=== PATIENT | female | born 1950 | race Caucasian/White ===

== ENCOUNTER → 2016-12-03 | Outpatient (CLI) | payer MEDICARE ==
--- NOTE | 2016-12-03 12:31 | BD ---
EXAMINATION TYPE: MG DEXA axial skeleton. DATE OF EXAM: 12/03/2016 11:24 AM COMPARISON: NONE CLINICAL HISTORY: Height: 5 FT 2 IN Weight: 263 FRAX RISK QUESTIONS: Alcohol (3 or more units per day): YES Family History (Parent hip fracture): NO Glucocorticoids (More than 3mos): NO (Ex: prednisone, prednisolone, methylprednisolone, dexamethasone, and hydrocortisone). History of Fracture in Adulthood: YES Secondary Osteoporosis: 1. Type 1 Diabetes: NO 2. Hyperthyroidism: NO 3. Menopause before 45: NO 4. Malnutrition: NO 5. Chronic liver disease: NO Rheumatoid Arthritis: NO Current Tobacco Use: NO RISK FACTORS HISTORY OF: Other Fractures since Age 50: YES When: 2012 Family History of Osteoporosis: YES Active: YES Postmenopausal woman: AGE 55 MEDICATIONS: Additional Medications: VASOTEC,OMEPRAZOLE, PREVACHOL,SINGUALIR, BABY ASPIRIN Additional History: EXAM MEASUREMENTS: Bone mineral densitometry was performed using the [employer] System. Bone mineral density as measured about the Lumbar spine is: ----- L1-L4(G/cm2): 1.060 T Score Values are as follows: ----- L2: -0.6 ----- L3: -1.2 ----- L4: -2.1 ----- L1-L4: -1.0 BASELINE Bone mineral density about the R hip (g/cm2): 0.657 Bone mineral density about the L hip (g/cm2): 0.618 T Score values are as follows: -----R Neck: -2.7 -----L Neck: -3.0 -----R Intertrochanter: -2.5 -----L Intertrochanter: -2.5 BASELINE IMPRESSION: Osteoporosis (T Score less than -2.5) as noted by T Score values at the There is increased fracture risk and therapy is usually indicated based on age. Re-Screen 1-2 years. LULA HIPS NOTE: T-SCORE=SD OF THE YOUNG ADULT MEAN.
--- NOTE | 2016-12-04 10:02 | MM ---
Reason for exam: screening (asymptomatic). Last mammogram was performed 3 years and 10 months ago. History: Patient is postmenopausal and is nulliparous. MG 3D Screening Mammo W/Cad Bilateral CC and MLO view(s) were taken. Prior study comparison: January 22, 2013, CAD bilateral diagnostic mammogram. June 15, 2011, bilateral digital screening mammo w/CAD. The breast tissue is almost entirely fat. There is chronic nodularity bilaterally. No significant changes when compared with prior studies. ASSESSMENT: Benign, BI-RAD 2 RECOMMENDATION: Routine screening mammogram of both breasts in 1 year.
== END | disposition home or self-care (01) ==
LOC: RADMAMWWP 10:23
PROVIDERS: ATTEND Family Medicine
DX: Z12.31 Encounter for screening mammogram for malignant neoplasm of breast (principal); Z13.820 Encounter for screening for osteoporosis; M81.0 Age-related osteoporosis without current pathological fracture
CPT/HCPCS: 77080; 77052; 77063; G0202

== ENCOUNTER → 2017-02-04 | Outpatient (CLI) | payer MEDICARE ==
[~2017-02-04] MED LIST: SODIUM CHLORIDE 0.9% 250 ML in EMPTY BAG 1 BAG IV PRN; SODIUM CHLORIDE 0.9% 500 ML in EMPTY BAG 1 BAG IV PRN; ZOLEDRONIC ACID 5 MG in SODIUM CHLORIDE 0.9% 100 ML IV ONE
[2017-02-04 11:29] VITALS: BP 145/75; PULSE 56; RESP 16; TEMP 98
== END | disposition home or self-care (01) ==
LOC: PROCWHC3 10:19
PROVIDERS: ATTEND Family Medicine
DX: M81.0 Age-related osteoporosis without current pathological fracture (principal)
CPT/HCPCS: 96365; J3489

== ENCOUNTER 2017-04-24 11:46 | Observation (INO) | payer MEDICARE ==
[2017-04-24] MEDS ORDERED: IPRATROPIUM-ALBUTEROL 3 ML NEB INHALATION STA (13:10)
--- NOTE | 2017-04-24 13:11 | ED ---
General Adult HPI - General Chief complaint: Shortness of Breath Stated complaint: kaylah, pain in leg, poss bloodclot Time Seen by Provider: 04/24/17 12:00 Source: patient, RN notes reviewed Mode of arrival: ambulatory Limitations: no limitations - History of Present Illness Initial comments: This is a 67-year-old female with a past medical history significant for pneumonia recently. Patient states she's on her 10th day of antibiotics currently. Patient has a past medical history significant for asthma diabetes hypertension high cholesterol. Patient states last night she started having some difficulty breathing she woke up today and the difficulty breathing continued. Patient denies any fever chills or cough in the last few days. Patient states she felt. Good yesterday all day long. Patient denies any chest pain or palpitation. Patient denies any fever or chills that she knows of. Patient denies any abdominal pain patient denies nausea vomiting diarrhea. Patient denies any lightheadedness dizziness or syncopal episode. Patient states she took a breathing treatment at home but did not seem to help much. Patient states she does wear CPAP at night. - Related Data Home Medications Medication Instructions Recorded Confirmed Aspirin [Adult Low Dose Aspirin EC] 81 mg PO HS 02/04/17 04/24/17 Biotin 5,000 mcg PO DAILY 02/04/17 04/24/17 Cholecalciferol [Vitamin D3] 400 unit PO DAILY 02/04/17 04/24/17 Enalapril [Vasotec] 10 mg PO DAILY 02/04/17 04/24/17 Montelukast [Singulair] 10 mg PO HS 02/04/17 04/24/17 [place]-3 Fatty Acids/Fish Oil [Fish 1 cap PO DAILY 02/04/17 04/24/17 Oil 1,000 mg Softgel] Pravastatin Sodium [Pravachol] 20 mg PO HS 02/04/17 04/24/17 Ubidecarenone [Co Q-10] 30 mg PO DAILY 02/04/17 04/24/17 Calcium Carbonate/Vitamin D3 1 tab PO DAILY 04/24/17 04/24/17 [Calcium 500-Vit D3 200 Tablet] Cetirizine HCl [Zyrtec] 10 mg PO HS PRN 04/24/17 04/24/17 Omeprazole 20 mg PO DAILY 04/24/17 04/24/17 Allergies Allergy/AdvReac Type Severity Reaction Status Date / Time adhesive tape Allergy Rash/Hives Verified 04/24/17 12:17 clindamycin Allergy Rash/Hives Verified 04/24/17 12:17 Penicillins Allergy Swelling Verified 04/24/17 12:17 amlodipine [From [facility]] AdvReac DENTAL Verified 04/24/17 12:17 ISSUES Review of Systems ROS Statement: Those systems with pertinent positive or pertinent negative responses have been documented in the HPI. ROS Other: All systems not noted in ROS Statement are negative. Past Medical History Past Medical History: COPD, Diabetes Mellitus, Deep Vein Thrombosis (DVT), Hyperlipidemia, Hypertension History of Any Multi-Drug Resistant Organisms: None Reported Additional Past Surgical History / Comment(s): vein surgery left leg Past Psychological History: No Psychological Hx Reported Smoking Status: Former smoker Past Alcohol Use History: Occasional Past Drug Use History: None Reported General Exam - General Exam Comments Initial Comments: GENERAL: Patient is well-developed and well-nourished. Patient is nontoxic and well- hydrated and is in no acute distress. ENT: Neck is soft and supple. No significant lymphadenopathy is noted. Oropharynx is clear. Moist mucous membranes. Neck has full range of motion without eliciting any pain. EYES: The sclera were anicteric and conjunctiva were pink and moist. Extraocular movements were intact and pupils were equal round and reactive to light. Eyelids were unremarkable. PULMONARY: Unlabored respirations. Good breath sounds bilaterally. Patient hasexpiratory wheezing. CARDIOVASCULAR: There is a regular rate and rhythm without any murmurs gallops or rubs. ABDOMEN: Soft and nontender with normal bowel sounds. No palpable organomegaly was noted. There is no palpable pulsatile mass. SKIN: Skin is clear with no lesions or rashes and otherwise unremarkable. NEUROLOGIC: Patient is alert and oriented x3. Cranial nerves II through XII are grossly intact. Motor and sensory are also intact. Normal speech, volume and content. Symmetrical smile. MUSCULOSKELETAL: Normal extremities with adequate strength and full range of motion. No lower extremity swelling or edema. No calf tenderness. LYMPHATICS: No significant lymphadenopathy is noted PSYCHIATRIC: Normal psychiatric evaluation. Limitations: no limitations Course Vital Signs 04/24/17 04/24/17 04/24/17 11:59 13:21 13:28 Temperature 98.5 F Pulse Rate 91 98 100 Respiratory 24 Rate Blood Pressure 164/99 O2 Sat by Pulse 99 Oximetry 04/24/17 04/24/17 13:43 15:05 Temperature 97.9 F Pulse Rate 92 79 Respiratory 18 16 Rate Blood Pressure 169/71 159/70 O2 Sat by Pulse 94 L 99 Oximetry Medical Decision Making - Medical Decision Making EKG shows normal sinus rhythm at 91 bpm MN interval is 190 QRS is 88 QT interval 340 QTC is 418. Patient's EKG shows no ST segment elevation or depression or T-wave abdomen is noted. Chest x-ray shows no acute normalities. Patient received albuterol as well as steroids in the emergency department she was feeling much better however her troponin was elevated so without them admit the patient for 23 hour observation and repeat troponins. - Lab Data Result diagrams: 04/24/17 12:14 04/24/17 12:14 Lab Results 04/24/17 04/24/17 04/24/17 Range/Units 12:14 12:14 12:14 WBC 11.1 H (3.8-10.6) k/uL RBC 5.05 (3.80-5.40) m/uL Hgb 14.6 (11.4-16.0) gm/dL Hct 46.1 H (34.0-46.0) % MCV 91.3 (80.0-100.0) fL MCH 29.0 (25.0-35.0) pg MCHC 31.7 (31.0-37.0) g/dL RDW 13.4 (11.5-15.5) % Plt Count 222 (150-450) k/uL Neutrophils % 74 % Lymphocytes % 18 % Monocytes % 5 % Eosinophils % 2 % Basophils % 1 % Neutrophils # 8.1 H (1.3-7.7) k/uL Lymphocytes # 2.0 (1.0-4.8) k/uL Monocytes # 0.5 (0-1.0) k/uL Eosinophils # 0.3 (0-0.7) k/uL Basophils # 0.1 (0-0.2) k/uL PT (9.0-12.0) sec INR (<1.1) APTT (22.0-30.0) sec Sodium 141 (137-145) mmol/L Potassium 4.6 (3.5-5.1) mmol/L Chloride 107 (98-107) mmol/L Carbon Dioxide 27 (22-30) mmol/L Anion Gap 7 mmol/L BUN 22 H (7-17) mg/dL Creatinine 1.20 H (0.52-1.04) mg/dL Est GFR (MDRD) Af Amer 54 (>60 ml/min/1.73 sqM) Est GFR (MDRD) Non-Af 45 (>60 ml/min/1.73 sqM) Glucose 133 H (74-99) mg/dL Calcium 9.4 (8.4-10.2) mg/dL Magnesium 1.7 (1.6-2.3) mg/dL Total Bilirubin 0.7 (0.2-1.3) mg/dL AST 25 (14-36) U/L ALT 29 (9-52) U/L Alkaline Phosphatase 68 (38-126) U/L Total Creatine Kinase 33 (30-135) U/L CK-MB (CK-2) 0.6 (0.0-2.4) ng/mL CK-MB (CK-2) Rel Index 1.8 Troponin I 0.051 H* (0.000-0.034) ng/mL NT-Pro-B Natriuret Pep pg/mL Total Protein 6.9 (6.3-8.2) g/dL Albumin 4.1 (3.5-5.0) g/dL 04/24/17 04/24/17 Range/Units 12:14 12:14 WBC (3.8-10.6) k/uL RBC (3.80-5.40) m/uL Hgb (11.4-16.0) gm/dL Hct (34.0-46.0) % MCV (80.0-100.0) fL MCH (25.0-35.0) pg MCHC (31.0-37.0) g/dL RDW (11.5-15.5) % Plt Count (150-450) k/uL Neutrophils % % Lymphocytes % % Monocytes % % Eosinophils % % Basophils % % Neutrophils # (1.3-7.7) k/uL Lymphocytes # (1.0-4.8) k/uL Monocytes # (0-1.0) k/uL Eosinophils # (0-0.7) k/uL Basophils # (0-0.2) k/uL PT 10.6 (9.0-12.0) sec INR 1.1 (<1.1) APTT 22.3 (22.0-30.0) sec Sodium (137-145) mmol/L Potassium (3.5-5.1) mmol/L Chloride (98-107) mmol/L Carbon Dioxide (22-30) mmol/L Anion Gap mmol/L BUN (7-17) mg/dL Creatinine (0.52-1.04) mg/dL Est GFR (MDRD) Af Amer (>60 ml/min/1.73 sqM) Est GFR (MDRD) Non-Af (>60 ml/min/1.73 sqM) Glucose (74-99) mg/dL Calcium (8.4-10.2) mg/dL Magnesium (1.6-2.3) mg/dL Total Bilirubin (0.2-1.3) mg/dL AST (14-36) U/L ALT (9-52) U/L Alkaline Phosphatase (38-126) U/L Total Creatine Kinase (30-135) U/L CK-MB (CK-2) (0.0-2.4) ng/mL CK-MB (CK-2) Rel Index Troponin I (0.000-0.034) ng/mL NT-Pro-B Natriuret Pep 93 pg/mL Total Protein (6.3-8.2) g/dL Albumin (3.5-5.0) g/dL Disposition Clinical Impression: Asthma exacerbation, Elevated troponin Disposition: ADMITTED IP TO THIS HOSP Referrals: Arabella Bashir MD [Primary Care Provider] - 1-2 days Time of Disposition: 16:14
[2017-04-24 13:36] LABS: Basophils # (A) 0.1 k/uL (0-0.2); Basophils % (A) 1 %; CH 29.1; Eosinophils # (A) 0.3 k/uL (0-0.7); Eosinophils % (A) 2 %; HCT 46.1 % (34.0-46.0); HDW 2.47; HGB 14.6 gm/dL (11.4-16.0); Luc # (Auto) 0.09; Luc % (Auto) 1; Lymphocytes % (A) 18 %; MCHC 31.7 g/dL (31.0-37.0); MCV 91.3 fL (80.0-100.0); Mean Platelet Volume 7.5; Monocytes # (A) 0.5 k/uL (0-1.0); Monocytes % (A) 5 %; Neutrophils # (A) 8.1 k/uL (1.3-7.7); Neutrophils % (A) 74 %; RBC 5.05 m/uL (3.80-5.40); RDW 13.4 % (11.5-15.5); WBC 11.1 k/uL (3.8-10.6); WBC (Perox) 10.12
[2017-04-24 13:49] LABS: INR 1.1 (<1.1); Partial Thromboplastin Time 22.3 sec (22.0-30.0); Prothrombin Time 10.6 sec (9.0-12.0)
--- NOTE | 2017-04-24 13:57 | XR ---
EXAMINATION TYPE: XR chest 2V DATE OF EXAM: 04/24/2017 COMPARISON: 07/10/2013 INDICATION: Difficulty breathing shortness of breath TECHNIQUE: Frontal and lateral views of the chest are obtained. FINDINGS: The heart size is normal. The pulmonary vasculature is normal. The lungs are clear. IMPRESSION: 1. No acute pulmonary process.
[2017-04-24 13:58] LABS: Calcium 9.4 mg/dL (8.4-10.2); Magnesium 1.7 mg/dL (1.6-2.3); Potassium 4.6 mmol/L (3.5-5.1); Total Bilirubin 0.7 mg/dL (0.2-1.3); Total Protein 6.9 g/dL (6.3-8.2)
[2017-04-24 14:15] LABS: Creatine Kinase MB 0.6 ng/mL (0.0-2.4)
[2017-04-24 14:17] LABS: Troponin I 0.051 ng/mL (0.000-0.034)
[2017-04-24] MEDS ORDERED: IPRATROPIUM-ALBUTEROL 3 ML NEB INHALATION PRN (16:16)
[2017-04-24] MEDS ORDERED: methylPREDNISolone SOD SUCCI 125 MG/2 ML VIAL IV STA (16:16)
[2017-04-24 16:43] VITALS: RESP 18
[2017-04-24 20:23] VITALS: BMI 48.4
[2017-04-24] MEDS ORDERED: LORATADINE 10 MG TAB PO PRN (20:37)
[2017-04-24] MEDS: PRAVASTATIN SODIUM 20 MG TAB PO SCH (22:00)
[2017-04-24] MEDS: ASPIRIN 81 MG CHEW PO SCH (22:00)
[2017-04-24] MEDS: MONTELUKAST 10 MG TAB PO SCH (22:00)
[2017-04-24 22:01] LABS: Glucose,Whole Blood 208 mg/dL (75-99)
[2017-04-24] MEDS: INSULIN LISPRO (humaLOG) 300 UNIT/3 ML VIAL SQ SCH (22:04)
[2017-04-24] MEDS: methylPREDNISolone SOD SUCCI 125 MG/2 ML VIAL IV SCH (23:17)
[2017-04-24 23:49] LABS: Hemoglobin A1C 6.6 % (4.2-6.1)
[2017-04-25 06:12] LABS: Glucose,Whole Blood 220 mg/dL (75-99)
[2017-04-25] MEDS: INSULIN LISPRO (humaLOG) 300 UNIT/3 ML VIAL SQ SCH ×4 (06:56→21:51)
[2017-04-25] MEDS: methylPREDNISolone SOD SUCCI 125 MG/2 ML VIAL IV SCH (06:56)
[2017-04-25] MEDS: PANTOPRAZOLE 40 MG TABLET PO SCH (06:57)
[2017-04-25] MEDS: CHOLECALCIFEROL 400 UNIT TAB PO SCH (08:10)
[2017-04-25] MEDS: LISINOPRIL 20 MG TAB PO SCH (08:10)
[2017-04-25] MEDS: CALCIUM CARB-VIT D 500MG-200UN 1 EACH TAB PO SCH (08:11)
[2017-04-25] MEDS ORDERED: NON-FORMULARY DRUG (Omega-3 Fatty Acids/Fish Oil [Fish Oil 1,000 Mg Softgel] 1 CAP) PO SCH (09:00)
[2017-04-25] MEDS ORDERED: NON-FORMULARY DRUG (Ubidecarenone [Co Q-10] 30 MG) PO SCH (09:00)
[2017-04-25] MEDS ORDERED: NON-FORMULARY DRUG (Biotin [Biotin] 5,000 MCG) PO SCH (09:00)
--- NOTE | 2017-04-25 11:12 | CONS ---
DATE OF CONSULTATION: Elli is a 67-year-old lady who had recently been diagnosed with pneumonia and had been treated comes in because she was feeling more short of breath and felt as if something was stuck in her chest. Symptoms were mild to moderate intensity, came to the ER, received a nebulizer. Following which her symptoms have resolved. She is currently being treated with steroids and her symptoms have completely resolved at the time of my evaluation. EKG shows sinus tachycardia with poor R wave progression. Labs show that her troponin is in the lainez zone at 0.05, 0.06 and 0.03 with normal CPK and CK-MB. Her hemoglobin is normal at 14.6, but the white cell count is elevated at 11. Past medical history is significant for COPD and dyslipidemia and hypertension also. Medications at home include Pravachol, Zyrtec, Singulair, aspirin and Vasotec. Allergic to CLINDAMYCIN, PENICILLIN, AMLODIPINE and ADHESIVE TAPE. Family history is negative for premature coronary artery disease. SOCIAL HISTORY: Negative for current smoking, EtOH abuse or drug abuse. REVIEW OF SYSTEMS: HEENT: Unremarkable. CARDIAC: As described above. RESPIRATORY: As described above. GI: Negative. GENITOURINARY: Negative. ALLERGY/IMMUNOLOGY: Negative. SKIN: Negative. MUSCULOSKELETAL: Negative. ENDOCRINE: Negative. DERMATOLOGY: Negative. CONSTITUTIONAL: Negative. ONCOLOGICAL: Negative. The rest of the system review is not relevant. On exam, heart rate is 68 beats per minute, blood pressure 151/75, respirations 18. There is no jugular venous distention. Carotid upstroke is normal. There is no bruit. Chest exam reveals good air entry bilaterally. Heart exam reveals first and second heart sounds. No gallop. No murmur. Abdomen is soft. Exam of extremities reveals trace edema. Peripheral pulses are felt. Labs are as described above. EKG is normal. ASSESSMENT: 1. Shortness of breath, probably secondary to bronchospasm in a patient with recent episodes of pneumonia. 2. Mild troponin elevation of unclear clinical significance. Could be related to the underlying respiratory problem ; however, I am going to review the echocardiogram to assess the LV function and wall motion and once her respiratory status becomes stable, I will consider doing a stress test on her.
--- NOTE | 2017-04-25 11:33 | P.HPIM ---
History of Present Illness H&P Date: 04/25/17 Chief Complaint: Shortness of breath and chest heaviness This is a 67-year-old female with past medical history noted below significant for obstructive sleep apnea and underlying asthma who presented to the hospital with worsening shortness of breath. Patient was seen by her primary care physician approximately 10 days ago and was prescribed antibiotic for suspected pneumonia. Patient said that her symptoms initially got better but she was using her albuterol nebulizer more frequently at home. Yesterday, she noted more shortness of breath and what she describes as chest heaviness or like a child sitting on her chest. She denies kaela or sharp chest pain. There was no radiation. She decided to come to the emergency room for further evaluation. Emergency room twelve-lead EKG showed no acute ischemic changes. Initial troponin were borderline elevated elevated. Patient was placed on telemetry unit and cardiology consulted. She denies any chest pain at this time. She states that she feels a lot better compared to yesterday. Review of Systems Review of system: 14 points review of systems were obtained and were negative except to what were mentioned in the HPI. Past Medical History Past Medical History: COPD, Diabetes Mellitus, Deep Vein Thrombosis (DVT), Hyperlipidemia, Hypertension Additional Past Medical History / Comment(s): DVT in both legs; superficial clots; DM diet controlled History of Any Multi-Drug Resistant Organisms: None Reported Additional Past Surgical History / Comment(s): vein surgery left leg Past Anesthesia/Blood Transfusion Reactions: No Reported Reaction Past Psychological History: No Psychological Hx Reported Smoking Status: Current some day smoker Past Alcohol Use History: Occasional Past Drug Use History: None Reported Additional Drug Use History / Comment(s): Pt states she smokes when she drinks on occasion Medications and Allergies Home Medications Medication Instructions Recorded Confirmed Type Aspirin [Adult Low Dose Aspirin EC] 81 mg PO HS 02/04/17 04/24/17 History Biotin 5,000 mcg PO DAILY 02/04/17 04/24/17 History Cholecalciferol [Vitamin D3] 400 unit PO DAILY 02/04/17 04/24/17 History Enalapril [Vasotec] 10 mg PO DAILY 02/04/17 04/24/17 History Montelukast [Singulair] 10 mg PO HS 02/04/17 04/24/17 History [place]-3 Fatty Acids/Fish Oil [Fish 1 cap PO DAILY 02/04/17 04/24/17 History Oil 1,000 mg Softgel] Pravastatin Sodium [Pravachol] 20 mg PO HS 02/04/17 04/24/17 History Ubidecarenone [Co Q-10] 30 mg PO DAILY 02/04/17 04/24/17 History Calcium Carbonate/Vitamin D3 1 tab PO DAILY 04/24/17 04/24/17 History [Calcium 500-Vit D3 200 Tablet] Cetirizine HCl [Zyrtec] 10 mg PO HS PRN 04/24/17 04/24/17 History Omeprazole 20 mg PO DAILY 04/24/17 04/24/17 History Allergies Allergy/AdvReac Type Severity Reaction Status Date / Time adhesive tape Allergy Rash/Hives Verified 04/24/17 12:17 clindamycin Allergy Rash/Hives Verified 04/24/17 12:17 Penicillins Allergy Swelling Verified 04/24/17 12:17 amlodipine [From [facility]] AdvReac DENTAL Verified 04/24/17 12:17 ISSUES Physical Exam Vitals: Vital Signs Temp Pulse Pulse Pulse Resp BP BP 04/25/17 08:00 96.6 F L 68 18 151/75 04/25/17 04:00 97 F L 65 18 145/65 04/25/17 00:00 97 F L 60 18 142/68 04/24/17 20:00 97 F L 77 18 159/75 04/24/17 19:15 97.3 F L 87 18 139/82 04/24/17 16:40 97.6 F 91 18 129/71 04/24/17 15:05 97.9 F 79 16 159/70 04/24/17 13:43 92 18 169/71 04/24/17 13:28 100 04/24/17 13:21 98 04/24/17 11:59 98.5 F 91 24 164/99 Pulse Ox 04/25/17 08:00 95 04/25/17 04:00 98 04/25/17 00:00 96 04/24/17 20:00 96 04/24/17 19:15 93 L 04/24/17 16:40 98 04/24/17 15:05 99 04/24/17 13:43 94 L 04/24/17 13:28 04/24/17 13:21 04/24/17 11:59 99 Intake and Output 04/24/17 04/25/17 04/25/17 22:59 06:59 14:59 Intake Total 240 Balance 240 Intake: Oral 240 Other: Voiding Method Toilet Toilet # Voids 2 1 2 Weight 120.202 kg 121.6 kg General: The patient is awake and alert, in no distress, she is morbidly obese Eye: extra-ocular movements are intact; there is normal conjunctiva bilaterally. . Neck: The neck is supple, there is no tenderness or JVD. Cardiovascular: Normal S1-S2, no S3-S4, no murmurs. Respiratory: Lungs are diminished with very mild end expiratory wheezing Gastrointestinal: Abdomen is soft, nontender, nondistended, with no organomegaly. . Musculoskeletal: Normal ROM, no tenderness, There is no pedal edema. Neurological: There are no obvious motor or sensory deficits. Speech is normal. Skin: Skin is warm and dry and no rashes or lesions are noted. Results CBC & Chem 7: 04/24/17 12:14 04/24/17 12:14 Labs: Abnormal Lab Results - Last 24 Hours (Table) 04/24/17 04/24/17 04/24/17 Range/Units 12:14 12:14 12:14 WBC 11.1 H (3.8-10.6) k/uL Hct 46.1 H (34.0-46.0) % Neutrophils # 8.1 H (1.3-7.7) k/uL BUN 22 H (7-17) mg/dL Creatinine 1.20 H (0.52-1.04) mg/dL Glucose 133 H (74-99) mg/dL POC Glucose (mg/dL) (75-99) mg/dL Hemoglobin A1c (4.2-6.1) % Troponin I 0.051 H* (0.000-0.034) ng/mL 04/24/17 04/24/17 04/24/17 Range/Units 20:10 20:10 21:58 WBC (3.8-10.6) k/uL Hct (34.0-46.0) % Neutrophils # (1.3-7.7) k/uL BUN (7-17) mg/dL Creatinine (0.52-1.04) mg/dL Glucose (74-99) mg/dL POC Glucose (mg/dL) 208 H (75-99) mg/dL Hemoglobin A1c 6.6 H (4.2-6.1) % Troponin I 0.067 H* (0.000-0.034) ng/mL 04/25/17 04/25/17 Range/Units 00:30 06:10 WBC (3.8-10.6) k/uL Hct (34.0-46.0) % Neutrophils # (1.3-7.7) k/uL BUN (7-17) mg/dL Creatinine (0.52-1.04) mg/dL Glucose (74-99) mg/dL POC Glucose (mg/dL) 220 H (75-99) mg/dL Hemoglobin A1c (4.2-6.1) % Troponin I 0.035 H* (0.000-0.034) ng/mL Thrombosis Risk Factor Assmnt - Choose All That Apply Each Factor Represents 1 point: Obesity (BMI >25), Serious lung disease incl. pneumonia (< 1month), Varicose veins Each Risk Factor Represents 2 Points: Age 61-74 years Each Risk Factor Represents 3 Points: History of DVT/PE Thrombosis Risk Factor Assessment Total Risk Factor Score: 8 Thrombosis Risk Factor Assessment Level: High Risk Assessment and Plan Plan: 1. Acute asthma exacerbation: Patient was started on IV steroids and bronchodilators. Her lungs sounds better compared to yesterday. I would switch her steroids to oral prednisone. Continue bronchodilators. 2. Elevated troponin: Most likely non-thrombotic troponin leak. Patient was seen and evaluated by cardiology. Echocardiogram ordered. No acute ischemic changes on 12-lead EKG. 3. Chronic ALLERGIC rhinitis: On Claritin 4. Essential hypertension: Blood pressure well-controlled 5. Next hyperlipidemia Today, I reviewed her medications as her lab work results. Add Mucinex twice daily to help with her cough. Continue bronchodilator. Switch steroids to oral prednisone. appreciate cardiology recommendations. Patient continues to improve she might be able to be discharged home tomorrow.
[2017-04-25 11:46] LABS: Glucose,Whole Blood 185 mg/dL (75-99)
[2017-04-25] MEDS: guaiFENesin 600 MG TABLET.ER PO SCH ×2 (12:08→21:51)
--- NOTE | 2017-04-25 12:53 | ECHOF ---
Referral Reason:chest pain MEASUREMENTS -------- HEIGHT: 157.5 cm WEIGHT: 121.6 kg BP: 151/75 RVIDd: 2.6 cm (< 3.3) IVSd: 1.3 cm (0.6 - 1.1) LVIDd: 3.9 cm (3.9 - 5.3) LVPWd: 1.4 cm (0.6 - 1.1) IVSs: 1.5 cm LVIDs: 3.0 cm LVPWs: 1.6 cm LAESV Index (A-L): 28.42 ml/m Ao Diam: 3.4 cm (2.0 - 3.7) AV Cusp: 1.8 cm (1.5 - 2.6) LA Diam: 3.8 cm (2.7 - 3.8) MV E Shade: 0.80 m/s MV DecT: 281 ms MV A Shade: 1.12 m/s MV E/A Ratio: 0.72 RAP: 5.00 mmHg RVSP: 39.29 mmHg FINDINGS -------- Sinus rhythm. This was a technically adequate study. There is mild concentric left ventricular hypertrophy. Overall left ventricular systolic function is low-normal with, an EF between 50 - 55 %. The right ventricle is normal in size and function. LA is midly dilated 29-33ml/m2. The right atrium is normal in size. There is mild aortic valve sclerosis. There is no evidence of aortic stenosis. The mitral valve leaflets are mildly thickened. There is trace to mild mitral regurgitation. Trace tricuspid regurgitation present. There is mild pulmonary hypertension. The right ventricular systolic pressure, as measured by Doppler, is 39.29mmHg. The pulmonic valve is normal. The aortic root size is normal. IVC Not well visulized. The pericardium is normal. There is no pericardial effusion. CONCLUSIONS -------- 1. Sinus rhythm. 2. The right ventricular systolic pressure, as measured by Doppler, is 39.29mmHg. 3. The aortic root size is normal. 4. IVC Not well visulized. 5. There is no pericardial effusion. 6. There is mild concentric left ventricular hypertrophy. 7. Overall left ventricular systolic function is low-normal with, an EF between 50 - 55 %. 8. LA is midly dilated 29-33ml/m2. 9. There is mild aortic valve sclerosis. 10. The mitral valve leaflets are mildly thickened. 11. There is trace to mild mitral regurgitation. 12. Trace tricuspid regurgitation present. 13. There is mild pulmonary hypertension. PHOTOGRAPHIC SUPERVISOR: Chiki Goetz RDCS
[2017-04-25 16:27] LABS: Glucose,Whole Blood 159 mg/dL (75-99)
[2017-04-25 21:26] LABS: Glucose,Whole Blood 266 mg/dL (75-99)
[2017-04-25] MEDS: ASPIRIN 81 MG CHEW PO SCH (21:51)
[2017-04-25] MEDS: PRAVASTATIN SODIUM 20 MG TAB PO SCH (21:51)
[2017-04-25] MEDS: HEPARIN SODIUM,PORCINE 5,000 UNIT/ML 1 ML VIAL SQ SCH (21:51)
[2017-04-25] MEDS: MONTELUKAST 10 MG TAB PO SCH (21:51)
[2017-04-26 06:26] LABS: Glucose,Whole Blood 137 mg/dL (75-99)
[2017-04-26 06:39] LABS: Basophils % (A) 0 %; CHCM 32.6; Eosinophils % (A) 0 %; HCT 41.1 % (34.0-46.0); HDW 2.59; HGB 13.8 gm/dL (11.4-16.0); Luc % (Auto) 1; Lymphocytes # (A) 1.5 k/uL (1.0-4.8); Lymphocytes % (A) 9 %; MCH 29.9 pg (25.0-35.0); MCHC 33.5 g/dL (31.0-37.0); MCV 89.3 fL (80.0-100.0); Mean Platelet Volume 7.4; Monocytes # (A) 0.8 k/uL (0-1.0); Monocytes % (A) 5 %; Neutrophils # (A) 13.9 k/uL (1.3-7.7); Neutrophils % (A) 85 %; RDW 12.9 % (11.5-15.5); WBC 16.4 k/uL (3.8-10.6); WBC (Perox) 16.99
[2017-04-26 06:52] LABS: Calcium 9.2 mg/dL (8.4-10.2); Potassium 4.9 mmol/L (3.5-5.1)
[2017-04-26] MEDS: PANTOPRAZOLE 40 MG TABLET PO SCH (06:52)
[2017-04-26] MEDS: INSULIN LISPRO (humaLOG) 300 UNIT/3 ML VIAL SQ SCH ×2 (06:52→12:13)
[2017-04-26] MEDS ORDERED: predniSONE 20 MG TAB PO SCH (09:00)
[2017-04-26] MEDS: HEPARIN SODIUM,PORCINE 5,000 UNIT/ML 1 ML VIAL SQ SCH (09:19)
[2017-04-26] MEDS: CHOLECALCIFEROL 400 UNIT TAB PO SCH (09:20)
[2017-04-26] MEDS: guaiFENesin 600 MG TABLET.ER PO SCH (09:20)
[2017-04-26] MEDS: LISINOPRIL 20 MG TAB PO SCH (09:20)
[2017-04-26] MEDS: CALCIUM CARB-VIT D 500MG-200UN 1 EACH TAB PO SCH (09:20)
--- NOTE | 2017-04-26 10:42 | P.DS ---
Providers Date of admission: 04/24/17 16:15 Expected date of discharge: 04/26/17 Attending physician: Sonya Wray Consults: 04/25/17 01:38 Consult Physician Routine Consulting Provider: Luis Saxena Consult Reason/Comments: elevated trops Do you want consulting provider notified?: Yes, Notify in am Primary care physician: Arabella Bashir Hospital Course: Discharge diagnosis 1. Acute asthma exacerbation: 2. Elevated troponin: Most likely non-thrombotic troponin leak. Patient was seen and evaluated by cardiology. No acute ischemic changes on 12-lead EKG. echo shows an EF of 50-55%, mild pulmonary hypertension, trace tricuspid regurg and mitral regurgitation. Patient has been cleared by cardiology for discharge. She'll follow-up with cardiology for outpatient stress test 3. Chronic ALLERGIC rhinitis: On Claritin 4. Essential hypertension: Blood pressure well-controlled 5. hyperlipidemia 6. Leukocytosis secondary to steroids Hospital course this is a 67-year-old female with past medical history noted below significant for obstructive sleep apnea and underlying asthma who presented to the hospital with worsening shortness of breath. Patient was seen by her primary care physician approximately 10 days ago and was prescribed antibiotic for suspected pneumonia. Patient said that her symptoms initially got better but she was using her albuterol nebulizer more frequently at home. Yesterday, she noted more shortness of breath and what she describes as chest heaviness or like a child sitting on her chest. She denies kaela or sharp chest pain. There was no radiation. She decided to come to the emergency room for further evaluation. Emergency room twelve-lead EKG showed no acute ischemic changes. Initial troponin were borderline elevated elevated. Patient was placed on telemetry unit and cardiology consulted. Patient was evaluated by cardiology. They ordered an echo with an EF of 5055%, mild pulmonary hypertension and trace tricuspid regurgitation and mitral regurgitation. Patient's chest pain has resolved. Her shortness of breath has improved. She's been up and ambulating. Likely her symptoms are related to the acute asthma exacerbation. She'll continue prednisone taper at home with the Mucinex and nebulizer treatments as scheduled. Patient follow-up with her primary care doctor in 1 week. And she' ll follow up with cardiology for outpatient stress test. Her exact etiology of the mildly elevated troponins of unclear might be related to the lungs. Therefore cardiology is recommending that her current exacerbation is cleared up before the procedure stress test. Patient is medically stable for discharge and eager for discharge home. Chest x-ray negative as well. Patient Condition at Discharge: Stable Plan - Discharge Summary New Discharge Prescriptions: New guaiFENesin [Mucinex] 1,200 mg PO Q12HR #10 tab predniSONE 10 mg PO DIRECTED #20 tab Continue Pravastatin Sodium [Pravachol] 20 mg PO HS Montelukast [Singulair] 10 mg PO HS Cholecalciferol [Vitamin D3] 400 unit PO DAILY Enalapril [Vasotec] 10 mg PO DAILY Ubidecarenone [Co Q-10] 30 mg PO DAILY [place]-3 Fatty Acids/Fish Oil [Fish Oil 1,000 mg Softgel] 1 cap PO DAILY Biotin 5,000 mcg PO DAILY Aspirin [Adult Low Dose Aspirin EC] 81 mg PO HS Cetirizine HCl [Zyrtec] 10 mg PO HS PRN PRN Reason: Allergy Symptoms Omeprazole 20 mg PO DAILY Calcium Carbonate/Vitamin D3 [Calcium 500-Vit D3 200 Tablet] 1 tab PO DAILY Discharge Medication List Aspirin [Adult Low Dose Aspirin EC] 81 mg PO HS 02/04/17 [History] Biotin 5,000 mcg PO DAILY 02/04/17 [History] Cholecalciferol [Vitamin D3] 400 unit PO DAILY 02/04/17 [History] Enalapril [Vasotec] 10 mg PO DAILY 02/04/17 [History] Montelukast [Singulair] 10 mg PO HS 02/04/17 [History] [place]-3 Fatty Acids/Fish Oil [Fish Oil 1,000 mg Softgel] 1 cap PO DAILY [History] Pravastatin Sodium [Pravachol] 20 mg PO HS 02/04/17 [History] Ubidecarenone [Co Q-10] 30 mg PO DAILY 02/04/17 [History] Calcium Carbonate/Vitamin D3 [Calcium 500-Vit D3 200 Tablet] 1 tab PO DAILY [History] Cetirizine HCl [Zyrtec] 10 mg PO HS PRN 04/24/17 [History] Omeprazole 20 mg PO DAILY 04/24/17 [History] guaiFENesin [Mucinex] 1,200 mg PO Q12HR #10 tab 04/26/17 [Rx] predniSONE 10 mg PO DIRECTED #20 tab 04/26/17 [Rx] Follow up Appointment(s)/Referral(s): Arabella Bashir MD [Primary Care Provider] - 1 Week Juan Bahena MD [STAFF PHYSICIAN] - 2 Weeks Activity/Diet/Wound Care/Special Instructions: Diet: cardiac Activity: as tolerated Discharge Disposition: HOME SELF-CARE
[2017-04-26 12:03] LABS: Glucose,Whole Blood 112 mg/dL (75-99)
[2017-04-26 12:43] VITALS: BP 139/65; PULSE 57; TEMP 97
--- NOTE | 2017-04-26 14:00 | P.PN ---
Subjective This is a pleasant 67-year-old female who had recently been diagnosed with pneumonia and has been treated as an outpatient. Past medical history significant for COPD, dyslipidemia and hypertension. Presented to the emergency department feeling more short of breath. She has been treated with steroids and her symptoms are much improved. EKG shows sinus tachycardia with poor R-wave progression. Labs did show elevated troponins. On examination, patient is feeling quite a bit better. Continues to have an occasional cough with wheezing. 2-D echo with Doppler was done that showed an ejection fraction of 50-55%. Objective - Vital Signs Vital signs: Vital Signs Temp 97.0 F L 04/26/17 12:00 Pulse 57 L 04/26/17 12:00 Resp 18 04/26/17 12:00 BP 139/65 04/26/17 12:00 Pulse Ox 97 04/26/17 12:00 Intake & Output 04/25/17 04/26/17 04/26/17 18:59 06:59 18:59 Intake Total 0 100 Balance 0 100 Weight 122.3 kg Intake: IV 0 NS 0 Oral 100 Other: # Voids 2 1 1 - Exam PHYSICAL EXAMINATION: HEENT: Head is atraumatic, normocephalic. Pupils equal, round. Neck is supple. There is no elevated jugular venous pressure. HEART EXAMINATION: Heart sounds regular, S1 and S2 normal. No murmur or gallop heard. CHEST EXAMINATION: Lungs with scattered rhonchi and wheezing throughout. No chest wall tenderness is noted on palpation or with deep breathing. ABDOMEN: Soft, nontender. Bowel sounds are heard. No organomegaly noted. EXTREMITIES: 2+ peripheral pulses with no evidence of peripheral edema and no calf tenderness noted. NEUROLOGIC patient is awake, alert and oriented x3. . - Labs CBC & Chem 7: 04/26/17 06:15 04/26/17 06:15 Labs: Abnormal Lab Results - Last 24 Hours (Table) 04/25/17 04/25/17 04/26/17 Range/Units 16:24 21:01 06:14 WBC (3.8-10.6) k/uL Neutrophils # (1.3-7.7) k/uL BUN (7-17) mg/dL Creatinine (0.52-1.04) mg/dL Glucose (74-99) mg/dL POC Glucose (mg/dL) 159 H 266 H 137 H (75-99) mg/dL 04/26/17 04/26/17 04/26/17 Range/Units 06:15 06:15 12:01 WBC 16.4 H (3.8-10.6) k/uL Neutrophils # 13.9 H (1.3-7.7) k/uL BUN 29 H (7-17) mg/dL Creatinine 1.20 H (0.52-1.04) mg/dL Glucose 145 H (74-99) mg/dL POC Glucose (mg/dL) 112 H (75-99) mg/dL Assessment and Plan Plan: Assessment and plan #1 shortness of breath, recently treated for pneumonia #2 mild troponin elevation of unclear clinical significance #3 hypertension From a cardiac standpoint, continue medical therapy. Patient will follow-up as an outpatient. Once her respiratory status becomes stable will likely order a stress test to be done as an outpatient. The above dictated assessment and findings were discussed with signing physician. The impression and plan of care have been directed as dictated. Linh Ortega, Nurse Practitioner, acting as scribe for signing physician.
== END 2017-04-26 15:18 | disposition home or self-care (01) ==
LOC: EC 11:46 → 6SEL 16:15
PROVIDERS: ADMIT Internal Medicine; ATTEND Internal Medicine
DX: J45.901 Unspecified asthma with (acute) exacerbation (principal); I27.2 Other secondary pulmonary hypertension; I10 Essential (primary) hypertension; E78.5 Hyperlipidemia, unspecified; D72.829 Elevated white blood cell count, unspecified; T38.0X5A Adverse effect of glucocorticoids and synthetic analogues, initial encounter; J44.9 Chronic obstructive pulmonary disease, unspecified; G47.33 Obstructive sleep apnea (adult) (pediatric); M79.606 Pain in leg, unspecified; E11.9 Type 2 diabetes mellitus without complications; F17.200 Nicotine dependence, unspecified, uncomplicated; E66.9 Obesity, unspecified; Z68.42 Body mass index [BMI] 45.0-49.9, adult; Z79.82 Long term (current) use of aspirin; Z79.899 Other long term (current) drug therapy; Z87.01 Personal history of pneumonia (recurrent); Z88.0 Allergy status to penicillin; Z88.1 Allergy status to other antibiotic agents; Z88.8 Allergy status to other drugs, medicaments and biological substances; Z91.048 Other nonmedicinal substance allergy status; Z86.718 Personal history of other venous thrombosis and embolism; Z71.3 Dietary counseling and surveillance; Z86.711 Personal history of pulmonary embolism
CPT/HCPCS: 96376 ×2; 96372 ×2; 96374; 99285; 36415; 94640; 93005; 93306; 83880; 80053; 80048; 83036; 82550; 82553; 83735 ×2; 84484 ×2; 85025 ×2; 85610; 85730; 71020; G0378 ×3; J1644 ×2; J2930 ×2; J7512

== ENCOUNTER 2017-05-01 17:26 | Inpatient (IN) | payer MEDICARE ==
--- NOTE | 2017-05-01 17:25 | CT ---
EXAMINATION TYPE: CT angio chest DATE OF EXAM: 05/01/2017 4:56 PM COMPARISON: NONE HISTORY: Shortness of breath, subscapular pain, history of blood clots to legs CT DLP: 791 mGycm Automated exposure control for dose reduction was used. CONTRAST: CTA scan of the thorax is performed with IV Contrast, patient injected with 80 mL of Visipaque 320, p ulmonary embolism protocol. There are 3-D post processed images.. FINDINGS: There are numerous filling defects in branches of the lower lobe pulmonary arteries bilaterally. Ther e is also filling defect in the bilateral upper lobe pulmonary arteries. Thoracic aorta shows no evid ence of aneurysm or dissection. I see no mediastinal adenopathy. There are no hilar masses. The lungs are clear of consolidation. There is a mild patchy reticular interstitial infiltrate in the anterior left upper lobe. There is no sign of a pulmonary mass. There is similar interstitial infilt rate in the right lower lobe posteriorly. There is no pleural effusion. There is hypertrophic spurrin g in the thoracic spine. IMPRESSION: EXTENSIVE BILATERAL UPPER LOBE AND LOWER LOBE PULMONARY EMBOLI. INTERSTITIAL PULMONARY INFILTRATES IN THE LEFT UPPER LOBE AND RIGHT LOWER LOBE. THIS EXAM WAS DISCUSSED WITH THE EMERGENCY ROOM PHYSICIAN AT 5:20 PM.
[2017-05-01] MEDS ORDERED: SODIUM CHLORIDE 0.9% 1,000 ML IV STA (17:45)
--- NOTE | 2017-05-01 18:15 | XR ---
EXAMINATION TYPE: XR chest 2V DATE OF EXAM: 05/01/2017 COMPARISON: 04/24/2017 HISTORY: Short of breath TECHNIQUE: Frontal and lateral views of the chest are obtained. FINDINGS: There is no heart failure nor confluent pneumonic infiltrate. Heart size is normal. Thorac ic aorta is atheromatous. There is no pleural effusion. There is spurring in the thoracic spine. IMPRESSION: No active cardiac pulmonary disease. Atheromatous aorta. No change.
[2017-05-01 18:28] LABS: Basophils % (A) 0 %; CH 29.2; CHCM 32.1; Eosinophils % (A) 0 %; HCT 45.4 % (34.0-46.0); HDW 2.34; HGB 14.4 gm/dL (11.4-16.0); Luc # (Auto) 0.12; Luc % (Auto) 1; Lymphocytes # (A) 1.9 k/uL (1.0-4.8); Lymphocytes % (A) 12 %; MCHC 31.7 g/dL (31.0-37.0); MCV 91.5 fL (80.0-100.0); Mean Platelet Volume 7.7; Monocytes # (A) 0.7 k/uL (0-1.0); Monocytes % (A) 5 %; Neutrophils # (A) 12.8 k/uL (1.3-7.7); Neutrophils % (A) 82 %; RBC 4.96 m/uL (3.80-5.40); RDW 13.4 % (11.5-15.5); WBC 15.7 k/uL (3.8-10.6); WBC (Perox) 14.97
[2017-05-01 18:39] LABS: Calcium 9.2 mg/dL (8.4-10.2); Magnesium 1.9 mg/dL (1.6-2.3); Potassium 4.5 mmol/L (3.5-5.1); Total Bilirubin 0.8 mg/dL (0.2-1.3); Total Protein 7.3 g/dL (6.3-8.2)
[2017-05-01 18:41] LABS: INR 1.3 (<1.1); Prothrombin Time 12.8 sec (9.0-12.0)
[2017-05-01 18:46] LABS: Creatine Kinase 37 U/L (30-135)
[2017-05-01 19:00] LABS: Creatine Kinase MB 0.5 ng/mL (0.0-2.4); Troponin I <0.012 ng/mL (0.000-0.034)
--- NOTE | 2017-05-01 19:28 | ED ---
General Adult HPI - General Chief complaint: Recheck/Abnormal Lab/Rx Stated complaint: diff breathing, pain, from CT Time Seen by Provider: 05/01/17 17:32 Source: patient, family, RN notes reviewed, old records reviewed Mode of arrival: wheelchair Limitations: no limitations - History of Present Illness Initial comments: Chief complaint and history of present illness this is a 67-year-old female was sent emergency room after having had a CAT scan of the chest. The patient was having shortness of breath discomfort to the right side of the chest. The radiologist reported that she had extensive bilateral upper lobe and lower lobe pulmonary emboli with interstitial pulmonary infiltrates in the left upper lobe and right lower lobe. As read by Dr. Pettit Patient was given Xarelto 15 mg by her family doctor prior to coming to the x- ray department for the CAT scan at 1:30 PM - Related Data Home Medications Medication Instructions Recorded Confirmed Aspirin [Adult Low Dose Aspirin EC] 81 mg PO HS 02/04/17 04/24/17 Biotin 5,000 mcg PO DAILY 02/04/17 04/24/17 Cholecalciferol [Vitamin D3] 400 unit PO DAILY 02/04/17 04/24/17 Enalapril [Vasotec] 10 mg PO DAILY 02/04/17 04/24/17 Montelukast [Singulair] 10 mg PO HS 02/04/17 04/24/17 [place]-3 Fatty Acids/Fish Oil [Fish 1 cap PO DAILY 02/04/17 04/24/17 Oil 1,000 mg Softgel] Pravastatin Sodium [Pravachol] 20 mg PO HS 02/04/17 04/24/17 Ubidecarenone [Co Q-10] 30 mg PO DAILY 02/04/17 04/24/17 Calcium Carbonate/Vitamin D3 1 tab PO DAILY 04/24/17 04/24/17 [Calcium 500-Vit D3 200 Tablet] Cetirizine HCl [Zyrtec] 10 mg PO HS PRN 04/24/17 04/24/17 Omeprazole 20 mg PO DAILY 04/24/17 04/24/17 Previous Rx's Medication Instructions Recorded guaiFENesin [Mucinex] 1,200 mg PO Q12HR #10 tab 04/26/17 predniSONE 10 mg PO DIRECTED #20 tab 04/26/17 Allergies Allergy/AdvReac Type Severity Reaction Status Date / Time adhesive tape Allergy Rash/Hives Verified 04/24/17 12:17 clindamycin Allergy Rash/Hives Verified 04/24/17 12:17 Penicillins Allergy Swelling Verified 04/24/17 12:17 amlodipine [From [facility]] AdvReac DENTAL Verified 04/24/17 12:17 ISSUES Review of Systems ROS Statement: Those systems with pertinent positive or pertinent negative responses have been documented in the HPI. review of systems. Patient denies any headache or visual acuity changes she reports been chronically short of breath for the last month but feeling significantly better now after abdomen treated several weeks ago for cough and pneumonia with Keflex. She was in hospital on steroids for a week and then discharged 1 week ago. On reexamination today at her doctor's office she was continuing to complain of shortness of breath discomfort to her right rib cage area. Her family physician sent her to the hospital for CAT scan which was positive for pulmonary emboli. No nausea no vomiting no diarrhea. No neuro deficits. All systems are reviewed. Past medical problems significant for COPD, diabetes controlled by diet unless she is on steroids. Past history of DVT. Hyperlipidemia hypertension. The patient's surgeries include vein surgery for a clot previously. She has ALLERGIES adhesive tape clindamycin penicillin and amlodipine. Patient nonsmoker nondrinker and family history noncontributory ROS Other: All systems not noted in ROS Statement are negative. Past Medical History Past Medical History: COPD, Diabetes Mellitus, Deep Vein Thrombosis (DVT), Hyperlipidemia, Hypertension Additional Past Medical History / Comment(s): DVT in both legs; superficial clots; DM diet controlled History of Any Multi-Drug Resistant Organisms: None Reported Additional Past Surgical History / Comment(s): vein surgery left leg Past Anesthesia/Blood Transfusion Reactions: No Reported Reaction Past Psychological History: No Psychological Hx Reported Smoking Status: Current some day smoker Past Alcohol Use History: Occasional Past Drug Use History: None Reported Additional Drug Use History / Comment(s): Pt states she smokes when she drinks on occasion General Exam - General Exam Comments Initial Comments: General: The patient is awake and alert, istates she feels better this week than she did last week. But the CAT scan just performed demonstrates bilateral pulmonary emboli. The patient been started on Xarelto by her family doctor 1:30 PM. Vital signs showed temperature 98.4 pulse 68 respiratory rate 20 pulse ox 99% room air blood pressure 155/75 Eye: Pupils are equal, round and reactive to light, extra-ocular movements are intact ; there is normal conjunctiva bilaterally. No signs of icterus. Ears, nose, mouth and throat: There are moist mucous membranes . Neck: The neck is supple, there is no tenderness or JVD. Cardiovascular: There is a regular rate and rhythm. No murmur, rub or gallop is appreciated. Respiratory: patient does have occasional crepitant rales at the bases. No wheezing appreciated this time. Patient is dyspneic on exertion Gastrointestinal: no complains of abdominal pain no nausea no vomiting or diarrhea. Back: There is no tenderness to palpation in the midline. There is no obvious deformity. Musculoskeletal: patient states she was diagnosed with superficial phlebitis last week. Neurological: no complaint of any neuro deficits. No focal or lateralizing findings found. Skin: Skin is warm and dry and no rashes or lesions are noted. Limitations: no limitations Course Vital Signs 05/01/17 05/01/17 05/01/17 17:30 18:50 19:17 Temperature 98.4 F Pulse Rate 58 L 59 L Respiratory 20 24 16 Rate Blood Pressure 155/75 204/88 O2 Sat by Pulse 99 99 Oximetry EKG Findings - EKG Comments: EKG Findings:: EKG was done reviewed at 1744 showing sinus bradycardia. No acute ST elevation no ectopy. Rate 54. Arm was 180 QRS 80 QT [address] Bueno Medical Decision Making - Medical Decision Making medical decision making; prior to coming emergency room the patient had gone to x-ray and had an outpatient CAT scan of her chest. The impression by the radiologist was extensive bilateral upper lobe and lower lobe pulmonary emboli. Interstitial pulmonary infiltrates in the left upper lobe and right lower lobe. Read by Dr. Pettit The case discussed with Dr. dr farmer, patient admitted to his service. She' ll be continued on Xarelto 15 mg twice a day. patient's labs show white count of 15.7 hemoglobin 14 hematocrit of 45 and INR 1.3. Potassium 4.5 BUN of 35 creatinine 1.17 GFR 46. Troponin less than 0.012. - Lab Data Result diagrams: 05/01/17 17:53 05/01/17 17:53 Lab Results 06/07/17 06/07/17 06/07/17 Range/Units 15:40 17:53 17:53 WBC 15.7 H (3.8-10.6) k/uL RBC 4.96 (3.80-5.40) m/uL Hgb 14.4 (11.4-16.0) gm/dL Hct 45.4 (34.0-46.0) % MCV 91.5 (80.0-100.0) fL MCH 29.0 (25.0-35.0) pg MCHC 31.7 (31.0-37.0) g/dL RDW 13.4 (11.5-15.5) % Plt Count 210 (150-450) k/uL Neutrophils % 82 % Lymphocytes % 12 % Monocytes % 5 % Eosinophils % 0 % Basophils % 0 % Neutrophils # 12.8 H (1.3-7.7) k/uL Lymphocytes # 1.9 (1.0-4.8) k/uL Monocytes # 0.7 (0-1.0) k/uL Eosinophils # 0.0 (0-0.7) k/uL Basophils # 0.0 (0-0.2) k/uL PT (9.0-12.0) sec INR (<1.1) APTT (22.0-30.0) sec Sodium (137-145) mmol/L Potassium (3.5-5.1) mmol/L Chloride (98-107) mmol/L Carbon Dioxide (22-30) mmol/L Anion Gap mmol/L BUN 38 H (7-17) mg/dL Creatinine 1.20 H (0.52-1.04) mg/dL Est GFR (MDRD) Af Amer 54 (>60 ml/min/1.73 sqM) Est GFR (MDRD) Non-Af 45 (>60 ml/min/1.73 sqM) Glucose (74-99) mg/dL Calcium (8.4-10.2) mg/dL Magnesium (1.6-2.3) mg/dL Total Bilirubin (0.2-1.3) mg/dL AST (14-36) U/L ALT (9-52) U/L Alkaline Phosphatase (38-126) U/L Total Creatine Kinase 37 (30-135) U/L CK-MB (CK-2) 0.5 (0.0-2.4) ng/mL CK-MB (CK-2) Rel Index 1.4 Troponin I <0.012 (0.000-0.034) ng/mL Total Protein (6.3-8.2) g/dL Albumin (3.5-5.0) g/dL 05/01/17 05/01/17 Range/Units 17:53 17:53 WBC (3.8-10.6) k/uL RBC (3.80-5.40) m/uL Hgb (11.4-16.0) gm/dL Hct (34.0-46.0) % MCV (80.0-100.0) fL MCH (25.0-35.0) pg MCHC (31.0-37.0) g/dL RDW (11.5-15.5) % Plt Count (150-450) k/uL Neutrophils % % Lymphocytes % % Monocytes % % Eosinophils % % Basophils % % Neutrophils # (1.3-7.7) k/uL Lymphocytes # (1.0-4.8) k/uL Monocytes # (0-1.0) k/uL Eosinophils # (0-0.7) k/uL Basophils # (0-0.2) k/uL PT 12.8 H (9.0-12.0) sec INR 1.3 (<1.1) APTT 25.0 (22.0-30.0) sec Sodium 140 (137-145) mmol/L Potassium 4.5 (3.5-5.1) mmol/L Chloride 105 (98-107) mmol/L Carbon Dioxide 27 (22-30) mmol/L Anion Gap 8 mmol/L BUN 35 H (7-17) mg/dL Creatinine 1.17 H (0.52-1.04) mg/dL Est GFR (MDRD) Af Amer 56 (>60 ml/min/1.73 sqM) Est GFR (MDRD) Non-Af 46 (>60 ml/min/1.73 sqM) Glucose 164 H (74-99) mg/dL Calcium 9.2 (8.4-10.2) mg/dL Magnesium 1.9 (1.6-2.3) mg/dL Total Bilirubin 0.8 (0.2-1.3) mg/dL AST 24 (14-36) U/L ALT 33 (9-52) U/L Alkaline Phosphatase 65 (38-126) U/L Total Creatine Kinase (30-135) U/L CK-MB (CK-2) (0.0-2.4) ng/mL CK-MB (CK-2) Rel Index Troponin I (0.000-0.034) ng/mL Total Protein 7.3 (6.3-8.2) g/dL Albumin 4.2 (3.5-5.0) g/dL Disposition Clinical Impression: Bilateral pulmonary embolism, Pulmonary infiltrate Disposition: ADMITTED IP TO THIS HOSP Condition: Serious Referrals: Arabella Bashir MD [Primary Care Provider] - 1-2 days
[2017-05-01] MEDS ORDERED: NALOXONE 0.4 MG/ML 1 ML VIAL IV PRN (19:41)
[2017-05-01] MEDS ORDERED: LORATADINE 10 MG TAB PO PRN (19:45)
[2017-05-01] MEDS ORDERED: predniSONE 10 MG TAB PO SCH (19:45)
[2017-05-01] MEDS: ENALAPRILAT 1.25 MG/ML 1 ML VIAL IVP PRN (19:46)
[2017-05-01] MEDS ORDERED: LEVOFLOXACIN 500MG-D5W PMX 500 MG in DEXTROSE/WATER 1 100ML.BAG IVPB SCH (21:00)
[2017-05-01 21:11] LABS: Glucose,Whole Blood 155 mg/dL (75-99)
[2017-05-01 21:12] LABS: Hemoglobin A1C 6.9 % (4.2-6.1)
[2017-05-01 21:16] VITALS: BMI 53.1
[2017-05-01] MEDS: ACETAMINOPHEN TAB 325 MG TAB PO PRN (22:03)
[2017-05-01] MEDS: SODIUM CHLORIDE 0.9% 1,000 ML IV SCH (22:04)
[2017-05-01] MEDS: MONTELUKAST 10 MG TAB PO SCH (22:05)
[2017-05-01] MEDS ORDERED: RIVAROXABAN 15 MG TAB PO SCH (22:05)
[2017-05-01] MEDS: FAMOTIDINE 20 MG TAB PO SCH (22:05)
[2017-05-01] MEDS ORDERED: HEPARIN SODIUM,PORCINE 5,000 UNIT/ML 1 ML VIAL IV PRN (22:12)
[2017-05-01] MEDS ORDERED: HEPARIN SODIUM,PORCINE 10,000 UNIT/ML 1 ML VIAL IV ONE (22:12)
[2017-05-01] MEDS: INSULIN LISPRO (humaLOG) 300 UNIT/3 ML VIAL SQ SCH (22:16)
[2017-05-01] MEDS: ALBUTEROL NEBULIZED 2.5 MG/3 ML INHALATION PRN (22:26)
[2017-05-01] MEDS: HEPARIN SODIUM,PORCINE/D5W PMX 25,000 UNIT in DEXTROSE/WATER 1 500ML.BAG IV SCH (23:55)
[2017-05-01] MEDS: PRAVASTATIN SODIUM 20 MG TAB PO SCH (23:56)
[2017-05-02 06:17] LABS: Glucose,Whole Blood 123 mg/dL (75-99)
[2017-05-02] MEDS: INSULIN LISPRO (humaLOG) 300 UNIT/3 ML VIAL SQ SCH ×4 (06:32→22:33)
[2017-05-02] MEDS: HYDROcodone/APAP 5-325MG 1 EACH TAB PO PRN ×3 (07:07→22:52)
[2017-05-02] MEDS ORDERED: RIVAROXABAN 15 MG TAB PO SCH (07:30)
[2017-05-02] MEDS ORDERED: NON-FORMULARY DRUG (Ubidecarenone [Co Q-10] 30 MG) PO SCH (09:00)
[2017-05-02] MEDS ORDERED: NON-FORMULARY DRUG (Biotin [Biotin] 5,000 MCG) PO SCH (09:00)
[2017-05-02] MEDS: HEPARIN SODIUM,PORCINE/D5W PMX 25,000 UNIT in DEXTROSE/WATER 1 500ML.BAG IV SCH (10:11)
[2017-05-02] MEDS: CALCIUM CARB-VIT D 500MG-200UN 1 EACH TAB PO SCH (10:12)
[2017-05-02] MEDS: FAMOTIDINE 20 MG TAB PO SCH (10:12)
[2017-05-02] MEDS: LISINOPRIL 20 MG TAB PO SCH (10:12)
[2017-05-02] MEDS: CHOLECALCIFEROL 400 UNIT TAB PO SCH (10:12)
[2017-05-02] MEDS: SODIUM CHLORIDE 0.9% 1,000 ML IV SCH (10:13)
--- NOTE | 2017-05-02 11:56 | P.HPIM ---
History of Present Illness H&P Date: 05/02/17 Chief Complaint: Shortness of breath This is a 67-year-old last medical history noted below who was recently discharged from the hospital after being treated for an acute asthma exacerbation and acute bronchitis. Patient went home and said that she continue to have problems with shortness of breath as well as right-sided pain mostly in her right chest. She went to her primary care physician for follow- up. Patient said that she had a history of varicose vein and a reported blood clots that was not treated with blood thinners. Patient said that she discussed with her primary care physician her medical history and subsequently she was given 1 dose of Rivaroxaban 15 mg and was sent to the emergency room for further evaluation. In the emergency room, computed tomography scan of the chest was positive for bilateral pulmonary emboli so patient was started on IV heparin and is currently admitted to the hospital. She appears comfortable today when I saw her. No significant tachycardia. No significant hypoxia. Review of Systems Review of system: 14 points review of systems were obtained and were negative except to what were mentioned in the HPI. Past Medical History Past Medical History: COPD, Diabetes Mellitus, Deep Vein Thrombosis (DVT), Hyperlipidemia, Hypertension Additional Past Medical History / Comment(s): DVT in both legs; superficial clots; DM diet controlled History of Any Multi-Drug Resistant Organisms: None Reported Additional Past Surgical History / Comment(s): vein surgery left leg Past Anesthesia/Blood Transfusion Reactions: No Reported Reaction Past Psychological History: No Psychological Hx Reported Smoking Status: Current some day smoker Past Alcohol Use History: Occasional Past Drug Use History: None Reported Additional Drug Use History / Comment(s): Pt states she smokes when she drinks on occasion - Past Family History Father Family Medical History: Cancer Additional Family Medical History / Comment(s): suicide, colon ca Mother Family Medical History: Coronary Artery Disease (CAD), Diabetes Mellitus Medications and Allergies Home Medications Medication Instructions Recorded Confirmed Type Aspirin [Adult Low Dose Aspirin EC] 81 mg PO HS 02/04/17 05/01/17 History Biotin 5,000 mcg PO DAILY 02/04/17 05/01/17 History Cholecalciferol [Vitamin D3] 400 unit PO DAILY 02/04/17 05/01/17 History Enalapril [Vasotec] 10 mg PO DAILY 02/04/17 05/01/17 History Montelukast [Singulair] 10 mg PO HS 02/04/17 05/01/17 History [place]-3 Fatty Acids/Fish Oil [Fish 1 cap PO DAILY 02/04/17 05/01/17 History Oil 1,000 mg Softgel] Pravastatin Sodium [Pravachol] 20 mg PO HS 02/04/17 05/01/17 History Ubidecarenone [Co Q-10] 30 mg PO DAILY 02/04/17 05/01/17 History Calcium Carbonate/Vitamin D3 1 tab PO DAILY 04/24/17 05/01/17 History [Calcium 500-Vit D3 200 Tablet] Cetirizine HCl [Zyrtec] 10 mg PO HS PRN 04/24/17 05/01/17 History Omeprazole 20 mg PO DAILY 04/24/17 05/01/17 History Allergies Allergy/AdvReac Type Severity Reaction Status Date / Time adhesive tape Allergy Rash/Hives Verified 05/01/17 19:46 clindamycin Allergy Rash/Hives Verified 05/01/17 19:46 Penicillins Allergy Swelling Verified 05/01/17 19:46 amlodipine [From [facility]] AdvReac DENTAL Verified 05/01/17 19:46 ISSUES Physical Exam Vitals: Vital Signs Temp Pulse Pulse Resp BP BP Pulse Ox 05/02/17 08:00 96.3 F L 61 124/57 96 05/02/17 04:00 96.9 F L 53 L 18 130/59 97 05/02/17 00:00 57 L 18 133/63 96 05/01/17 22:36 64 05/01/17 22:27 62 05/01/17 21:30 97 F L 67 18 197/75 97 05/01/17 20:42 98.0 F 60 16 186/81 98 05/01/17 20:16 98.0 F 60 16 186/81 97 05/01/17 19:17 59 L 16 204/88 99 05/01/17 18:50 24 05/01/17 17:30 98.4 F 58 L 20 155/75 99 Intake and Output 05/01/17 05/02/17 05/02/17 22:59 06:59 14:59 Intake Total 1330 610.083 Output Total 100 200 800 Balance -100 1130 -189.917 Intake: IV 1330 Heparin Sodium,Porcine/ 530 D5w Pmx 25,000 unit In Dextrose/Water 1 500ml. bag @ 18 UNITS/KG/HR 44. 41 mls/hr IV .[id number] BRIG[facility]O Rx#:[id number] Sodium Chloride 0.9% 1, 800 000 ml @ 80 mls/hr IV . [id number] BR[facility]O Rx#:[id number] Intake, IV Titration 370.083 Amount Heparin Sodium,Porcine/ 370.083 D5w Pmx 25,000 unit In Dextrose/Water 1 500ml. bag @ 18 UNITS/KG/HR 44. 41 mls/hr IV .[id number] [facility]O Rx#:[id number] Oral 240 Output: Urine 100 200 800 Other: Voiding Method Bedside Commode Bedside Commode # Voids 1 1 Weight 123.377 kg 122.8 kg General: The patient is awake and alert, in no distress Eye: there is normal conjunctiva bilaterally. Neck: The neck is supple, there is no JVD. Cardiovascular: Normal S1-S2, no S3-S4, no murmurs. Respiratory: Lungs clear to auscultation bilaterally Gastrointestinal: Abdomen is soft, nontender Musculoskeletal: There is no pedal edema. Neurological:. Speech is normal. Skin: Skin is warm and dry Results CBC & Chem 7: 05/01/17 17:53 05/01/17 17:53 Labs: Abnormal Lab Results - Last 24 Hours (Table) 05/01/17 05/01/17 05/01/17 Range/Units 15:40 17:53 17:53 WBC 15.7 H (3.8-10.6) k/uL Neutrophils # 12.8 H (1.3-7.7) k/uL PT (9.0-12.0) sec APTT (22.0-30.0) sec BUN 38 H 35 H (7-17) mg/dL Creatinine 1.20 H 1.17 H (0.52-1.04) mg/dL Glucose 164 H (74-99) mg/dL POC Glucose (mg/dL) (75-99) mg/dL Hemoglobin A1c (4.2-6.1) % 05/01/17 05/01/17 05/01/17 Range/Units 17:53 17:53 21:08 WBC (3.8-10.6) k/uL Neutrophils # (1.3-7.7) k/uL PT 12.8 H (9.0-12.0) sec APTT (22.0-30.0) sec BUN (7-17) mg/dL Creatinine (0.52-1.04) mg/dL Glucose (74-99) mg/dL POC Glucose (mg/dL) 155 H (75-99) mg/dL Hemoglobin A1c 6.9 H (4.2-6.1) % 05/02/17 05/02/17 Range/Units 06:15 06:36 WBC (3.8-10.6) k/uL Neutrophils # (1.3-7.7) k/uL PT (9.0-12.0) sec APTT >200.0 H* (22.0-30.0) sec BUN (7-17) mg/dL Creatinine (0.52-1.04) mg/dL Glucose (74-99) mg/dL POC Glucose (mg/dL) 123 H (75-99) mg/dL Hemoglobin A1c (4.2-6.1) % Thrombosis Risk Factor Assmnt - Choose All That Apply Each Factor Represents 1 point: Obesity (BMI >25), Swollen legs (current), Varicose veins Each Risk Factor Represents 2 Points: Age 61-74 years Each Risk Factor Represents 3 Points: History of DVT/PE Thrombosis Risk Factor Assessment Total Risk Factor Score: 8 Thrombosis Risk Factor Assessment Level: High Risk Assessment and Plan Plan: 1. Acute and extensive bilateral pulmonary emboli currently on IV heparin drip. Patient would need at least 6 months of anticoagulation. May consider anticoagulation indefinitely given her past history awaiting clarification with her primary care physician if it was a deep or superficial vein thrombosis. I would consult pulmonology for further evaluation. Patient was reassured. She would like to be on Rivaroxaban if covered by her insurance for anticoagulation. Prescription sent to the pharmacy. 2. Mild intermittent asthma with no evidence of exacerbation 3. Chronic ALLERGIC rhinitis 4. Essential hypertension: Blood pressure well-controlled 5. Mixed hyperlipidemia Today, I discussed with the patient her current clinical condition. I answered all of center satisfaction. Repeat lab work in the morning. Continue IV heparin for now.
[2017-05-02 12:03] LABS: Glucose,Whole Blood 134 mg/dL (75-99)
--- NOTE | 2017-05-02 16:05 | P.CNPUL ---
History of Present Illness Consult date: 05/02/17 Reason for consult: dyspnea History of present illness: 67-year-old female patient, morbidly obese with known history of obstructive sleep apnea and previous history of varicose veins with superficial thrombophlebitis, coming in with bilateral pulmonary embolism. The patient was recently discharged from the hospital being treated for an acute bronchitis. Following that she continued to have shortness of breath and some right-sided chest pain. The patient went to see her primary care physician and she was sent to the ED for further evaluation. CT angios the chest was done that showed bilateral pulmonary embolism, segmental in addition to some infiltration in the upper lobes bilaterally. No fever. No chills. No hemoptysis. Currently the patient on IV heparin. She has pain. No history of previous DVT or pulmonary embolism. No recent surgery. Most of malignancy. No long-term immobilization. She is already feeling better right now as being treated with anticoagulation. Review of Systems All systems: negative Constitutional: Denies chills, Denies fever Eyes: denies blurred vision, denies pain Ears, nose, mouth and throat: Denies headache, Denies sore throat Cardiovascular: Reports dyspnea on exertion, Denies chest pain, Denies shortness of breath Respiratory: Denies cough Gastrointestinal: Denies abdominal pain, Denies diarrhea, Denies nausea, Denies vomiting Genitourinary: Denies dysuria, Denies hematuria Musculoskeletal: Denies myalgias Integumentary: Denies pruritus, Denies rash Neurological: Denies numbness, Denies weakness Psychiatric: Denies anxiety, Denies depression Endocrine: Denies fatigue, Denies weight change Past Medical History Past Medical History: COPD, Diabetes Mellitus, Deep Vein Thrombosis (DVT), Hyperlipidemia, Hypertension, Sleep Apnea/CPAP/BIPAP Additional Past Medical History / Comment(s): Morbid obesity, obstructive sleep apnea maintained on CPAP at a pressure of 17 cm of water, BMI 52.9, diabetes mellitus, hypertension, hyperlipidemia, acid reflux, varicose veins with previous history of surgery for varicose vein stripping from the lower extremity , superficial thrombophlebitis, history of ex-smoking. History of Any Multi-Drug Resistant Organisms: None Reported Additional Past Surgical History / Comment(s): vein surgery left leg Past Anesthesia/Blood Transfusion Reactions: No Reported Reaction Past Psychological History: No Psychological Hx Reported Smoking Status: Current some day smoker Past Alcohol Use History: Occasional Past Drug Use History: None Reported Additional Drug Use History / Comment(s): Pt states she smokes when she drinks on occasion - Past Family History Father Family Medical History: Cancer Additional Family Medical History / Comment(s): suicide, colon ca Mother Family Medical History: Coronary Artery Disease (CAD), Diabetes Mellitus Medications and Allergies Home Medications Medication Instructions Recorded Confirmed Type Aspirin [Adult Low Dose Aspirin EC] 81 mg PO HS 02/04/17 05/01/17 History Biotin 5,000 mcg PO DAILY 02/04/17 05/01/17 History Cholecalciferol [Vitamin D3] 400 unit PO DAILY 02/04/17 05/01/17 History Enalapril [Vasotec] 10 mg PO DAILY 02/04/17 05/01/17 History Montelukast [Singulair] 10 mg PO HS 02/04/17 05/01/17 History [place]-3 Fatty Acids/Fish Oil [Fish 1 cap PO DAILY 02/04/17 05/01/17 History Oil 1,000 mg Softgel] Pravastatin Sodium [Pravachol] 20 mg PO HS 02/04/17 05/01/17 History Ubidecarenone [Co Q-10] 30 mg PO DAILY 02/04/17 05/01/17 History Calcium Carbonate/Vitamin D3 1 tab PO DAILY 04/24/17 05/01/17 History [Calcium 500-Vit D3 200 Tablet] Cetirizine HCl [Zyrtec] 10 mg PO HS PRN 04/24/17 05/01/17 History Omeprazole 20 mg PO DAILY 04/24/17 05/01/17 History Allergies Allergy/AdvReac Type Severity Reaction Status Date / Time adhesive tape Allergy Rash/Hives Verified 05/01/17 19:46 clindamycin Allergy Rash/Hives Verified 05/01/17 19:46 Penicillins Allergy Swelling Verified 05/01/17 19:46 amlodipine [From [facility]] AdvReac DENTAL Verified 05/01/17 19:46 ISSUES Physical Exam Vitals: Vital Signs Temp Pulse Pulse Resp BP BP Pulse Ox 05/02/17 12:00 61 122/56 93 L 05/02/17 08:00 96.3 F L 61 124/57 96 05/02/17 04:00 96.9 F L 53 L 18 130/59 97 05/02/17 00:00 57 L 18 133/63 96 05/01/17 22:36 64 05/01/17 22:27 62 05/01/17 21:30 97 F L 67 18 197/75 97 05/01/17 20:42 98.0 F 60 16 186/81 98 05/01/17 20:16 98.0 F 60 16 186/81 97 05/01/17 19:17 59 L 16 204/88 99 05/01/17 18:50 24 05/01/17 17:30 98.4 F 58 L 20 155/75 99 Intake and Output 05/02/17 05/02/17 05/02/17 06:59 14:59 22:59 Intake Total 1330 850.083 Output Total 200 800 Balance 1130 50.083 Intake: IV 1330 Heparin Sodium,Porcine/ 530 D5w Pmx 25,000 unit In Dextrose/Water 1 500ml. bag @ 18 UNITS/KG/HR 44. 41 mls/hr IV .[id number] BRIG[facility]O Rx#:[id number] Sodium Chloride 0.9% 1, 800 000 ml @ 80 mls/hr IV . [id number] [facility]O Rx#:[id number] Intake, IV Titration 370.083 Amount Heparin Sodium,Porcine/ 370.083 D5w Pmx 25,000 unit In Dextrose/Water 1 500ml. bag @ 18 UNITS/KG/HR 44. 41 mls/hr IV .[id number] [facility]O Rx#:[id number] Oral 480 Output: Urine 200 800 Other: Voiding Method Bedside Commode # Voids 1 Weight 122.8 kg Head exam was generally normal. There was no scleral icterus or corneal arcus. Mucous membranes were moist.Neck was supple and without jugular venous distension, thyromegaly, or carotid bruits. Carotids were easily palpable bilaterally. There was no adenopathy. The patient has significant crowding of the posterior oropharynx. There is no goiter or neck masses. Lungs sounds are diminished bilaterally with clear. There is no wheezes or rhonchi or any crackles.Cardiac exam revealed the PMI to be normally situated and sized. The rhythm was regular and no extrasystoles were noted during several minutes of auscultation. The first and second heart sounds were normal and physiologic splitting of the second heart sound was noted. There were no murmurs, rubs, clicks, or gallops. Abdomen was obese soft nontender. Organs cannot be accurately palpated. Extremities show edema along with some varicose veins.No cyanosis or clubbing Results - Laboratory Findings CBC and BMP: 05/01/17 17:53 05/01/17 17:53 PT/INR, D-dimer PT 12.8 sec (9.0-12.0) H 05/01/17 17:53 INR 1.3 (<1.1) 05/01/17 17:53 Abnormal lab findings: Abnormal Labs 05/01/17 05/01/17 05/01/17 15:40 17:53 17:53 WBC 15.7 H Neutrophils # 12.8 H PT APTT BUN 38 H 35 H Creatinine 1.20 H 1.17 H Glucose 164 H POC Glucose (mg/dL) Hemoglobin A1c 05/01/17 05/01/17 05/01/17 17:53 17:53 21:08 WBC Neutrophils # PT 12.8 H APTT BUN Creatinine Glucose POC Glucose (mg/dL) 155 H Hemoglobin A1c 6.9 H 05/02/17 05/02/17 05/02/17 06:15 06:36 11:49 WBC Neutrophils # PT APTT >200.0 H* BUN Creatinine Glucose POC Glucose (mg/dL) 123 H 134 H Hemoglobin A1c - Diagnostic Findings CT scan - chest: image reviewed Assessment and Plan Plan: Assessment 1 acute bilateral pulmonary embolism, segmented with secondary shortness of breath and chest pain. Rule out underlying DVT. This is an unprovoked event. 2 previous history of superficial thrombophlebitis of the lower extremities along with varicose veins 3 morbid obesity 4 obstructive sleep apnea maintained on CPAP at a pressure of 17 cm of water 5 diabetes mellitus 6 hypertension 7 hyperlipidemia 8 acid reflux 9 history of ex-smoking 10 mild intermittent bronchial asthma 11 preserved LV function with an ejection fraction of 50-55% based on the most recent echocardiogram. Plan Continue IV heparin. We will need to switch this patient a long-term antibiotic ventilation production consultant and I would suggest Xarelto. Appropriate paperwork will be sent for insurance authorization. There is an unprovoked embolism. She will likely need 6 months a year of treatment. Meanwhile, we'll obtain a Doppler lower extremities on a there is no underlying DVT. The patient was recently treated for an asthma exacerbation from which she has been recovering. She is on Singulair. She was also supposed to complete a prednisone burst taper on outpatient basis. The steroid treatment got interrupted with the new diagnosis of portal embolism. Outpatient indication be ordered resume. We'll continue to follow.
[2017-05-02 16:59] LABS: Glucose,Whole Blood 138 mg/dL (75-99)
[2017-05-02] MEDS: ENALAPRILAT 1.25 MG/ML 1 ML VIAL IVP PRN (17:09)
[2017-05-02] MEDS: ALBUTEROL NEBULIZED 2.5 MG/3 ML INHALATION PRN (19:51)
[2017-05-02] MEDS: PRAVASTATIN SODIUM 20 MG TAB PO SCH (20:04)
[2017-05-02] MEDS: MONTELUKAST 10 MG TAB PO SCH (20:05)
[2017-05-02] MEDS: ASPIRIN 81 MG CHEW PO SCH (20:08)
[2017-05-02 20:57] LABS: Glucose,Whole Blood 159 mg/dL (75-99)
[2017-05-03 06:18] LABS: Basophils # (A) 0.1 k/uL (0-0.2); Basophils % (A) 1 %; CHCM 31.4; Eosinophils # (A) 0.3 k/uL (0-0.7); Eosinophils % (A) 4 %; HCT 39.4 % (34.0-46.0); HDW 2.29; HGB 12.5 gm/dL (11.4-16.0); Luc # (Auto) 0.09; Luc % (Auto) 1; Lymphocytes % (A) 26 %; MCH 29.5 pg (25.0-35.0); MCHC 31.8 g/dL (31.0-37.0); MCV 92.7 fL (80.0-100.0); Mean Platelet Volume 7.6; Monocytes # (A) 0.5 k/uL (0-1.0); Monocytes % (A) 6 %; Neutrophils % (A) 63 %; RBC 4.25 m/uL (3.80-5.40); RDW 13.4 % (11.5-15.5); WBC 7.9 k/uL (3.8-10.6); WBC (Perox) 8.11
[2017-05-03] MEDS: INSULIN LISPRO (humaLOG) 300 UNIT/3 ML VIAL SQ SCH ×4 (06:49→21:02)
[2017-05-03 06:52] LABS: Glucose,Whole Blood 138 mg/dL (75-99)
[2017-05-03 06:58] LABS: Calcium 8.1 mg/dL (8.4-10.2); Potassium 4.7 mmol/L (3.5-5.1)
[2017-05-03] MEDS: HEPARIN SODIUM,PORCINE/D5W PMX 25,000 UNIT in DEXTROSE/WATER 1 500ML.BAG IV SCH ×2 (07:11→10:18)
[2017-05-03] MEDS: HYDROcodone/APAP 5-325MG 1 EACH TAB PO PRN ×2 (07:47→21:06)
[2017-05-03] MEDS ORDERED: NON-FORMULARY DRUG (Omega-3 Fatty Acids/Fish Oil [Fish Oil 1,000 Mg Softgel] 1 CAP) PO SCH (09:00)
[2017-05-03] MEDS: CHOLECALCIFEROL 400 UNIT TAB PO SCH (10:19)
[2017-05-03] MEDS: CALCIUM CARB-VIT D 500MG-200UN 1 EACH TAB PO SCH (10:19)
[2017-05-03] MEDS: FAMOTIDINE 20 MG TAB PO SCH (10:20)
[2017-05-03] MEDS: LISINOPRIL 20 MG TAB PO SCH (10:20)
[2017-05-03 11:25] LABS: Glucose,Whole Blood 155 mg/dL (75-99)
--- NOTE | 2017-05-03 11:47 | P.PN ---
Subjective Principal diagnosis: Pulmonary embolism 67-year-old female patient, morbidly obese with known history of obstructive sleep apnea and previous history of varicose veins with superficial thrombophlebitis, coming in with bilateral pulmonary embolism. The patient was recently discharged from the hospital being treated for an acute bronchitis. Following that she continued to have shortness of breath and some right-sided chest pain. The patient went to see her primary care physician and she was sent to the ED for further evaluation. CT angios the chest was done that showed bilateral pulmonary embolism, segmental in addition to some infiltration in the upper lobes bilaterally. No fever. No chills. No hemoptysis. Currently the patient on IV heparin. She has pain. No history of previous DVT or pulmonary embolism. No recent surgery. Most of malignancy. No long-term immobilization. She is already feeling better right now as being treated with anticoagulation. Patient is seen again today April 2017 in follow-up on the selective care unit. She is awake and alert in no acute distress. She states the right-sided chest discomfort has subsided. She does have some ongoing discomfort in her right shoulder which is chronic. She denies any worsening shortness of breath, cough or congestion. She has been approved for Xarelto. She has been up with assistance. Maintaining good O2 saturations in the 90s on room air. Objective - Vital Signs Vital signs: Vital Signs Temp 97.2 F L 05/03/17 08:00 Pulse 53 L 05/03/17 08:00 Resp 16 05/03/17 08:00 BP 129/60 05/03/17 08:00 Pulse Ox 95 05/03/17 08:00 Intake & Output 05/02/17 05/03/17 05/03/17 18:59 06:59 18:59 Intake Total 1090.083 874.039 1624 Output Total 800 Balance 290.083 819.598 9562 Weight 123.6 kg Intake: IV 640 Sodium Chloride 0.9% 1, 640 000 ml @ 80 mls/hr IV . [id number] [facility]O Rx#:[id number] Intake, IV Titration 370.083 500.000 Amount Heparin Sodium,Porcine/ 370.083 500.000 D5w Pmx 25,000 unit In Dextrose/Water 1 500ml. bag @ 18 UNITS/KG/HR 44. 41 mls/hr IV .[id number] [facility]O Rx#:[id number] Oral 720 360 Output: Urine 800 Other: Voiding Method Bedside Commode # Voids 1 1 - Exam GENERAL EXAM: Morbidly obese. Alert, active, comfortable in no apparent distress. HEAD: Normocephalic. EYES: Normal reaction of pupils, equal size. NOSE: Clear with pink turbinates. THROAT: No erythema or exudates. NECK: No masses, no JVD. CHEST: No chest wall deformity. LUNGS: Equal air entry with no crackles, wheeze, rhonchi or dullness. CVS: S1 and S2 normal with no audible murmurs, regular rhythm. ABDOMEN: No hepatosplenomegaly, normal bowel sounds, no guarding or rigidity. SPINE: No scoliosis or deformity SKIN: No rashes CENTRAL NERVOUS SYSTEM: No focal deficits, tone is normal in all 4 extremities. Extremities: There is trace peripheral edema. No clubbing, no cyanosis. Peripheral pulses are intact. - Labs CBC & Chem 7: 05/03/17 05:37 05/03/17 05:37 Labs: Abnormal Lab Results - Last 24 Hours (Table) 05/02/17 05/02/17 05/02/17 Range/Units 11:49 16:46 16:57 APTT 93.6 H (22.0-30.0) sec Chloride (98-107) mmol/L BUN (7-17) mg/dL Creatinine (0.52-1.04) mg/dL Glucose (74-99) mg/dL POC Glucose (mg/dL) 134 H 138 H (75-99) mg/dL Calcium (8.4-10.2) mg/dL 05/02/17 05/02/17 05/03/17 Range/Units 20:34 21:54 05:37 APTT 118.1 H* (22.0-30.0) sec Chloride 108 H (98-107) mmol/L BUN 27 H (7-17) mg/dL Creatinine 1.20 H (0.52-1.04) mg/dL Glucose 130 H (74-99) mg/dL POC Glucose (mg/dL) 159 H (75-99) mg/dL Calcium 8.1 L (8.4-10.2) mg/dL 05/03/17 05/03/17 05/03/17 Range/Units 05:37 06:44 11:21 APTT 63.9 H (22.0-30.0) sec Chloride (98-107) mmol/L BUN (7-17) mg/dL Creatinine (0.52-1.04) mg/dL Glucose (74-99) mg/dL POC Glucose (mg/dL) 138 H 155 H (75-99) mg/dL Calcium (8.4-10.2) mg/dL Assessment and Plan Plan: Assessment 1 acute bilateral pulmonary embolism, segmented with secondary shortness of breath and chest pain. Rule out underlying DVT. This is an unprovoked event. 2 previous history of superficial thrombophlebitis of the lower extremities along with varicose veins 3 morbid obesity 4 obstructive sleep apnea maintained on CPAP at a pressure of 17 cm of water 5 diabetes mellitus 6 hypertension 7 hyperlipidemia 8 acid reflux 9 history of ex-smoking 10 mild intermittent bronchial asthma 11 preserved LV function with an ejection fraction of 50-55% based on the most recent echocardiogram. Plan The patient was seen and evaluated by Dr. Pierson. She is stable from the pulmonary standpoint. She'll be initiated on Xarelto. Continue her other medications. We'll increase her activity as tolerated. We'll continue to follow.
--- NOTE | 2017-05-03 12:04 | P.PN ---
Subjective Patient is doing fairly well today. She denies shortness of breath. She is complaining of right shoulder pain. Objective - Vital Signs Vital signs: Vital Signs Temp 98.0 F 05/03/17 11:50 Pulse 51 L 05/03/17 11:50 Resp 18 05/03/17 11:50 BP 141/63 05/03/17 11:50 Pulse Ox 94 L 05/03/17 11:50 Intake & Output 05/02/17 05/03/17 05/03/17 18:59 06:59 18:59 Intake Total 1090.083 783.642 2819 Output Total 800 Balance 290.083 940.084 6841 Weight 123.6 kg Intake: IV 640 Sodium Chloride 0.9% 1, 640 000 ml @ 80 mls/hr IV . [id number] [facility]O Rx#:[id number] Intake, IV Titration 370.083 500.000 Amount Heparin Sodium,Porcine/ 370.083 500.000 D5w Pmx 25,000 unit In Dextrose/Water 1 500ml. bag @ 18 UNITS/KG/HR 44. 41 mls/hr IV .[id number] [facility] Rx#:[id number] Oral 720 360 Output: Urine 800 Other: Voiding Method Bedside Commode # Voids 1 1 - Exam Review of system: 14 points review of systems were obtained and were negative except to what were mentioned in the HPI. - Labs CBC & Chem 7: 05/03/17 05:37 05/03/17 05:37 Labs: Abnormal Lab Results - Last 24 Hours (Table) 05/02/17 05/02/17 05/02/17 Range/Units 11:49 16:46 16:57 APTT 93.6 H (22.0-30.0) sec Chloride (98-107) mmol/L BUN (7-17) mg/dL Creatinine (0.52-1.04) mg/dL Glucose (74-99) mg/dL POC Glucose (mg/dL) 134 H 138 H (75-99) mg/dL Calcium (8.4-10.2) mg/dL 05/02/17 05/02/17 05/03/17 Range/Units 20:34 21:54 05:37 APTT 118.1 H* (22.0-30.0) sec Chloride 108 H (98-107) mmol/L BUN 27 H (7-17) mg/dL Creatinine 1.20 H (0.52-1.04) mg/dL Glucose 130 H (74-99) mg/dL POC Glucose (mg/dL) 159 H (75-99) mg/dL Calcium 8.1 L (8.4-10.2) mg/dL 05/03/17 05/03/17 05/03/17 Range/Units 05:37 06:44 11:21 APTT 63.9 H (22.0-30.0) sec Chloride (98-107) mmol/L BUN (7-17) mg/dL Creatinine (0.52-1.04) mg/dL Glucose (74-99) mg/dL POC Glucose (mg/dL) 138 H 155 H (75-99) mg/dL Calcium (8.4-10.2) mg/dL Assessment and Plan Plan: 1. Acute and extensive bilateral pulmonary emboli currently on IV heparin drip. Patient would need at least 6 months of anticoagulation. May consider anticoagulation indefinitely given her past history awaiting clarification with her primary care physician if it was a deep or superficial vein thrombosis. Patient was seen and evaluated by pulmonology. Ultrasound of the lower extremity ordered to rule out DVT. Plan to switch anticoagulation to Rivaroxaban 15 mg twice daily later on today. 2. Mild intermittent asthma with no evidence of exacerbation 3. Chronic ALLERGIC rhinitis 4. Essential hypertension: Blood pressure well-controlled 5. Mixed hyperlipidemia Today, I discussed with the patient her current clinical condition. Discharge planning for tomorrow
--- NOTE | 2017-05-03 14:49 | US ---
EXAMINATION TYPE: US venous doppler duplex LE DATE OF EXAM: 05/03/2017 2:32 PM COMPARISON: NONE CLINICAL HISTORY: Rule out DVT. known PE, patient on thinners SIDE PERFORMED: Bilateral TECHNIQUE: The lower extremity deep venous system is examined utilizing real time linear array sonog brian with graded compression, doppler sonography and color-flow sonography. VESSELS IMAGED: External Iliac Vein (EIV) Common Femoral Vein Deep Femoral Vein Greater Saphenous Vein * Femoral Vein Popliteal Vein Small Saphenous Vein * Proximal Calf Veins (* superficial vessels) Right Leg: Positive for DVT, pop vein prox through prox calf veins, nonocclusive thrombus. Left Leg: Negative for DVT Grayscale, color doppler, spectral doppler imaging performed of the deep veins of the lower extremiti es. Abnormal luminal echoes are present within the popliteal vein, there is some eccentric color flow not ed, compression views were not performed, deep veins in the popliteal region, extending into the more peripheral leg veins are distended. IMPRESSION: Deep venous thrombosis within the popliteal vein on the right
[2017-05-03] MEDS: ACETAMINOPHEN TAB 325 MG TAB PO PRN (15:25)
[2017-05-03 16:44] LABS: Glucose,Whole Blood 130 mg/dL (75-99)
[2017-05-03 20:58] LABS: Glucose,Whole Blood 131 mg/dL (75-99)
[2017-05-03] MEDS: PRAVASTATIN SODIUM 20 MG TAB PO SCH (21:07)
[2017-05-03] MEDS: MONTELUKAST 10 MG TAB PO SCH (21:07)
[2017-05-03] MEDS: ASPIRIN 81 MG CHEW PO SCH (21:07)
[2017-05-04] MEDS: HEPARIN SODIUM,PORCINE/D5W PMX 25,000 UNIT in DEXTROSE/WATER 1 500ML.BAG IV SCH ×2 (05:04→08:24)
[2017-05-04] MEDS: HYDROcodone/APAP 5-325MG 1 EACH TAB PO PRN (05:19)
[2017-05-04 06:22] LABS: Basophils % (A) 1 %; CH 29.4; CHCM 32.4; Eosinophils # (A) 0.3 k/uL (0-0.7); Eosinophils % (A) 4 %; HCT 38.8 % (34.0-46.0); HDW 2.44; HGB 12.5 gm/dL (11.4-16.0); Luc # (Auto) 0.12; Luc % (Auto) 2; Lymphocytes # (A) 1.9 k/uL (1.0-4.8); Lymphocytes % (A) 27 %; MCH 29.4 pg (25.0-35.0); MCHC 32.3 g/dL (31.0-37.0); MCV 91.1 fL (80.0-100.0); Monocytes # (A) 0.4 k/uL (0-1.0); Monocytes % (A) 6 %; Neutrophils # (A) 4.1 k/uL (1.3-7.7); Neutrophils % (A) 60 %; RBC 4.25 m/uL (3.80-5.40); RDW 13.2 % (11.5-15.5); WBC 6.8 k/uL (3.8-10.6); WBC (Perox) 6.98
[2017-05-04 06:22] LABS: Glucose,Whole Blood 151 mg/dL (75-99)
[2017-05-04 06:29] LABS: Anion Gap 7 mmol/L; Blood Urea Nitrogen 19 mg/dL (7-17); Calcium 8.5 mg/dL (8.4-10.2); Carbon Dioxide 22 mmol/L (22-30); Chloride 110 mmol/L (98-107); Glucose 147 mg/dL (74-99); Non-African American GFR(MDRD) 56 (>60 ml/min/1.73 sqM); Potassium 4.4 mmol/L (3.5-5.1); Sodium 139 mmol/L (137-145)
[2017-05-04 08:14] VITALS: RESP 16; TEMP 98.7
[2017-05-04] MEDS: FAMOTIDINE 20 MG TAB PO SCH (08:16)
[2017-05-04] MEDS: CHOLECALCIFEROL 400 UNIT TAB PO SCH (08:16)
[2017-05-04] MEDS: LISINOPRIL 20 MG TAB PO SCH (08:16)
[2017-05-04] MEDS: CALCIUM CARB-VIT D 500MG-200UN 1 EACH TAB PO SCH (08:16)
[2017-05-04] MEDS: INSULIN LISPRO (humaLOG) 300 UNIT/3 ML VIAL SQ SCH ×2 (08:16→12:19)
--- NOTE | 2017-05-04 11:18 | P.DS ---
Providers Date of admission: 05/01/17 19:41 Expected date of discharge: 05/04/17 Attending physician: Wilfrid Fishman Consults: 05/02/17 11:50 Consult Physician Routine Consulting Provider: Talib Pierson Consult Reason/Comments: Bilateral PE Do you want consulting provider notified?: Yes Primary care physician: [facility] Course: This is 67-year-old female with past medical history noted below who presented to the hospital with right-sided chest discomfort and shortness of breath. Patient was found to have bilateral PE and right lower extremity DVT. She was started on anticoagulation with IV heparin and then switched to Rivaroxaban. Patient has already obtained a Rivaroxaban and starting pack from her primary care physician within one month supply. She will finish 21 mg twice a day for 3 weeks and then continue at 20 mg at bedtime. She will need anticoagulation for at least 6 months. She was seen and evaluated by pulmonology during this admission. 1. Acute and extensive bilateral pulmonary emboli 2. Mild intermittent asthma with no evidence of exacerbation 3. Chronic ALLERGIC rhinitis 4. Essential hypertension: Blood pressure well-controlled 5. Mixed hyperlipidemia Patient Condition at Discharge: Serious Plan - Discharge Summary New Discharge Prescriptions: New Rivaroxaban [Xarelto] 10 mg PO DAILY #1 tab Rivaroxaban [Xarelto] 20 mg PO DAILY #1 tab Continue Pravastatin Sodium [Pravachol] 20 mg PO HS Montelukast [Singulair] 10 mg PO HS Cholecalciferol [Vitamin D3] 400 unit PO DAILY Enalapril [Vasotec] 10 mg PO DAILY Ubidecarenone [Co Q-10] 30 mg PO DAILY [place]-3 Fatty Acids/Fish Oil [Fish Oil 1,000 mg Softgel] 1 cap PO DAILY Biotin 5,000 mcg PO DAILY Aspirin [Adult Low Dose Aspirin EC] 81 mg PO HS Cetirizine HCl [Zyrtec] 10 mg PO HS PRN PRN Reason: Allergy Symptoms Omeprazole 20 mg PO DAILY Calcium Carbonate/Vitamin D3 [Calcium 500-Vit D3 200 Tablet] 1 tab PO DAILY guaiFENesin [Mucinex] 1,200 mg PO Q12HR #10 tab Discontinued predniSONE 10 mg PO DIRECTED #20 tab Discharge Medication List Aspirin [Adult Low Dose Aspirin EC] 81 mg PO HS 02/04/17 [History] Biotin 5,000 mcg PO DAILY 02/04/17 [History] Cholecalciferol [Vitamin D3] 400 unit PO DAILY 02/04/17 [History] Enalapril [Vasotec] 10 mg PO DAILY 02/04/17 [History] Montelukast [Singulair] 10 mg PO HS 02/04/17 [History] [place]-3 Fatty Acids/Fish Oil [Fish Oil 1,000 mg Softgel] 1 cap PO DAILY [History] Pravastatin Sodium [Pravachol] 20 mg PO HS 02/04/17 [History] Ubidecarenone [Co Q-10] 30 mg PO DAILY 02/04/17 [History] Calcium Carbonate/Vitamin D3 [Calcium 500-Vit D3 200 Tablet] 1 tab PO DAILY [History] Cetirizine HCl [Zyrtec] 10 mg PO HS PRN 04/24/17 [History] Omeprazole 20 mg PO DAILY 04/24/17 [History] guaiFENesin [Mucinex] 1,200 mg PO Q12HR #10 tab 04/26/17 [Rx] Rivaroxaban [Xarelto] 10 mg PO DAILY #1 tab 05/04/17 [Rx] Rivaroxaban [Xarelto] 20 mg PO DAILY #1 tab 05/04/17 [Rx] Follow up Appointment(s)/Referral(s): Arabella Bashir MD [Primary Care Provider] - 1-2 days Activity/Diet/Wound Care/Special Instructions: *supervisor remelt Xarelto from [facility] at time of discharge- free coupon applied Discharge Disposition: HOME SELF-CARE
[2017-05-04] MEDS ORDERED: RIVAROXABAN 10 MG TAB PO STA (11:38)
[2017-05-04 11:44] LABS: Glucose,Whole Blood 128 mg/dL (75-99)
--- NOTE | 2017-05-04 12:23 | P.PN ---
Subjective Principal diagnosis: Pulmonary embolism 67-year-old female patient, morbidly obese with known history of obstructive sleep apnea and previous history of varicose veins with superficial thrombophlebitis, coming in with bilateral pulmonary embolism. The patient was recently discharged from the hospital being treated for an acute bronchitis. Following that she continued to have shortness of breath and some right-sided chest pain. The patient went to see her primary care physician and she was sent to the ED for further evaluation. CT angios the chest was done that showed bilateral pulmonary embolism, segmental in addition to some infiltration in the upper lobes bilaterally. No fever. No chills. No hemoptysis. Currently the patient on IV heparin. She has pain. No history of previous DVT or pulmonary embolism. No recent surgery. Most of malignancy. No long-term immobilization. She is already feeling better right now as being treated with anticoagulation. Patient is seen again today April 2017 in follow-up on the selective care unit. She is awake and alert in no acute distress. She states the right-sided chest discomfort has subsided. She does have some ongoing discomfort in her right shoulder which is chronic. She denies any worsening shortness of breath, cough or congestion. She has been approved for Xarelto. She has been up with assistance. Maintaining good O2 saturations in the 90s on room air. The patient was seen again today 05/04/2017 and followed on the selective care unit. She's been up ambulating without any acute distress. She states she is breathing easier today as compared to yesterday. She is maintaining good O2 saturations in the mid 90s on room air. She's been afebrile. Hemodynamically stable. She has been initiated on Xarelto. Plan is for discharge home today. Objective - Vital Signs Vital signs: Vital Signs Temp 98.7 F 05/04/17 08:00 Pulse 66 05/04/17 08:00 Resp 16 05/04/17 08:00 BP 107/51 05/04/17 08:00 Pulse Ox 94 L 05/04/17 08:00 Intake & Output 05/03/17 05/04/17 05/04/17 18:59 06:59 18:59 Intake Total 1680 500 Balance 1680 500 Weight 122.6 kg Intake: IV 640 Sodium Chloride 0.9% 1, 640 000 ml @ 80 mls/hr IV . [id number] BRIGIDO Rx#:[id number] Intake, IV Titration 500 Amount Heparin Sodium,Porcine/ 500 D5w Pmx 25,000 unit In Dextrose/Water 1 500ml. bag @ 18 UNITS/KG/HR 44. 41 mls/hr IV .[id number] BRIGIDO Rx#:[id number] Oral 1040 Other: Voiding Method Bedside Commode # Voids 1 2 1 - Exam GENERAL EXAM: Morbidly obese. Alert, active, comfortable in no apparent distress. HEAD: Normocephalic. EYES: Normal reaction of pupils, equal size. NOSE: Clear with pink turbinates. THROAT: No erythema or exudates. NECK: No masses, no JVD. CHEST: No chest wall deformity. LUNGS: Equal air entry with no crackles, wheeze, rhonchi or dullness. CVS: S1 and S2 normal with no audible murmurs, regular rhythm. ABDOMEN: No hepatosplenomegaly, normal bowel sounds, no guarding or rigidity. SPINE: No scoliosis or deformity SKIN: No rashes CENTRAL NERVOUS SYSTEM: No focal deficits, tone is normal in all 4 extremities. Extremities: There is trace peripheral edema. No clubbing, no cyanosis. Peripheral pulses are intact. - Labs CBC & Chem 7: 05/04/17 05:48 05/04/17 05:48 Labs: Abnormal Lab Results - Last 24 Hours (Table) 05/03/17 05/03/17 05/04/17 Range/Units 16:34 20:43 05:48 APTT (22.0-30.0) sec Chloride 110 H (98-107) mmol/L BUN 19 H (7-17) mg/dL Glucose 147 H (74-99) mg/dL POC Glucose (mg/dL) 130 H 131 H (75-99) mg/dL 05/04/17 05/04/17 05/04/17 Range/Units 06:00 06:21 11:43 APTT 56.5 H (22.0-30.0) sec Chloride (98-107) mmol/L BUN (7-17) mg/dL Glucose (74-99) mg/dL POC Glucose (mg/dL) 151 H 128 H (75-99) mg/dL Assessment and Plan Plan: Assessment 1 acute bilateral pulmonary embolism, segmented with secondary shortness of breath and chest pain. Positive DVT of the right lower extremity. 2 previous history of superficial thrombophlebitis of the lower extremities along with varicose veins 3 morbid obesity 4 obstructive sleep apnea maintained on CPAP at a pressure of 17 cm of water 5 diabetes mellitus 6 hypertension 7 hyperlipidemia 8 acid reflux 9 history of ex-smoking 10 mild intermittent bronchial asthma 11 preserved LV function with an ejection fraction of 50-55% based on the most recent echocardiogram. Plan The patient was seen and evaluated by Dr. Pierson. She is stable from the pulmonary standpoint. She has been initiated on Xarelto. Continue her other medications. We'll increase her activity as tolerated. Upon discharge she'll follow-up in our office in 1-2 weeks' time. She is however encouraged to call sooner with any recurrence of symptoms or other questions or concerns.
[2017-05-04] MEDS ORDERED: RIVAROXABAN 15 MG TAB PO STA (12:53)
[2017-05-04 13:55] VITALS: BP 136/72; PULSE 68
== END 2017-05-04 14:12 | disposition home or self-care (01) | DRG 176 ==
LOC: EC 17:26 → 6SEL 19:41
PROVIDERS: ADMIT Internal Medicine; ATTEND Internal Medicine
PROC: 3E0234Z Introduction of Serum, Toxoid and Vaccine into Muscle, Percutaneous Approach (ICD-10-PCS; principal; 2017-05-01)
DX: I26.99 Other pulmonary embolism without acute cor pulmonale (principal); Z68.43 Body mass index [BMI] 50.0-59.9, adult; J44.9 Chronic obstructive pulmonary disease, unspecified; I82.431 Acute embolism and thrombosis of right popliteal vein; I10 Essential (primary) hypertension; E66.01 Morbid (severe) obesity due to excess calories; E78.2 Mixed hyperlipidemia; J45.20 Mild intermittent asthma, uncomplicated; E11.9 Type 2 diabetes mellitus without complications; G47.33 Obstructive sleep apnea (adult) (pediatric); I83.90 Asymptomatic varicose veins of unspecified lower extremity; K21.9 Gastro-esophageal reflux disease without esophagitis; R00.1 Bradycardia, unspecified; M25.511 Pain in right shoulder; R07.89 Other chest pain; F17.200 Nicotine dependence, unspecified, uncomplicated; Z23 Encounter for immunization; Z87.09 Personal history of other diseases of the respiratory system; Z86.19 Personal history of other infectious and parasitic diseases; Z83.3 Family history of diabetes mellitus; Z79.899 Other long term (current) drug therapy; Z79.82 Long term (current) use of aspirin; Z82.49 Family history of ischemic heart disease and other diseases of the circulatory system; Z80.0 Family history of malignant neoplasm of digestive organs; Z86.72 Personal history of thrombophlebitis; Z87.01 Personal history of pneumonia (recurrent); Z86.718 Personal history of other venous thrombosis and embolism; Z88.1 Allergy status to other antibiotic agents; Z88.0 Allergy status to penicillin; Z88.8 Allergy status to other drugs, medicaments and biological substances; Z91.048 Other nonmedicinal substance allergy status
CPT/HCPCS: 36415; 71020; 71275; 80048; 80053; 82550; 82553; 82565; 83036; 83735; 84484; 84520; 85025; 85610; 85730; 93005; 93970; 94640; 96374; 99285

== ENCOUNTER 2017-05-15 09:41 | Emergency (ER) | payer MEDICARE ==
[2017-05-15 09:51] VITALS: BP 132/67; PULSE 77; RESP 18; TEMP 97.5
[2017-05-15] MEDS ORDERED: SODIUM CHLORIDE 0.9% 1,000 ML IV STA (10:32)
--- NOTE | 2017-05-15 10:37 | ED ---
General Adult HPI - General Chief complaint: Urogenital Stated complaint: blood in urine Time Seen by Provider: 05/15/17 10:02 Source: patient, family, RN notes reviewed Mode of arrival: wheelchair Limitations: no limitations - History of Present Illness Initial comments: Patient is a 67-year-old female presents to the emergency room for evaluation. Patient states she was here about a week ago for pulmonary embolisms. Patient states she was paced on Xarelto Patient states she was told to return to the emergency room and having blood in her urine. Patient states this morning around 2 AM she had bright red blood in her urine. Patient states she's also been passing small clots. Patient states also she's been constipated for the past 2 days. Patient states she had a bowel movement today that was very hard to pass. Patient states her stools were darker than usual. Patient does state that her breathing has improved. Patient denies chest pain or shortness of breath. Patient denies headache or dizziness. Patient states having lower abdominal discomfort from constipation. Patient denies fevers or chills. Patient denies pain or burning during urination. Patient denies trouble urinating. - Related Data Home Medications Medication Instructions Recorded Confirmed Aspirin [Adult Low Dose Aspirin EC] 81 mg PO HS 02/04/17 05/15/17 Biotin 5,000 mcg PO DAILY 02/04/17 05/15/17 Cholecalciferol [Vitamin D3] 400 unit PO DAILY 02/04/17 05/15/17 Enalapril [Vasotec] 10 mg PO DAILY 02/04/17 05/15/17 Montelukast [Singulair] 10 mg PO HS 02/04/17 05/15/17 [place]-3 Fatty Acids/Fish Oil [Fish 1 cap PO DAILY 02/04/17 05/15/17 Oil 1,000 mg Softgel] Pravastatin Sodium [Pravachol] 20 mg PO HS 02/04/17 05/15/17 Ubidecarenone [Co Q-10] 30 mg PO DAILY 02/04/17 05/15/17 Calcium Carbonate/Vitamin D3 1 tab PO DAILY 04/24/17 05/15/17 [Calcium 500-Vit D3 200 Tablet] Cetirizine HCl [Zyrtec] 10 mg PO HS PRN 04/24/17 05/15/17 Omeprazole 20 mg PO DAILY 04/24/17 05/15/17 Rivaroxaban [Xarelto Starter Pack] 1 tab PO DIRECTED 05/15/17 05/15/17 Previous Rx's Medication Instructions Recorded guaiFENesin [Mucinex] 1,200 mg PO Q12HR #10 tab 04/26/17 Allergies Allergy/AdvReac Type Severity Reaction Status Date / Time adhesive tape Allergy Rash/Hives Verified 05/15/17 10:50 clindamycin Allergy Rash/Hives Verified 05/15/17 10:50 levofloxacin [From Levaquin] Allergy Rash/Hives Verified 05/15/17 10:50 Penicillins Allergy Swelling Verified 05/15/17 10:50 amlodipine [From Norvasc] AdvReac DENTAL Verified 05/15/17 10:50 ISSUES Review of Systems ROS Statement: Those systems with pertinent positive or pertinent negative responses have been documented in the HPI. ROS Other: All systems not noted in ROS Statement are negative. Past Medical History Past Medical History: COPD, Diabetes Mellitus, Deep Vein Thrombosis (DVT), Hyperlipidemia, Hypertension, Sleep Apnea/CPAP/BIPAP Additional Past Medical History / Comment(s): Morbid obesity, obstructive sleep apnea maintained on CPAP at a pressure of 17 cm of water, BMI 52.9, diabetes mellitus, hypertension, hyperlipidemia, acid reflux, varicose veins with previous history of surgery for varicose vein stripping from the lower extremity , superficial thrombophlebitis, history of ex-smoking. History of Any Multi-Drug Resistant Organisms: None Reported Additional Past Surgical History / Comment(s): vein surgery left leg Past Anesthesia/Blood Transfusion Reactions: No Reported Reaction Past Psychological History: No Psychological Hx Reported Smoking Status: Former smoker Past Alcohol Use History: None Reported Past Drug Use History: None Reported - Past Family History Father Family Medical History: Cancer Additional Family Medical History / Comment(s): suicide, colon ca Mother Family Medical History: Coronary Artery Disease (CAD), Diabetes Mellitus General Exam - General Exam Comments Initial Comments: Sitting in exam room, no acute distress. Limitations: no limitations General appearance: alert, in no apparent distress Head exam: Present: atraumatic, normocephalic, normal inspection Eye exam: Present: normal appearance ENT exam: Present: normal exam Neck exam: Present: normal inspection Respiratory exam: Present: normal lung sounds bilaterally. Absent: respiratory distress Cardiovascular Exam: Present: regular rate, normal rhythm, normal heart sounds GI/Abdominal exam: Present: soft, normal bowel sounds. Absent: distended, tenderness, guarding, rebound, rigid Rectal exam: Present: normal inspection, normal rectal tone, heme (-) stool Extremities exam: Present: normal inspection Back exam: Present: normal inspection Neurological exam: Present: alert, oriented X3, CN II-XII intact, normal gait Psychiatric exam: Present: normal affect, normal mood Skin exam: Present: warm, dry, intact, normal color. Absent: rash Course Vital Signs 05/15/17 09:48 Temperature 97.5 F L Pulse Rate 77 Respiratory 18 Rate Blood Pressure 132/67 O2 Sat by Pulse 100 Oximetry Medical Decision Making - Medical Decision Making Patient is a 67-year-old female presents emergency room for evaluation of hematuria. All labs showed no significant findings. Fecal occult negative. Urinalysis positive for hematuria. Case discussed with Dr. Velez. Patient will be sent home and advised to drink plenty of water and to follow-up with primary care provider. Patient states she understands everything that was discussed with her. Return parameters discussed. - Lab Data Result diagrams: 05/15/17 10:50 05/15/17 10:50 Lab Results 05/15/17 05/15/17 05/15/17 Range/Units 10:50 10:50 10:50 WBC 7.5 (3.8-10.6) k/uL RBC 4.52 (3.80-5.40) m/uL Hgb 13.4 (11.4-16.0) gm/dL Hct 40.9 (34.0-46.0) % MCV 90.4 (80.0-100.0) fL MCH 29.5 (25.0-35.0) pg MCHC 32.7 (31.0-37.0) g/dL RDW 13.3 (11.5-15.5) % Plt Count 210 (150-450) k/uL Neutrophils % 70 % Lymphocytes % 17 % Monocytes % 7 % Eosinophils % 3 % Basophils % 1 % Neutrophils # 5.2 (1.3-7.7) k/uL Lymphocytes # 1.3 (1.0-4.8) k/uL Monocytes # 0.5 (0-1.0) k/uL Eosinophils # 0.2 (0-0.7) k/uL Basophils # 0.1 (0-0.2) k/uL PT (9.0-12.0) sec INR (<1.1) APTT (22.0-30.0) sec Sodium 138 (137-145) mmol/L Potassium 5.3 H (3.5-5.1) mmol/L Chloride 106 (98-107) mmol/L Carbon Dioxide 23 (22-30) mmol/L Anion Gap 9 mmol/L BUN 23 H (7-17) mg/dL Creatinine 1.24 H (0.52-1.04) mg/dL Est GFR (MDRD) Af Amer 52 (>60 ml/min/1.73 sqM) Est GFR (MDRD) Non-Af 43 (>60 ml/min/1.73 sqM) Glucose 158 H (74-99) mg/dL Calcium 8.4 (8.4-10.2) mg/dL Magnesium 1.8 (1.6-2.3) mg/dL Total Bilirubin 1.3 (0.2-1.3) mg/dL AST 42 H (14-36) U/L ALT 29 (9-52) U/L Alkaline Phosphatase 65 (38-126) U/L Total Creatine Kinase 48 (30-135) U/L CK-MB (CK-2) <0.2 (0.0-2.4) ng/mL CK-MB (CK-2) Rel Index Troponin I <0.012 (0.000-0.034) ng/mL Total Protein 7.3 (6.3-8.2) g/dL Albumin 3.9 (3.5-5.0) g/dL Lipase 111 (23-300) U/L Urine Color Urine Appearance (Clear) Urine pH (5.0-8.0) Ur Specific [place] (1.001-1.035) Urine Protein (Negative) Urine Glucose (UA) (Negative) Urine Ketones (Negative) Urine Blood (Negative) Urine Nitrite (Negative) Urine Bilirubin (Negative) Urine Urobilinogen (<2.0) mg/dL Ur Leukocyte Esterase (Negative) Urine RBC (0-5) /hpf Urine WBC (0-5) /hpf Ur Squamous Epith Cells (0-4) /hpf Urine Bacteria (None) /hpf Stool Occult Blood (Negative) 05/15/17 05/15/17 05/15/17 Range/Units 10:50 10:50 12:00 WBC (3.8-10.6) k/uL RBC (3.80-5.40) m/uL Hgb (11.4-16.0) gm/dL Hct (34.0-46.0) % MCV (80.0-100.0) fL MCH (25.0-35.0) pg MCHC (31.0-37.0) g/dL RDW (11.5-15.5) % Plt Count (150-450) k/uL Neutrophils % % Lymphocytes % % Monocytes % % Eosinophils % % Basophils % % Neutrophils # (1.3-7.7) k/uL Lymphocytes # (1.0-4.8) k/uL Monocytes # (0-1.0) k/uL Eosinophils # (0-0.7) k/uL Basophils # (0-0.2) k/uL PT 12.5 H (9.0-12.0) sec INR 1.3 (<1.1) APTT 29.5 (22.0-30.0) sec Sodium (137-145) mmol/L Potassium (3.5-5.1) mmol/L Chloride (98-107) mmol/L Carbon Dioxide (22-30) mmol/L Anion Gap mmol/L BUN (7-17) mg/dL Creatinine (0.52-1.04) mg/dL Est GFR (MDRD) Af Amer (>60 ml/min/1.73 sqM) Est GFR (MDRD) Non-Af (>60 ml/min/1.73 sqM) Glucose (74-99) mg/dL Calcium (8.4-10.2) mg/dL Magnesium (1.6-2.3) mg/dL Total Bilirubin (0.2-1.3) mg/dL AST (14-36) U/L ALT (9-52) U/L Alkaline Phosphatase (38-126) U/L Total Creatine Kinase (30-135) U/L CK-MB (CK-2) (0.0-2.4) ng/mL CK-MB (CK-2) Rel Index Troponin I (0.000-0.034) ng/mL Total Protein (6.3-8.2) g/dL Albumin (3.5-5.0) g/dL Lipase (23-300) U/L Urine Color Light Red Urine Appearance Clear (Clear) Urine pH 6.0 (5.0-8.0) Ur Specific [place] 1.011 (1.001-1.035) Urine Protein 1+ H (Negative) Urine Glucose (UA) Negative (Negative) Urine Ketones Negative (Negative) Urine Blood Large H (Negative) Urine Nitrite Negative (Negative) Urine Bilirubin Negative (Negative) Urine Urobilinogen <2.0 (<2.0) mg/dL Ur Leukocyte Esterase Trace H (Negative) Urine RBC >182 H (0-5) /hpf Urine WBC 4 (0-5) /hpf Ur Squamous Epith Cells 2 (0-4) /hpf Urine Bacteria Rare H (None) /hpf Stool Occult Blood Negative (Negative) Disposition Clinical Impression: Hemorrhagic cystitis Disposition: HOME SELF-CARE Condition: Good Instructions: Hematuria (ED) Additional Instructions: Drink plenty of water. Please follow up with primary care provider in 1-2 days. If any new symptom arises or symptoms worsen, return to ER as soon as possible. Referrals: Arabella Bashir MD [Primary Care Provider] - 1-2 days Time of Disposition: 12:39
[2017-05-15 11:05] LABS: Basophils # (A) 0.1 k/uL (0-0.2); Basophils % (A) 1 %; CH 29.8; CHCM 33.1; Eosinophils # (A) 0.2 k/uL (0-0.7); Eosinophils % (A) 3 %; HCT 40.9 % (34.0-46.0); HDW 2.51; HGB 13.4 gm/dL (11.4-16.0); Luc # (Auto) 0.18; Luc % (Auto) 2; Lymphocytes # (A) 1.3 k/uL (1.0-4.8); Lymphocytes % (A) 17 %; MCH 29.5 pg (25.0-35.0); MCHC 32.7 g/dL (31.0-37.0); MCV 90.4 fL (80.0-100.0); Mean Platelet Volume 7.5; Monocytes # (A) 0.5 k/uL (0-1.0); Monocytes % (A) 7 %; Neutrophils # (A) 5.2 k/uL (1.3-7.7); Neutrophils % (A) 70 %; RBC 4.52 m/uL (3.80-5.40); RDW 13.3 % (11.5-15.5); WBC 7.5 k/uL (3.8-10.6); WBC (Perox) 7.47
[2017-05-15 11:16] LABS: Calcium 8.4 mg/dL (8.4-10.2); Magnesium 1.8 mg/dL (1.6-2.3); Total Bilirubin 1.3 mg/dL (0.2-1.3); Total Protein 7.3 g/dL (6.3-8.2)
[2017-05-15 11:31] LABS: Creatine Kinase 48 U/L (30-135)
[2017-05-15 11:35] LABS: Potassium 5.3 mmol/L (3.5-5.1)
[2017-05-15 11:43] LABS: Creatine Kinase MB <0.2 ng/mL (0.0-2.4); Troponin I <0.012 ng/mL (0.000-0.034)
[2017-05-15 11:48] LABS: INR 1.3 (<1.1); Partial Thromboplastin Time 29.5 sec (22.0-30.0); Prothrombin Time 12.5 sec (9.0-12.0)
[2017-05-15 12:34] LABS: Appearance,Urine Clear (Clear); Bacteria,Urine Rare /hpf; Bilirubin,Urine Negative (Negative); Glucose,Urine (UA) Negative (Negative); Ketones,Urine Negative (Negative); Leukocyte Esterase,Urine Trace (Negative); Nitrite,Urine Negative (Negative); Particle Count 2831; Protein,Urine 1+ (Negative); RBC,Urine >182 /hpf (0-5); Specific Gravity,Urine 1.011 (1.001-1.035); Squamous Epithelial Cell,Urine 2 /hpf (0-4); UA Billing (MACRO vs. MICRO) MICRO; Urobilinogen,Urine <2.0 mg/dL (<2.0); WBC,Urine 4 /hpf (0-5)
== END 2017-05-15 12:53 | disposition home or self-care (01) ==
LOC: EC 09:41
DX: N30.90 Cystitis, unspecified without hematuria (principal); I10 Essential (primary) hypertension; K21.9 Gastro-esophageal reflux disease without esophagitis; E78.5 Hyperlipidemia, unspecified; E66.01 Morbid (severe) obesity due to excess calories; Z68.43 Body mass index [BMI] 50.0-59.9, adult; Z87.891 Personal history of nicotine dependence; Z86.718 Personal history of other venous thrombosis and embolism; Z79.01 Long term (current) use of anticoagulants; Z79.82 Long term (current) use of aspirin; Z79.899 Other long term (current) drug therapy; Z88.0 Allergy status to penicillin; Z88.1 Allergy status to other antibiotic agents; Z88.8 Allergy status to other drugs, medicaments and biological substances; Z91.048 Other nonmedicinal substance allergy status
CPT/HCPCS: 36415; 80053; 81001; 82272; 82550; 82553; 83690; 83735; 84484; 85025; 85610; 85730; 96360; 96361; 99283

== ENCOUNTER → 2018-06-10 | Outpatient (CLI) | payer MEDICARE ==
--- NOTE | 2018-06-10 09:54 | US ---
EXAMINATION TYPE: US venous doppler duplex LE LT DATE OF EXAM: 06/10/2018 8:55 AM COMPARISON: Bilateral lower extremity venous ultrasound 01/13/2017 CLINICAL HISTORY: edema/L leg pain; left lateral and posterior knee pain x 6 months; prior DVT and PE and on blood thinner; HT5'2, WT 310lbs SIDE PERFORMED: Left TECHNIQUE: The lower extremity deep venous system is examined utilizing real time linear array sonog brian with graded compression, Doppler sonography and color-flow sonography. VESSELS IMAGED: Common Femoral Vein Deep Femoral Vein Greater Saphenous Vein * Femoral Vein Popliteal Vein Small Saphenous Vein * Proximal Calf Veins (* superficial vessels) Left Leg: Negative for DVT. Complex left popliteal fossa cyst is noted at patient's area of pain = 5 .7 x 2.7 x 1.3cm Exam noted slightly suboptimal due to patient's large body habitus. Grayscale, color Doppler, spectra l doppler imaging performed of the deep veins of the left lower extremity. There is normal flow, com pressibility, vascular waveforms. Towards end of study technologist wilson curvilinear 5.7 cm fluid c ollection at level of popliteal fossa favoring moderate size Carter's cyst. IMPRESSION: No ultrasound evidence for acute DVT in the left lower extremity. Moderate-sized Carter's cyst noted at site of pain.
== END | disposition home or self-care (01) ==
LOC: RADUSMAIN 08:05
PROVIDERS: ATTEND Family Medicine
DX: M71.22 Synovial cyst of popliteal space [Baker], left knee (principal); M79.605 Pain in left leg; R60.0 Localized edema

== ENCOUNTER → 2018-10-17 | Outpatient (CLI) | payer MEDICARE ==
--- NOTE | 2018-10-21 09:35 | MM ---
Reason for exam: screening (asymptomatic). Last mammogram was performed 1 year and 10 months ago. History: Patient is postmenopausal and is nulliparous. Physical Findings: A clinical breast exam by your physician is recommended on an annual basis and results should be correlated with mammographic findings. MG 3D Screening Mammo W/Cad Bilateral CC and MLO view(s) were taken. Prior study comparison: December 03, 2016, bilateral MG 3d screening mammo w/cad. January 22, 2013, CAD bilateral diagnostic mammogram. There are scattered fibroglandular densities. No significant changes when compared with prior studies. ASSESSMENT: Negative, BI-RAD 1 RECOMMENDATION: Routine screening mammogram of both breasts in 1 year.
== END ==
LOC: RADMAMWWP 11:09
PROVIDERS: ATTEND Family Medicine
DX: Z12.31 Encounter for screening mammogram for malignant neoplasm of breast (principal)
CPT/HCPCS: 77063; 77067

== ENCOUNTER → 2019-07-03 | Outpatient (CLI) | payer MEDICARE ==
--- NOTE | 2019-07-03 09:57 | BD ---
EXAMINATION TYPE: Axial Bone Density DATE OF EXAM: 07/03/2019 COMPARISON: 12/03/2016 CLINICAL HISTORY: M 81.0 Height: 62 IN Weight: 324 IN FRAX RISK QUESTIONS: History of Fracture in Adulthood: LT FIBULA FX AGE 63 RISK FACTORS HISTORY OF: Active: LIMITED USES WALKER Diet low in dairy products/other sources of calcium: YES Postmenopausal woman: AGE 55 Take estrogen and/or progesterone medications: NOT NOW How long: CONTROL AGE 25-31 MEDICATIONS: Osteoporosis Medications: NOT NOW Which medication: RECLAST How Lon TIME Additional Medications: VIT D, CALCIUM, LEXAPRO, XARELTO,SINGULAIR, VASOTEC, PRILOSEC,FLEXERIL, BABY ASPIRIN, PRAVACHOL, IRON,COQ10, LUTEIN, BIOTIN, EXAM MEASUREMENTS: Bone mineral densitometry was performed using the schoox System. Bone mineral density as measured about the Lumbar spine is: ----- L1-L4(G/cm2): 1.087 T Score Values are as follows: ----- L2: -0.2 ----- L3: -1.3 ----- L4: -1.7 ----- L1-L4: -0.8 Bone mineral density has: Increased 1.4% since study of: 12/03/2016 Bone mineral density about the R hip (g/cm2): 0.561 Bone mineral density about the L hip (g/cm2): 0.641 T Score values are as follows: -----R Neck: -3.4 -----L Neck: -2.9 -----R Total: -2.4 -----L Total: -2.2 Bone mineral density has: Decreased -6.3% since study of: 12/03/2016 IMPRESSION: Osteoporosis (T Score less than -2.5). There is increased fracture risk and therapy is usually indicated based on age. Re-Screen 1-2 years. NOTE: T-SCORE=SD OF THE YOUNG ADULT MEAN.
== END | disposition home or self-care (01) ==
LOC: RADBDWWP 08:43
PROVIDERS: ATTEND Family Medicine
DX: M81.0 Age-related osteoporosis without current pathological fracture (principal)
CPT/HCPCS: 77080

== ENCOUNTER → 2019-07-23 | Outpatient (CLI) | payer MEDICARE ==
[~2019-07-23] MED LIST changes: -SODIUM CHLORIDE 0.9% 250 ML in EMPTY BAG 1 BAG IV PRN; +SODIUM CHLORIDE 0.9% 500 ML 500 ML in EMPTY BAG 1 BAG IV PRN; -SODIUM CHLORIDE 0.9% 500 ML in EMPTY BAG 1 BAG IV PRN; +ZOLEDRONIC ACID 5 MG in SODIUM CHLORIDE 0.9% 100 ML IV NR; -ZOLEDRONIC ACID 5 MG in SODIUM CHLORIDE 0.9% 100 ML IV ONE
[2019-07-23 12:20] VITALS: BP 123/78; PULSE 62; RESP 18; TEMP 97.5
== END | disposition home or self-care (01) ==
LOC: PROCWHC3 11:45
PROVIDERS: ATTEND Family Medicine
DX: M81.0 Age-related osteoporosis without current pathological fracture (principal)
CPT/HCPCS: 96365; J3489

== ENCOUNTER → 2019-10-21 | Outpatient (CLI) | payer MEDICARE | LOC: RADMAMWWP 13:49 | PROVIDERS: ATTEND Family Medicine | DX: Z53.9 Procedure and treatment not carried out, unspecified reason (principal) ==

== ENCOUNTER 2020-04-11 14:33 | Observation (INO) | payer MEDICARE ==
--- NOTE | 2020-04-11 14:53 | ED ---
General Adult HPI - General Stated complaint: AFib Time Seen by Provider: 04/11/20 14:41 Source: RN notes reviewed - History of Present Illness Initial comments: 70-year-old female with a past medical history of COPD, diabetes myelitis, hyperlipidemia, hypertension, PE, DVT presents to the emergency department for a chief complaint of palpitations. Patient states she had a fluttering in her chest. Patient states this started around noon and lasted till about 1:30. States the symptoms have actually improved significantly at this point. Patient has had similar symptoms in the past but they always went away quickly. She did undergo an extensive cardiac workup for these symptoms which included Holter monitor and chemical stress test which were all normal. Patient is currently taking Xarelto for a history of PEs. She does not have a history of atrial fibrillation.Patient has no other complaints at this time including shortness of breath, chest pain, abdominal pain, nausea or vomiting, headache, or visual changes. - Related Data Home Medications Medication Instructions Recorded Confirmed Aspirin [Adult Low Dose Aspirin EC] 81 mg PO HS 02/04/17 04/11/20 Enalapril [Vasotec] 10 mg PO DAILY 02/04/17 04/11/20 Montelukast [Singulair] 10 mg PO HS 02/04/17 04/11/20 [place]-3 Fatty Acids/Fish Oil [Fish 1 cap PO DAILY 02/04/17 04/11/20 Oil 1,000 mg Softgel] Pravastatin Sodium [Pravachol] 20 mg PO HS 02/04/17 04/11/20 Omeprazole 20 mg PO DAILY 04/24/17 04/11/20 Biotin 10,000 mcg PO DAILY 04/11/20 04/11/20 Calcium Carbonate [Calcium] 600 mg PO DAILY 04/11/20 04/11/20 Cholecalciferol [Vitamin D3 (25 2,000 unit PO DAILY 04/11/20 04/11/20 Mcg = 1000 Iu)] Cyclobenzaprine [Flexeril] 10 mg PO HS PRN 04/11/20 04/11/20 Escitalopram [Lexapro] 20 mg PO DAILY 04/11/20 04/11/20 Rivaroxaban [Xarelto] 15 mg PO DAILY 04/11/20 04/11/20 Ubidecarenone [Co Q-10] 200 mg PO DAILY 04/11/20 04/11/20 Vit C/E/Zn/Coppr/Lutein/Zeaxan 1 cap PO BID 04/11/20 04/11/20 [Preservision Areds 2 Softgel] Allergies Allergy/AdvReac Type Severity Reaction Status Date / Time adhesive tape Allergy Rash/Hives Verified 04/11/20 16:04 clindamycin Allergy Rash/Hives Verified 04/11/20 16:04 levofloxacin [From Levaquin] Allergy Rash/Hives Verified 04/11/20 16:04 Penicillins Allergy Swelling Verified 04/11/20 16:04 amlodipine [From Norvasc] AdvReac DENTAL Verified 04/11/20 16:04 ISSUES Review of Systems ROS Statement: Those systems with pertinent positive or pertinent negative responses have been documented in the HPI. ROS Other: All systems not noted in ROS Statement are negative. Past Medical History Past Medical History: COPD, Diabetes Mellitus, Deep Vein Thrombosis (DVT), Hyperlipidemia, Hypertension, Pulmonary Embolus (PE), Sleep Apnea/CPAP/BIPAP Additional Past Medical History / Comment(s): Morbid obesity, obstructive sleep apnea maintained on CPAP at a pressure of 17 cm of water, BMI 52.9, diabetes mellitus, hypertension, hyperlipidemia, acid reflux, varicose veins with previous history of surgery for varicose vein stripping from the lower extremity, superficial thrombophlebitis, history of ex-smoking. History of Any Multi-Drug Resistant Organisms: None Reported Additional Past Surgical History / Comment(s): vein surgery left leg Past Anesthesia/Blood Transfusion Reactions: No Reported Reaction Smoking Status: Former smoker - Past Family History Father Family Medical History: Cancer Additional Family Medical History / Comment(s): suicide, colon ca Mother Family Medical History: Coronary Artery Disease (CAD), Diabetes Mellitus General Exam General appearance: alert, in no apparent distress Head exam: Present: atraumatic, normocephalic, normal inspection Eye exam: Present: normal appearance, PERRL, EOMI. Absent: scleral icterus, conjunctival injection, periorbital swelling ENT exam: Present: normal exam, mucous membranes moist Neck exam: Present: normal inspection, full ROM. Absent: tenderness, men ingismus, lymphadenopathy Respiratory exam: Present: normal lung sounds bilaterally. Absent: respiratory distress, wheezes, rales, rhonchi, stridor Cardiovascular Exam: Present: regular rate, irregular rhythm, normal heart sounds. Absent: systolic murmur, diastolic murmur, rubs, gallop, clicks GI/Abdominal exam: Present: soft, normal bowel sounds. Absent: distended, tenderness, guarding, rebound, rigid Neurological exam: Present: alert Psychiatric exam: Present: normal affect, normal mood Course Vital Signs 04/11/20 04/11/20 04/11/20 14:46 15:41 16:21 Temperature 98 F Pulse Rate 93 101 H 99 Respiratory 18 18 18 Rate Blood Pressure 142/109 140/76 126/86 O2 Sat by Pulse 96 96 95 Oximetry - Reevaluation(s) Reevaluation #1: 04/11/20 15:07 Patient already received 325 mg of Aspirin EKG Findings - EKG Comments: EKG Findings:: Atrial fibrillation, ventricular rate 92, QRS duration 90, QTC 420 Medical Decision Making - Medical Decision Making Vitals are stable. Heart rate has been sustained in the 90s. Prior to arrival she reports it was in the 130s. Symptoms have significantly improved since that time. Her symptoms included fluttering without chest pain. Blood pressure 120s. Patient is on new onset atrial fibrillation. She is already anticoagulated on Xarelto. CBC is unremarkable CMP also unremarkable. Troponin is negative. Chest x-ray shows no acute process. Patient will be admitted for cardiology consultation. - Lab Data Result diagrams: 04/11/20 14:45 04/11/20 14:45 Lab Results 04/11/20 04/11/20 04/11/20 Range/Units 14:45 14:45 14:45 WBC 4.9 (3.8-10.6) k/uL RBC 4.71 (3.80-5.40) m/uL Hgb 13.8 (11.4-16.0) gm/dL Hct 44.6 (34.0-46.0) % MCV 94.5 (80.0-100.0) fL MCH 29.3 (25.0-35.0) pg MCHC 31.0 (31.0-37.0) g/dL RDW 13.3 (11.5-15.5) % Plt Count 149 L (150-450) k/uL Neutrophils % 53 % Lymphocytes % 32 % Monocytes % 9 % Eosinophils % 3 % Basophils % 1 % Neutrophils # 2.6 (1.3-7.7) k/uL Lymphocytes # 1.6 (1.0-4.8) k/uL Monocytes # 0.4 (0-1.0) k/uL Eosinophils # 0.2 (0-0.7) k/uL Basophils # 0.0 (0-0.2) k/uL PT 11.4 (9.0-12.0) sec INR 1.1 (<1.2) APTT 27.8 (22.0-30.0) sec Sodium 137 (137-145) mmol/L Potassium 4.9 (3.5-5.1) mmol/L Chloride 104 (98-107) mmol/L Carbon Dioxide 25 (22-30) mmol/L Anion Gap 8 mmol/L BUN 19 H (7-17) mg/dL Creatinine 1.22 H (0.52-1.04) mg/dL Est GFR (CKD-EPI)AfAm 52 (>60 ml/min/1.73 sqM) Est GFR (CKD-EPI)NonAf 45 (>60 ml/min/1.73 sqM) Glucose 148 H (74-99) mg/dL Calcium 9.1 (8.4-10.2) mg/dL Magnesium 1.7 (1.6-2.3) mg/dL Total Bilirubin 0.6 (0.2-1.3) mg/dL AST 57 H (14-36) U/L ALT 26 (4-34) U/L Alkaline Phosphatase 131 H (38-126) U/L Troponin I (0.000-0.034) ng/mL NT-Pro-B Natriuret Pep pg/mL Total Protein 7.3 (6.3-8.2) g/dL Albumin 4.1 (3.5-5.0) g/dL 04/11/20 04/11/20 Range/Units 14:45 14:45 WBC (3.8-10.6) k/uL RBC (3.80-5.40) m/uL Hgb (11.4-16.0) gm/dL Hct (34.0-46.0) % MCV (80.0-100.0) fL MCH (25.0-35.0) pg MCHC (31.0-37.0) g/dL RDW (11.5-15.5) % Plt Count (150-450) k/uL Neutrophils % % Lymphocytes % % Monocytes % % Eosinophils % % Basophils % % Neutrophils # (1.3-7.7) k/uL Lymphocytes # (1.0-4.8) k/uL Monocytes # (0-1.0) k/uL Eosinophils # (0-0.7) k/uL Basophils # (0-0.2) k/uL PT (9.0-12.0) sec INR (<1.2) APTT (22.0-30.0) sec Sodium (137-145) mmol/L Potassium (3.5-5.1) mmol/L Chloride (98-107) mmol/L Carbon Dioxide (22-30) mmol/L Anion Gap mmol/L BUN (7-17) mg/dL Creatinine (0.52-1.04) mg/dL Est GFR (CKD-EPI)AfAm (>60 ml/min/1.73 sqM) Est GFR (CKD-EPI)NonAf (>60 ml/min/1.73 sqM) Glucose (74-99) mg/dL Calcium (8.4-10.2) mg/dL Magnesium (1.6-2.3) mg/dL Total Bilirubin (0.2-1.3) mg/dL AST (14-36) U/L ALT (4-34) U/L Alkaline Phosphatase (38-126) U/L Troponin I <0.012 (0.000-0.034) ng/mL NT-Pro-B Natriuret Pep 230 pg/mL Total Protein (6.3-8.2) g/dL Albumin (3.5-5.0) g/dL Disposition Clinical Impression: New onset atrial fibrillation Disposition: ADMITTED IP TO THIS HOSP Condition: Fair Is patient prescribed a controlled substance at d/c from ED?: No Referrals: Arabella Bashir MD [Primary Care Provider] - 1-2 days Time of Disposition: 16:37
[2020-04-11] MEDS ORDERED: SODIUM CHLORIDE 0.9% 500 ML 500 ML IV STA (15:06)
[2020-04-11 15:14] LABS: Basophils % (A) 1 %; Eosinophils # (A) 0.2 k/uL (0-0.7); Eosinophils % (A) 3 %; HCT 44.6 % (34.0-46.0); HGB 13.8 gm/dL (11.4-16.0); Lymphocytes # (A) 1.6 k/uL (1.0-4.8); Lymphocytes % (A) 32 %; MCH 29.3 pg (25.0-35.0); MCV 94.5 fL (80.0-100.0); Mean Platelet Volume 8.3; Monocytes # (A) 0.4 k/uL (0-1.0); Monocytes % (A) 9 %; Neutrophils # (A) 2.6 k/uL (1.3-7.7); Neutrophils % (A) 53 %; Platelet Count 149 k/uL (150-450); RBC 4.71 m/uL (3.80-5.40); RDW 13.3 % (11.5-15.5); WBC 4.9 k/uL (3.8-10.6)
[2020-04-11 15:22] LABS: Albumin 4.1 g/dL (3.5-5.0); Calcium 9.1 mg/dL (8.4-10.2); INR 1.1 (<1.2); Magnesium 1.7 mg/dL (1.6-2.3); Partial Thromboplastin Time 27.8 sec (22.0-30.0); Potassium 4.9 mmol/L (3.5-5.1); Prothrombin Time 11.4 sec (9.0-12.0); Total Bilirubin 0.6 mg/dL (0.2-1.3); Total Protein 7.3 g/dL (6.3-8.2)
--- NOTE | 2020-04-11 15:23 | XR ---
EXAMINATION TYPE: XR chest 2V DATE OF EXAM: 04/11/2020 COMPARISON: 05/01/2017 HISTORY: Shortness of breath TECHNIQUE: Frontal and lateral views of the chest are obtained. FINDINGS: Scattered senescent parenchymal changes noted. No evidence for infiltrate. No evidence for atelectasis. Heart size is stable. Mediastinal structures are stable and grossly unremarkable. No evidence for hilar prominence. Degenerative changes dorsal spine. IMPRESSION: 1. No evidence for acute pulmonary disease.
[2020-04-11] MEDS ORDERED: CYCLOBENZAPRINE 10 MG TAB PO PRN (16:40)
[2020-04-11] MEDS: PRAVASTATIN SODIUM 20 MG TAB PO SCH (21:57)
[2020-04-11] MEDS: MONTELUKAST 10 MG TAB PO SCH (21:57)
[2020-04-11] MEDS: VIT A,C & E-LUTEIN-MINERALS 1 EACH TAB PO SCH (22:07)
[2020-04-12 03:17] LABS: Cholesterol 168 mg/dL (<200); HDL Cholesterol 46 mg/dL (40-60); LDL Cholesterol,Calculated 87 mg/dL (0-99); Triglycerides 173 mg/dL (<150)
[2020-04-12 06:27] LABS: Glucose,Whole Blood 146 mg/dL (75-99)
[2020-04-12] MEDS: PANTOPRAZOLE 40 MG TABLET PO SCH (06:35)
[2020-04-12] MEDS: CALCIUM CARBONATE 500 MG CHEWABLE PO SCH (08:54)
[2020-04-12] MEDS: LISINOPRIL 20 MG TAB PO SCH (08:57)
[2020-04-12] MEDS: CHOLECALCIFEROL 1,000 UNIT TAB PO SCH (08:57)
[2020-04-12] MEDS: RIVAROXABAN 20 MG TAB PO SCH (08:57)
[2020-04-12] MEDS: VIT A,C & E-LUTEIN-MINERALS 1 EACH TAB PO SCH ×2 (08:57→20:56)
[2020-04-12] MEDS: ESCITALOPRAM 20 MG TAB PO SCH (08:57)
[2020-04-12] MEDS: ASPIRIN 81 MG PO SCH (08:57)
[2020-04-12] MEDS: SODIUM CHLORIDE 0.9% 1,000 ML IV SCH ×2 (08:59→11:17)
[2020-04-12] MEDS ORDERED: ASPIRIN 325 MG TAB PO SCH (09:00)
[2020-04-12] MEDS ORDERED: NON FORMULARY DRUG (Ubidecarenone [Co Q-10] 200 MG) PO SCH (09:00)
[2020-04-12] MEDS ORDERED: RIVAROXABAN 15 MG TAB PO SCH (09:00)
[2020-04-12] MEDS ORDERED: LIDOCAINE 1% INJ 10MG/ML (20 ML MDV) ONE (10:28)
[2020-04-12] MEDS ORDERED: PROPOFOL 10 MG/ML 20 ML VIAL IV ONE (10:28)
[2020-04-12] MEDS ORDERED: LACTATED RINGERS 1,000 ML IV ONE (10:30)
[2020-04-12] MEDS ORDERED: BENZOCAINE SPRAY 1 CAN TOPICAL ONE (10:36)
--- NOTE | 2020-04-12 10:44 | ECHOF ---
Referral Reason:afib MEASUREMENTS -------- HEIGHT: 157.5 cm WEIGHT: 127.9 kg BP: 147/82 RVIDd: 3.2 cm (< 3.3) IVSd: 1.4 cm (0.6 - 1.1) LVIDd: 3.8 cm (3.9 - 5.3) LVPWd: 1.4 cm (0.6 - 1.1) IVSs: 2.0 cm LVIDs: 2.6 cm LVPWs: 2.1 cm LA Diam: 3.6 cm (2.7 - 3.8) Ao Diam: 3.3 cm (2.0 - 3.7) AV Cusp: 2.5 cm (1.5 - 2.6) MV EXCURSION: 9.588 mm (> 18.000) MV EF SLOPE: 19 mm/s (70 - 150) EPSS: 0.3 cm FINDINGS -------- Atrial fibrillation. This was a technically adequate study. The left ventricular size is normal. There is moderate concentric left ventricular hypertrophy. O verall left ventricular systolic function is normal with, an EF between 55 - 60 %. The right ventricle is normal in size. Normal LA size by volume 22+/-6 ml/m2. The right atrium is normal in size. Interatrial and interventricular septum intact. There is mild aortic valve sclerosis. The mitral valve is normal. There is trace to mild mitral regurgitation. The tricuspid valve appears structurally normal. The pulmonic valve was not well visualized. The aortic root size is normal. IVC Not well visulized. Echo free space may represent effusion or a pericardial fat pad. CONCLUSIONS -------- 1. Atrial fibrillation. 2. This was a technically adequate study. 3. The left ventricular size is normal. 4. There is moderate concentric left ventricular hypertrophy. 5. Overall left ventricular systolic function is normal with, an EF between 55 - 60 %. 6. The right ventricle is normal in size. 7. Normal LA size by volume 22+/-6 ml/m2. 8. The right atrium is normal in size. 9. Interatrial and interventricular septum intact. 10. There is mild aortic valve sclerosis. 11. The mitral valve is normal. 12. The tricuspid valve appears structurally normal. 13. The pulmonic valve was not well visualized. 14. The aortic root size is normal. 15. IVC Not well visulized. 16. Echo free space may represent effusion or a pericardial fat pad. COMMUNICATION LECTURER: Mary Brizuela RDCS
[2020-04-12] MEDS ORDERED: IV FLUID CONTINUATION 1,000 ML IV ONE (10:50)
[2020-04-12 11:55] LABS: Glucose,Whole Blood 134 mg/dL (75-99)
--- NOTE | 2020-04-12 11:58 | CONS ---
CONSULTATION CHIEF COMPLAINT: New onset atrial fibrillation. This is a 70-year-old lady with history of pulmonary embolism, hypertension, and dyslipidemia who presented to hospital with sudden onset of palpitations yesterday. They were mild to moderate intensity at rest, came on suddenly and were not resolved. Due to this, she came to the emergency room and an EKG revealed that she was in atrial fibrillation. There is no prior history of atrial fibrillation. There is no history of coronary artery disease or congestive heart failure. There is no family history of premature or sudden . At the time of my evaluation, she is in atrial fibrillation with controlled ventricular rate at 85 beats per minute. Given her new onset atrial fibrillation, I advised her to undergo a JELLY cardioversion. Her primary linen folder, Dr. Jimenez is going to do this. PAST MEDICAL HISTORY: Significant for hypertension, dyslipidemia, pulmonary embolism. MEDICATIONS: At home include Xarelto 15 daily, Lexapro, Flexeril, calcium, Pravachol 20 daily, omeprazole, Singulair, Vasotec, biotin, and aspirin. Patient is allergic to CLINDAMYCIN, LEVAQUIN, PENICILLIN, and AMLODIPINE. FAMILY HISTORY: Negative for premature coronary artery disease. SOCIAL HISTORY: Negative for smoking, EtOH abuse, or drug abuse. REVIEW OF SYSTEMS: HEENT: Unremarkable. CARDIAC: As described above. RESPIRATORY: As described above. GI: Negative. GENITOURINARY: Negative. ALLERGY/IMMUNOLOGY: Negative. SKIN: Negative. MUSCULOSKELETAL: Negative. ENDOCRINE: Negative. HEMATOLOGICAL: Negative. DERM: Negative. CONSTITUTIONAL: Negative. ONCOLOGICAL: Negative FLORIST MANAGER: Negative. Rest of the system review is not relevant. PHYSICAL EXAM: Comfortable at rest, afebrile. Heart rate is 85 beats per minute, irregular rhythm. Blood pressure is 140/70, respiratory rate is 18, O2 saturation is 96% on room air. There is no jugular venous distention. Carotid upstroke is normal. There is no bruit. Chest exam reveals good air entry bilaterally. Heart exam reveals first and second heart sounds, irregular rhythm, no murmur. Abdomen is soft, nontender. Exam of extremities did not reveal any edema. Peripheral pulses are felt. FLORIST MANAGER exam did not reveal focal neurological deficits. LABS: Show that the LDL cholesterol is 87, three sets of troponins are negative. BNP is normal. Creatinine is 1.2. Hemoglobin is normal. ASSESSMENT: 1. Persistent atrial fibrillation. 2. History of pulmonary embolism. 3. Hypertension. 4. Dyslipidemia. PLAN: I advised the patient to undergo transesophageal echo and cardioversion. ATILIO / ROBERTH: [id number] /
--- NOTE | 2020-04-12 12:44 | P.PCN ---
Date of Procedure: 04/12/20 Preoperative Diagnosis: Atrial fibrillation Postoperative Diagnosis: Successful conversion to sinus rhythm Procedure(s) Performed: JELLY cardioversion Description of Procedure: JELLY: Patient was brought to the lab in a fasting state, prepped and draped in the usual fashion. Patient was given IV sedation by department of anesthesia. The throat was sprayed with Hurricaine. A lubricated Omni probe was introduced in the oropharynx and was advanced into the esophagus. Multiple views were obtained. Color, pulsed and continuous Doppler studies were performed. Saline contrast bubble injection was also performed. Final impression: #1. No PFO #2. No clot in the left atrial appendage #3. Normal valvular function. #4. Normal LV function. Plan: Proceed with cardioversion. Cardioversion: Patient was under anesthesia administered by department of anesthesia. The symptom a shock of 200 J was applied with anterior-posterior pedals. Patient converted to sinus rhythm. No immediate complications. Final impression: Successful conversion to sinus rhythm
--- NOTE | 2020-04-12 13:17 | P.HPIM ---
History of Present Illness H&P Date: 04/12/20 Chief Complaint: Palpitation Elli Eller is a 70-year-old female patient of Dr. Bashir who presented to [facility] emergency room due to palpitation, patient states that she started having palpitation at home her heart rate was in excess of 120 she tried to rest but her heart rate did not improve, she called EMS and was brought into [facility] emergency room. In the emergency room patient had evidence of atrial fibrillation with a heart rate of 92 she was admitted to telemetry floor. Cardiology consultation was requested. Patient has known history of multiple episodes of palpitation, she was never diagnosed with atrial fibrillation in the past, she had multiple testing by Dr. bashir and by Dr. Alexandra including Holter monitor and stress test, however there was no diagnosis of atrial fibrillation. Patient had history of DVT and pulmonary embolism about 3 years ago, she has been maintained on oral Xarelto since then. Patient denies any previous history of coronary artery disease or congestive heart failure in the past, she has known history of COPD she used to smoke she quit 3-4 years ago. She has history of lzo-[id number]-[id number] diabetes mellitus, she was on metformin in the past currently she is on diet control her last A1c was 6.8. Patient has A known history of hypertension, and hyperlipidemia. Social history: Patient used to smoke she quit 3-4 years ago, she is retired she used to work as a hairdresser and school cafeteria cook, there is no history of alcohol or drug abuse Past Medical History Past Medical History: COPD, Diabetes Mellitus, Deep Vein Thrombosis (DVT), Hyperlipidemia, Hypertension, Pulmonary Embolus (PE), Sleep Apnea/CPAP/BIPAP Additional Past Medical History / Comment(s): Morbid obesity, obstructive sleep apnea maintained on CPA, diabetes mellitus, hypertension, hyperlipidemia, acid reflux, varicose veins with previous history of surgery for varicose vein stripping from the lower extremity, superficial thrombophlebitis, history of ex- smoking. History of Any Multi-Drug Resistant Organisms: None Reported Additional Past Surgical History / Comment(s): vein surgery left leg, bilateral cataracts. Past Anesthesia/Blood Transfusion Reactions: No Reported Reaction Past Psychological History: No Psychological Hx Reported Smoking Status: Former smoker Past Alcohol Use History: None Reported Past Drug Use History: None Reported Additional Drug Use History / Comment(s): Pt states she smokes when she drinks on occasion - Past Family History Father Family Medical History: Cancer Additional Family Medical History / Comment(s): suicide, colon ca Mother Family Medical History: Coronary Artery Disease (CAD), Diabetes Mellitus Medications and Allergies Home Medications Medication Instructions Recorded Confirmed Type Aspirin [Adult Low Dose Aspirin EC] 81 mg PO HS 02/04/17 04/11/20 History Enalapril [Vasotec] 10 mg PO DAILY 02/04/17 04/11/20 History Montelukast [Singulair] 10 mg PO HS 02/04/17 04/11/20 History [place]-3 Fatty Acids/Fish Oil [Fish 1 cap PO DAILY 02/04/17 04/11/20 History Oil 1,000 mg Softgel] Pravastatin Sodium [Pravachol] 20 mg PO HS 02/04/17 04/11/20 History Omeprazole 20 mg PO DAILY 04/24/17 04/11/20 History Biotin 10,000 mcg PO DAILY 04/11/20 04/11/20 History Calcium Carbonate [Calcium] 600 mg PO DAILY 04/11/20 04/11/20 History Cholecalciferol [Vitamin D3 (25 2,000 unit PO DAILY 04/11/20 04/11/20 History Mcg = 1000 Iu)] Cyclobenzaprine [Flexeril] 10 mg PO HS PRN 04/11/20 04/11/20 History Escitalopram [Lexapro] 20 mg PO DAILY 04/11/20 04/11/20 History Rivaroxaban [Xarelto] 15 mg PO DAILY 04/11/20 04/11/20 History Ubidecarenone [Co Q-10] 200 mg PO DAILY 04/11/20 04/11/20 History Vit C/E/Zn/Coppr/Lutein/Zeaxan 1 cap PO BID 04/11/20 04/11/20 History [Preservision Areds 2 Softgel] Allergies Allergy/AdvReac Type Severity Reaction Status Date / Time adhesive tape Allergy Rash/Hives Verified 04/11/20 16:04 clindamycin Allergy Rash/Hives Verified 04/11/20 16:04 levofloxacin [From Levaquin] Allergy Rash/Hives Verified 04/11/20 16:04 Penicillins Allergy Swelling Verified 04/11/20 16:04 amlodipine [From Norvasc] AdvReac DENTAL Verified 04/11/20 16:04 ISSUES Physical Exam Vitals: Vital Signs Temp Pulse Pulse Resp BP BP Pulse Ox 04/12/20 11:16 65 04/12/20 11:00 65 16 109/56 94 L 04/12/20 10:59 68 22 110/53 93 L 04/12/20 10:48 69 16 138/107 96 04/12/20 08:00 98.2 F 85 18 141/70 96 04/12/20 03:46 97.8 F 80 16 147/82 93 L 04/11/20 23:34 98.6 F 111 H 17 117/76 96 04/11/20 18:54 98 F 98 18 138/92 95 04/11/20 17:32 85 18 133/88 97 04/11/20 16:21 99 18 126/86 95 04/11/20 15:41 101 H 18 140/76 96 04/11/20 14:46 98 F 93 18 142/109 96 Intake and Output 04/11/20 04/12/20 04/12/20 22:59 06:59 14:59 Intake Total 500 500 150 Balance 500 500 150 Intake: IV 150 Oral 500 Other 500 Other: Voiding Method Toilet # Voids 0 0 Weight 136.078 kg 128 kg In general patient is alert and oriented 3 in no apparent distress HEENT head normocephalic and atraumatic Neck is supple no JVD no goiter no lymphadenopathy Chest exam reveals a few scattered crackles no wheezing Cardiac exam reveals regular heart sounds S1 and S2 no gallops no murmurs Abdomen is soft nontender no organomegaly with normal bowel sounds Extremity exam reveals no edema no cyanosis or clubbing Neurological examination reveals no gross focal deficit Results CBC & Chem 7: 04/11/20 14:45 04/11/20 14:45 Labs: Abnormal Lab Results - Last 24 Hours (Table) 04/11/20 04/11/20 04/12/20 Range/Units 14:45 14:45 02:35 Plt Count 149 L (150-450) k/uL BUN 19 H (7-17) mg/dL Creatinine 1.22 H (0.52-1.04) mg/dL Glucose 148 H (74-99) mg/dL POC Glucose (mg/dL) (75-99) mg/dL AST 57 H (14-36) U/L Alkaline Phosphatase 131 H (38-126) U/L Triglycerides 173 H (<150) mg/dL 04/12/20 04/12/20 Range/Units 06:26 11:34 Plt Count (150-450) k/uL BUN (7-17) mg/dL Creatinine (0.52-1.04) mg/dL Glucose (74-99) mg/dL POC Glucose (mg/dL) 146 H 134 H (75-99) mg/dL AST (14-36) U/L Alkaline Phosphatase (38-126) U/L Triglycerides (<150) mg/dL Thrombosis Risk Factor Assmnt - Choose All That Apply Each Factor Represents 1 point: Obesity (BMI >25), Swollen legs (current) Each Risk Factor Represents 2 Points: Age 61-74 years Each Risk Factor Represents 3 Points: History of DVT/PE Thrombosis Risk Factor Assessment Total Risk Factor Score: 7 Thrombosis Risk Factor Assessment Level: High Risk Assessment and Plan Plan: 1. Atrial fibrillation with an episode of rapid ventricular response 2. History of DVT and pulmonary embolism 3 years ago, maintained on Xarelto 3. Underlying history of COPD 4. Underlying history of hypertension 5. Qyd-itsrmyn-sromdgsdh diabetes mellitus currently on diet control 6. Underlying history of morbid obesity 7. Underlying history of depression maintained on Lexapro At this time patient is admitted to telemetry floor She was evaluated by cardiology and plan is to proceed with JELLY cardioversion Home medications reviewed and reordered, will follow during this admission for medical management
[2020-04-12 16:49] LABS: Glucose,Whole Blood 157 mg/dL (75-99)
[2020-04-12 20:19] LABS: Glucose,Whole Blood 158 mg/dL (75-99)
[2020-04-12] MEDS: MONTELUKAST 10 MG TAB PO SCH (20:56)
[2020-04-12] MEDS: PRAVASTATIN SODIUM 20 MG TAB PO SCH (20:56)
[2020-04-13 04:10] VITALS: RESP 18
[2020-04-13] MEDS: PANTOPRAZOLE 40 MG TABLET PO SCH (06:05)
[2020-04-13 06:12] LABS: Glucose,Whole Blood 143 mg/dL (75-99)
[2020-04-13] MEDS: CHOLECALCIFEROL 1,000 UNIT TAB PO SCH (08:20)
[2020-04-13] MEDS: ESCITALOPRAM 20 MG TAB PO SCH (08:20)
[2020-04-13] MEDS: ASPIRIN 81 MG PO SCH (08:21)
[2020-04-13] MEDS: LISINOPRIL 20 MG TAB PO SCH (08:21)
[2020-04-13] MEDS: CALCIUM CARBONATE 500 MG CHEWABLE PO SCH (08:21)
[2020-04-13] MEDS: VIT A,C & E-LUTEIN-MINERALS 1 EACH TAB PO SCH (08:21)
[2020-04-13] MEDS: SODIUM CHLORIDE 0.9% 1,000 ML IV SCH ×2 (08:22)
[2020-04-13] MEDS: RIVAROXABAN 20 MG TAB PO SCH (08:23)
--- NOTE | 2020-04-13 11:45 | P.PN ---
Subjective Progress Note Date: 04/13/20 This is a pleasant 70-year-old female with history of pulmonary embolism, hypertension, hyperlipidemia, who presented to the hospital yesterday with symptoms of palpitations. She was found to be in atrial fibrillation, underwent a JELLY with subsequent cardioversion yesterday by Dr. Jimenez. She continues to be in a normal sinus rhythm this morning, feels well, denies any palpitations or shortness of breath, breathing is stable. Blood pressure this morning 122/70 with a heart rate 60s to 80s, 98% on room air. Echocardiogram with Doppler study was performed which revealed a normal left ventricular systolic function. Objective - Vital Signs Vital signs: Vital Signs Temp 97.8 F 04/13/20 08:00 Pulse 84 04/13/20 08:00 Resp 18 04/13/20 08:00 BP 123/72 04/13/20 08:00 Pulse Ox 98 04/13/20 08:00 Intake & Output 04/12/20 04/13/20 04/13/20 18:59 06:59 18:59 Intake Total 390 240 Balance 390 240 Weight 144.1 kg Intake: IV 150 Oral 240 240 Other: # Voids 1 1 0 - Exam PHYSICAL EXAMINATION: GENERAL: 70-year-old female in no acute distress at the time of my examination HEENT: Head is atraumatic, normocephalic. Pupils equal, round. Sclera anicteric. Conjunctiva are clear. Mucous membranes of the mouth are moist. Neck is supple. There is no elevated jugular venous pressure. No carotid] bruit is heard. HEART EXAMINATION: Heart S1, S2 normal. No murmur or gallop heard. CHEST EXAMINATION: Lungs are clear to auscultation and precussion. No chest wall tenderness is noted on palpation or with deep breathing. ABDOMEN: Soft, nontender. Bowel sounds are heard. No organomegaly noted. EXTREMITIES: 2+ peripheral pulses with no evidence of peripheral edema and no calf tenderness noted. NEUROLOGIC patient is awake, alert and oriented 3 . . - Labs CBC & Chem 7: 04/11/20 14:45 04/11/20 14:45 Labs: Abnormal Lab Results - Last 24 Hours (Table) 04/12/20 04/12/20 04/12/20 Range/Units 11:34 16:30 20:17 POC Glucose (mg/dL) 134 H 157 H 158 H (75-99) mg/dL 04/13/20 Range/Units 06:10 POC Glucose (mg/dL) 143 H (75-99) mg/dL Assessment and Plan Plan: Assessment and plan #1 atrial fibrillation, paroxysmal, status post JELLY and cardioversion of yesterday, remaining in normal sinus rhythm this morning #2 history of pulmonary embolism #3 hypertension #4 hyperlipidemia Plan Echocardiogram with Doppler study was performed which revealed a normal left v entricular systolic function. From cardiology's perspective, the patient may be able to be discharged home today on oral anticoagulation. Follow-up appointment in the office post discharge. DNP note has been reviewed, I agree with a documented findings and plan of care. Patient was seen and examined.
[2020-04-13 11:48] LABS: Glucose,Whole Blood 134 mg/dL (75-99)
[2020-04-13 11:57] VITALS: BP 128/77; PULSE 86; TEMP 97.6
--- NOTE | 2020-04-13 18:10 | P.DS ---
Providers Date of admission: 04/11/20 16:45 Expected date of discharge: 04/13/20 Attending physician: Sonya Wray Consults: 04/11/20 16:38 Consult Physician Routine Consulting Provider: [facility] Consult Reason/Comments: new onset a fib, rate controlled Do you want consulting provider notified?: Yes Primary care physician: Arabella Bashir [facility] Course: Diagnosis on discharge: 1. Atrial fibrillation with an episode of rapid ventricular response, patient underwent JELLY with cardioversion during this admission, patient was in sinus rhythm after the procedure without any recurrence of atrial fibrillation. 2. History of DVT and pulmonary embolism 3 years ago, maintained on Xarelto 3. Underlying history of COPD 4. Underlying history of hypertension 5. Mtg-otzpcnx-ssweancam diabetes mellitus currently on diet control 6. Underlying history of morbid obesity 7. Underlying history of depression maintained on Lexapro [facility] course: Elli Eller is a 70-year-old female patient of Dr. Bashir who presented to [facility] emergency room due to palpitation, patient states that she started having palpitation at home her heart rate was in excess of 120 she tried to rest but her heart rate did not improve, she called EMS and was brought into [facility] emergency room. In the emergency room patient had evidence of atrial fibrillation with a heart rate of 92 she was admitted to telemetry floor. Cardiology consultation was requested. Patient has known history of multiple episodes of palpitation, she was never diagnosed with atrial fibrillation in the past, she had multiple testing by Dr. bashir and by Dr. Alexandra including Holter monitor and stress test, however there was no diagnosis of atrial fibrillation. Patient had history of DVT and pulmonary embolism about 3 years ago, she has been maintained on oral Xarelto since then. Patient denies any previous history of coronary artery disease or congestive heart failure in the past, she has known history of COPD she used to smoke she quit 3-4 years ago. She has history of ral-usvivjh-htxgjfdps diabetes mellitus, she was on metformin in the past currently she is on diet control her last A1c was 6.8. Patient has A known history of hypertension, and hyperlipidemia. On 04/13/2020 patient was seen and examined on the telemetry floor she is alert and oriented 3 in no apparent distress, she denies any symptoms, there is no palpitation, there is no new episodes of atrial fibrillation after her JELLY with cardioversion. Patient was evaluated by cardiology and was cleared for discharge, she will be discharged home today, follow-up with Dr. Bashir within one week, no change in medication was recommended by cardiology during this admission. Patient Condition at Discharge: Fair Plan - Discharge Summary Discharge Rx Participant: No New Discharge Prescriptions: Continue Pravastatin Sodium [Pravachol] 20 mg PO HS Montelukast [Singulair] 10 mg PO HS Enalapril [Vasotec] 10 mg PO DAILY [place]-3 Fatty Acids/Fish Oil [Fish Oil 1,000 mg Softgel] 1 cap PO DAILY Aspirin [Adult Low Dose Aspirin EC] 81 mg PO HS Omeprazole 20 mg PO DAILY Biotin 10,000 mcg PO DAILY Rivaroxaban [Xarelto] 15 mg PO DAILY Escitalopram [Lexapro] 20 mg PO DAILY Cyclobenzaprine [Flexeril] 10 mg PO HS PRN PRN Reason: Muscle Pain Calcium Carbonate [Calcium] 600 mg PO DAILY Cholecalciferol [Vitamin D3 (25 Mcg = 1000 Iu)] 2,000 unit PO DAILY Ubidecarenone [Co Q-10] 200 mg PO DAILY Vit C/E/Zn/Coppr/Lutein/Zeaxan [Preservision Areds 2 Softgel] 1 cap PO BID Discharge Medication List Aspirin [Adult Low Dose Aspirin EC] 81 mg PO HS 02/04/17 [History] Enalapril [Vasotec] 10 mg PO DAILY 02/04/17 [History] Montelukast [Singulair] 10 mg PO HS 02/04/17 [History] Howells-3 Fatty Acids/Fish Oil [Fish Oil 1,000 mg Softgel] 1 cap PO DAILY 02/04/17 [History] Pravastatin Sodium [Pravachol] 20 mg PO HS 02/04/17 [History] Omeprazole 20 mg PO DAILY 04/24/17 [History] Biotin 10,000 mcg PO DAILY 04/11/20 [History] Calcium Carbonate [Calcium] 600 mg PO DAILY 04/11/20 [History] Cholecalciferol [Vitamin D3 (25 Mcg = 1000 Iu)] 2,000 unit PO DAILY 04/11/20 [History] Cyclobenzaprine [Flexeril] 10 mg PO HS PRN 04/11/20 [History] Escitalopram [Lexapro] 20 mg PO DAILY 04/11/20 [History] Rivaroxaban [Xarelto] 15 mg PO DAILY 04/11/20 [History] Ubidecarenone [Co Q-10] 200 mg PO DAILY 04/11/20 [History] Vit C/E/Zn/Coppr/Lutein/Zeaxan [Preservision Areds 2 Softgel] 1 cap PO BID 04/11/20 [History] Follow up Appointment(s)/Referral(s): Arabella Bashir MD [Primary Care Provider] - 04/20/20 1:30 pm Consuelo Jimenez MD [STAFF PHYSICIAN] - 04/28/20 11:00 am Patient Instructions/Handouts: A-fib (Atrial Fibrillation) (DC), Transesophageal Echocardiogram (DC), Cardioversion (DC) Discharge Disposition: HOME SELF-CARE
== END 2020-04-13 17:11 | disposition home or self-care (01) ==
LOC: EC 14:33 → 3SCARD 16:45
PROVIDERS: ADMIT Internal Medicine; ATTEND Internal Medicine
DX: I48.19 Other persistent atrial fibrillation (principal); J44.9 Chronic obstructive pulmonary disease, unspecified; I10 Essential (primary) hypertension; E11.9 Type 2 diabetes mellitus without complications; E66.01 Morbid (severe) obesity due to excess calories; Z68.43 Body mass index [BMI] 50.0-59.9, adult; F32.9 Major depressive disorder, single episode, unspecified; M79.89 Other specified soft tissue disorders; K21.9 Gastro-esophageal reflux disease without esophagitis; I83.90 Asymptomatic varicose veins of unspecified lower extremity; E78.5 Hyperlipidemia, unspecified; G47.33 Obstructive sleep apnea (adult) (pediatric); Z88.0 Allergy status to penicillin; Z91.048 Other nonmedicinal substance allergy status; Z88.1 Allergy status to other antibiotic agents; Z88.8 Allergy status to other drugs, medicaments and biological substances; Z11.59 Encounter for screening for other viral diseases; Z86.718 Personal history of other venous thrombosis and embolism; Z79.899 Other long term (current) drug therapy; Z87.891 Personal history of nicotine dependence; Z79.01 Long term (current) use of anticoagulants; Z86.711 Personal history of pulmonary embolism; Z86.72 Personal history of thrombophlebitis; Z79.82 Long term (current) use of aspirin; Z99.89 Dependence on other enabling machines and devices; Z80.0 Family history of malignant neoplasm of digestive organs; Z83.3 Family history of diabetes mellitus; Z82.49 Family history of ischemic heart disease and other diseases of the circulatory system; Z81.8 Family history of other mental and behavioral disorders
CPT/HCPCS: 93005 ×3; 99285; 36415; 93312; 93320; 93306; 93325; 92960; 83880; 80061; 80053; 83735; 84443; 84484 ×2; 85025; 85610; 85730; 87635; 71046; G0378 ×3; J2001; J2704

== ENCOUNTER → 2020-09-02 | Outpatient (CLI) | payer MEDICARE ==
--- NOTE | 2020-09-02 11:57 | US ---
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 Normal-sized homogeneous thyroid without discrete nodule. IMPRESSION: As above. Unremarkable study.
== END | disposition home or self-care (01) ==
LOC: RADUSWWP 10:48
PROVIDERS: ATTEND Internal Medicine Endocrinology, Diabetes & Metabolism
DX: E06.3 Autoimmune thyroiditis (principal)
CPT/HCPCS: 76536

== ENCOUNTER → 2020-10-04 | Outpatient (CLI) | payer MEDICARE | END | disposition home or self-care (01) | LOC: LABWHC1 12:23 | PROVIDERS: ATTEND Internal Medicine Endocrinology, Diabetes & Metabolism | DX: E06.3 Autoimmune thyroiditis (principal) | CPT/HCPCS: 36415; 84443; 86376 ==

== ENCOUNTER 2022-05-10 10:50 | Inpatient (IN) | payer MEDICARE ==
[2022-05-10 12:56] LABS: Anisocytosis Slight; Basophils % (A) 1 %; Eosinophils # (A) 0.1 k/uL (0-0.7); Eosinophils % (A) 1 %; Hypochromasia Marked; Lymphocytes # (A) 1.7 k/uL (1.0-4.8); Lymphocytes % (A) 23 %; MCH 18.2 pg (25.0-35.0); MCV 72.7 fL (80.0-100.0); Mean Platelet Volume 10.6; Microcytosis Moderate; Monocytes # (A) 0.6 k/uL (0-1.0); Monocytes % (A) 8 %; Neutrophils # (A) 4.5 k/uL (1.3-7.7); Neutrophils % (A) 64 %; Platelet Count 192 k/uL (150-450); RBC 2.76 m/uL (3.80-5.40); RDW 16.9 % (11.5-15.5); WBC 7.1 k/uL (3.8-10.6)
[2022-05-10 13:08] LABS: INR 1.2 (<1.2); Partial Thromboplastin Time 27.4 sec (22.0-30.0)
--- NOTE | 2022-05-10 13:16 | ED ---
General Adult HPI - General Chief complaint: Recheck/Abnormal Lab/Rx Stated complaint: Low Hemoglobin 4.9/Sent by PCP Time Seen by Provider: 05/10/22 12:20 Source: patient, RN notes reviewed, old records reviewed Mode of arrival: ambulatory Limitations: no limitations - History of Present Illness Initial comments: This is a 72-year-old female presents emergency department stating she has a history of PEs and is on a blood thinner. Patient states she's been feeling very weak and fatigued and short of breath over the last month and she went saw her doctor today and they dusty some blood they told her her hemoglobin was 4.9. Patient states he doesn't know if he said any black or bloody stools. Patient denies any chest pain or palpitations. Patient denies any abdominal pain patient denies any nausea vomiting diarrhea. - Related Data Home Medications Medication Instructions Recorded Confirmed Aspirin [Adult Low Dose Aspirin EC] 81 mg PO HS 02/04/17 04/11/20 Enalapril [Vasotec] 10 mg PO DAILY 02/04/17 04/11/20 Montelukast [Singulair] 10 mg PO HS 02/04/17 04/11/20 [place]-3 Fatty Acids/Fish Oil [Fish 1 cap PO DAILY 02/04/17 04/11/20 Oil 1,000 mg Softgel] Pravastatin Sodium [Pravachol] 20 mg PO HS 02/04/17 04/11/20 Omeprazole 20 mg PO DAILY 04/24/17 04/11/20 Biotin 10,000 mcg PO DAILY 04/11/20 04/11/20 Calcium Carbonate [Calcium] 600 mg PO DAILY 04/11/20 04/11/20 Cholecalciferol [Vitamin D3 (25 2,000 unit PO DAILY 04/11/20 04/11/20 Mcg = 1000 Iu)] Cyclobenzaprine [Flexeril] 10 mg PO HS PRN 04/11/20 04/11/20 Escitalopram [Lexapro] 20 mg PO DAILY 04/11/20 04/11/20 Rivaroxaban [Xarelto] 15 mg PO DAILY 04/11/20 04/11/20 Ubidecarenone [Co Q-10] 200 mg PO DAILY 04/11/20 04/11/20 Vit C/E/Zn/Coppr/Lutein/Zeaxan 1 cap PO BID 04/11/20 04/11/20 [Preservision Areds 2 Softgel] Allergies Allergy/AdvReac Type Severity Reaction Status Date / Time adhesive tape Allergy Rash/Hives Verified 05/10/22 11:26 clindamycin Allergy Rash/Hives Verified 05/10/22 11:26 levofloxacin [From Levaquin] Allergy Rash/Hives Verified 05/10/22 11:26 Penicillins Allergy Swelling Verified 05/10/22 11:26 amlodipine [From Norvasc] AdvReac DENTAL Verified 05/10/22 11:26 ISSUES Review of Systems ROS Statement: Those systems with pertinent positive or pertinent negative responses have been documented in the HPI. ROS Other: All systems not noted in ROS Statement are negative. Past Medical History Past Medical History: COPD, Diabetes Mellitus, Deep Vein Thrombosis (DVT), Hyperlipidemia, Hypertension, Pulmonary Embolus (PE), Sleep Apnea/CPAP/BIPAP Additional Past Medical History / Comment(s): Morbid obesity, obstructive sleep apnea maintained on CPA, diabetes mellitus, hypertension, hyperlipidemia, acid reflux, varicose veins with previous history of surgery for varicose vein stripping from the lower extremity, superficial thrombophlebitis, history of ex- smoking. History of Any Multi-Drug Resistant Organisms: None Reported Additional Past Surgical History / Comment(s): vein surgery left leg, bilateral cataracts. Past Anesthesia/Blood Transfusion Reactions: No Reported Reaction Past Psychological History: No Psychological Hx Reported Past Alcohol Use History: None Reported Past Drug Use History: None Reported - Past Family History Father Family Medical History: Cancer Additional Family Medical History / Comment(s): suicide, colon ca Mother Family Medical History: Coronary Artery Disease (CAD), Diabetes Mellitus General Exam - General Exam Comments Initial Comments: GENERAL: Patient is well-developed and well-nourished. Patient is nontoxic and well-hydrated and is in mild distress. ENT: Neck is soft and supple. No significant lymphadenopathy is noted. Oropharynx is clear. Moist mucous membranes. Neck has full range of motion without eliciting any pain. EYES: The sclera were anicteric and conjunctiva were pale. Extraocular movements were intact and pupils were equal round and reactive to light. Eyelids were unremarkable. PULMONARY: Unlabored respirations. Good breath sounds bilaterally. No audible rales rhonchi or wheezing was noted. CARDIOVASCULAR: There is a regular rate and rhythm without any murmurs gallops or rubs. ABDOMEN: Soft and nontender with normal bowel sounds. SKIN: Patient skin is very pale NEUROLOGIC: Patient is alert and oriented x3. Cranial nerves II through XII are grossly intact. Motor and sensory are also intact. Normal speech, volume and content. Symmetrical smile. MUSCULOSKELETAL: Normal extremities with adequate strength and full range of motion. LYMPHATICS: No significant lymphadenopathy is noted PSYCHIATRIC: Normal psychiatric evaluation. Limitations: no limitations Course Vital Signs 05/10/22 05/10/22 11:24 14:41 Temperature 98.2 F Pulse Rate 77 73 Respiratory 24 18 Rate Blood Pressure 117/41 128/42 O2 Sat by Pulse 100 100 Oximetry Medical Decision Making - Medical Decision Making EKG shows sinus rhythm at 70 bpm KS interval is 204 QRS is 86 QT interval 390 QTC is 411. Patient's EKG shows no ST segment elevation or depression. I ordered 2 units of packed red blood cells. I spoke with Dr. Wray he agreed to admit the patient admitted the patient. I held the patient's blood thinner. I consulted GI - Lab Data Result diagrams: 05/10/22 14:25 05/10/22 12:47 Lab Results 05/10/22 05/10/22 05/10/22 Range/Units 12:47 12:47 12:47 WBC 7.1 (3.8-10.6) k/uL RBC 2.76 L (3.80-5.40) m/uL Hgb 5.0 L* (11.4-16.0) gm/dL Hct 20.0 L (34.0-46.0) % MCV 72.7 L (80.0-100.0) fL MCH 18.2 L (25.0-35.0) pg MCHC 25.0 L (31.0-37.0) g/dL RDW 16.9 H (11.5-15.5) % Plt Count 192 (150-450) k/uL MPV 10.6 Neutrophils % 64 % Lymphocytes % 23 % Monocytes % 8 % Eosinophils % 1 % Basophils % 1 % Neutrophils # 4.5 (1.3-7.7) k/uL Lymphocytes # 1.7 (1.0-4.8) k/uL Monocytes # 0.6 (0-1.0) k/uL Eosinophils # 0.1 (0-0.7) k/uL Basophils # 0.0 (0-0.2) k/uL Manual Slide Review Performed Polychromasia Present Hypochromasia Marked Poikilocytosis (manual Present Anisocytosis Slight Microcytosis Moderate PT 13.0 H (9.0-12.0) sec INR 1.2 H (<1.2) APTT 27.4 (22.0-30.0) sec Sodium 137 (137-145) mmol/L Potassium 5.1 (3.5-5.1) mmol/L Chloride 106 (98-107) mmol/L Carbon Dioxide 21 L (22-30) mmol/L Anion Gap 10 mmol/L BUN 43 H (7-17) mg/dL Creatinine 1.93 H (0.52-1.04) mg/dL Est GFR (CKD-EPI)AfAm 29 (>60 ml/min/1.73 sqM) Est GFR (CKD-EPI)NonAf 26 (>60 ml/min/1.73 sqM) Glucose 186 H (74-99) mg/dL Calcium 7.9 L (8.4-10.2) mg/dL Magnesium 2.1 (1.6-2.3) mg/dL Total Bilirubin 0.6 (0.2-1.3) mg/dL AST 28 (14-36) U/L ALT 15 (4-34) U/L Alkaline Phosphatase 112 (38-126) U/L Troponin I (0.000-0.034) ng/mL Total Protein 6.3 (6.3-8.2) g/dL Albumin 3.6 (3.5-5.0) g/dL Stool Occult Blood (Negative) Blood Type Blood Type Confirm Blood Type Recheck Bld Type Recheck Status Antibody Screen Crossmatch Spec Expiration Date 05/10/22 05/10/22 05/10/22 Range/Units 12:47 12:47 13:17 WBC (3.8-10.6) k/uL RBC (3.80-5.40) m/uL Hgb (11.4-16.0) gm/dL Hct (34.0-46.0) % MCV (80.0-100.0) fL MCH (25.0-35.0) pg MCHC (31.0-37.0) g/dL RDW (11.5-15.5) % Plt Count (150-450) k/uL MPV Neutrophils % % Lymphocytes % % Monocytes % % Eosinophils % % Basophils % % Neutrophils # (1.3-7.7) k/uL Lymphocytes # (1.0-4.8) k/uL Monocytes # (0-1.0) k/uL Eosinophils # (0-0.7) k/uL Basophils # (0-0.2) k/uL Manual Slide Review Polychromasia Hypochromasia Poikilocytosis (manual Anisocytosis Microcytosis PT (9.0-12.0) sec INR (<1.2) APTT (22.0-30.0) sec Sodium (137-145) mmol/L Potassium (3.5-5.1) mmol/L Chloride (98-107) mmol/L Carbon Dioxide (22-30) mmol/L Anion Gap mmol/L BUN (7-17) mg/dL Creatinine (0.52-1.04) mg/dL Est GFR (CKD-EPI)AfAm (>60 ml/min/1.73 sqM) Est GFR (CKD-EPI)NonAf (>60 ml/min/1.73 sqM) Glucose (74-99) mg/dL Calcium (8.4-10.2) mg/dL Magnesium (1.6-2.3) mg/dL Total Bilirubin (0.2-1.3) mg/dL AST (14-36) U/L ALT (4-34) U/L Alkaline Phosphatase (38-126) U/L Troponin I <0.012 (0.000-0.034) ng/mL Total Protein (6.3-8.2) g/dL Albumin (3.5-5.0) g/dL Stool Occult Blood (Negative) Blood Type A Positive Blood Type Confirm A Positive Blood Type Recheck No Previous Record Bld Type Recheck Status CABO Indicated Antibody Screen NEGATIVE Crossmatch See Detail Spec Expiration Date 05/13/2022 - 234605/10/22 05/10/22 Range/Units 14:22 14:25 WBC 6.3 (3.8-10.6) k/uL RBC 2.62 L (3.80-5.40) m/uL Hgb 4.6 L* (11.4-16.0) gm/dL Hct 18.7 L* (34.0-46.0) % MCV 71.3 L (80.0-100.0) fL MCH 17.6 L (25.0-35.0) pg MCHC 24.7 L (31.0-37.0) g/dL RDW 16.9 H (11.5-15.5) % Plt Count 171 (150-450) k/uL MPV 11.2 Neutrophils % 60 % Lymphocytes % 27 % Monocytes % 8 % Eosinophils % 1 % Basophils % 1 % Neutrophils # 3.8 (1.3-7.7) k/uL Lymphocytes # 1.7 (1.0-4.8) k/uL Monocytes # 0.5 (0-1.0) k/uL Eosinophils # 0.1 (0-0.7) k/uL Basophils # 0.0 (0-0.2) k/uL Manual Slide Review Polychromasia Hypochromasia Marked Poikilocytosis (manual Anisocytosis Slight Microcytosis Moderate PT (9.0-12.0) sec INR (<1.2) APTT (22.0-30.0) sec Sodium (137-145) mmol/L Potassium (3.5-5.1) mmol/L Chloride (98-107) mmol/L Carbon Dioxide (22-30) mmol/L Anion Gap mmol/L BUN (7-17) mg/dL Creatinine (0.52-1.04) mg/dL Est GFR (CKD-EPI)AfAm (>60 ml/min/1.73 sqM) Est GFR (CKD-EPI)NonAf (>60 ml/min/1.73 sqM) Glucose (74-99) mg/dL Calcium (8.4-10.2) mg/dL Magnesium (1.6-2.3) mg/dL Total Bilirubin (0.2-1.3) mg/dL AST (14-36) U/L ALT (4-34) U/L Alkaline Phosphatase (38-126) U/L Troponin I (0.000-0.034) ng/mL Total Protein (6.3-8.2) g/dL Albumin (3.5-5.0) g/dL Stool Occult Blood Positive H (Negative) Blood Type Blood Type Confirm Blood Type Recheck Bld Type Recheck Status Antibody Screen Crossmatch Spec Expiration Date Critical Care Time Critical Care Time: Yes Total Critical Care Time: 35 Disposition Clinical Impression: Anemia, GI bleed Disposition: ADMITTED IP TO THIS HOSP Referrals: Arabella Bashir MD [Primary Care Provider] - 1-2 days Time of Disposition: 14:00
[2022-05-10 13:46] LABS: Albumin 3.6 g/dL (3.5-5.0); Calcium 7.9 mg/dL (8.4-10.2); Magnesium 2.1 mg/dL (1.6-2.3); Potassium 5.1 mmol/L (3.5-5.1); Total Bilirubin 0.6 mg/dL (0.2-1.3); Total Protein 6.3 g/dL (6.3-8.2)
[2022-05-10 13:47] LABS: Poikilocytosis (M) Present; Polychromasia Present
[2022-05-10] MEDS ORDERED: SODIUM CHLORIDE 0.9% 1,000 ML IV ONE (14:08)
[2022-05-10 14:37] LABS: Anisocytosis Slight; Basophils % (A) 1 %; Eosinophils # (A) 0.1 k/uL (0-0.7); Eosinophils % (A) 1 %; Hypochromasia Marked; Lymphocytes # (A) 1.7 k/uL (1.0-4.8); Lymphocytes % (A) 27 %; MCH 17.6 pg (25.0-35.0); MCHC 24.7 g/dL (31.0-37.0); MCV 71.3 fL (80.0-100.0); Mean Platelet Volume 11.2; Microcytosis Moderate; Monocytes # (A) 0.5 k/uL (0-1.0); Monocytes % (A) 8 %; Neutrophils # (A) 3.8 k/uL (1.3-7.7); Neutrophils % (A) 60 %; Platelet Count 171 k/uL (150-450); RBC 2.62 m/uL (3.80-5.40); RDW 16.9 % (11.5-15.5); WBC 6.3 k/uL (3.8-10.6)
[2022-05-10 14:41] LABS: HCT 18.7 % (34.0-46.0); HGB 4.6 gm/dL (11.4-16.0)
--- NOTE | 2022-05-10 18:57 | P.HPIM ---
History of Present Illness H&P Date: 05/10/22 Patient is a 72-year-old female who presented to [facility] emergency room with a chief complaint of severe anemia, patient was seen by her primary care physician Dr. Bashir for a routine visit and for complaints of episodes of chills and fatigue, her blood test revealed a hemoglobin of 5.0 patient was directly to emergency room. She was evaluated in the emergency room vital examination on presentation revealed a temperature of 99.4 pulse 65 respiration 18 blood pressure 126/54 pulse ox 100% on 2 L nasal cannula Laboratory data reveals a white blood count of 7.1 hemoglobin 5.0 platelet count 192 INR 1.2 BUN 43 creatinine 1.93 stools occult blood was positive Testing in the emergency room revealed EKG done in the emergency room revealed sinus rhythm with sinus arrhythmia and nonspecific T-wave abnormalities Patient was admitted to medical floor for further evaluation and treatment Past medical history is significant for history of pulmonary embolism patient was maintained on Xarelto 20 mg daily for the last 5 years, her last dose was yesterday, she also had a history of atrial fibrillation with episodes of rapid ventricular response, she had cardioversion in the past, she has a history of hypertension, history of COPD, history of diabetes mellitus, underlying history of morbid obesity, and history of depression Patient used to smoke she quit about 10 years ago, she drinks alcohol rarely Past Medical History Past Medical History: COPD, Diabetes Mellitus, Deep Vein Thrombosis (DVT), Hyperlipidemia, Hypertension, Pulmonary Embolus (PE), Sleep Apnea/CPAP/BIPAP Additional Past Medical History / Comment(s): Morbid obesity, obstructive sleep apnea maintained on CPA, diabetes mellitus, hypertension, hyperlipidemia, acid reflux, varicose veins with previous history of surgery for varicose vein s tripping from the lower extremity, superficial thrombophlebitis, history of ex- smoking. History of Any Multi-Drug Resistant Organisms: None Reported Additional Past Surgical History / Comment(s): vein surgery left leg, bilateral cataracts. Past Anesthesia/Blood Transfusion Reactions: No Reported Reaction Past Psychological History: No Psychological Hx Reported Past Alcohol Use History: None Reported Past Drug Use History: None Reported - Past Family History Father Family Medical History: Cancer Additional Family Medical History / Comment(s): suicide, colon ca Mother Family Medical History: Coronary Artery Disease (CAD), Diabetes Mellitus Medications and Allergies Home Medications Medication Instructions Recorded Confirmed Type Enalapril [Vasotec] 10 mg PO DAILY 02/04/17 05/10/22 History Montelukast [Singulair] 10 mg PO HS 02/04/17 05/10/22 History [place]-3 Fatty Acids/Fish Oil [Fish 1 cap PO DAILY 02/04/17 05/10/22 History Oil 1,000 mg Softgel] Pravastatin Sodium [Pravachol] 20 mg PO HS 02/04/17 05/10/22 History Omeprazole 20 mg PO DAILY 04/24/17 05/10/22 History Biotin 10,000 mcg PO DAILY 04/11/20 05/10/22 History Calcium Carbonate [Calcium] 600 mg PO DAILY 04/11/20 05/10/22 History Cholecalciferol [Vitamin D3 (25 50 mcg PO DAILY 04/11/20 05/10/22 History Mcg = 1000 Iu)] Cyclobenzaprine [Flexeril] 10 mg PO TID PRN 04/11/20 05/10/22 History Escitalopram [Lexapro] 20 mg PO DAILY 04/11/20 05/10/22 History Ubidecarenone [Co Q-10] 200 mg PO DAILY 04/11/20 05/10/22 History Vit C/E/Zn/Coppr/Lutein/Zeaxan 1 cap PO BID 04/11/20 05/10/22 History [Preservision Areds 2 Softgel] Empagliflozin [Jardiance] 25 mg PO DAILY 05/10/22 05/10/22 History Rivaroxaban [Xarelto] 20 mg PO W/SUPPER 05/10/22 05/10/22 History buPROPion XL [Wellbutrin XL] 150 mg PO DAILY 05/10/22 05/10/22 History Allergies Allergy/AdvReac Type Severity Reaction Status Date / Time adhesive tape Allergy Rash/Hives Verified 05/10/22 15:36 clindamycin Allergy Rash/Hives Verified 05/10/22 15:36 levofloxacin [From Levaquin] Allergy Rash/Hives Verified 05/10/22 15:36 Penicillins Allergy Hives at Verified 05/10/22 15:36 injection site only, did not spread amlodipine [From Norvasc] AdvReac DENTAL Verified 05/10/22 15:36 ISSUES Physical Exam Vitals: Vital Signs Temp Pulse Resp BP Pulse Ox 05/10/22 18:09 98.1 F 75 20 138/60 98 05/10/22 17:00 98.5 F 71 16 133/50 98 05/10/22 16:27 98.1 F 73 18 131/55 98 05/10/22 15:57 99.4 F 70 18 126/54 100 05/10/22 15:56 99.4 F 65 18 126/54 100 05/10/22 15:47 99.4 F 71 18 128/51 100 05/10/22 15:36 98.3 F 71 18 113/60 98 05/10/22 14:41 73 18 128/42 100 05/10/22 11:24 98.2 F 77 24 117/41 100 Intake and Output 05/10/22 05/10/22 05/10/22 06:59 14:59 22:59 Intake Total 0 Balance 0 Intake: Blood Product 0 Rc As-1 Unit 0 [id number] Other: Weight 140.16 kg In general patient is alert and oriented x 3 in no distress HEENT head normocephalic and atraumatic Neck is supple no JVD no goiter no lymphadenopathy no carotid bruit Chest examination is clear to auscultation no crackles no wheezing Cardiac exam reveals regular heart sounds S1 and S2 no gallops no murmurs Abdomen is soft nontender no organomegaly with normal bowel sounds Extremity exam reveals 1 + edema no cyanosis or clubbing Neurological examination reveals no gross focal deficits Results CBC & Chem 7: 05/10/22 14:25 05/10/22 12:47 Labs: Abnormal Lab Results - Last 24 Hours (Table) 05/10/22 05/10/22 05/10/22 Range/Units 12:47 12:47 12:47 RBC 2.76 L (3.80-5.40) m/uL Hgb 5.0 L* (11.4-16.0) gm/dL Hct 20.0 L (34.0-46.0) % MCV 72.7 L (80.0-100.0) fL MCH 18.2 L (25.0-35.0) pg MCHC 25.0 L (31.0-37.0) g/dL RDW 16.9 H (11.5-15.5) % PT 13.0 H (9.0-12.0) sec INR 1.2 H (<1.2) Carbon Dioxide 21 L (22-30) mmol/L BUN 43 H (7-17) mg/dL Creatinine 1.93 H (0.52-1.04) mg/dL Glucose 186 H (74-99) mg/dL Calcium 7.9 L (8.4-10.2) mg/dL Stool Occult Blood (Negative) Crossmatch 05/10/22 05/10/22 05/10/22 Range/Units 12:47 14:22 14:25 RBC 2.62 L (3.80-5.40) m/uL Hgb 4.6 L* (11.4-16.0) gm/dL Hct 18.7 L* (34.0-46.0) % MCV 71.3 L (80.0-100.0) fL MCH 17.6 L (25.0-35.0) pg MCHC 24.7 L (31.0-37.0) g/dL RDW 16.9 H (11.5-15.5) % PT (9.0-12.0) sec INR (<1.2) Carbon Dioxide (22-30) mmol/L BUN (7-17) mg/dL Creatinine (0.52-1.04) mg/dL Glucose (74-99) mg/dL Calcium (8.4-10.2) mg/dL Stool Occult Blood Positive H (Negative) Crossmatch See Detail Assessment and Plan Plan: Anemia, hemoglobin on presentation was 5.0, 2 units of red blood cell transfusion were ordered in the emergency room, stool Hemoccult was positive, gastroenterology consultation was requested History of pulmonary embolism, patient was maintained on Xarelto, which is currently on hold, will monitor closely Underlying history of hypertension Underlying history of COPD Previous history of atrial fibrillation currently patient is in normal sinus rhythm Underlying history of [id number]-vcomoeffi diabetes mellitus maintained on Jardiance Underlying history of depression Underlying history of morbid obesity At this time patient will be admitted to telemetry floor Gastroenterology consultation requested Will monitor hemoglobin closely and transfuse red blood cells if needed. Home medications reviewed and reordered IV Protonix was ordered For DVT prophylaxis we will use SCD stockings Will follow closely
[2022-05-10 21:05] LABS: Anisocytosis Slight; Basophils % (A) 1 %; Eosinophils # (A) 0.1 k/uL (0-0.7); Eosinophils % (A) 2 %; HCT 21.9 % (34.0-46.0); Hypochromasia Marked; Lymphocytes # (A) 1.9 k/uL (1.0-4.8); Lymphocytes % (A) 32 %; MCH 20.1 pg (25.0-35.0); MCHC 27.2 g/dL (31.0-37.0); MCV 74.1 fL (80.0-100.0); Mean Platelet Volume 8.3; Microcytosis Moderate; Monocytes # (A) 0.6 k/uL (0-1.0); Monocytes % (A) 9 %; Neutrophils # (A) 3.2 k/uL (1.3-7.7); Neutrophils % (A) 53 %; Platelet Count 176 k/uL (150-450); Poikilocytosis Moderate; RBC 2.95 m/uL (3.80-5.40); RDW 17.8 % (11.5-15.5)
[2022-05-10 21:06] LABS: HGB 5.9 gm/dL (11.4-16.0)
[2022-05-10 21:33] LABS: Glucose,Whole Blood 168 mg/dL (70-110)
[2022-05-10] MEDS: VIT A,C & E-LUTEIN-MINERALS 1 EACH TAB PO SCH (22:40)
[2022-05-10] MEDS: MONTELUKAST 10 MG TAB PO SCH (22:42)
[2022-05-10] MEDS: PRAVASTATIN SODIUM 20 MG TAB PO SCH (22:42)
[2022-05-10] MEDS: PANTOPRAZOLE 40 MG/10 ML VIAL IVP SCH (22:42)
[2022-05-11] MEDS ORDERED: NON FORMULARY DRUG (Ubidecarenone [Co Q-10] 100 MG Capsule) PO SCH (09:00)
[2022-05-11] MEDS: Empagliflozin [Jardiance] PO SCH (09:57)
[2022-05-11] MEDS: PANTOPRAZOLE 40 MG/10 ML VIAL IVP SCH ×2 (10:04→20:58)
[2022-05-11] MEDS: buPROPion XL 150 MG TAB.ER.24H PO SCH (10:05)
[2022-05-11] MEDS: ESCITALOPRAM 20 MG TAB PO SCH (10:05)
[2022-05-11] MEDS: lisinopriL 20 MG TAB PO SCH (10:05)
[2022-05-11] MEDS: VIT A,C & E-LUTEIN-MINERALS 1 EACH TAB PO SCH ×2 (10:05→20:58)
--- NOTE | 2022-05-11 10:05 | P.PN ---
Subjective Progress Note Date: 05/11/22 Patient is a 72-year-old female who presented to [facility] emergency room with a chief complaint of severe anemia, patient was seen by her primary care physician Dr. Bashir for a routine visit and for complaints of episodes of chills and fatigue, her blood test revealed a hemoglobin of 5.0 patient was directly to emergency room. She was evaluated in the emergency room vital examination on presentation revealed a temperature of 99.4 pulse 65 respiration 18 blood pressure 126/54 pulse ox 100% on 2 L nasal cannula Laboratory data reveals a white blood count of 7.1 hemoglobin 5.0 platelet count 192 INR 1.2 BUN 43 creatinine 1.93 stools occult blood was positive Testing in the emergency room revealed EKG done in the emergency room revealed sinus rhythm with sinus arrhythmia and nonspecific T-wave abnormalities Patient was admitted to medical floor for further evaluation and treatment Past medical history is significant for history of pulmonary embolism patient was maintained on Xarelto 20 mg daily for the last 5 years, her last dose was yesterday, she also had a history of atrial fibrillation with episodes of rapid ventricular response, she had cardioversion in the past, she has a history of hypertension, history of COPD, history of diabetes mellitus, underlying history of morbid obesity, and history of depression Patient used to smoke she quit about 10 years ago, she drinks alcohol rarely On 05/11/2022 patient is alert and oriented 3. Patient received 2 units of PRBCs yesterday awaiting hemoglobin repeat this AM. Did discuss with GI services nurse practitioner plans for EGD and colonoscopy tomorrow 05/12/2022. We'll continue to monitor hemoglobin closely and transfuse as needed. Patient denies any nausea vomiting or diarrhea or signs of bleeding. Patient does reports she still feels tired. Patient denies chest pain or shortness of breath. Patient denies any urinary burning or frequency Objective - Vital Signs Vital signs: Vital Signs Temp 98 F 05/11/22 04:00 Pulse 72 05/11/22 04:00 Resp 12 05/11/22 04:00 BP 134/76 05/11/22 04:00 Pulse Ox 97 05/11/22 04:00 FiO2 Intake & Output 05/10/22 05/11/22 05/11/22 18:59 06:59 18:59 Intake Total 0 620 Balance 0 620 Weight 140.16 kg Intake: Blood Product 0 620 Rc As-1 Unit 0 310 [id number] Rc As-1 Unit 310 [id number] Other: Voiding Method Toilet # Voids 2 - Exam In general patient is alert and oriented x 3 in no distress HEENT head normocephalic and atraumatic Neck is supple no JVD no goiter no lymphadenopathy no carotid bruit Chest examination is clear to auscultation no crackles no wheezing Cardiac exam reveals regular heart sounds S1 and S2 no gallops no murmurs Abdomen is soft nontender no organomegaly with normal bowel sounds Extremity exam reveals 1 + edema no cyanosis or clubbing Neurological examination reveals no gross focal deficits - Labs CBC & Chem 7: 05/10/22 20:45 05/10/22 12:47 Labs: Abnormal Lab Results - Last 24 Hours (Table) 05/10/22 05/10/22 05/10/22 Range/Units 12:47 12:47 12:47 RBC 2.76 L (3.80-5.40) m/uL Hgb 5.0 L* (11.4-16.0) gm/dL Hct 20.0 L (34.0-46.0) % MCV 72.7 L (80.0-100.0) fL MCH 18.2 L (25.0-35.0) pg MCHC 25.0 L (31.0-37.0) g/dL RDW 16.9 H (11.5-15.5) % PT 13.0 H (9.0-12.0) sec INR 1.2 H (<1.2) Carbon Dioxide 21 L (22-30) mmol/L BUN 43 H (7-17) mg/dL Creatinine 1.93 H (0.52-1.04) mg/dL Glucose 186 H (74-99) mg/dL POC Glucose (mg/dL) (70-110) mg/dL Calcium 7.9 L (8.4-10.2) mg/dL Stool Occult Blood (Negative) Crossmatch 05/10/22 05/10/22 05/10/22 Range/Units 12:47 14:22 14:25 RBC 2.62 L (3.80-5.40) m/uL Hgb 4.6 L* (11.4-16.0) gm/dL Hct 18.7 L* (34.0-46.0) % MCV 71.3 L (80.0-100.0) fL MCH 17.6 L (25.0-35.0) pg MCHC 24.7 L (31.0-37.0) g/dL RDW 16.9 H (11.5-15.5) % PT (9.0-12.0) sec INR (<1.2) Carbon Dioxide (22-30) mmol/L BUN (7-17) mg/dL Creatinine (0.52-1.04) mg/dL Glucose (74-99) mg/dL POC Glucose (mg/dL) (70-110) mg/dL Calcium (8.4-10.2) mg/dL Stool Occult Blood Positive H (Negative) Crossmatch See Detail 05/10/22 05/10/22 Range/Units 20:45 21:32 RBC 2.95 L (3.80-5.40) m/uL Hgb 5.9 L* (11.4-16.0) gm/dL Hct 21.9 L (34.0-46.0) % MCV 74.1 L (80.0-100.0) fL MCH 20.1 L (25.0-35.0) pg MCHC 27.2 L (31.0-37.0) g/dL RDW 17.8 H (11.5-15.5) % PT (9.0-12.0) sec INR (<1.2) Carbon Dioxide (22-30) mmol/L BUN (7-17) mg/dL Creatinine (0.52-1.04) mg/dL Glucose (74-99) mg/dL POC Glucose (mg/dL) 168 H (70-110) mg/dL Calcium (8.4-10.2) mg/dL Stool Occult Blood (Negative) Crossmatch Assessment and Plan Plan: Anemia, hemoglobin on presentation was 5.0, 2 units of red blood cell transfusion were ordered in the emergency room, stool Hemoccult was positive, gastroenterology consultation was requested History of pulmonary embolism, patient was maintained on Xarelto, which is currently on hold, will monitor closely Underlying history of hypertension Underlying history of COPD Previous history of atrial fibrillation currently patient is in normal sinus rhythm Underlying history of [id number]-vodpgwipj diabetes mellitus maintained on Ja rdiance Underlying history of depression Underlying history of morbid obesity At this time patient will be admitted to telemetry floor Gastroenterology consultation requested Will monitor hemoglobin closely and transfuse red blood cells if needed. Status post units of PRBCs on 05/10/2022 Plans for EGD and colonoscopy 05/12/2022 Home medications reviewed and reordered IV Protonix was ordered For DVT prophylaxis we will use SCD stockings Will follow closely
[2022-05-11 11:20] LABS: Anisocytosis Slight; Basophils # (A) 0.1 k/uL (0-0.2); Basophils % (A) 1 %; Eosinophils # (A) 0.1 k/uL (0-0.7); Eosinophils % (A) 1 %; HCT 23.5 % (34.0-46.0); Hypochromasia Marked; Lymphocytes % (A) 17 %; MCH 21.1 pg (25.0-35.0); MCHC 28.3 g/dL (31.0-37.0); MCV 74.7 fL (80.0-100.0); Microcytosis Moderate; Monocytes # (A) 0.6 k/uL (0-1.0); Monocytes % (A) 10 %; Neutrophils % (A) 70 %; Platelet Count 166 k/uL (150-450); Poikilocytosis Marked; RBC 3.15 m/uL (3.80-5.40); RDW 18.2 % (11.5-15.5); WBC 5.8 k/uL (3.8-10.6)
[2022-05-11 11:25] LABS: HGB 6.6 gm/dL (11.4-16.0)
[2022-05-11 11:37] LABS: Poikilocytosis (M) Present; Polychromasia Present
[2022-05-11 11:40] LABS: Glucose,Whole Blood 179 mg/dL (70-110)
--- NOTE | 2022-05-11 12:03 | P.CONS ---
History of Present Illness - Reason for Consult Consult date: 05/11/22 Anemia Requesting physician: Michel Radford - Chief Complaint Low hemoglobin - History of Present Illness This is a pleasant 72-year-old female with a past medical history of pulmonary embolism, deep vein thrombosis, atrial fibrillation, COPD, diabetes mellitus, hyperlipidemia, hypertension, obesity, and obstructive sleep apnea requiring CPAP who is been on Xarelto. Patient had routine blood work and was found to be anemic with a hemoglobin of 5. She denies any previous history of GI bleed. Denies any history of peptic ulcer disease. She is not on any NSAIDs. Last colonoscopy greater than 10 years ago, no previous EGD. She does state that she fell back in December of this year which she states she had extensive bruising on her left side. She denies any bright red blood per rectum, states bowel movements are overall normal, states they have been darker for the last 2 months but she thought it was what she has been eating. She denies any hematemesis or coffee-ground emesis. Last Xarelto taken 05/09/2022. She denies any abdominal pain, nausea, or vomiting. Has some shortness of breath and generalized weakness. Denies any current signs or symptoms of bleeding. No fevers chills or body aches. She has been afebrile. Admitting labs: WBC 6.4 hemoglobin 4.9 hematocrit 20 platelet count 237,000 INR 1.2 sodium 141 potassium 5.2 BUN 36 creatinine 1.9, iron 12 TIBC 486 saturation 2.4 ferritin 4.9 total bilirubin 0.5 AST 26 ALT 16 alkaline phosphatase 128 Review of Systems REVIEW OF SYSTEMS: CARDIOPULMONARY: No chest pain. Shortness of breath. Gastrointestinal: No abdominal pain or epigastric pain. No nausea or vomiting. No hematemesis, coffee-ground emesis. No rectal bleeding, she reports dark stool for the last 2 months duration. GENITOURINARY: No dysuria or hematuria. MUSCULOSKELETAL: Reports normal range of motion., Joint pain. SKIN: No rashes. No jaundice. ENDOCRINE: No chills, fevers. No excessive weight gain or loss. No polydipsia or polyuria. PSYCHIATRIC: Unremarkable. NEUROLOGY: No change in mental status. Denies dizziness, headache. ENT: Vision unremarkable. CONSTITUTIONAL: No recent weight loss. No fever, chills, night sweats. Generalized weakness and fatigue. Past Medical History Past Medical History: COPD, Diabetes Mellitus, Deep Vein Thrombosis (DVT), Hyperlipidemia, Hypertension, Pulmonary Embolus (PE), Sleep Apnea/CPAP/BIPAP Additional Past Medical History / Comment(s): Morbid obesity, obstructive sleep apnea maintained on CPA, diabetes mellitus, hypertension, hyperlipidemia, acid reflux, varicose veins with previous history of surgery for varicose vein stripping from the lower extremity, superficial thrombophlebitis, history of ex- smoking. History of Any Multi-Drug Resistant Organisms: None Reported Additional Past Surgical History / Comment(s): vein surgery left leg, bilateral cataracts. Past Anesthesia/Blood Transfusion Reactions: No Reported Reaction Past Psychological History: No Psychological Hx Reported Past Alcohol Use History: None Reported Past Drug Use History: None Reported - Past Family History Father Family Medical History: Cancer Additional Family Medical History / Comment(s): suicide, colon ca Mother Family Medical History: Coronary Artery Disease (CAD), Diabetes Mellitus Medications and Allergies Home Medications Medication Instructions Recorded Confirmed Type Enalapril [Vasotec] 10 mg PO DAILY 02/04/17 05/10/22 History Montelukast [Singulair] 10 mg PO HS 02/04/17 05/10/22 History [place]-3 Fatty Acids/Fish Oil [Fish 1 cap PO DAILY 02/04/17 05/10/22 History Oil 1,000 mg Softgel] Pravastatin Sodium [Pravachol] 20 mg PO HS 02/04/17 05/10/22 History Omeprazole 20 mg PO DAILY 04/24/17 05/10/22 History Biotin 10,000 mcg PO DAILY 04/11/20 05/10/22 History Calcium Carbonate [Calcium] 600 mg PO DAILY 04/11/20 05/10/22 History Cholecalciferol [Vitamin D3 (25 50 mcg PO DAILY 04/11/20 05/10/22 History Mcg = 1000 Iu)] Cyclobenzaprine [Flexeril] 10 mg PO TID PRN 04/11/20 05/10/22 History Escitalopram [Lexapro] 20 mg PO DAILY 04/11/20 05/10/22 History Ubidecarenone [Co Q-10] 200 mg PO DAILY 04/11/20 05/10/22 History Vit C/E/Zn/Coppr/Lutein/Zeaxan 1 cap PO BID 04/11/20 05/10/22 History [Preservision Areds 2 Softgel] Empagliflozin [Jardiance] 25 mg PO DAILY 05/10/22 05/10/22 History Rivaroxaban [Xarelto] 20 mg PO W/SUPPER 05/10/22 05/10/22 History buPROPion XL [Wellbutrin XL] 150 mg PO DAILY 05/10/22 05/10/22 History Allergies Allergy/AdvReac Type Severity Reaction Status Date / Time adhesive tape Allergy Rash/Hives Verified 05/10/22 15:36 clindamycin Allergy Rash/Hives Verified 05/10/22 15:36 levofloxacin [From Levaquin] Allergy Rash/Hives Verified 05/10/22 15:36 Penicillins Allergy Hives at Verified 05/10/22 15:36 injection site only, did not spread amlodipine [From Norvasc] AdvReac DENTAL Verified 05/10/22 15:36 ISSUES Physical Exam Vitals: Vital Signs Temp Pulse Pulse Resp BP BP Pulse Ox 05/11/22 04:00 98 F 72 12 134/76 97 05/11/22 00:00 98.4 F 68 12 133/70 98 05/10/22 22:08 98.7 F 80 20 166/77 95 05/10/22 21:59 98.5 F 80 18 169/77 95 05/10/22 21:10 98.1 F 71 18 115/56 97 05/10/22 20:16 98.8 F 74 18 113/49 98 05/10/22 19:46 98.8 F 73 18 118/52 99 05/10/22 19:36 98.9 F 70 18 119/49 99 05/10/22 19:14 99.1 F 72 18 131/58 99 05/10/22 18:09 98.1 F 75 20 138/60 98 05/10/22 17:00 98.5 F 71 16 133/50 98 05/10/22 16:27 98.1 F 73 18 131/55 98 05/10/22 15:57 99.4 F 70 18 126/54 100 05/10/22 15:56 99.4 F 65 18 126/54 100 05/10/22 15:47 99.4 F 71 18 128/51 100 05/10/22 15:36 98.3 F 71 18 113/60 98 05/10/22 14:41 73 18 128/42 100 05/10/22 11:24 98.2 F 77 24 117/41 100 Intake and Output 05/10/22 05/11/22 05/11/22 22:59 06:59 14:59 Intake Total 620 Balance 620 Intake: Blood Product 620 Rc As-1 Unit 310 [id number] Rc As-1 Unit 310 [id number] Other: Voiding Method Toilet # Voids 2 Weight 140.16 kg General appearance: The patient is alert, oriented, appears in no acute d istress. HET: Head is normocephalic and atraumatic. Conjunctiva pink. Sclera anicteric. Neck: Supple without lymphadenopathy. Trachea midline. Heart: S1 S2. Regular rate and rhythm. Lungs: Clear to auscultation. Abdomen: Soft, obese, nontender, nondistended with bowel sounds. No guarding or rigidity. Skin: No rashes. No jaundice. Extremities: Normal skin color and turgor. No pedal edema. Neurological: No focal deficits. Alert and oriented x3. Results CBC & Chem 7: 05/11/22 10:10 05/10/22 12:47 Labs: Abnormal Lab Results - Last 24 Hours (Table) 05/10/22 05/10/22 05/10/22 Range/Units 12:47 12:47 12:47 RBC 2.76 L (3.80-5.40) m/uL Hgb 5.0 L* (11.4-16.0) gm/dL Hct 20.0 L (34.0-46.0) % MCV 72.7 L (80.0-100.0) fL MCH 18.2 L (25.0-35.0) pg MCHC 25.0 L (31.0-37.0) g/dL RDW 16.9 H (11.5-15.5) % PT 13.0 H (9.0-12.0) sec INR 1.2 H (<1.2) Carbon Dioxide 21 L (22-30) mmol/L BUN 43 H (7-17) mg/dL Creatinine 1.93 H (0.52-1.04) mg/dL Glucose 186 H (74-99) mg/dL POC Glucose (mg/dL) (70-110) mg/dL Calcium 7.9 L (8.4-10.2) mg/dL Stool Occult Blood (Negative) Crossmatch 05/10/22 05/10/22 05/10/22 Range/Units 12:47 14:22 14:25 RBC 2.62 L (3.80-5.40) m/uL Hgb 4.6 L* (11.4-16.0) gm/dL Hct 18.7 L* (34.0-46.0) % MCV 71.3 L (80.0-100.0) fL MCH 17.6 L (25.0-35.0) pg MCHC 24.7 L (31.0-37.0) g/dL RDW 16.9 H (11.5-15.5) % PT (9.0-12.0) sec INR (<1.2) Carbon Dioxide (22-30) mmol/L BUN (7-17) mg/dL Creatinine (0.52-1.04) mg/dL Glucose (74-99) mg/dL POC Glucose (mg/dL) (70-110) mg/dL Calcium (8.4-10.2) mg/dL Stool Occult Blood Positive H (Negative) Crossmatch See Detail 05/10/22 05/10/22 Range/Units 20:45 21:32 RBC 2.95 L (3.80-5.40) m/uL Hgb 5.9 L* (11.4-16.0) gm/dL Hct 21.9 L (34.0-46.0) % MCV 74.1 L (80.0-100.0) fL MCH 20.1 L (25.0-35.0) pg MCHC 27.2 L (31.0-37.0) g/dL RDW 17.8 H (11.5-15.5) % PT (9.0-12.0) sec INR (<1.2) Carbon Dioxide (22-30) mmol/L BUN (7-17) mg/dL Creatinine (0.52-1.04) mg/dL Glucose (74-99) mg/dL POC Glucose (mg/dL) 168 H (70-110) mg/dL Calcium (8.4-10.2) mg/dL Stool Occult Blood (Negative) Crossmatch Chest x-ray: report reviewed Assessment and Plan (1) Iron deficiency anemia Narrative/Plan: 72-year-old female with a history of pulmonary embolism, DVT, and atrial fibrillation currently taking Xarelto presented to the emergency department per her outpatient labs concerning for anemia. Hemoglobin was consult was 4.6, she denies any history of GI bleed. She denies previous history of peptic ulcer disease, no NSAID use. States that she does believe she has had dark stools she thought that was related to what she was eating. No previous EGD, last colonoscopy greater than 10 years ago. Possible etiologies include peptic ulcer disease, AVM, esophagitis, gastritis, colon polyps, or other possible etiologies. Anticoagulation on hold will proceed with EGD and colonoscopy tomorrow. Current Visit: Yes Status: Acute Code(s): D50.9 - IRON DEFICIENCY ANEMIA, UNSPECIFIED SNOMED Code(s): 03862370 (2) History of atrial fibrillation Narrative/Plan: on Xarelto, last dose 05/09/22 Current Visit: Yes Status: Acute Code(s): Z86.79 - PERSONAL HISTORY OF OTHER DISEASES OF THE CIRCULATORY SYSTEM SNOMED Code(s): 015720817 (3) History of pulmonary embolism Current Visit: Yes Status: Acute Code(s): Z86.711 - PERSONAL HISTORY OF PULMONARY EMBOLISM SNOMED Code(s): 562196387 (4) COPD (chronic obstructive pulmonary disease) Current Visit: Yes Status: Acute Code(s): J44.9 - CHRONIC OBSTRUCTIVE PULMONARY DISEASE, UNSPECIFIED SNOMED Code(s): 65406216 (5) Hypertension Current Visit: Yes Status: Acute Code(s): I10 - ESSENTIAL (PRIMARY) HYPERTENSION SNOMED Code(s): 23138963 (6) Hyperlipidemia Current Visit: Yes Status: Acute Code(s): E78.5 - HYPERLIPIDEMIA, UNSPECIFIED SNOMED Code(s): 70166798 (7) History of deep vein thrombosis Current Visit: Yes Status: Acute Code(s): Z86.718 - PERSONAL HISTORY OF OTHER VENOUS THROMBOSIS AND EMBOLISM SNOMED Code(s): 307287181 Plan: 1. Continue symptomatic and supportive care 2. Clear liquid diet nothing by mouth after midnight 3. Protonix 40 mg twice a day 5. Daily CBC transfuse for hemoglobin less than 7 6. Bowel prep this afternoon 7. Will proceed with EGD and colonoscopy tomorrow. Procedure discussed with patient in detail including risks and benefits. Patient is willing to proceed. Thank you for this consultation, we will continue to follow. Dr. Tika Bahena I agree with the dictator's note, documented as a scribe by Mignon Anne.
[2022-05-11] MEDS: INSULIN ASPART (NovoLOG) 100 UNIT/ML VIAL SQ SCH ×3 (12:50→20:58)
[2022-05-11] MEDS ORDERED: PEG 3350-NA SULF,BICARB,CL/KCL 4,000 ML BOTTLE PO ONE (15:00)
[2022-05-11 17:03] LABS: Glucose,Whole Blood 159 mg/dL (70-110)
[2022-05-11 20:43] LABS: Glucose,Whole Blood 155 mg/dL (70-110)
[2022-05-11] MEDS: MONTELUKAST 10 MG TAB PO SCH (20:58)
[2022-05-11] MEDS: PRAVASTATIN SODIUM 20 MG TAB PO SCH (20:58)
[2022-05-11 23:47] LABS: Glucose,Whole Blood 151 mg/dL (70-110)
[2022-05-12 06:20] LABS: Glucose,Whole Blood 172 mg/dL (70-110)
[2022-05-12] MEDS: INSULIN ASPART (NovoLOG) 100 UNIT/ML VIAL SQ SCH ×4 (06:28→21:51)
[2022-05-12 06:42] LABS: Anisocytosis Slight; Basophils # (A) 0.1 k/uL (0-0.2); Basophils % (A) 1 %; Eosinophils # (A) 0.2 k/uL (0-0.7); Eosinophils % (A) 3 %; HCT 21.6 % (34.0-46.0); Hypochromasia Marked; Lymphocytes # (A) 1.1 k/uL (1.0-4.8); Lymphocytes % (A) 16 %; MCH 21.1 pg (25.0-35.0); MCHC 28.3 g/dL (31.0-37.0); MCV 74.5 fL (80.0-100.0); Mean Platelet Volume 10.2; Microcytosis Moderate; Monocytes # (A) 0.6 k/uL (0-1.0); Monocytes % (A) 9 %; Neutrophils # (A) 4.6 k/uL (1.3-7.7); Neutrophils % (A) 70 %; Platelet Count 166 k/uL (150-450); Poikilocytosis Moderate; RBC 2.89 m/uL (3.80-5.40); RDW 19.4 % (11.5-15.5); WBC 6.7 k/uL (3.8-10.6)
[2022-05-12 06:46] LABS: HGB 6.1 gm/dL (11.4-16.0)
[2022-05-12 06:59] LABS: Albumin 3.3 g/dL (3.5-5.0); Total Bilirubin 1.2 mg/dL (0.2-1.3)
[2022-05-12] MEDS ORDERED: PROPOFOL 10 MG/ML 20 ML VIAL IV ONE (08:00)
[2022-05-12] MEDS ORDERED: LIDOCAINE 2% INJ 20 MG/ML (2 ML VIAL) ONE (08:00)
[2022-05-12] MEDS ORDERED: SODIUM CHLORIDE 0.9% 500 ML 500 ML IV ONE (08:06)
--- NOTE | 2022-05-12 08:26 | P.PCN ---
Date of Procedure: 05/12/22 Procedure(s) Performed: Brief history: Patient is a pleasant 72-year-old white female admitted hospital with severe symptomatic anemia and hemoglobin of 4.5 g/dL. She has history of DVT/PE and A. fib and has been on Xarelto for the last 2 years. She received to use Prevacid transition and her repeat hemoglobin of 6.1 g/dL. Her last colonoscopy was more than 10 years ago. Denies any active GI bleed. Stool occult blood was positive. She is scheduled for an upper endoscopy as well as colonoscopy as a part of evaluation of severe symptomatic anemia Procedure performed: Esophagogastroduodenoscopy with biopsy Colonoscopy Preoperative diagnosis: Severe symptomatic iron deficiency anemia Anesthesia: MAC Procedure: After informed consent was obtained from the patient was brought into the endoscopy unit and IV sedation was administered by anesthesia under continuous monitoring. Initially upper endoscopy was done. The Olympus GF 160 video endoscope was inserted inserted into the mouth and esophagus intubated without any difficulty and was gradually advanced into the stomach and duodenum and carefully examined. The bulb and second part of the duodenum appeared normal. Biopsies were done from the duodenum to rule out celiac disease. The scope was then withdrawn into the stomach adequately insufflated with air and upon careful examination the antrum had scattered areas of erythema noted which was biopsied. The body, cardia and fundus appeared normal. The scope was then withdrawn into the esophagus. The GE junction was located at 40 cm to the incisors. It appeared regular with no erythema erosions or ulcerations. Rest of the esophagus appeared normal. Patient tolerated the procedure well. At this time the patient continued to remain sedation. Initial digital rectal examination was normal. Olympus CF 160 video colonoscope was then inserted into the rectum and gradually advanced to the cecum without any difficulty. Careful examination was performed as the scope was gradually being withdrawn. The prep was excellent. The cecum, ascending colon, transverse colon, descending colon, sigmoid colon and rectum appeared normal. Scattered sigmoid diverticulosis. Retroflexion was performed in the rectum and no lesions were noted. Patient tolerated the procedure well. Impression: 1. Upper endoscopy revealed scattered areas of erythema in antrum consistent with gastritis. No evidence of angiectasia, peptic ulcer disease or esophagitis 2. Colonoscopy revealed scattered sigmoid diverticulosis but no evidence of angiectasia, colitis or colorectal neoplasia Recommendations: Findings of this examination were discussed with the patient . She was advised to follow with the biopsy results. She will be scheduled for small bowel capsule endoscopy today. Advance to regular diet for dinner. Recommend iron infusions an iron supplements. Anticoagulation can be resumed tomorrow. Advised to follow up in office in one to 2 weeks following discharge from the hospital
[2022-05-12] MEDS ORDERED: SIMETHICONE 40 MG/0.6 ML DROPS 2,000 MG/30 ML BOTTLE PO ONE (08:57)
--- NOTE | 2022-05-12 10:55 | P.PN ---
Subjective Progress Note Date: 05/12/22 Patient is a 72-year-old female who presented to [facility] emergency room with a chief complaint of severe anemia, patient was seen by her primary care physician Dr. Bashir for a routine visit and for complaints of episodes of chills and fatigue, her blood test revealed a hemoglobin of 5.0 patient was directly to emergency room. She was evaluated in the emergency room vital examination on presentation revealed a temperature of 99.4 pulse 65 respiration 18 blood pressure 126/54 pulse ox 100% on 2 L nasal cannula Laboratory data reveals a white blood count of 7.1 hemoglobin 5.0 platelet count 192 INR 1.2 BUN 43 creatinine 1.93 stools occult blood was positive Testing in the emergency room revealed EKG done in the emergency room revealed sinus rhythm with sinus arrhythmia and nonspecific T-wave abnormalities Patient was admitted to medical floor for further evaluation and treatment Past medical history is significant for history of pulmonary embolism patient was maintained on Xarelto 20 mg daily for the last 5 years, her last dose was yesterday, she also had a history of atrial fibrillation with episodes of rapid ventricular response, she had cardioversion in the past, she has a history of hypertension, history of COPD, history of diabetes mellitus, underlying history of morbid obesity, and history of depression Patient used to smoke she quit about 10 years ago, she drinks alcohol rarely On 05/11/2022 patient is alert and oriented 3. Patient received 2 units of PRBCs yesterday awaiting hemoglobin repeat this AM. Did discuss with GI services nurse practitioner plans for EGD and colonoscopy tomorrow 05/12/2022. We'll continue to monitor hemoglobin closely and transfuse as needed. Patient denies any nausea vomiting or diarrhea or signs of bleeding. Patient does reports she still feels tired. Patient denies chest pain or shortness of breath. Patient denies any urinary burning or frequency. On 05/12/2022 patient was seen and examined on the medical floor she is alert and oriented 3 in no apparent distress she underwent EGD and colonoscopy this morn ing that revealed evidence of gastritis and mild diverticulosis no active bleeding, patient received 2 units of red blood cells yesterday hemoglobin is 6.1, she will receive 1 more unit of red blood cells today Will continue to monitor. Clinically patient denies any complaints there is no fever or chills no headache or dizziness no chest pain no shortness of breath no cough no nausea or vomiting no abdominal pain no diarrhea no blood in the stools no burning with urination no frequency or urgency no hematuria Objective - Vital Signs Vital signs: Vital Signs Temp 98.3 F 05/12/22 10:00 Pulse 73 05/12/22 10:00 Resp 18 05/12/22 10:00 BP 156/70 05/12/22 10:00 Pulse Ox 98 05/12/22 08:00 FiO2 Intake & Output 05/11/22 05/12/22 05/12/22 18:59 06:59 18:59 Intake Total 1625 100 Balance 1625 100 Intake: IV 100 Oral 1625 Other: Voiding Method Toilet Toilet Toilet # Voids 3 1 # Bowel Movements 4 8 - Exam In general patient is alert and oriented x 3 in no distress HEENT head normocephalic and atraumatic Neck is supple no JVD no goiter no lymphadenopathy no carotid bruit Chest examination is clear to auscultation no crackles no wheezing Cardiac exam reveals regular heart sounds S1 and S2 no gallops no murmurs Abdomen is soft nontender no organomegaly with normal bowel sounds Extremity exam reveals 1 + edema no cyanosis or clubbing Neurological examination reveals no gross focal deficits - Labs CBC & Chem 7: 05/12/22 06:08 05/12/22 06:08 Labs: Abnormal Lab Results - Last 24 Hours (Table) 05/10/22 05/11/22 05/11/22 Range/Units 12:47 10:10 11:34 RBC 3.15 L (3.80-5.40) m/uL Hgb 6.6 L* (11.4-16.0) gm/dL Hct 23.5 L (34.0-46.0) % MCV 74.7 L (80.0-100.0) fL MCH 21.1 L (25.0-35.0) pg MCHC 28.3 L (31.0-37.0) g/dL RDW 18.2 H (11.5-15.5) % Sodium (137-145) mmol/L BUN (7-17) mg/dL Creatinine (0.52-1.04) mg/dL Glucose (74-99) mg/dL POC Glucose (mg/dL) 179 H (70-110) mg/dL Calcium (8.4-10.2) mg/dL AST (14-36) U/L Total Protein (6.3-8.2) g/dL Albumin (3.5-5.0) g/dL Crossmatch See Detail 05/11/22 05/11/22 05/11/22 Range/Units 16:42 20:42 23:46 RBC (3.80-5.40) m/uL Hgb (11.4-16.0) gm/dL Hct (34.0-46.0) % MCV (80.0-100.0) fL MCH (25.0-35.0) pg MCHC (31.0-37.0) g/dL RDW (11.5-15.5) % Sodium (137-145) mmol/L BUN (7-17) mg/dL Creatinine (0.52-1.04) mg/dL Glucose (74-99) mg/dL POC Glucose (mg/dL) 159 H 155 H 151 H (70-110) mg/dL Calcium (8.4-10.2) mg/dL AST (14-36) U/L Total Protein (6.3-8.2) g/dL Albumin (3.5-5.0) g/dL Crossmatch 05/12/22 05/12/22 05/12/22 Range/Units 06:08 06:08 06:19 RBC 2.89 L (3.80-5.40) m/uL Hgb 6.1 L* (11.4-16.0) gm/dL Hct 21.6 L (34.0-46.0) % MCV 74.5 L (80.0-100.0) fL MCH 21.1 L (25.0-35.0) pg MCHC 28.3 L (31.0-37.0) g/dL RDW 19.4 H (11.5-15.5) % Sodium 136 L (137-145) mmol/L BUN 23 H (7-17) mg/dL Creatinine 1.29 H (0.52-1.04) mg/dL Glucose 152 H (74-99) mg/dL POC Glucose (mg/dL) 172 H (70-110) mg/dL Calcium 8.0 L (8.4-10.2) mg/dL AST 38 H (14-36) U/L Total Protein 6.0 L (6.3-8.2) g/dL Albumin 3.3 L (3.5-5.0) g/dL Crossmatch Assessment and Plan Plan: Anemia, hemoglobin on presentation was 5.0, 2 units of red blood cell transfusion were ordered in the emergency room, stool Hemoccult was positive, gastroenterology consultation was requested History of pulmonary embolism, patient was maintained on Xarelto, which is currently on hold, will monitor closely Underlying history of hypertension Underlying history of COPD Previous history of atrial fibrillation currently patient is in normal sinus rhythm Underlying history of [id number] diabetes mellitus maintained on Jardiance Underlying history of depression Underlying history of morbid obesity At this time patient will be admitted to telemetry floor Gastroenterology consultation requested Will monitor hemoglobin closely and transfuse red blood cells if needed. Status post units of PRBCs on 05/10/2022 Plans for EGD and colonoscopy 05/12/2022 Home medications reviewed and reordered IV Protonix was ordered For DVT prophylaxis we will use SCD stockings Will follow closely
[2022-05-12 11:28] LABS: Glucose,Whole Blood 182 mg/dL (70-110)
[2022-05-12] MEDS: lisinopriL 20 MG TAB PO SCH (13:12)
[2022-05-12] MEDS: Empagliflozin [Jardiance] PO SCH (13:12)
[2022-05-12] MEDS: VIT A,C & E-LUTEIN-MINERALS 1 EACH TAB PO SCH ×2 (13:12→21:52)
[2022-05-12] MEDS: buPROPion XL 150 MG TAB.ER.24H PO SCH (13:12)
[2022-05-12] MEDS: PANTOPRAZOLE 40 MG/10 ML VIAL IVP SCH ×2 (13:12→21:52)
[2022-05-12] MEDS: ESCITALOPRAM 20 MG TAB PO SCH (13:12)
[2022-05-12 16:27] LABS: Glucose,Whole Blood 220 mg/dL (70-110)
[2022-05-12 20:08] LABS: Glucose,Whole Blood 201 mg/dL (70-110)
[2022-05-12] MEDS: MONTELUKAST 10 MG TAB PO SCH (21:51)
[2022-05-12] MEDS: PRAVASTATIN SODIUM 20 MG TAB PO SCH (21:52)
[2022-05-12 22:55] LABS: Anisocytosis Moderate; Basophils % (A) 0 %; Eosinophils # (A) 0.1 k/uL (0-0.7); Eosinophils % (A) 2 %; HCT 24.1 % (34.0-46.0); Hypochromasia Marked; Lymphocytes # (A) 1.2 k/uL (1.0-4.8); Lymphocytes % (A) 15 %; MCHC 28.9 g/dL (31.0-37.0); MCV 76.4 fL (80.0-100.0); Mean Platelet Volume 8.2; Microcytosis Moderate; Monocytes # (A) 0.8 k/uL (0-1.0); Monocytes % (A) 10 %; Neutrophils # (A) 5.7 k/uL (1.3-7.7); Neutrophils % (A) 71 %; Platelet Count 165 k/uL (150-450); Poikilocytosis Marked; RBC 3.16 m/uL (3.80-5.40); RDW 20.4 % (11.5-15.5)
[2022-05-13 04:37] LABS: Anisocytosis Moderate; Basophils # (A) 0.1 k/uL (0-0.2); Basophils % (A) 1 %; Eosinophils # (A) 0.2 k/uL (0-0.7); Eosinophils % (A) 3 %; HCT 25.2 % (34.0-46.0); HGB 7.1 gm/dL (11.4-16.0); Hypochromasia Marked; Lymphocytes # (A) 1.5 k/uL (1.0-4.8); Lymphocytes % (A) 18 %; MCH 21.9 pg (25.0-35.0); MCV 78.1 fL (80.0-100.0); Mean Platelet Volume 9.4; Microcytosis Slight; Monocytes # (A) 0.8 k/uL (0-1.0); Monocytes % (A) 10 %; Neutrophils # (A) 5.3 k/uL (1.3-7.7); Neutrophils % (A) 66 %; Platelet Count 165 k/uL (150-450); Poikilocytosis Moderate; RBC 3.23 m/uL (3.80-5.40); RDW 20.6 % (11.5-15.5)
[2022-05-13 04:48] LABS: Albumin 3.3 g/dL (3.5-5.0); Potassium 4.6 mmol/L (3.5-5.1); Total Bilirubin 1.3 mg/dL (0.2-1.3); Total Protein 5.9 g/dL (6.3-8.2)
[2022-05-13 06:33] LABS: Glucose,Whole Blood 166 mg/dL (70-110)
[2022-05-13] MEDS: INSULIN ASPART (NovoLOG) 100 UNIT/ML VIAL SQ SCH ×4 (06:35→20:28)
[2022-05-13] MEDS: buPROPion XL 150 MG TAB.ER.24H PO SCH (09:10)
[2022-05-13] MEDS: PANTOPRAZOLE 40 MG/10 ML VIAL IVP SCH ×2 (09:10→20:29)
[2022-05-13] MEDS: lisinopriL 20 MG TAB PO SCH (09:10)
[2022-05-13] MEDS: ESCITALOPRAM 20 MG TAB PO SCH (09:10)
[2022-05-13] MEDS: VIT A,C & E-LUTEIN-MINERALS 1 EACH TAB PO SCH ×2 (09:10→20:28)
[2022-05-13] MEDS: Empagliflozin [Jardiance] PO SCH (09:10)
--- NOTE | 2022-05-13 10:41 | P.PN ---
Subjective Progress Note Date: 05/13/22 Patient is a 72-year-old female who presented to [facility] emergency room with a chief complaint of severe anemia, patient was seen by her primary care physician Dr. Bashir for a routine visit and for complaints of episodes of chills and fatigue, her blood test revealed a hemoglobin of 5.0 patient was directly to emergency room. She was evaluated in the emergency room vital examination on presentation revealed a temperature of 99.4 pulse 65 respiration 18 blood pressure 126/54 pulse ox 100% on 2 L nasal cannula Laboratory data reveals a white blood count of 7.1 hemoglobin 5.0 platelet count 192 INR 1.2 BUN 43 creatinine 1.93 stools occult blood was positive Testing in the emergency room revealed EKG done in the emergency room revealed sinus rhythm with sinus arrhythmia and nonspecific T-wave abnormalities Patient was admitted to medical floor for further evaluation and treatment Past medical history is significant for history of pulmonary embolism patient was maintained on Xarelto 20 mg daily for the last 5 years, her last dose was yesterday, she also had a history of atrial fibrillation with episodes of rapid ventricular response, she had cardioversion in the past, she has a history of hypertension, history of COPD, history of diabetes mellitus, underlying history of morbid obesity, and history of depression Patient used to smoke she quit about 10 years ago, she drinks alcohol rarely On 05/11/2022 patient is alert and oriented 3. Patient received 2 units of PRBCs yesterday awaiting hemoglobin repeat this AM. Did discuss with GI services nurse practitioner plans for EGD and colonoscopy tomorrow 05/12/2022. We'll continue to monitor hemoglobin closely and transfuse as needed. Patient denies any nausea vomiting or diarrhea or signs of bleeding. Patient does reports she still feels tired. Patient denies chest pain or shortness of breath. Patient denies any urinary burning or frequency. On 05/12/2022 patient was seen and examined on the medical floor she is alert and oriented 3 in no apparent distress she underwent EGD and colonoscopy this morn ing that revealed evidence of gastritis and mild diverticulosis no active bleeding, patient received 2 units of red blood cells yesterday hemoglobin is 6.1, she will receive 1 more unit of red blood cells today Will continue to monitor. 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, she also has a history of atrial fibrillation, at this time will restart Xarelto, will continue to monitor hemoglobin, will give 1 dose of IV iron today Objective - Vital Signs Vital signs: Vital Signs Temp 97.9 F 05/13/22 03:19 Pulse 74 05/13/22 03:19 Resp 18 05/13/22 03:19 BP 137/63 05/13/22 03:19 Pulse Ox 94 L 05/13/22 03:19 FiO2 Intake & Output 05/12/22 05/13/22 05/13/22 18:59 06:59 18:59 Intake Total 410 Balance 410 Intake: IV 100 Blood Product 310 Rc As-1 Unit 310 [id number] Other: Voiding Method Toilet Toilet # Voids 3 2 1 - Exam In general patient is alert and oriented x 3 in no distress HEENT head normocephalic and atraumatic Neck is supple no JVD no goiter no lymphadenopathy no carotid bruit Chest examination is clear to auscultation no crackles no wheezing Cardiac exam reveals regular heart sounds S1 and S2 no gallops no murmurs Abdomen is soft nontender no organomegaly with normal bowel sounds Extremity exam reveals 1 + edema no cyanosis or clubbing Neurological examination reveals no gross focal deficits - Labs CBC & Chem 7: 05/13/22 04:15 05/13/22 04:19 Labs: Abnormal Lab Results - Last 24 Hours (Table) 05/10/22 05/12/22 05/12/22 Range/Units 12:47 11:26 16:25 RBC (3.80-5.40) m/uL Hgb (11.4-16.0) gm/dL Hct (34.0-46.0) % MCV (80.0-100.0) fL MCH (25.0-35.0) pg MCHC (31.0-37.0) g/dL RDW (11.5-15.5) % Sodium (137-145) mmol/L Chloride (98-107) mmol/L Carbon Dioxide (22-30) mmol/L BUN (7-17) mg/dL Creatinine (0.52-1.04) mg/dL Glucose (74-99) mg/dL POC Glucose (mg/dL) 182 H 220 H (70-110) mg/dL Calcium (8.4-10.2) mg/dL AST (14-36) U/L Total Protein (6.3-8.2) g/dL Albumin (3.5-5.0) g/dL Crossmatch See Detail 05/12/22 05/12/22 05/13/22 Range/Units 20:06 22:08 04:15 RBC 3.16 L 3.23 L (3.80-5.40) m/uL Hgb 7.0 L 7.1 L (11.4-16.0) gm/dL Hct 24.1 L 25.2 L (34.0-46.0) % MCV 76.4 L 78.1 L (80.0-100.0) fL MCH 22.0 L 21.9 L (25.0-35.0) pg MCHC 28.9 L 28.0 L (31.0-37.0) g/dL RDW 20.4 H 20.6 H (11.5-15.5) % Sodium (137-145) mmol/L Chloride (98-107) mmol/L Carbon Dioxide (22-30) mmol/L BUN (7-17) mg/dL Creatinine (0.52-1.04) mg/dL Glucose (74-99) mg/dL POC Glucose (mg/dL) 201 H (70-110) mg/dL Calcium (8.4-10.2) mg/dL AST (14-36) U/L Total Protein (6.3-8.2) g/dL Albumin (3.5-5.0) g/dL Crossmatch 05/13/22 05/13/22 Range/Units 04:19 06:32 RBC (3.80-5.40) m/uL Hgb (11.4-16.0) gm/dL Hct (34.0-46.0) % MCV (80.0-100.0) fL MCH (25.0-35.0) pg MCHC (31.0-37.0) g/dL RDW (11.5-15.5) % Sodium 135 L (137-145) mmol/L Chloride 108 H (98-107) mmol/L Carbon Dioxide 21 L (22-30) mmol/L BUN 19 H (7-17) mg/dL Creatinine 1.29 H (0.52-1.04) mg/dL Glucose 142 H (74-99) mg/dL POC Glucose (mg/dL) 166 H (70-110) mg/dL Calcium 8.0 L (8.4-10.2) mg/dL AST 38 H (14-36) U/L Total Protein 5.9 L (6.3-8.2) g/dL Albumin 3.3 L (3.5-5.0) g/dL Crossmatch Assessment and Plan Plan: Anemia, hemoglobin on presentation was 5.0, 2 units of red blood cell t ransfusion were ordered in the emergency room, stool Hemoccult was positive, gastroenterology consultation was requested History of pulmonary embolism, patient was maintained on Xarelto, which is cur rently on hold, will monitor closely Underlying history of hypertension Underlying history of COPD Previous history of atrial fibrillation currently patient is in normal sinus rhythm Underlying history of wcg-jnyvyzh-zeqhyicct diabetes mellitus maintained on Jardiance Underlying history of depression Underlying history of morbid obesity At this time patient will be admitted to telemetry floor Gastroenterology consultation requested Will monitor hemoglobin closely and transfuse red blood cells if needed. Status post units of PRBCs on 05/10/2022 Plans for EGD and colonoscopy 05/12/2022 Home medications reviewed and reordered IV Protonix was ordered For DVT prophylaxis we will use SCD stockings Will follow closely
[2022-05-13] MEDS: SODIUM FERRIC GLUCONAT-SUCROSE 125 MG in SODIUM CHLORIDE 0.9% 100 ML IVPB SCH (11:22)
[2022-05-13 11:30] LABS: Glucose,Whole Blood 190 mg/dL (70-110)
[2022-05-13] MEDS ORDERED: FUROSEMIDE 10 MG/ML 2 ML VIAL IV ONE (11:54)
[2022-05-13 16:44] LABS: Glucose,Whole Blood 164 mg/dL (70-110)
[2022-05-13 17:07] LABS: % Iron Saturation 8.31 (12.00-45.00)
[2022-05-13] MEDS: RIVAROXABAN 20 MG TAB PO SCH (17:17)
[2022-05-13] MEDS ORDERED: ALBUTEROL NEBULIZED 2.5 MG/3 ML INHALATION ONE (20:06)
[2022-05-13 20:24] LABS: Glucose,Whole Blood 229 mg/dL (70-110)
[2022-05-13] MEDS: MONTELUKAST 10 MG TAB PO SCH (20:28)
[2022-05-13] MEDS: PRAVASTATIN SODIUM 20 MG TAB PO SCH (20:28)
[2022-05-14 06:17] LABS: Glucose,Whole Blood 170 mg/dL (70-110)
[2022-05-14] MEDS: INSULIN ASPART (NovoLOG) 100 UNIT/ML VIAL SQ SCH ×4 (06:31→20:45)
[2022-05-14] MEDS: SODIUM FERRIC GLUCONAT-SUCROSE 125 MG in SODIUM CHLORIDE 0.9% 100 ML IVPB SCH (08:29)
[2022-05-14 09:02] LABS: Albumin 3.3 g/dL (3.5-5.0); Calcium 8.9 mg/dL (8.4-10.2); Potassium 5.5 mmol/L (3.5-5.1); Total Bilirubin 0.8 mg/dL (0.2-1.3)
[2022-05-14] MEDS: buPROPion XL 150 MG TAB.ER.24H PO SCH (09:14)
[2022-05-14] MEDS: VIT A,C & E-LUTEIN-MINERALS 1 EACH TAB PO SCH ×2 (09:14→20:45)
[2022-05-14] MEDS: ESCITALOPRAM 20 MG TAB PO SCH (09:15)
[2022-05-14] MEDS: lisinopriL 20 MG TAB PO SCH (09:15)
[2022-05-14] MEDS: PANTOPRAZOLE 40 MG/10 ML VIAL IVP SCH ×2 (09:15→20:45)
[2022-05-14] MEDS: Empagliflozin [Jardiance] PO SCH (09:15)
[2022-05-14 09:51] LABS: Anisocytosis Moderate; Basophils % (A) 0 %; Eosinophils # (A) 0.2 k/uL (0-0.7); Eosinophils % (A) 3 %; HCT 25.7 % (34.0-46.0); HGB 7.2 gm/dL (11.4-16.0); Hypochromasia Marked; Lymphocytes % (A) 20 %; MCH 22.1 pg (25.0-35.0); MCHC 28.2 g/dL (31.0-37.0); MCV 78.5 fL (80.0-100.0); Mean Platelet Volume 8.4; Microcytosis Moderate; Monocytes # (A) 0.5 k/uL (0-1.0); Monocytes % (A) 10 %; Neutrophils # (A) 3.2 k/uL (1.3-7.7); Neutrophils % (A) 62 %; Platelet Count 154 k/uL (150-450); Poikilocytosis Moderate; RBC 3.27 m/uL (3.80-5.40); RDW 22.3 % (11.5-15.5); WBC 5.2 k/uL (3.8-10.6)
--- NOTE | 2022-05-14 09:57 | CDI ---
Documentation Clarification Form Date: 05/14/2022 09:47:42 AM From: Cheryl Ochoa CCS, CCDS Admit Date: 05/10/2022 02:08:00 PM Patient Name: Elli Eller Visit Number: [id number] Discharge Date: ATTENTION: The Clinical Documentation Specialists (CDI) and [facility] Coding Staff appreciate your assistance in clarifying documentation. Please respond to the clarification below the line at the bottom and electronically sign. The CDI & [facility] Coding staff will review the response and follow-up if needed. Please note: Queries are made part of the Legal Health Record. If you have any questions, please contact the author of this message via ITS. Dr. Sonya Wray: Atrial Fibrillation is documented in the 05/10 History & Physical, the 05/11 GI Consult and in subsequent Progress Notes without further specificity. Additional clarification regarding the type of atrial fibrillation is requested. History/Risk Factors per the 05/10 H/P: Atrial Fibrillation nos, PE, DVT on Xarelto 20 mg Daily for the last 5 years, Hypertension, COPD, DM, Morbid Obesity (BMI 56.5) and Depression. Former smoker. Clinical Indicators: Presented to the ED on 05/10 wth fatigue and SOB for a month. Sent to the ED from PCP office after blood draw, Hemoglobin was 4.9. Admit with Anemia & GI Bleed 05/10 VS: T 98.2, P 77, R 24, 18; BP 117/41, PO 100 RA - 2Lnc, BMI: 56.5 05/10 EKG: R 70 sinus rhythm with sinus arrhythmia Treatment 05/10: O2 2Lnc, IV Protonix 40 mg BID, po Singulair, Pravachol Home meds: Wellbutrin, CoQ10, Xarelto 20mg aily, Pravachol, Omeprazole, Singulair, Lexapro, Vasotec, Jardiance, Flexeril, Vit D3, Calcium Please clarify the type of Atrial Fibrillation, if known: [ ] Chronic [ ] Permanent [ ] Paroxysmal [ ] Persistent [ ] Other, please specify [ ] Unable to determine (Template Last Revised: March 2021) persistent MTDD
[2022-05-14 11:36] LABS: Glucose,Whole Blood 171 mg/dL (70-110)
[2022-05-14] MEDS ORDERED: VANCOMYCIN IV PER PHARMACY 1 EACH MISC MISCELLANE PRN (13:54)
[2022-05-14] MEDS ORDERED: VANCOMYCIN 2,250 MG in SODIUM CHLORIDE 0.9% 500 ML 500 ML IVPB ONE (15:00)
[2022-05-14 16:42] LABS: Glucose,Whole Blood 154 mg/dL (70-110)
--- NOTE | 2022-05-14 16:57 | P.PN ---
Subjective Progress Note Date: 05/14/22 Patient is a 72-year-old female who presented to [facility] emergency room with a chief complaint of severe anemia, patient was seen by her primary care physician Dr. Bashir for a routine visit and for complaints of episodes of chills and fatigue, her blood test revealed a hemoglobin of 5.0 patient was directly to emergency room. She was evaluated in the emergency room vital examination on presentation revealed a temperature of 99.4 pulse 65 respiration 18 blood pressure 126/54 pulse ox 100% on 2 L nasal cannula Laboratory data reveals a white blood count of 7.1 hemoglobin 5.0 platelet count 192 INR 1.2 BUN 43 creatinine 1.93 stools occult blood was positive Testing in the emergency room revealed EKG done in the emergency room revealed sinus rhythm with sinus arrhythmia and nonspecific T-wave abnormalities Patient was admitted to medical floor for further evaluation and treatment Past medical history is significant for history of pulmonary embolism patient was maintained on Xarelto 20 mg daily for the last 5 years, her last dose was yesterday, she also had a history of atrial fibrillation with episodes of rapid ventricular response, she had cardioversion in the past, she has a history of hypertension, history of COPD, history of diabetes mellitus, underlying history of morbid obesity, and history of depression Patient used to smoke she quit about 10 years ago, she drinks alcohol rarely On 05/11/2022 patient is alert and oriented 3. Patient received 2 units of PRBCs yesterday awaiting hemoglobin repeat this AM. Did discuss with GI services nurse practitioner plans for EGD and colonoscopy tomorrow 05/12/2022. We'll continue to monitor hemoglobin closely and transfuse as needed. Patient denies any nausea vomiting or diarrhea or signs of bleeding. Patient does reports she still feels tired. Patient denies chest pain or shortness of breath. Patient denies any urinary burning or frequency. On 05/12/2022 patient was seen and examined on the medical floor she is alert and oriented 3 in no apparent distress she underwent EGD and colonoscopy this morn ing that revealed evidence of gastritis and mild diverticulosis no active bleeding, patient received 2 units of red blood cells yesterday hemoglobin is 6.1, she will receive 1 more unit of red blood cells today Will continue to monitor. 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, she also has a history of atrial fibrillation, at this time will restart Xarelto, will continue to monitor hemoglobin, will give 1 dose of IV iron today On 05/14/2022 patient was seen and examined on the medical floor she is alert and oriented in no apparent distress there is no fever or chills no headache or dizziness no chest pain no shortness of breath no cough no nausea or vomiting no abdominal pain no diarrhea and no urinary symptoms, patient was resumed on Xarelto yesterday, hemoglobin today is 7.2, will continue to give IV iron, possible discharge to home tomorrow Objective - Vital Signs Vital signs: Vital Signs Temp 98.6 F 05/14/22 04:00 Pulse 71 05/14/22 04:00 Resp 20 05/14/22 04:00 BP 164/61 05/14/22 04:00 Pulse Ox 97 05/14/22 04:00 FiO2 Intake & Output 05/13/22 05/14/22 05/14/22 18:59 06:59 18:59 Intake Total 118 Balance 118 Intake: Oral 118 Other: Voiding Method Toilet # Voids 4 3 1 # Bowel Movements 2 - Exam In general patient is alert and oriented x 3 in no distress HEENT head normocephalic and atraumatic Neck is supple no JVD no goiter no lymphadenopathy no carotid bruit Chest examination is clear to auscultation no crackles no wheezing Cardiac exam reveals regular heart sounds S1 and S2 no gallops no murmurs Abdomen is soft nontender no organomegaly with normal bowel sounds Extremity exam reveals 1 + edema no cyanosis or clubbing Neurological examination reveals no gross focal deficits - Labs CBC & Chem 7: 05/14/22 09:09 05/14/22 07:53 Labs: Abnormal Lab Results - Last 24 Hours (Table) 05/13/22 05/13/22 05/13/22 Range/Units 04:15 16:43 20:22 RBC (3.80-5.40) m/uL Hgb (11.4-16.0) gm/dL Hct (34.0-46.0) % MCV (80.0-100.0) fL MCH (25.0-35.0) pg MCHC (31.0-37.0) g/dL RDW (11.5-15.5) % Potassium (3.5-5.1) mmol/L Chloride (98-107) mmol/L Carbon Dioxide (22-30) mmol/L BUN (7-17) mg/dL Creatinine (0.52-1.04) mg/dL Glucose (74-99) mg/dL POC Glucose (mg/dL) 164 H 229 H (70-110) mg/dL Iron 36 L (50-170) ug/dL % Saturation 8.31 L (12.00-45.00) AST (14-36) U/L Total Protein (6.3-8.2) g/dL Albumin (3.5-5.0) g/dL 05/14/22 05/14/22 05/14/22 Range/Units 06:16 07:53 09:09 RBC 3.27 L (3.80-5.40) m/uL Hgb 7.2 L (11.4-16.0) gm/dL Hct 25.7 L (34.0-46.0) % MCV 78.5 L (80.0-100.0) fL MCH 22.1 L (25.0-35.0) pg MCHC 28.2 L (31.0-37.0) g/dL RDW 22.3 H (11.5-15.5) % Potassium 5.5 H (3.5-5.1) mmol/L Chloride 111 H (98-107) mmol/L Carbon Dioxide 20 L (22-30) mmol/L BUN 23 H (7-17) mg/dL Creatinine 1.37 H (0.52-1.04) mg/dL Glucose 141 H (74-99) mg/dL POC Glucose (mg/dL) 170 H (70-110) mg/dL Iron (50-170) ug/dL % Saturation (12.00-45.00) AST 44 H (14-36) U/L Total Protein 6.0 L (6.3-8.2) g/dL Albumin 3.3 L (3.5-5.0) g/dL 05/14/22 Range/Units 11:34 RBC (3.80-5.40) m/uL Hgb (11.4-16.0) gm/dL Hct (34.0-46.0) % MCV (80.0-100.0) fL MCH (25.0-35.0) pg MCHC (31.0-37.0) g/dL RDW (11.5-15.5) % Potassium (3.5-5.1) mmol/L Chloride (98-107) mmol/L Carbon Dioxide (22-30) mmol/L BUN (7-17) mg/dL Creatinine (0.52-1.04) mg/dL Glucose (74-99) mg/dL POC Glucose (mg/dL) 171 H (70-110) mg/dL Iron (50-170) ug/dL % Saturation (12.00-45.00) AST (14-36) U/L Total Protein (6.3-8.2) g/dL Albumin (3.5-5.0) g/dL Assessment and Plan Plan: Anemia, hemoglobin on presentation was 5.0, 2 units of red blood cell transfusion were ordered in the emergency room, stool Hemoccult was positive, gastroenterology consultation was requested History of pulmonary embolism, patient was maintained on Xarelto, which is currently on hold, will monitor closely Underlying history of hypertension Underlying history of COPD Previous history of atrial fibrillation currently patient is in normal sinus rhythm Underlying history of [id number] diabetes mellitus maintained on J ardiance Underlying history of depression Underlying history of morbid obesity At this time patient will be admitted to telemetry floor Gastroenterology consultation requested Will monitor hemoglobin closely and transfuse red blood cells if needed. Status post units of PRBCs on 05/10/2022 Plans for EGD and colonoscopy 05/12/2022 Home medications reviewed and reordered IV Protonix was ordered For DVT prophylaxis we will use SCD stockings Will follow closely
[2022-05-14] MEDS: RIVAROXABAN 20 MG TAB PO SCH (17:59)
[2022-05-14] MEDS: MUPIROCIN 2% OINT 22 GM TUBE TOPICAL SCH ×2 (18:03→20:46)
[2022-05-14] MEDS: ALBUTEROL NEBULIZED 2.5 MG/3 ML INHALATION PRN (19:42)
[2022-05-14 20:35] LABS: Glucose,Whole Blood 193 mg/dL (70-110)
[2022-05-14] MEDS: PRAVASTATIN SODIUM 20 MG TAB PO SCH (20:45)
[2022-05-14] MEDS: MONTELUKAST 10 MG TAB PO SCH (20:45)
[2022-05-15 05:50] LABS: Glucose,Whole Blood 147 mg/dL (70-110)
[2022-05-15] MEDS: INSULIN ASPART (NovoLOG) 100 UNIT/ML VIAL SQ SCH ×4 (06:06→20:52)
[2022-05-15 10:12] LABS: Anisocytosis Moderate; Basophils % (A) 0 %; Eosinophils # (A) 0.2 k/uL (0-0.7); Eosinophils % (A) 4 %; HCT 24.9 % (34.0-46.0); HGB 7.1 gm/dL (11.4-16.0); Hypochromasia Marked; Lymphocytes # (A) 0.9 k/uL (1.0-4.8); Lymphocytes % (A) 15 %; MCH 22.9 pg (25.0-35.0); MCHC 28.6 g/dL (31.0-37.0); MCV 80.3 fL (80.0-100.0); Microcytosis Slight; Monocytes # (A) 0.6 k/uL (0-1.0); Monocytes % (A) 11 %; Neutrophils % (A) 68 %; Platelet Count 148 k/uL (150-450); Poikilocytosis Moderate; RDW 23.2 % (11.5-15.5); WBC 5.9 k/uL (3.8-10.6)
[2022-05-15] MEDS: PANTOPRAZOLE 40 MG/10 ML VIAL IVP SCH ×2 (10:30→20:52)
[2022-05-15] MEDS: buPROPion XL 150 MG TAB.ER.24H PO SCH (10:30)
[2022-05-15] MEDS: VIT A,C & E-LUTEIN-MINERALS 1 EACH TAB PO SCH ×2 (10:30→20:53)
[2022-05-15] MEDS: ESCITALOPRAM 20 MG TAB PO SCH (10:31)
[2022-05-15] MEDS: lisinopriL 20 MG TAB PO SCH (10:31)
[2022-05-15] MEDS: SODIUM FERRIC GLUCONAT-SUCROSE 125 MG in SODIUM CHLORIDE 0.9% 100 ML IVPB SCH (10:32)
[2022-05-15] MEDS: MUPIROCIN 2% OINT 22 GM TUBE TOPICAL SCH ×3 (10:32→20:53)
[2022-05-15 10:33] LABS: Albumin 3.5 g/dL (3.5-5.0); Calcium 8.2 mg/dL (8.4-10.2); Potassium 4.8 mmol/L (3.5-5.1); Total Bilirubin 0.7 mg/dL (0.2-1.3); Total Protein 6.2 g/dL (6.3-8.2)
[2022-05-15] MEDS ORDERED: predniSONE 20 MG TAB PO STA (10:45)
[2022-05-15] MEDS ORDERED: diphenhydrAMINE 50 MG/ML 1 ML VIAL IVP PRN (10:45)
[2022-05-15 11:32] LABS: Glucose,Whole Blood 170 mg/dL (70-110)
[2022-05-15] MEDS: Empagliflozin [Jardiance] PO SCH (13:07)
[2022-05-15 16:37] LABS: Glucose,Whole Blood 202 mg/dL (70-110)
[2022-05-15] MEDS: RIVAROXABAN 20 MG TAB PO SCH (17:52)
[2022-05-15 20:45] LABS: Glucose,Whole Blood 164 mg/dL (70-110)
[2022-05-15] MEDS: MONTELUKAST 10 MG TAB PO SCH (20:52)
[2022-05-15] MEDS: PRAVASTATIN SODIUM 20 MG TAB PO SCH (20:52)
--- NOTE | 2022-05-15 22:33 | P.CONS ---
History of Present Illness - Reason for Consult Consult date: 05/15/22 Bilateral antecubital infection Requesting physician: Sonya Wray - Chief Complaint Bilateral arm pain and swelling x few days - History of Present Illness Patient is a 72-year-old female presenting to the hospital 5 days ago for evaluation of feeling weak fatigue and shortness of breath that apparently has been getting worse for a month patient was noticed to have low hemoglobin and the patient advised to go to the hospital on presentation to the hospital th e patient was afebrile and no fever have been recorded subsequently patient did have low hemoglobin however white count has been normal she did have a upper and lower GI with evidence of gastritis and no evidence of any colorectal neoplasia patient did have an IV to the right antecubital fossa which apparently got bad and has to be taken out patient mention she did have a lump in the right antecub ital fossa area subsequently she did have an IV in the left antecubital fossa that got a bed today with a cord feeling to the left upper arm describing it to be painful pain is more of a dull aching at times sharp about 6-7 out of 10 and no radiation, and did not have significant drainage patient was started on vancomycin infectious disease was consulted for further management Review of Systems Positive point has been mentioned in the HPI rest of the systems are negative Past Medical History Past Medical History: COPD, Diabetes Mellitus, Deep Vein Thrombosis (DVT), Hyperlipidemia, Hypertension, Pulmonary Embolus (PE), Sleep Apnea/CPAP/BIPAP Additional Past Medical History / Comment(s): Morbid obesity, obstructive sleep apnea maintained on CPA, diabetes mellitus, hypertension, hyperlipidemia, acid reflux, varicose veins with previous history of surgery for varicose vein stripping from the lower extremity, superficial thrombophlebitis, history of ex- smoking. History of Any Multi-Drug Resistant Organisms: None Reported Additional Past Surgical History / Comment(s): vein surgery left leg, bilateral cataracts. Past Anesthesia/Blood Transfusion Reactions: No Reported Reaction Past Psychological History: No Psychological Hx Reported Past Alcohol Use History: None Reported Past Drug Use History: None Reported - Past Family History Father Family Medical History: Cancer Additional Family Medical History / Comment(s): suicide, colon ca Mother Family Medical History: Coronary Artery Disease (CAD), Diabetes Mellitus Medications and Allergies Home Medications Medication Instructions Recorded Confirmed Type Montelukast [Singulair] 10 mg PO HS 02/04/17 05/10/22 History Ferdinand-3 Fatty Acids/Fish Oil [Fish 1 cap PO DAILY 02/04/17 05/10/22 History Oil 1,000 mg Softgel] Pravastatin Sodium [Pravachol] 20 mg PO HS 02/04/17 05/10/22 History Omeprazole 20 mg PO DAILY 04/24/17 05/10/22 History Biotin 10,000 mcg PO DAILY 04/11/20 05/10/22 History Calcium Carbonate [Calcium] 600 mg PO DAILY 04/11/20 05/10/22 History Cholecalciferol [Vitamin D3 (25 50 mcg PO DAILY 04/11/20 05/10/22 History Mcg = 1000 Iu)] Cyclobenzaprine [Flexeril] 10 mg PO TID PRN 04/11/20 05/10/22 History Escitalopram [Lexapro] 20 mg PO DAILY 04/11/20 05/10/22 History Ubidecarenone [Co Q-10] 200 mg PO DAILY 04/11/20 05/10/22 History Vit C/E/Zn/Coppr/Lutein/Zeaxan 1 cap PO BID 04/11/20 05/10/22 History [Preservision Areds 2 Softgel] Empagliflozin [Jardiance] 25 mg PO DAILY 05/10/22 05/10/22 History Rivaroxaban [Xarelto] 20 mg PO W/SUPPER 05/10/22 05/10/22 History buPROPion XL [Wellbutrin XL] 150 mg PO DAILY 05/10/22 05/10/22 History Levothyroxine Sodium [Synthroid] 25 mcg PO DAILY 05/21/22 05/21/22 History Doxycycline [Vibramycin] 100 mg PO BID 7 Days #14 cap 05/22/22 Rx lisinopriL [Zestril] 20 mg PO DAILY tab 05/22/22 Rx Allergies Allergy/AdvReac Type Severity Reaction Status Date / Time adhesive tape Allergy Rash/Hives Verified 05/10/22 15:36 clindamycin Allergy Rash/Hives Verified 05/10/22 15:36 levofloxacin [From Levaquin] Allergy Rash/Hives Verified 05/10/22 15:36 Penicillins Allergy Hives at Verified 05/10/22 15:36 injection site only, did not spread amlodipine [From Norvasc] AdvReac DENTAL Verified 05/10/22 15:36 ISSUES Physical Exam Vitals: Vital Signs Temp Pulse Pulse Resp BP Pulse Ox FiO2 05/15/22 16:00 98.4 F 72 21 145/63 97 05/15/22 12:00 98.5 F 75 18 169/72 96 05/15/22 08:00 98.4 F 72 16 142/63 96 05/15/22 03:40 74 17 136/69 96 05/14/22 23:35 65 19 134/52 96 05/14/22 20:45 98.3 F 73 18 152/53 96 05/14/22 19:50 72 05/14/22 19:42 71 98 21 Intake and Output 05/15/22 05/15/22 05/15/22 06:59 14:59 22:59 Intake Total 598 Balance 598 Intake: Oral 598 Other: Voiding Method Toilet Toilet # Voids 2 1 GENERAL DESCRIPTION: Elderly female lying in bed, no distress. No tachypnea or accessory muscle of respiration use. HEENT: Shows Pallor , no scleral icterus. Oral mucous membrane is dry. No pharyngeal erythema or thrush NECK: Trachea central, no thyromegaly. LUNGS: Unlabored breathing. Clear to auscultation anteriorly. No wheeze or crackle. HEART: S1, S2, regular rate and rhythm. No loud murmur ABDOMEN: Soft, no tenderness , guarding or rigidity, no organomegaly EXTREMITIES: Bilateral antecubital area did have induration and swelling and tenderness to touch SKIN: No rash, no masses palpable. NEUROLOGICAL: The patient is awake, alert, oriented x3, mood and affect normal. Results CBC & Chem 7: 05/22/22 06:45 05/22/22 06:45 Labs: Abnormal Lab Results - Last 24 Hours (Table) 05/14/22 05/15/22 05/15/22 Range/Units 20:32 05:48 08:43 RBC 3.10 L (3.80-5.40) m/uL Hgb 7.1 L (11.4-16.0) gm/dL Hct 24.9 L (34.0-46.0) % MCH 22.9 L (25.0-35.0) pg MCHC 28.6 L (31.0-37.0) g/dL RDW 23.2 H (11.5-15.5) % Plt Count 148 L (150-450) k/uL Lymphocytes # 0.9 L (1.0-4.8) k/uL Chloride (98-107) mmol/L BUN (7-17) mg/dL Creatinine (0.52-1.04) mg/dL Glucose (74-99) mg/dL POC Glucose (mg/dL) 193 H 147 H (70-110) mg/dL Calcium (8.4-10.2) mg/dL AST (14-36) U/L Total Protein (6.3-8.2) g/dL 05/15/22 05/15/22 05/15/22 Range/Units 08:43 11:31 16:36 RBC (3.80-5.40) m/uL Hgb (11.4-16.0) gm/dL Hct (34.0-46.0) % MCH (25.0-35.0) pg MCHC (31.0-37.0) g/dL RDW (11.5-15.5) % Plt Count (150-450) k/uL Lymphocytes # (1.0-4.8) k/uL Chloride 108 H (98-107) mmol/L BUN 20 H (7-17) mg/dL Creatinine 1.28 H (0.52-1.04) mg/dL Glucose 153 H (74-99) mg/dL POC Glucose (mg/dL) 170 H 202 H (70-110) mg/dL Calcium 8.2 L (8.4-10.2) mg/dL AST 41 H (14-36) U/L Total Protein 6.2 L (6.3-8.2) g/dL Microbiology - Last 24 Hours (Table) 05/14/22 18:42 Gram Stain - Preliminary Arm - Right Wound Culture - Preliminary Assessment and Plan (1) Cellulitis of arm Status: Acute Code(s): L03.119 - CELLULITIS OF UNSPECIFIED PART OF LIMB SNOMED Code(s): 233633256 Plan: 1patient with bilateral antecubital fossa pain swelling and induration from an IV which has been discontinued and concern for possible SVT clinic not behaving as a abscess or cellulitis though not entirely excluded. 2we will obtain ultrasound of the bilateral upper extremity to rule out SVT/DVT. 3blood cultures and check a CRP. 4continue with the vancomycin while watching kidney function closely and while waiting for the culture to finalize. 5Marked area of induration. We will follow on clinical condition and cultures to further adjust medication if needed Thank you for this consultation will follow this patient along with you Time with Patient: Greater than 30
[2022-05-16 06:01] LABS: Glucose,Whole Blood 165 mg/dL (70-110)
[2022-05-16] MEDS: INSULIN ASPART (NovoLOG) 100 UNIT/ML VIAL SQ SCH ×4 (06:26→20:43)
[2022-05-16] MEDS: VANCOMYCIN 2,000 MG in SODIUM CHLORIDE 0.9% 500 ML 500 ML IVPB SCH (06:26)
[2022-05-16] MEDS: Empagliflozin [Jardiance] PO SCH (07:36)
[2022-05-16] MEDS: ESCITALOPRAM 20 MG TAB PO SCH (08:06)
[2022-05-16] MEDS: buPROPion XL 150 MG TAB.ER.24H PO SCH (08:06)
[2022-05-16] MEDS: PANTOPRAZOLE 40 MG/10 ML VIAL IVP SCH ×2 (08:06→20:42)
[2022-05-16] MEDS: lisinopriL 20 MG TAB PO SCH (08:06)
[2022-05-16] MEDS: MUPIROCIN 2% OINT 22 GM TUBE TOPICAL SCH ×3 (08:07→20:43)
[2022-05-16] MEDS: VIT A,C & E-LUTEIN-MINERALS 1 EACH TAB PO SCH ×2 (08:08→21:03)
[2022-05-16] MEDS: SODIUM FERRIC GLUCONAT-SUCROSE 125 MG in SODIUM CHLORIDE 0.9% 100 ML IVPB SCH (09:08)
[2022-05-16 09:24] LABS: Anisocytosis Marked; Basophils % (A) 1 %; Eosinophils # (A) 0.2 k/uL (0-0.7); Eosinophils % (A) 3 %; HCT 24.8 % (34.0-46.0); Hypochromasia Marked; Lymphocytes # (A) 1.2 k/uL (1.0-4.8); Lymphocytes % (A) 16 %; MCHC 28.3 g/dL (31.0-37.0); MCV 81.1 fL (80.0-100.0); Mean Platelet Volume 9.8; Microcytosis Slight; Monocytes # (A) 0.7 k/uL (0-1.0); Monocytes % (A) 10 %; Neutrophils # (A) 5.2 k/uL (1.3-7.7); Neutrophils % (A) 69 %; Platelet Count 141 k/uL (150-450); Poikilocytosis Slight; RBC 3.05 m/uL (3.80-5.40); RDW 24.3 % (11.5-15.5); WBC 7.5 k/uL (3.8-10.6)
--- NOTE | 2022-05-16 10:07 | P.PN ---
Subjective Progress Note Date: 05/15/22 Patient is a 72-year-old female who presented to [facility] emergency room with a chief complaint of severe anemia, patient was seen by her primary care physician Dr. Bashir for a routine visit and for complaints of episodes of chills and fatigue, her blood test revealed a hemoglobin of 5.0 patient was directly to emergency room. She was evaluated in the emergency room vital examination on presentation revealed a temperature of 99.4 pulse 65 respiration 18 blood pressure 126/54 pulse ox 100% on 2 L nasal cannula Laboratory data reveals a white blood count of 7.1 hemoglobin 5.0 platelet count 192 INR 1.2 BUN 43 creatinine 1.93 stools occult blood was positive Testing in the emergency room revealed EKG done in the emergency room revealed sinus rhythm with sinus arrhythmia and nonspecific T-wave abnormalities Patient was admitted to medical floor for further evaluation and treatment Past medical history is significant for history of pulmonary embolism patient was maintained on Xarelto 20 mg daily for the last 5 years, her last dose was yesterday, she also had a history of atrial fibrillation with episodes of rapid ventricular response, she had cardioversion in the past, she has a history of hypertension, history of COPD, history of diabetes mellitus, underlying history of morbid obesity, and history of depression Patient used to smoke she quit about 10 years ago, she drinks alcohol rarely On 05/11/2022 patient is alert and oriented 3. Patient received 2 units of PRBCs yesterday awaiting hemoglobin repeat this AM. Did discuss with GI services nurse practitioner plans for EGD and colonoscopy tomorrow 05/12/2022. We'll continue to monitor hemoglobin closely and transfuse as needed. Patient denies any nausea vomiting or diarrhea or signs of bleeding. Patient does reports she still feels tired. Patient denies chest pain or shortness of breath. Patient denies any urinary burning or frequency. On 05/12/2022 patient was seen and examined on the medical floor she is alert and oriented 3 in no apparent distress she underwent EGD and colonoscopy this morn ing that revealed evidence of gastritis and mild diverticulosis no active bleeding, patient received 2 units of red blood cells yesterday hemoglobin is 6.1, she will receive 1 more unit of red blood cells today Will continue to monitor. 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, she also has a history of atrial fibrillation, at this time will restart Xarelto, will continue to monitor hemoglobin, will give 1 dose of IV iron today On 05/14/2022 patient was seen and examined on the medical floor she is alert and oriented in no apparent distress there is no fever or chills no headache or dizziness no chest pain no shortness of breath no cough no nausea or vomiting no abdominal pain no diarrhea and no urinary symptoms, patient was resumed on Xarelto yesterday, hemoglobin today is 7.2, will continue to give IV iron, possible discharge to home tomorrow On 05/15/2022 patient is alert and oriented 3. Patient having increased redness to bilateral antecubital sites where IVs were concerns of abscess. At this time patient started vancomycin infectious disease service is consulted. Hemoglobin 7.1. Creatinine 1.28 and bun 20. This time patient denies chest pain or shortness of breath. Patient denies nausea vomiting or diarrhea. Patient denies any urinary burning or frequency Objective - Vital Signs Vital signs: Vital Signs Temp 98.5 F 05/15/22 12:00 Pulse 75 05/15/22 12:00 Resp 18 05/15/22 12:00 BP 169/72 05/15/22 12:00 Pulse Ox 96 05/15/22 12:00 FiO2 21 05/14/22 19:42 Intake & Output 05/14/22 05/15/22 05/15/22 18:59 06:59 18:59 Intake Total 236 598 Balance 236 598 Intake: Oral 236 598 Other: Voiding Method Toilet Toilet Toilet # Voids 2 2 1 - Exam In general patient is alert and oriented x 3 in no distress HEENT head normocephalic and atraumatic Neck is supple no JVD no goiter no lymphadenopathy no carotid bruit Chest examination is clear to auscultation no crackles no wheezing Cardiac exam reveals regular heart sounds S1 and S2 no gallops no murmurs Abdomen is soft nontender no organomegaly with normal bowel sounds Extremity exam reveals 1 + edema no cyanosis or clubbing Neurological examination reveals no gross focal deficits - Labs CBC & Chem 7: 05/16/22 07:00 05/15/22 08:43 Labs: Abnormal Lab Results - Last 24 Hours (Table) 05/14/22 05/14/22 05/15/22 Range/Units 16:39 20:32 05:48 RBC (3.80-5.40) m/uL Hgb (11.4-16.0) gm/dL Hct (34.0-46.0) % MCH (25.0-35.0) pg MCHC (31.0-37.0) g/dL RDW (11.5-15.5) % Plt Count (150-450) k/uL Lymphocytes # (1.0-4.8) k/uL Chloride (98-107) mmol/L BUN (7-17) mg/dL Creatinine (0.52-1.04) mg/dL Glucose (74-99) mg/dL POC Glucose (mg/dL) 154 H 193 H 147 H (70-110) mg/dL Calcium (8.4-10.2) mg/dL AST (14-36) U/L Total Protein (6.3-8.2) g/dL 05/15/22 05/15/22 05/15/22 Range/Units 08:43 08:43 11:31 RBC 3.10 L (3.80-5.40) m/uL Hgb 7.1 L (11.4-16.0) gm/dL Hct 24.9 L (34.0-46.0) % MCH 22.9 L (25.0-35.0) pg MCHC 28.6 L (31.0-37.0) g/dL RDW 23.2 H (11.5-15.5) % Plt Count 148 L (150-450) k/uL Lymphocytes # 0.9 L (1.0-4.8) k/uL Chloride 108 H (98-107) mmol/L BUN 20 H (7-17) mg/dL Creatinine 1.28 H (0.52-1.04) mg/dL Glucose 153 H (74-99) mg/dL POC Glucose (mg/dL) 170 H (70-110) mg/dL Calcium 8.2 L (8.4-10.2) mg/dL AST 41 H (14-36) U/L Total Protein 6.2 L (6.3-8.2) g/dL Microbiology - Last 24 Hours (Table) 05/14/22 18:42 Wound Culture - Preliminary Arm - Right Assessment and Plan Plan: Anemia, hemoglobin on presentation was 5.0, 2 units of red blood cell transfusion were ordered in the emergency room, stool Hemoccult was positive, gastroenterology consultation was requested History of pulmonary embolism, patient was maintained on Xarelto, which is currently on hold, will monitor closely Underlying history of hypertension Underlying history of COPD Previous history of atrial fibrillation currently patient is in normal sinus rhythm Underlying history of [id number]-[id number] diabetes mellitus maintained on Jardiance Underlying history of depression Underlying history of morbid obesity At this time patient will be admitted to telemetry floor Gastroenterology consultation requested Will monitor hemoglobin closely and transfuse red blood cells if needed. Status post units of PRBCs on 05/10/2022 Plans for EGD and colonoscopy 05/12/2022 Home medications reviewed and reordered IV Protonix was ordered For DVT prophylaxis we will use SCD stockings Will follow closely
--- NOTE | 2022-05-16 10:11 | P.PN ---
Subjective Progress Note Date: 05/16/22 Patient is a 72-year-old female who presented to [facility] emergency room with a chief complaint of severe anemia, patient was seen by her primary care physician Dr. Bashir for a routine visit and for complaints of episodes of chills and fatigue, her blood test revealed a hemoglobin of 5.0 patient was directly to emergency room. She was evaluated in the emergency room vital examination on presentation revealed a temperature of 99.4 pulse 65 respiration 18 blood pressure 126/54 pulse ox 100% on 2 L nasal cannula Laboratory data reveals a white blood count of 7.1 hemoglobin 5.0 platelet count 192 INR 1.2 BUN 43 creatinine 1.93 stools occult blood was positive Testing in the emergency room revealed EKG done in the emergency room revealed sinus rhythm with sinus arrhythmia and nonspecific T-wave abnormalities Patient was admitted to medical floor for further evaluation and treatment Past medical history is significant for history of pulmonary embolism patient was maintained on Xarelto 20 mg daily for the last 5 years, her last dose was yesterday, she also had a history of atrial fibrillation with episodes of rapid ventricular response, she had cardioversion in the past, she has a history of hypertension, history of COPD, history of diabetes mellitus, underlying history of morbid obesity, and history of depression Patient used to smoke she quit about 10 years ago, she drinks alcohol rarely On 05/11/2022 patient is alert and oriented 3. Patient received 2 units of PRBCs yesterday awaiting hemoglobin repeat this AM. Did discuss with GI services nurse practitioner plans for EGD and colonoscopy tomorrow 05/12/2022. We'll continue to monitor hemoglobin closely and transfuse as needed. Patient denies any nausea vomiting or diarrhea or signs of bleeding. Patient does reports she still feels tired. Patient denies chest pain or shortness of breath. Patient denies any urinary burning or frequency. On 05/12/2022 patient was seen and examined on the medical floor she is alert and oriented 3 in no apparent distress she underwent EGD and colonoscopy this morn ing that revealed evidence of gastritis and mild diverticulosis no active bleeding, patient received 2 units of red blood cells yesterday hemoglobin is 6.1, she will receive 1 more unit of red blood cells today Will continue to monitor. 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, she also has a history of atrial fibrillation, at this time will restart Xarelto, will continue to monitor hemoglobin, will give 1 dose of IV iron today On 05/14/2022 patient was seen and examined on the medical floor she is alert and oriented in no apparent distress there is no fever or chills no headache or dizziness no chest pain no shortness of breath no cough no nausea or vomiting no abdominal pain no diarrhea and no urinary symptoms, patient was resumed on Xarelto yesterday, hemoglobin today is 7.2, will continue to give IV iron, possible discharge to home tomorrow On 05/15/2022 patient is alert and oriented 3. Patient having increased redness to bilateral antecubital sites where IVs were concerns of abscess. At this time patient started vancomycin infectious disease service is consulted. Hemoglobin 7.1. Creatinine 1.28 and bun 20. This time patient denies chest pain or shortness of breath. Patient denies nausea vomiting or diarrhea. Patient denies any urinary burning or frequency On 05/16/2022 patient is alert and oriented 3. Hemoglobin today 7.0 ordered some improvement to redness on right antecubital site. Patient remains on IV vancomycin. Patient also has been resumed on anticoagulation of Xarelto. Ultrasound of bilateral upper extremities rule out SVT and DVTs have been ordered per infectious disease. At this time patient denies chest pain or shortness of breath. Patient denies nausea vomiting or diarrhea. Patient denies any urinary burning or frequency Objective - Vital Signs Vital signs: Vital Signs Temp 98.0 F 05/16/22 08:06 Pulse 69 05/16/22 08:06 Resp 18 05/16/22 08:06 BP 133/60 05/16/22 08:06 Pulse Ox 96 05/16/22 08:06 FiO2 21 05/14/22 19:42 Intake & Output 05/15/22 05/16/22 05/16/22 18:59 06:59 18:59 Intake Total 838 500 Balance 838 500 Intake: Oral 838 500 Other: Voiding Method Toilet Toilet Toilet # Voids 2 3 # Bowel Movements 1 0 - Exam In general patient is alert and oriented x 3 in no distress HEENT head normocephalic and atraumatic Neck is supple no JVD no goiter no lymphadenopathy no carotid bruit Chest examination is clear to auscultation no crackles no wheezing Cardiac exam reveals regular heart sounds S1 and S2 no gallops no murmurs Abdomen is soft nontender no organomegaly with normal bowel sounds Extremity exam reveals 1 + edema no cyanosis or clubbing Neurological examination reveals no gross focal deficits - Labs CBC & Chem 7: 05/16/22 07:00 05/15/22 08:43 Labs: Abnormal Lab Results - Last 24 Hours (Table) 05/15/22 05/15/22 05/15/22 Range/Units 08:43 08:43 11:31 RBC 3.10 L (3.80-5.40) m/uL Hgb 7.1 L (11.4-16.0) gm/dL Hct 24.9 L (34.0-46.0) % MCH 22.9 L (25.0-35.0) pg MCHC 28.6 L (31.0-37.0) g/dL RDW 23.2 H (11.5-15.5) % Plt Count 148 L (150-450) k/uL Lymphocytes # 0.9 L (1.0-4.8) k/uL Chloride 108 H (98-107) mmol/L BUN 20 H (7-17) mg/dL Creatinine 1.28 H (0.52-1.04) mg/dL Glucose 153 H (74-99) mg/dL POC Glucose (mg/dL) 170 H (70-110) mg/dL Calcium 8.2 L (8.4-10.2) mg/dL AST 41 H (14-36) U/L Total Protein 6.2 L (6.3-8.2) g/dL 05/15/22 05/15/22 05/16/22 Range/Units 16:36 20:43 05:57 RBC (3.80-5.40) m/uL Hgb (11.4-16.0) gm/dL Hct (34.0-46.0) % MCH (25.0-35.0) pg MCHC (31.0-37.0) g/dL RDW (11.5-15.5) % Plt Count (150-450) k/uL Lymphocytes # (1.0-4.8) k/uL Chloride (98-107) mmol/L BUN (7-17) mg/dL Creatinine (0.52-1.04) mg/dL Glucose (74-99) mg/dL POC Glucose (mg/dL) 202 H 164 H 165 H (70-110) mg/dL Calcium (8.4-10.2) mg/dL AST (14-36) U/L Total Protein (6.3-8.2) g/dL 05/16/22 Range/Units 07:00 RBC 3.05 L (3.80-5.40) m/uL Hgb 7.0 L (11.4-16.0) gm/dL Hct 24.8 L (34.0-46.0) % MCH 23.0 L (25.0-35.0) pg MCHC 28.3 L (31.0-37.0) g/dL RDW 24.3 H (11.5-15.5) % Plt Count 141 L (150-450) k/uL Lymphocytes # (1.0-4.8) k/uL Chloride (98-107) mmol/L BUN (7-17) mg/dL Creatinine (0.52-1.04) mg/dL Glucose (74-99) mg/dL POC Glucose (mg/dL) (70-110) mg/dL Calcium (8.4-10.2) mg/dL AST (14-36) U/L Total Protein (6.3-8.2) g/dL Microbiology - Last 24 Hours (Table) 05/14/22 18:42 Gram Stain - Preliminary Arm - Right Wound Culture - Preliminary Assessment and Plan Plan: Anemia, hemoglobin on presentation was 5.0, 2 units of red blood cell transfusion were ordered in the emergency room, stool Hemoccult was positive, gastroenterology consultation was requested History of pulmonary embolism, patient was maintained on Xarelto. Xarelto resumed Underlying history of hypertension Underlying history of COPD Previous history of atrial fibrillation currently patient is in normal sinus rhythm Underlying history of [id number] diabetes mellitus maintained on Jardiance Underlying history of depression Underlying history of morbid obesity Bilateral antecubital fossa pain and swelling. Infectious disease services have been consulted ultrasounds have been ordered to rule out SVT DVT. Patient remains on vancomycin and blood cultures ordered Status post units of PRBCs on 05/10/2022 Status post EGD and colonoscopy on 05/12/2022 with finding showing scattered areas erythremia and antrum consistent with gastritis and scattered sigmoid diverticulitis with no evidence of active bleeding Home medications reviewed and reordered Infectious disease service is following IV Protonix was ordered For DVT prophylaxis Omi Will follow closely
--- NOTE | 2022-05-16 10:33 | US ---
EXAMINATION TYPE: US venous doppler duplex UE DATE OF EXAM: 05/16/2022 COMPARISON: NONE CLINICAL HISTORY: bilateral antecubital fossa swelling/SVT. Bilateral antecubital fossa swelling, Hx DVT, PE. Patient is no Xarelto. SIDE PERFORMED: Bilateral arms Right Arm: There appear to be internal echoes within the cephalic vein at the elbow. Little to no col or flow seen within noncompressible cephalic vein. No evidence of DVT at this time. Left Arm: There appear to be internal echoes within the cephalic vein just above the elbow and at the level of the elbow. Little to no color flow seen within noncompressible cephalic vein. No evidence o f DVT at this time. IMPRESSION: No evidence of DVT of the upper extremities. Superficial thrombophlebitis of the cephalic vein bilate rally as described above.
[2022-05-16 10:37] LABS: Albumin 3.3 g/dL (3.5-5.0); Calcium 8.5 mg/dL (8.4-10.2); Potassium 4.9 mmol/L (3.5-5.1); Total Bilirubin 0.9 mg/dL (0.2-1.3); Total Protein 5.8 g/dL (6.3-8.2)
[2022-05-16] MEDS: ALBUTEROL NEBULIZED 2.5 MG/3 ML INHALATION PRN (11:01)
[2022-05-16 11:31] LABS: Glucose,Whole Blood 182 mg/dL (70-110)
[2022-05-16 15:02] VITALS: BMI 56.5
[2022-05-16 16:41] LABS: Glucose,Whole Blood 148 mg/dL (70-110)
[2022-05-16] MEDS: RIVAROXABAN 20 MG TAB PO SCH (16:56)
[2022-05-16] MEDS ORDERED: FUROSEMIDE 10 MG/ML 2 ML VIAL IV ONE (17:00)
--- NOTE | 2022-05-16 20:17 | XR ---
EXAMINATION TYPE: XR chest 2V DATE OF EXAM: 05/16/2022 COMPARISON: 04/11/2020 HISTORY: Short of breath TECHNIQUE: FINDINGS: There is no heart failure nor confluent pneumonic infiltrate. Costophrenic angles are clear . There are chest leads. No pleural effusion. Bony thorax is intact. IMPRESSION: No active cardiopulmonary disease. No adverse change.
[2022-05-16 20:35] LABS: Glucose,Whole Blood 263 mg/dL (70-110)
[2022-05-16] MEDS: PRAVASTATIN SODIUM 20 MG TAB PO SCH (20:42)
[2022-05-16] MEDS: MONTELUKAST 10 MG TAB PO SCH (20:42)
[2022-05-17 05:53] LABS: Glucose,Whole Blood 169 mg/dL (70-110)
[2022-05-17] MEDS: INSULIN ASPART (NovoLOG) 100 UNIT/ML VIAL SQ SCH ×4 (06:19→20:43)
[2022-05-17 07:46] LABS: Anisocytosis Marked; Basophils % (A) 1 %; Eosinophils # (A) 0.2 k/uL (0-0.7); Eosinophils % (A) 3 %; HCT 26.2 % (34.0-46.0); HGB 7.4 gm/dL (11.4-16.0); Hypochromasia Marked; Lymphocytes # (A) 1.2 k/uL (1.0-4.8); Lymphocytes % (A) 16 %; MCH 23.3 pg (25.0-35.0); MCHC 28.3 g/dL (31.0-37.0); MCV 82.1 fL (80.0-100.0); Mean Platelet Volume 8.2; Microcytosis Slight; Monocytes # (A) 0.6 k/uL (0-1.0); Monocytes % (A) 8 %; Neutrophils # (A) 5.1 k/uL (1.3-7.7); Neutrophils % (A) 70 %; Platelet Count 137 k/uL (150-450); Poikilocytosis Moderate; RBC 3.19 m/uL (3.80-5.40); RDW 24.9 % (11.5-15.5); WBC 7.3 k/uL (3.8-10.6)
[2022-05-17 08:11] LABS: Albumin 3.2 g/dL (3.5-5.0); Calcium 8.3 mg/dL (8.4-10.2); Potassium 4.3 mmol/L (3.5-5.1); Total Bilirubin 0.8 mg/dL (0.2-1.3); Total Protein 5.9 g/dL (6.3-8.2)
[2022-05-17] MEDS: Empagliflozin [Jardiance] PO SCH (08:20)
[2022-05-17] MEDS: VIT A,C & E-LUTEIN-MINERALS 1 EACH TAB PO SCH ×2 (08:29→20:43)
[2022-05-17] MEDS: PANTOPRAZOLE 40 MG/10 ML VIAL IVP SCH ×3 (08:29→20:43)
[2022-05-17] MEDS: ESCITALOPRAM 20 MG TAB PO SCH (08:29)
[2022-05-17] MEDS: lisinopriL 20 MG TAB PO SCH (08:29)
[2022-05-17] MEDS: SODIUM FERRIC GLUCONAT-SUCROSE 125 MG in SODIUM CHLORIDE 0.9% 100 ML IVPB SCH ×2 (08:30→09:18)
[2022-05-17] MEDS: buPROPion XL 150 MG TAB.ER.24H PO SCH (08:30)
[2022-05-17] MEDS: MUPIROCIN 2% OINT 22 GM TUBE TOPICAL SCH ×3 (08:30→20:44)
[2022-05-17 12:05] LABS: Glucose,Whole Blood 183 mg/dL (70-110)
--- NOTE | 2022-05-17 13:47 | CA ---
Transthoracic Echo Report Name: Elli Eller Age: 72 Gender: F : 1950 Exam Date: 05/17/2022 08:39 Exam Location: [facility] Ht (in): 62 Wt (lb): 305 Ordering Physician: Sonya Wray MD Attending/Referring Phys: Inspector Tool Joanna Storey RDCS Procedure CPT: Indications: SHORTNESS OF BREATH Cardiac Hx: Morbid Obesity Technical Quality: Fair Contrast 1: Total Dose (mL): Contrast 2: Total Dose (mL): MEASUREMENTS (Male / Female) Normal Values 2D ECHO LV Diastolic Diameter PLAX 5.0 cm 4.2 - 5.9 / 3.9 - 5.3 cm LV Systolic Diameter PLAX 2.8 cm IVS Diastolic Thickness 1.2 cm 0.6 - 1.0 / 0.6 - 0.9 cm LVPW Diastolic Thickness 1.3 cm 0.6 - 1.0 / 0.6 - 0.9 cm LV Relative Wall Thickness 0.5 LA Systolic Diameter LX 3.9 cm 3.0 - 4.0 / 2.7 - 3.8 cm M-MODE Aortic Root Diameter MM 3.1 cm MV E Point Septal Separation 0.2 cm AV Cusp Separation MM 2.0 cm DOPPLER AV Peak Velocity 180.9 cm/s AV Peak Gradient 13.1 mmHg MV Area PHT 2.7 cm??? Mitral E Point Velocity 83.5 cm/s Mitral A Point Velocity 104.4 cm/s Mitral E to A Ratio 0.8 MV Deceleration Time 280.1 ms MV E' Velocity 7.9 cm/s Mitral E to MV E' Ratio 10.6 FINDINGS Left Ventricle Left ventricular ejection fraction is estimated at 50-55%. Right Ventricle Normal right ventricular size and function. Right ventricular systolic pressure within normal limits. Right Atrium Normal right atrial size. Left Atrium Mildly increased left atrial diameter. Mitral Valve Structurally normal mitral valve. Mild mitral regurgitation. Aortic Valve Trileaflet aortic valve. Aortic valve sclerosis. Tricuspid Valve Structurally normal tricuspid valve. Mild tricuspid regurgitation. Pulmonic Valve Pulmonic valve not well visualized. Pericardium Normal pericardium. Aorta Normal size aortic root and proximal ascending aorta. CONCLUSIONS Normal LV size and systolic function No significant valvular abnormalities Previewed by: Dr. Darren Zelaya MD (Electronically Signed) Final Date: 17 May 2022 13:46
[2022-05-17] MEDS ORDERED: SODIUM FERRIC GLUCONAT-SUCROSE 125 MG in SODIUM CHLORIDE 0.9% 100 ML IVPB SCH (14:30)
[2022-05-17 15:06] LABS: LDH 626 U/L (313-618)
[2022-05-17 15:15] LABS: Reticulocyte % 5.2 % (0.5-2.0)
[2022-05-17 15:24] LABS: T4, Free (Free Thyroxine) 1.66 ng/dL (0.78-2.19)
[2022-05-17 16:53] LABS: Glucose,Whole Blood 209 mg/dL (70-110)
[2022-05-17] MEDS: RIVAROXABAN 20 MG TAB PO SCH (17:10)
[2022-05-17 18:41] LABS: Protein, Total 6.1 g/dL (6.2-8.2)
[2022-05-17 20:10] LABS: Glucose,Whole Blood 149 mg/dL (70-110)
[2022-05-17] MEDS: MONTELUKAST 10 MG TAB PO SCH (20:43)
[2022-05-17] MEDS: PRAVASTATIN SODIUM 20 MG TAB PO SCH (20:43)
--- NOTE | 2022-05-17 22:50 | P.PN ---
Subjective Progress Note Date: 05/16/22 Principal diagnosis: Bilateral upper extremity IV site phlebitis Patient is a 72 year female presented to hospital with weakness shortness of breath noticed to have a low hemoglobin status post upper and lower GI with evidence of gastritis patient subsequently developing pain and swelling the bilateral antecubital fossa on the IV, patient did have ultrasound with evid ence of left-sided phlebitis. On today's evaluation that is 05/16/2022, the patient denies having any fever or any chills, still complaining of pain especially the left upper arm area which however no worsening is no drainage no chest pain shortness of breath or cough Objective - Vital Signs Vital signs: Vital Signs Temp 98.8 F 05/16/22 04:25 Pulse 72 05/16/22 04:25 Resp 19 05/16/22 04:25 BP 142/59 05/16/22 04:25 Pulse Ox 96 05/16/22 04:25 FiO2 21 05/14/22 19:42 Intake & Output 05/15/22 05/16/22 05/16/22 18:59 06:59 18:59 Intake Total 838 Balance 838 Intake: Oral 838 Other: Voiding Method Toilet Toilet # Voids 2 3 # Bowel Movements 1 0 - Exam GENERAL DESCRIPTION: An elderly female lying in bed in no distress RESPIRATORY SYSTEM: Unlabored breathing , decreased breath sounds at bases HEART: S1 S2 regular rate and rhythm , ABDOMEN: Soft , no tenderness EXTREMITIES: Bilateral upper extremity especially at the antecubital fossa did have some induration but no redness - Labs CBC & Chem 7: 05/17/22 06:57 05/17/22 06:57 Labs: Abnormal Lab Results - Last 24 Hours (Table) 05/15/22 05/15/22 05/15/22 Range/Units 08:43 08:43 11:31 RBC 3.10 L (3.80-5.40) m/uL Hgb 7.1 L (11.4-16.0) gm/dL Hct 24.9 L (34.0-46.0) % MCH 22.9 L (25.0-35.0) pg MCHC 28.6 L (31.0-37.0) g/dL RDW 23.2 H (11.5-15.5) % Plt Count 148 L (150-450) k/uL Lymphocytes # 0.9 L (1.0-4.8) k/uL Chloride 108 H (98-107) mmol/L BUN 20 H (7-17) mg/dL Creatinine 1.28 H (0.52-1.04) mg/dL Glucose 153 H (74-99) mg/dL POC Glucose (mg/dL) 170 H (70-110) mg/dL Calcium 8.2 L (8.4-10.2) mg/dL AST 41 H (14-36) U/L Total Protein 6.2 L (6.3-8.2) g/dL 05/15/22 05/15/22 05/16/22 Range/Units 16:36 20:43 05:57 RBC (3.80-5.40) m/uL Hgb (11.4-16.0) gm/dL Hct (34.0-46.0) % MCH (25.0-35.0) pg MCHC (31.0-37.0) g/dL RDW (11.5-15.5) % Plt Count (150-450) k/uL Lymphocytes # (1.0-4.8) k/uL Chloride (98-107) mmol/L BUN (7-17) mg/dL Creatinine (0.52-1.04) mg/dL Glucose (74-99) mg/dL POC Glucose (mg/dL) 202 H 164 H 165 H (70-110) mg/dL Calcium (8.4-10.2) mg/dL AST (14-36) U/L Total Protein (6.3-8.2) g/dL Microbiology - Last 24 Hours (Table) 05/14/22 18:42 Gram Stain - Preliminary Arm - Right Wound Culture - Preliminary Assessment and Plan (1) Cellulitis Current Visit: Yes Status: Acute Code(s): L03.90 - CELLULITIS, UNSPECIFIED SNOMED Code(s): 076488869 Plan: 1patient with bilateral antecubital fossa pain swelling and induration from an IV which has been discontinued and concern for possible SVT clinic not behaving as a abscess or cellulitis though not entirely excluded. 2 ultrasound of the bilateral upper extremity did show evidence of SVT MUCH AND NO DVT. 3blood cultures has been negative so far 4patient to continue with the vancomycin while watching kidney function closely and while waiting for the culture to finalize. Time with Patient: Less than 30
--- NOTE | 2022-05-17 22:53 | P.PN ---
Subjective Progress Note Date: 05/16/22 Principal diagnosis: Bilateral upper extremity IV site phlebitis Patient is a 72 year female presented to hospital with weakness shortness of breath noticed to have a low hemoglobin status post upper and lower GI with evidence of gastritis patient subsequently developing pain and swelling the bilateral antecubital fossa on the IV, patient did have ultrasound with evid ence of left-sided phlebitis. On today's evaluation that is 05/17/2022, the patient remains to be afebrile, the patient pain to the left upper arm area has slightly decreased in intensity, the patient denies chest pain shortness of breath or cough Objective - Vital Signs Vital signs: Vital Signs Temp 98.0 F 05/16/22 08:06 Pulse 68 05/16/22 11:15 Resp 18 05/16/22 08:06 BP 133/60 05/16/22 08:06 Pulse Ox 96 05/16/22 08:06 FiO2 21 05/14/22 19:42 Intake & Output 05/15/22 05/16/22 05/16/22 18:59 06:59 18:59 Intake Total 838 500 Balance 838 500 Intake: Oral 838 500 Other: Voiding Method Toilet Toilet Toilet # Voids 2 3 # Bowel Movements 1 0 2 - Exam GENERAL DESCRIPTION: An elderly female lying in bed in no distress RESPIRATORY SYSTEM: Unlabored breathing , decreased breath sounds at bases HEART: S1 S2 regular rate and rhythm , ABDOMEN: Soft , no tenderness EXTREMITIES: Bilateral upper extremity especially at the antecubital fossa did have some induration but no redness - Labs CBC & Chem 7: 05/17/22 06:57 05/17/22 06:57 Labs: Abnormal Lab Results - Last 24 Hours (Table) 05/15/22 05/15/22 05/16/22 Range/Units 16:36 20:43 05:57 RBC (3.80-5.40) m/uL Hgb (11.4-16.0) gm/dL Hct (34.0-46.0) % MCH (25.0-35.0) pg MCHC (31.0-37.0) g/dL RDW (11.5-15.5) % Plt Count (150-450) k/uL Sodium (137-145) mmol/L BUN (7-17) mg/dL Creatinine (0.52-1.04) mg/dL Glucose (74-99) mg/dL POC Glucose (mg/dL) 202 H 164 H 165 H (70-110) mg/dL AST (14-36) U/L C-Reactive Protein (<1.0) mg/dL Total Protein (6.3-8.2) g/dL Albumin (3.5-5.0) g/dL 05/16/22 05/16/22 05/16/22 Range/Units 07:00 07:00 07:00 RBC 3.05 L (3.80-5.40) m/uL Hgb 7.0 L (11.4-16.0) gm/dL Hct 24.8 L (34.0-46.0) % MCH 23.0 L (25.0-35.0) pg MCHC 28.3 L (31.0-37.0) g/dL RDW 24.3 H (11.5-15.5) % Plt Count 141 L (150-450) k/uL Sodium 134 L (137-145) mmol/L BUN 18 H (7-17) mg/dL Creatinine 1.22 H (0.52-1.04) mg/dL Glucose 147 H (74-99) mg/dL POC Glucose (mg/dL) (70-110) mg/dL AST 46 H (14-36) U/L C-Reactive Protein 2.5 H (<1.0) mg/dL Total Protein 5.8 L (6.3-8.2) g/dL Albumin 3.3 L (3.5-5.0) g/dL 05/16/22 Range/Units 11:29 RBC (3.80-5.40) m/uL Hgb (11.4-16.0) gm/dL Hct (34.0-46.0) % MCH (25.0-35.0) pg MCHC (31.0-37.0) g/dL RDW (11.5-15.5) % Plt Count (150-450) k/uL Sodium (137-145) mmol/L BUN (7-17) mg/dL Creatinine (0.52-1.04) mg/dL Glucose (74-99) mg/dL POC Glucose (mg/dL) 182 H (70-110) mg/dL AST (14-36) U/L C-Reactive Protein (<1.0) mg/dL Total Protein (6.3-8.2) g/dL Albumin (3.5-5.0) g/dL Microbiology - Last 24 Hours (Table) 05/14/22 18:42 Gram Stain - Preliminary Arm - Right Wound Culture - Preliminary Assessment and Plan (1) Cellulitis Current Visit: Yes Status: Acute Code(s): L03.90 - CELLULITIS, UNSPECIFIED SNOMED Code(s): 661881428 Plan: 1patient with bilateral antecubital fossa pain swelling and induration from an IV which has been discontinued and concern for possible SVT clinic not behaving as a abscess or cellulitis though not entirely excluded. 2 ultrasound of the bilateral upper extremity did show evidence of SVT , patient advised cold Compression and keep the area elevated 3blood cultures has been negative so far 4patient to continue with the vancomycin while waiting for the culture to finalize. Time with Patient: Less than 30
[2022-05-18 03:21] LABS: Immunoglobulin M 57.4 mg/dL (40.0-280.0)
[2022-05-18 05:56] LABS: Glucose,Whole Blood 178 mg/dL (70-110)
[2022-05-18] MEDS: VANCOMYCIN 2,000 MG in SODIUM CHLORIDE 0.9% 500 ML 500 ML IVPB SCH (06:06)
[2022-05-18] MEDS: INSULIN ASPART (NovoLOG) 100 UNIT/ML VIAL SQ SCH ×4 (06:07→20:31)
[2022-05-18] MEDS: lisinopriL 20 MG TAB PO SCH (08:42)
[2022-05-18] MEDS: ESCITALOPRAM 20 MG TAB PO SCH (08:42)
[2022-05-18] MEDS: buPROPion XL 150 MG TAB.ER.24H PO SCH (08:42)
[2022-05-18] MEDS: VIT A,C & E-LUTEIN-MINERALS 1 EACH TAB PO SCH ×2 (08:42→20:29)
[2022-05-18] MEDS: PANTOPRAZOLE 40 MG/10 ML VIAL IVP SCH ×2 (08:43→20:29)
[2022-05-18] MEDS: Empagliflozin [Jardiance] PO SCH (08:43)
--- NOTE | 2022-05-18 09:51 | P.CONS ---
History of Present Illness - Reason for Consult Consult date: 05/17/22 Anemia Requesting physician: Sonya Wray - History of Present Illness We have been asked to see Elli regarding anemia, she has evidence of iron deficiency. Review of Systems All systems: negative Constitutional: Reports as per HPI Past Medical History Past Medical History: COPD, Diabetes Mellitus, Deep Vein Thrombosis (DVT), Hyperlipidemia, Hypertension, Pulmonary Embolus (PE), Sleep Apnea/CPAP/BIPAP Additional Past Medical History / Comment(s): Morbid obesity, obstructive sleep apnea maintained on CPA, diabetes mellitus, hypertension, hyperlipidemia, acid reflux, varicose veins with previous history of surgery for varicose vein stripping from the lower extremity, superficial thrombophlebitis, history of ex- smoking. History of Any Multi-Drug Resistant Organisms: None Reported Additional Past Surgical History / Comment(s): vein surgery left leg, bilateral cataracts. Past Anesthesia/Blood Transfusion Reactions: No Reported Reaction Past Psychological History: No Psychological Hx Reported Past Alcohol Use History: None Reported Past Drug Use History: None Reported - Past Family History Father Family Medical History: Cancer Additional Family Medical History / Comment(s): suicide, colon ca Mother Family Medical History: Coronary Artery Disease (CAD), Diabetes Mellitus Medications and Allergies Home Medications Medication Instructions Recorded Confirmed Type Enalapril [Vasotec] 10 mg PO DAILY 02/04/17 05/10/22 History Montelukast [Singulair] 10 mg PO HS 02/04/17 05/10/22 History United-3 Fatty Acids/Fish Oil [Fish 1 cap PO DAILY 02/04/17 05/10/22 History Oil 1,000 mg Softgel] Pravastatin Sodium [Pravachol] 20 mg PO HS 02/04/17 05/10/22 History Omeprazole 20 mg PO DAILY 04/24/17 05/10/22 History Biotin 10,000 mcg PO DAILY 04/11/20 05/10/22 History Calcium Carbonate [Calcium] 600 mg PO DAILY 04/11/20 05/10/22 History Cholecalciferol [Vitamin D3 (25 50 mcg PO DAILY 04/11/20 05/10/22 History Mcg = 1000 Iu)] Cyclobenzaprine [Flexeril] 10 mg PO TID PRN 04/11/20 05/10/22 History Escitalopram [Lexapro] 20 mg PO DAILY 04/11/20 05/10/22 History Ubidecarenone [Co Q-10] 200 mg PO DAILY 04/11/20 05/10/22 History Vit C/E/Zn/Coppr/Lutein/Zeaxan 1 cap PO BID 04/11/20 05/10/22 History [Preservision Areds 2 Softgel] Empagliflozin [Jardiance] 25 mg PO DAILY 05/10/22 05/10/22 History Rivaroxaban [Xarelto] 20 mg PO W/SUPPER 05/10/22 05/10/22 History buPROPion XL [Wellbutrin XL] 150 mg PO DAILY 05/10/22 05/10/22 History Allergies Allergy/AdvReac Type Severity Reaction Status Date / Time adhesive tape Allergy Rash/Hives Verified 05/10/22 15:36 clindamycin Allergy Rash/Hives Verified 05/10/22 15:36 levofloxacin [From Levaquin] Allergy Rash/Hives Verified 05/10/22 15:36 Penicillins Allergy Hives at Verified 05/10/22 15:36 injection site only, did not spread amlodipine [From Norvasc] AdvReac DENTAL Verified 05/10/22 15:36 ISSUES Physical Exam Vitals: Vital Signs Temp Pulse Resp BP Pulse Ox 05/17/22 13:42 66 05/17/22 11:14 66 20 133/69 96 05/17/22 08:28 98.3 F 77 20 119/65 94 L 05/17/22 08:00 77 05/17/22 03:39 82 18 135/64 95 05/17/22 02:00 72 20 05/16/22 23:56 98 F 72 20 118/57 94 L 05/16/22 20:00 98.2 F 73 20 134/62 95 05/16/22 15:39 98.8 F 69 20 131/71 95 Intake and Output 05/16/22 05/17/22 05/17/22 22:59 06:59 14:59 Intake Total 0 120 Balance 0 120 Intake: Oral 0 120 Other: Voiding Method Toilet Toilet Toilet # Voids 1 2 0 # Bowel Movements 1 Weight 140.16 kg - Constitutional General appearance: cooperative, no acute distress - EENT Eyes: EOMI ENT: NA/AT - Neck Neck: normal ROM - Respiratory Respiratory: bilateral: diminished - Cardiovascular Rhythm: regularly irregular - Gastrointestinal General gastrointestinal: soft - Integumentary Integumentary: pale - Musculoskeletal Musculoskeletal: generalized weakness - Psychiatric Psychiatric: A&O x's 3 Results CBC & Chem 7: 05/17/22 06:57 05/17/22 06:57 Labs: Abnormal Lab Results - Last 24 Hours (Table) 05/16/22 05/16/22 05/17/22 Range/Units 16:38 20:34 05:36 RBC (3.80-5.40) m/uL Hgb (11.4-16.0) gm/dL Hct (34.0-46.0) % MCH (25.0-35.0) pg MCHC (31.0-37.0) g/dL RDW (11.5-15.5) % Plt Count (150-450) k/uL Sodium (137-145) mmol/L BUN (7-17) mg/dL Creatinine (0.52-1.04) mg/dL Glucose (74-99) mg/dL POC Glucose (mg/dL) 148 H 263 H 169 H (70-110) mg/dL Calcium (8.4-10.2) mg/dL AST (14-36) U/L Total Protein (6.3-8.2) g/dL Albumin (3.5-5.0) g/dL 05/17/22 05/17/22 05/17/22 Range/Units 06:57 06:57 12:00 RBC 3.19 L (3.80-5.40) m/uL Hgb 7.4 L (11.4-16.0) gm/dL Hct 26.2 L (34.0-46.0) % MCH 23.3 L (25.0-35.0) pg MCHC 28.3 L (31.0-37.0) g/dL RDW 24.9 H (11.5-15.5) % Plt Count 137 L (150-450) k/uL Sodium 136 L (137-145) mmol/L BUN 19 H (7-17) mg/dL Creatinine 1.24 H (0.52-1.04) mg/dL Glucose 152 H (74-99) mg/dL POC Glucose (mg/dL) 183 H (70-110) mg/dL Calcium 8.3 L (8.4-10.2) mg/dL AST 40 H (14-36) U/L Total Protein 5.9 L (6.3-8.2) g/dL Albumin 3.2 L (3.5-5.0) g/dL Microbiology - Last 24 Hours (Table) 05/16/22 07:00 Blood Culture - Preliminary Blood No Growth after 24 hours 05/14/22 18:42 Gram Stain - Final Arm - Right Wound Culture - Final Assessment and Plan (1) Anemia Narrative/Plan: EGD and OClonoscopy without active bleeding, IV iron x1 on 05/13, however hemoglobin still low. Will work up for other contributing factors given mild thrombocytopenia as well as order addition of 3 more IV irons. 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
--- NOTE | 2022-05-18 10:00 | P.PN ---
Subjective Progress Note Date: 05/18/22 Principal diagnosis: Microcytic Anemia Iron deficiency with minimal response to parental iron, await cbc today Objective - Vital Signs Vital signs: Vital Signs Temp 98.4 F 05/18/22 08:35 Pulse 69 05/18/22 08:35 Resp 18 05/18/22 08:35 BP 108/64 05/18/22 08:35 Pulse Ox 94 L 05/18/22 08:35 FiO2 21 05/14/22 19:42 Intake & Output 05/17/22 05/18/22 05/18/22 18:59 06:59 18:59 Intake Total 240 200 240 Balance 240 200 240 Intake: Oral 240 200 240 Other: Voiding Method Toilet Toilet # Voids 1 1 # Bowel Movements 1 - Exam - Constitutional General appearance: cooperative, no acute distress - EENT Eyes: EOMI ENT: NA/AT - Neck Neck: normal ROM - Respiratory Respiratory: bilateral: diminished - Cardiovascular Rhythm: regularly irregular - Gastrointestinal General gastrointestinal: soft - Integumentary Integumentary: pale - Musculoskeletal Musculoskeletal: generalized weakness - Psychiatric Psychiatric: A&O x's 3 - Labs CBC & Chem 7: 05/18/22 07:56 05/18/22 07:56 Labs: Abnormal Lab Results - Last 24 Hours (Table) 05/17/22 05/17/22 05/17/22 Range/Units 06:57 06:57 12:00 Retic Count 5.2 H (0.5-2.0) % POC Glucose (mg/dL) 183 H (70-110) mg/dL Lactate Dehydrogenase 626 H (313-618) U/L Total Protein (PEP) (6.2-8.2) g/dL Free T3 pg/mL 2.7 L (2.8-5.3) pg/ml 05/17/22 05/17/22 05/17/22 Range/Units 14:34 16:51 20:09 Retic Count (0.5-2.0) % POC Glucose (mg/dL) 209 H 149 H (70-110) mg/dL Lactate Dehydrogenase (313-618) U/L Total Protein (PEP) 6.1 L (6.2-8.2) g/dL Free T3 pg/mL (2.8-5.3) pg/ml 05/18/22 Range/Units 05:53 Retic Count (0.5-2.0) % POC Glucose (mg/dL) 178 H (70-110) mg/dL Lactate Dehydrogenase (313-618) U/L Total Protein (PEP) (6.2-8.2) g/dL Free T3 pg/mL (2.8-5.3) pg/ml Microbiology - Last 24 Hours (Table) 05/16/22 07:00 Blood Culture - Preliminary Blood No Growth after 48 hours Assessment and Plan (1) Anemia Narrative/Plan: EGD and OClonoscopy without active bleeding, IV iron x1 on 05/13, however hemoglobin still low. Will work up for other contributing factors given mild thrombocytopenia ,she has received daily IV irons. 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 Additional anemia work-up negative. 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 Recommend close outpatient followup for periodic IV iron - Formulations of faraheme may provide increased longevity of sustaining iron storage
--- NOTE | 2022-05-18 10:05 | P.PN ---
Subjective Progress Note Date: 05/18/22 Patient is a 72-year-old female who presented to [facility] emergency room with a chief complaint of severe anemia, patient was seen by her primary care physician Dr. Bashir for a routine visit and for complaints of episodes of chills and fatigue, her blood test revealed a hemoglobin of 5.0 patient was directly to emergency room. She was evaluated in the emergency room vital examination on presentation revealed a temperature of 99.4 pulse 65 respiration 18 blood pressure 126/54 pulse ox 100% on 2 L nasal cannula Laboratory data reveals a white blood count of 7.1 hemoglobin 5.0 platelet count 192 INR 1.2 BUN 43 creatinine 1.93 stools occult blood was positive Testing in the emergency room revealed EKG done in the emergency room revealed sinus rhythm with sinus arrhythmia and nonspecific T-wave abnormalities Patient was admitted to medical floor for further evaluation and treatment Past medical history is significant for history of pulmonary embolism patient was maintained on Xarelto 20 mg daily for the last 5 years, her last dose was yesterday, she also had a history of atrial fibrillation with episodes of rapid ventricular response, she had cardioversion in the past, she has a history of hypertension, history of COPD, history of diabetes mellitus, underlying history of morbid obesity, and history of depression Patient used to smoke she quit about 10 years ago, she drinks alcohol rarely On 05/11/2022 patient is alert and oriented 3. Patient received 2 units of PRBCs yesterday awaiting hemoglobin repeat this AM. Did discuss with GI services nurse practitioner plans for EGD and colonoscopy tomorrow 05/12/2022. We'll continue to monitor hemoglobin closely and transfuse as needed. Patient denies any nausea vomiting or diarrhea or signs of bleeding. Patient does reports she still feels tired. Patient denies chest pain or shortness of breath. Patient denies any urinary burning or frequency. On 05/12/2022 patient was seen and examined on the medical floor she is alert and oriented 3 in no apparent distress she underwent EGD and colonoscopy this morn ing that revealed evidence of gastritis and mild diverticulosis no active bleeding, patient received 2 units of red blood cells yesterday hemoglobin is 6.1, she will receive 1 more unit of red blood cells today Will continue to monitor. 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, she also has a history of atrial fibrillation, at this time will restart Xarelto, will continue to monitor hemoglobin, will give 1 dose of IV iron today On 05/14/2022 patient was seen and examined on the medical floor she is alert and oriented in no apparent distress there is no fever or chills no headache or dizziness no chest pain no shortness of breath no cough no nausea or vomiting no abdominal pain no diarrhea and no urinary symptoms, patient was resumed on Xarelto yesterday, hemoglobin today is 7.2, will continue to give IV iron, possible discharge to home tomorrow On 05/15/2022 patient is alert and oriented 3. Patient having increased redness to bilateral antecubital sites where IVs were concerns of abscess. At this time patient started vancomycin infectious disease service is consulted. Hemoglobin 7.1. Creatinine 1.28 and bun 20. This time patient denies chest pain or shortness of breath. Patient denies nausea vomiting or diarrhea. Patient denies any urinary burning or frequency On 05/16/2022 patient is alert and oriented 3. Hemoglobin today 7.0 ordered some improvement to redness on right antecubital site. Patient remains on IV vancomycin. Patient also has been resumed on anticoagulation of Xarelto. Ultrasound of bilateral upper extremities rule out SVT and DVTs have been ordered per infectious disease. At this time patient denies chest pain or shortness of breath. Patient denies nausea vomiting or diarrhea. Patient denies any urinary burning or frequency On 05/17/2023 2 patient is alert and oriented 3. Patient is currently resting comfortably in chair. IV iron ordered per oncology services and further workup for anemia in progress. Patient remains on anticoagulation of Xarelto. Patient remains on IV antibiotic vancomycin infectious disease service is following. At this time patient denies chest pain or shortness breath. Patient denies nausea vomiting or diarrhea. Patient denies any urinary burning or frequency Objective - Vital Signs Vital signs: Vital Signs Temp 98.4 F 05/18/22 08:35 Pulse 69 05/18/22 08:35 Resp 18 05/18/22 08:35 BP 108/64 05/18/22 08:35 Pulse Ox 94 L 05/18/22 08:35 FiO2 21 05/14/22 19:42 Intake & Output 05/17/22 05/18/22 05/18/22 18:59 06:59 18:59 Intake Total 240 200 240 Balance 240 200 240 Intake: Oral 240 200 240 Other: Voiding Method Toilet Toilet # Voids 1 1 # Bowel Movements 1 - Exam In general patient is alert and oriented x 3 in no distress HEENT head normocephalic and atraumatic Neck is supple no JVD no goiter no lymphadenopathy no carotid bruit Chest examination is clear to auscultation no crackles no wheezing Cardiac exam reveals regular heart sounds S1 and S2 no gallops no murmurs Abdomen is soft nontender no organomegaly with normal bowel sounds Extremity exam reveals 1 + edema no cyanosis or clubbing Neurological examination reveals no gross focal deficits - Labs CBC & Chem 7: 05/17/22 06:57 05/17/22 06:57 Labs: Abnormal Lab Results - Last 24 Hours (Table) 05/17/22 05/17/22 05/17/22 Range/Units 06:57 06:57 12:00 Retic Count 5.2 H (0.5-2.0) % POC Glucose (mg/dL) 183 H (70-110) mg/dL Lactate Dehydrogenase 626 H (313-618) U/L Total Protein (PEP) (6.2-8.2) g/dL Free T3 pg/mL 2.7 L (2.8-5.3) pg/ml 05/17/22 05/17/22 05/17/22 Range/Units 14:34 16:51 20:09 Retic Count (0.5-2.0) % POC Glucose (mg/dL) 209 H 149 H (70-110) mg/dL Lactate Dehydrogenase (313-618) U/L Total Protein (PEP) 6.1 L (6.2-8.2) g/dL Free T3 pg/mL (2.8-5.3) pg/ml 05/18/22 Range/Units 05:53 Retic Count (0.5-2.0) % POC Glucose (mg/dL) 178 H (70-110) mg/dL Lactate Dehydrogenase (313-618) U/L Total Protein (PEP) (6.2-8.2) g/dL Free T3 pg/mL (2.8-5.3) pg/ml Microbiology - Last 24 Hours (Table) 05/16/22 07:00 Blood Culture - Preliminary Blood No Growth after 48 hours Assessment and Plan Plan: Anemia, hemoglobin on presentation was 5.0, 2 units of red blood cell transfusion were ordered in the emergency room, stool Hemoccult was positive, gastroenterology consultation was requested History of pulmonary embolism, patient was maintained on Xarelto. Xarelto resumed Underlying history of hypertension Underlying history of COPD Previous history of atrial fibrillation currently patient is in normal sinus rhythm Underlying history of ens-[id number] diabetes mellitus maintained on Jardiance Underlying history of depression Underlying history of morbid obesity Bilateral antecubital fossa pain and swelling. Infectious disease services have been consulted ultrasounds have been ordered to rule out SVT DVT. Patient cherelle ins on vancomycin and blood cultures ordered Status post units of PRBCs on 05/10/2022 Status post EGD and colonoscopy on 05/12/2022 with finding showing scattered areas erythremia and antrum consistent with gastritis and scattered sigmoid diverticulitis with no evidence of active bleeding Home medications reviewed and reordered Infectious disease service is following Hematology service is following for anemia IV Protonix was ordered For DVT prophylaxis Xaeveliato Will follow closely
[2022-05-18 10:45] LABS: Albumin 3.3 g/dL (3.5-5.0); Calcium 8.3 mg/dL (8.4-10.2); Potassium 4.7 mmol/L (3.5-5.1); Total Bilirubin 0.7 mg/dL (0.2-1.3); Total Protein 6.1 g/dL (6.3-8.2)
[2022-05-18 11:04] LABS: Anisocytosis Marked; Basophils % (A) 0 %; Eosinophils # (A) 0.2 k/uL (0-0.7); Eosinophils % (A) 4 %; HCT 27.4 % (34.0-46.0); HGB 7.8 gm/dL (11.4-16.0); Hypochromasia Marked; Lymphocytes # (A) 0.9 k/uL (1.0-4.8); Lymphocytes % (A) 17 %; MCH 23.6 pg (25.0-35.0); MCHC 28.4 g/dL (31.0-37.0); MCV 83.1 fL (80.0-100.0); Macrocytosis Slight; Mean Platelet Volume 9.6; Microcytosis Slight; Monocytes # (A) 0.4 k/uL (0-1.0); Monocytes % (A) 8 %; Neutrophils # (A) 3.9 k/uL (1.3-7.7); Neutrophils % (A) 69 %; Platelet Count 159 k/uL (150-450); Poikilocytosis Slight; WBC 5.7 k/uL (3.8-10.6)
[2022-05-18 11:07] LABS: RDW 25.8 % (11.5-15.5)
[2022-05-18 11:59] LABS: Glucose,Whole Blood 167 mg/dL (70-110)
[2022-05-18] MEDS: MUPIROCIN 2% OINT 22 GM TUBE TOPICAL SCH ×3 (12:19→20:31)
[2022-05-18] MEDS: SODIUM FERRIC GLUCONAT-SUCROSE 125 MG in SODIUM CHLORIDE 0.9% 100 ML IVPB SCH (12:19)
[2022-05-18 12:52] LABS: Free Lambda Lt Chain Qnt, Seru 3.24 mg/dL (0.57-2.63)
[2022-05-18 16:44] LABS: Glucose,Whole Blood 195 mg/dL (70-110)
[2022-05-18] MEDS: RIVAROXABAN 20 MG TAB PO SCH (17:00)
[2022-05-18 20:16] LABS: Glucose,Whole Blood 185 mg/dL (70-110)
[2022-05-18] MEDS: MONTELUKAST 10 MG TAB PO SCH (20:29)
[2022-05-18] MEDS: PRAVASTATIN SODIUM 20 MG TAB PO SCH (20:29)
[2022-05-19 05:55] LABS: Glucose,Whole Blood 168 mg/dL (70-110)
[2022-05-19] MEDS: INSULIN ASPART (NovoLOG) 100 UNIT/ML VIAL SQ SCH ×4 (06:12→20:15)
[2022-05-19 08:17] LABS: Albumin 3.2 g/dL (3.5-5.0); Calcium 8.3 mg/dL (8.4-10.2); Potassium 4.8 mmol/L (3.5-5.1); Total Bilirubin 0.6 mg/dL (0.2-1.3); Total Protein 5.9 g/dL (6.3-8.2)
[2022-05-19 08:27] LABS: Anisocytosis Marked; Basophils % (A) 1 %; Eosinophils # (A) 0.3 k/uL (0-0.7); Eosinophils % (A) 5 %; HGB 7.7 gm/dL (11.4-16.0); Hypochromasia Marked; Lymphocytes % (A) 19 %; MCH 24.3 pg (25.0-35.0); MCHC 28.5 g/dL (31.0-37.0); Macrocytosis Slight; Mean Platelet Volume 9.8; Microcytosis Slight; Monocytes # (A) 0.4 k/uL (0-1.0); Monocytes % (A) 8 %; Neutrophils # (A) 3.3 k/uL (1.3-7.7); Neutrophils % (A) 63 %; Platelet Count 149 k/uL (150-450); Poikilocytosis Slight; RBC 3.18 m/uL (3.80-5.40); RDW 26.2 % (11.5-15.5); WBC 5.2 k/uL (3.8-10.6)
[2022-05-19] MEDS: buPROPion XL 150 MG TAB.ER.24H PO SCH (09:33)
[2022-05-19] MEDS: lisinopriL 20 MG TAB PO SCH (09:33)
[2022-05-19] MEDS: VIT A,C & E-LUTEIN-MINERALS 1 EACH TAB PO SCH ×2 (09:33→19:59)
[2022-05-19] MEDS: ESCITALOPRAM 20 MG TAB PO SCH (09:33)
[2022-05-19] MEDS: PANTOPRAZOLE 40 MG/10 ML VIAL IVP SCH ×2 (09:35→19:59)
[2022-05-19] MEDS: MUPIROCIN 2% OINT 22 GM TUBE TOPICAL SCH ×3 (09:36→20:00)
[2022-05-19] MEDS: Empagliflozin [Jardiance] PO SCH (09:48)
--- NOTE | 2022-05-19 11:25 | P.PN ---
Subjective Progress Note Date: 05/17/22 Patient is a 72-year-old female who presented to [facility] emergency room with a chief complaint of severe anemia, patient was seen by her primary care physician Dr. Bashir for a routine visit and for complaints of episodes of chills and fatigue, her blood test revealed a hemoglobin of 5.0 patient was directly to emergency room. She was evaluated in the emergency room vital examination on presentation revealed a temperature of 99.4 pulse 65 respiration 18 blood pressure 126/54 pulse ox 100% on 2 L nasal cannula Laboratory data reveals a white blood count of 7.1 hemoglobin 5.0 platelet count 192 INR 1.2 BUN 43 creatinine 1.93 stools occult blood was positive Testing in the emergency room revealed EKG done in the emergency room revealed sinus rhythm with sinus arrhythmia and nonspecific T-wave abnormalities Patient was admitted to medical floor for further evaluation and treatment Past medical history is significant for history of pulmonary embolism patient was maintained on Xarelto 20 mg daily for the last 5 years, her last dose was yesterday, she also had a history of atrial fibrillation with episodes of rapid ventricular response, she had cardioversion in the past, she has a history of hypertension, history of COPD, history of diabetes mellitus, underlying history of morbid obesity, and history of depression Patient used to smoke she quit about 10 years ago, she drinks alcohol rarely On 05/11/2022 patient is alert and oriented 3. Patient received 2 units of PRBCs yesterday awaiting hemoglobin repeat this AM. Did discuss with GI services nurse practitioner plans for EGD and colonoscopy tomorrow 05/12/2022. We'll continue to monitor hemoglobin closely and transfuse as needed. Patient denies any nausea vomiting or diarrhea or signs of bleeding. Patient does reports she still feels tired. Patient denies chest pain or shortness of breath. Patient denies any urinary burning or frequency. On 05/12/2022 patient was seen and examined on the medical floor she is alert and oriented 3 in no apparent distress she underwent EGD and colonoscopy this morn ing that revealed evidence of gastritis and mild diverticulosis no active bleeding, patient received 2 units of red blood cells yesterday hemoglobin is 6.1, she will receive 1 more unit of red blood cells today Will continue to monitor. 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, she also has a history of atrial fibrillation, at this time will restart Xarelto, will continue to monitor hemoglobin, will give 1 dose of IV iron today On 05/14/2022 patient was seen and examined on the medical floor she is alert and oriented in no apparent distress there is no fever or chills no headache or dizziness no chest pain no shortness of breath no cough no nausea or vomiting no abdominal pain no diarrhea and no urinary symptoms, patient was resumed on Xarelto yesterday, hemoglobin today is 7.2, will continue to give IV iron, possible discharge to home tomorrow On 05/15/2022 patient is alert and oriented 3. Patient having increased redness to bilateral antecubital sites where IVs were concerns of abscess. At this time patient started vancomycin infectious disease service is consulted. Hemoglobin 7.1. Creatinine 1.28 and bun 20. This time patient denies chest pain or shortness of breath. Patient denies nausea vomiting or diarrhea. Patient denies any urinary burning or frequency On 05/16/2022 patient is alert and oriented 3. Hemoglobin today 7.0 ordered some improvement to redness on right antecubital site. Patient remains on IV vancomycin. Patient also has been resumed on anticoagulation of Xarelto. Ultrasound of bilateral upper extremities rule out SVT and DVTs have been ordered per infectious disease. At this time patient denies chest pain or shortness of breath. Patient denies nausea vomiting or diarrhea. Patient denies any urinary burning or frequency On 05/17/2023 2 patient is alert and oriented 3. Patient is currently resting comfortably in chair. IV iron ordered per oncology services and further workup for anemia in progress. Patient remains on anticoagulation of Xarelto. Patient remains on IV antibiotic vancomycin infectious disease service is following. At this time patient denies chest pain or shortness breath. Patient denies nausea vomiting or diarrhea. Patient denies any urinary burning or frequency. Objective - Vital Signs Vital signs: Vital Signs Temp 98.3 F 05/17/22 08:28 Pulse 66 05/17/22 13:42 Resp 20 05/17/22 11:14 BP 133/69 05/17/22 11:14 Pulse Ox 96 05/17/22 11:14 FiO2 21 05/14/22 19:42 Intake & Output 05/16/22 05/17/22 05/17/22 18:59 06:59 18:59 Intake Total 618 120 Balance 618 120 Weight 140.16 kg Intake: Oral 618 120 Other: Voiding Method Toilet Toilet Toilet # Voids 1 2 0 # Bowel Movements 1 - Exam In general patient is alert and oriented x 3 in no distress HEENT head normocephalic and atraumatic Neck is supple no JVD no goiter no lymphadenopathy no carotid bruit Chest examination is clear to auscultation no crackles no wheezing Cardiac exam reveals regular heart sounds S1 and S2 no gallops no murmurs Abdomen is soft nontender no organomegaly with normal bowel sounds Extremity exam reveals 1 + edema no cyanosis or clubbing Neurological examination reveals no gross focal deficits - Labs CBC & Chem 7: 05/19/22 06:22 05/19/22 06:22 Labs: Abnormal Lab Results - Last 24 Hours (Table) 05/16/22 05/16/22 05/17/22 Range/Units 16:38 20:34 05:36 RBC (3.80-5.40) m/uL Hgb (11.4-16.0) gm/dL Hct (34.0-46.0) % MCH (25.0-35.0) pg MCHC (31.0-37.0) g/dL RDW (11.5-15.5) % Plt Count (150-450) k/uL Sodium (137-145) mmol/L BUN (7-17) mg/dL Creatinine (0.52-1.04) mg/dL Glucose (74-99) mg/dL POC Glucose (mg/dL) 148 H 263 H 169 H (70-110) mg/dL Calcium (8.4-10.2) mg/dL AST (14-36) U/L Total Protein (6.3-8.2) g/dL Albumin (3.5-5.0) g/dL 05/17/22 05/17/22 05/17/22 Range/Units 06:57 06:57 12:00 RBC 3.19 L (3.80-5.40) m/uL Hgb 7.4 L (11.4-16.0) gm/dL Hct 26.2 L (34.0-46.0) % MCH 23.3 L (25.0-35.0) pg MCHC 28.3 L (31.0-37.0) g/dL RDW 24.9 H (11.5-15.5) % Plt Count 137 L (150-450) k/uL Sodium 136 L (137-145) mmol/L BUN 19 H (7-17) mg/dL Creatinine 1.24 H (0.52-1.04) mg/dL Glucose 152 H (74-99) mg/dL POC Glucose (mg/dL) 183 H (70-110) mg/dL Calcium 8.3 L (8.4-10.2) mg/dL AST 40 H (14-36) U/L Total Protein 5.9 L (6.3-8.2) g/dL Albumin 3.2 L (3.5-5.0) g/dL Microbiology - Last 24 Hours (Table) 05/16/22 07:00 Blood Culture - Preliminary Blood No Growth after 24 hours 05/14/22 18:42 Gram Stain - Final Arm - Right Wound Culture - Final Assessment and Plan Plan: Anemia, hemoglobin on presentation was 5.0, 2 units of red blood cell transfusion were ordered in the emergency room, stool Hemoccult was positive, gastroenterology consultation was requested History of pulmonary embolism, patient was maintained on Xarelto. Xarelto resumed Underlying history of hypertension Underlying history of COPD Previous history of atrial fibrillation currently patient is in normal sinus rhythm Underlying history of [id number] diabetes mellitus maintained on Jardiance Underlying history of depression Underlying history of morbid obesity Bilateral antecubital fossa pain and swelling. Infectious disease services have been consulted ultrasounds have been ordered to rule out SVT DVT. Patient remains on vancomycin and blood cultures ordered Status post units of PRBCs on 05/10/2022 Status post EGD and colonoscopy on 05/12/2022 with finding showing scattered areas erythremia and antrum consistent with gastritis and scattered sigmoid diverticulitis with no evidence of active bleeding Home medications reviewed and reordered Infectious disease service is following IV Protonix was ordered For DVT prophylaxis Xarelto Will follow closely
--- NOTE | 2022-05-19 11:26 | P.PN ---
Subjective Progress Note Date: 05/19/22 Patient is a 72-year-old female who presented to [facility] emergency room with a chief complaint of severe anemia, patient was seen by her primary care physician Dr. Bashir for a routine visit and for complaints of episodes of chills and fatigue, her blood test revealed a hemoglobin of 5.0 patient was directly to emergency room. She was evaluated in the emergency room vital examination on presentation revealed a temperature of 99.4 pulse 65 respiration 18 blood pressure 126/54 pulse ox 100% on 2 L nasal cannula Laboratory data reveals a white blood count of 7.1 hemoglobin 5.0 platelet count 192 INR 1.2 BUN 43 creatinine 1.93 stools occult blood was positive Testing in the emergency room revealed EKG done in the emergency room revealed sinus rhythm with sinus arrhythmia and nonspecific T-wave abnormalities Patient was admitted to medical floor for further evaluation and treatment Past medical history is significant for history of pulmonary embolism patient was maintained on Xarelto 20 mg daily for the last 5 years, her last dose was yesterday, she also had a history of atrial fibrillation with episodes of rapid ventricular response, she had cardioversion in the past, she has a history of hypertension, history of COPD, history of diabetes mellitus, underlying history of morbid obesity, and history of depression Patient used to smoke she quit about 10 years ago, she drinks alcohol rarely On 05/11/2022 patient is alert and oriented 3. Patient received 2 units of PRBCs yesterday awaiting hemoglobin repeat this AM. Did discuss with GI services nurse practitioner plans for EGD and colonoscopy tomorrow 05/12/2022. We'll continue to monitor hemoglobin closely and transfuse as needed. Patient denies any nausea vomiting or diarrhea or signs of bleeding. Patient does reports she still feels tired. Patient denies chest pain or shortness of breath. Patient denies any urinary burning or frequency. On 05/12/2022 patient was seen and examined on the medical floor she is alert and oriented 3 in no apparent distress she underwent EGD and colonoscopy this morn ing that revealed evidence of gastritis and mild diverticulosis no active bleeding, patient received 2 units of red blood cells yesterday hemoglobin is 6.1, she will receive 1 more unit of red blood cells today Will continue to monitor. 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, she also has a history of atrial fibrillation, at this time will restart Xarelto, will continue to monitor hemoglobin, will give 1 dose of IV iron today On 05/14/2022 patient was seen and examined on the medical floor she is alert and oriented in no apparent distress there is no fever or chills no headache or dizziness no chest pain no shortness of breath no cough no nausea or vomiting no abdominal pain no diarrhea and no urinary symptoms, patient was resumed on Xarelto yesterday, hemoglobin today is 7.2, will continue to give IV iron, possible discharge to home tomorrow On 05/15/2022 patient is alert and oriented 3. Patient having increased redness to bilateral antecubital sites where IVs were concerns of abscess. At this time patient started vancomycin infectious disease service is consulted. Hemoglobin 7.1. Creatinine 1.28 and bun 20. This time patient denies chest pain or shortness of breath. Patient denies nausea vomiting or diarrhea. Patient denies any urinary burning or frequency On 05/16/2022 patient is alert and oriented 3. Hemoglobin today 7.0 ordered some improvement to redness on right antecubital site. Patient remains on IV vancomycin. Patient also has been resumed on anticoagulation of Xarelto. Ultrasound of bilateral upper extremities rule out SVT and DVTs have been ordered per infectious disease. At this time patient denies chest pain or shortness of breath. Patient denies nausea vomiting or diarrhea. Patient denies any urinary burning or frequency On 05/17/2022 patient is alert and oriented 3. Patient is currently resting comfortably in chair. IV iron ordered per oncology services and further workup for anemia in progress. Patient remains on anticoagulation of Xarelto. Patient remains on IV antibiotic vancomycin infectious disease service is following. At this time patient denies chest pain or shortness breath. Patient denies nausea vomiting or diarrhea. Patient denies any urinary burning or frequency. On 05/18/2022 patient was seen and examined on the medical floor she is alert and oriented in no apparent distress there is no fever or chills no headache or dizziness no chest pain no shortness of breath no cough no nausea or vomiting no abdominal pain no diarrhea and no urinary symptoms, patient was resumed on Xarelto yesterday, hemoglobin today is 7.8, will continue to give IV iron, hematology follow. On 05/19/2022 patient was seen and examined on the medical floor she is alert and oriented 3 in no apparent distress she is complaining of bilateral lower extremity swelling, bilateral antecubital area pain and swelling, and complaining of shortness of breath with activity, hemoglobin today 7.7 there is no fever or chills no headache or dizziness no chest pain no cough no nausea or vomiting no abdominal pain no diarrhea and no urinary symptoms Objective - Vital Signs Vital signs: Vital Signs Temp 97.4 F L 05/19/22 08:00 Pulse 70 05/19/22 08:00 Resp 19 05/19/22 04:10 BP 138/62 05/19/22 08:00 Pulse Ox 97 05/19/22 08:00 FiO2 21 05/14/22 19:42 Intake & Output 05/18/22 05/19/22 05/19/22 18:59 06:59 18:59 Intake Total 1200 240 Balance 1200 240 Intake: Intake, IV Titration 600 Amount Sodium Ferric Gluconat- 100 Sucrose 125 mg In Sodium Chloride 0.9% 100 ml @ 100 mls/hr IVPB DAILY BRIG[facility]O Rx#:[id number] Vancomycin 2,000 mg In 500 Sodium Chloride 0.9% 500 ml 500 ml @ 167 mls/hr IVPB Q48H BRIGIDO Rx#: [id number] Oral 600 240 Other: Voiding Method Toilet # Voids 3 - Exam In general patient is alert and oriented x 3 in no distress HEENT head normocephalic and atraumatic Neck is supple no JVD no goiter no lymphadenopathy no carotid bruit Chest examination is clear to auscultation no crackles no wheezing Cardiac exam reveals regular heart sounds S1 and S2 no gallops no murmurs Abdomen is soft nontender no organomegaly with normal bowel sounds Extremity exam reveals 1 + edema no cyanosis or clubbing Neurological examination reveals no gross focal deficits - Labs CBC & Chem 7: 05/19/22 06:22 05/19/22 06:22 Labs: Abnormal Lab Results - Last 24 Hours (Table) 05/17/22 05/17/22 05/18/22 Range/Units 14:34 14:34 11:57 RBC (3.80-5.40) m/uL Hgb (11.4-16.0) gm/dL Hct (34.0-46.0) % MCH (25.0-35.0) pg MCHC (31.0-37.0) g/dL RDW (11.5-15.5) % Plt Count (150-450) k/uL Sodium (137-145) mmol/L BUN (7-17) mg/dL Creatinine (0.52-1.04) mg/dL Glucose (74-99) mg/dL POC Glucose (mg/dL) 167 H (70-110) mg/dL Calcium (8.4-10.2) mg/dL AST (14-36) U/L Alkaline Phosphatase (38-126) U/L Total Protein (6.3-8.2) g/dL Albumin (3.5-5.0) g/dL Methylmalonic Acid 0.83 H (<0.40) umol/L Free [place] LC, Quant 6.20 H (0.33-1.94) mg/dL Free Lambda LC, Quant 3.24 H (0.57-2.63) mg/dL 05/18/22 05/18/22 05/19/22 Range/Units 16:42 20:14 05:53 RBC (3.80-5.40) m/uL Hgb (11.4-16.0) gm/dL Hct (34.0-46.0) % MCH (25.0-35.0) pg MCHC (31.0-37.0) g/dL RDW (11.5-15.5) % Plt Count (150-450) k/uL Sodium (137-145) mmol/L BUN (7-17) mg/dL Creatinine (0.52-1.04) mg/dL Glucose (74-99) mg/dL POC Glucose (mg/dL) 195 H 185 H 168 H (70-110) mg/dL Calcium (8.4-10.2) mg/dL AST (14-36) U/L Alkaline Phosphatase (38-126) U/L Total Protein (6.3-8.2) g/dL Albumin (3.5-5.0) g/dL Methylmalonic Acid (<0.40) umol/L Free [place] LC, Quant (0.33-1.94) mg/dL Free Lambda LC, Quant (0.57-2.63) mg/dL 05/19/22 05/19/22 Range/Units 06: 06: RBC 3.18 L (3.80-5.40) m/uL Hgb 7.7 L (11.4-16.0) gm/dL Hct 27.0 L (34.0-46.0) % MCH 24.3 L (25.0-35.0) pg MCHC 28.5 L (31.0-37.0) g/dL RDW 26.2 H (11.5-15.5) % Plt Count 149 L (150-450) k/uL Sodium 136 L (137-145) mmol/L BUN 22 H (7-17) mg/dL Creatinine 1.16 H (0.52-1.04) mg/dL Glucose 134 H (74-99) mg/dL POC Glucose (mg/dL) (70-110) mg/dL Calcium 8.3 L (8.4-10.2) mg/dL AST 47 H (14-36) U/L Alkaline Phosphatase 155 H (38-126) U/L Total Protein 5.9 L (6.3-8.2) g/dL Albumin 3.2 L (3.5-5.0) g/dL Methylmalonic Acid (<0.40) umol/L Free [place] LC, Quant (0.33-1.94) mg/dL Free Lambda LC, Quant (0.57-2.63) mg/dL Microbiology - Last 24 Hours (Table) 05/16/22 07:00 Blood Culture - Preliminary Blood No Growth after 72 hours Assessment and Plan Plan: Anemia, hemoglobin on presentation was 5.0, 2 units of red blood cell transfusion were ordered in the emergency room, stool Hemoccult was positive, gastroenterology consultation was requested History of pulmonary embolism, patient was maintained on Xarelto. Xarelto resumed Underlying history of hypertension Underlying history of COPD Previous history of atrial fibrillation currently patient is in normal sinus rhythm Underlying history of [id number] diabetes mellitus maintained on Jardiance Underlying history of depression Underlying history of morbid obesity Bilateral antecubital fossa pain and swelling. Infectious disease services have been consulted ultrasounds have been ordered to rule out SVT DVT. Patient remains on vancomycin and blood cultures ordered Status post units of PRBCs on 05/10/2022 Status post EGD and colonoscopy on 05/12/2022 with finding showing scattered areas erythremia and antrum consistent with gastritis and scattered sigmoid diverticulitis with no evidence of active bleeding Home medications reviewed and reordered Infectious disease service is following Hematology service is following for anemia IV Protonix was ordered For DVT prophylaxis Xarelto Will follow closely
[2022-05-19 11:34] LABS: Glucose,Whole Blood 153 mg/dL (70-110)
[2022-05-19] MEDS: FUROSEMIDE 10 MG/ML 2 ML VIAL IV SCH ×3 (13:20→23:15)
[2022-05-19 16:58] LABS: Glucose,Whole Blood 143 mg/dL (70-110)
[2022-05-19] MEDS: RIVAROXABAN 20 MG TAB PO SCH (17:29)
[2022-05-19] MEDS: PRAVASTATIN SODIUM 20 MG TAB PO SCH (19:59)
[2022-05-19] MEDS: MONTELUKAST 10 MG TAB PO SCH (19:59)
[2022-05-19] MEDS: DOXYCYCLINE 100 MG CAP PO SCH (19:59)
[2022-05-19 20:12] LABS: Glucose,Whole Blood 240 mg/dL (70-110)
--- NOTE | 2022-05-19 22:14 | P.PN ---
Subjective Progress Note Date: 05/18/22 Principal diagnosis: Bilateral upper extremity IV site phlebitis Patient is a 72 year female presented to hospital with weakness shortness of breath noticed to have a low hemoglobin status post upper and lower GI with evidence of gastritis patient subsequently developing pain and swelling the bilateral antecubital fossa on the IV, patient did have ultrasound with evid ence of left-sided phlebitis. On today's evaluation that is 05/18/2022, the patient is afebrile, the patient denies any worsening pain to the left upper arm , the patient denies chest pain shortness of breath or cough Objective - Vital Signs Vital signs: Vital Signs Temp 98.4 F 05/18/22 08:35 Pulse 69 05/18/22 08:35 Resp 18 05/18/22 08:35 BP 108/64 05/18/22 08:35 Pulse Ox 94 L 05/18/22 08:35 FiO2 21 05/14/22 19:42 Intake & Output 05/17/22 05/18/22 05/18/22 18:59 06:59 18:59 Intake Total 240 200 240 Balance 240 200 240 Intake: Oral 240 200 240 Other: Voiding Method Toilet Toilet # Voids 1 1 # Bowel Movements 1 - Exam GENERAL DESCRIPTION: An elderly female lying in bed in no distress RESPIRATORY SYSTEM: Unlabored breathing , decreased breath sounds at bases HEART: S1 S2 regular rate and rhythm , ABDOMEN: Soft , no tenderness EXTREMITIES: Bilateral upper extremity especially at the antecubital fossa did have some induration but no redness - Labs CBC & Chem 7: 05/19/22 06:22 05/19/22 06:22 Labs: Abnormal Lab Results - Last 24 Hours (Table) 05/17/22 05/17/22 05/17/22 Range/Units 06:57 06:57 14:34 RBC (3.80-5.40) m/uL Hgb (11.4-16.0) gm/dL Hct (34.0-46.0) % MCH (25.0-35.0) pg MCHC (31.0-37.0) g/dL RDW (11.5-15.5) % Lymphocytes # (1.0-4.8) k/uL Retic Count 5.2 H (0.5-2.0) % BUN (7-17) mg/dL Creatinine (0.52-1.04) mg/dL Glucose (74-99) mg/dL POC Glucose (mg/dL) (70-110) mg/dL Calcium (8.4-10.2) mg/dL AST (14-36) U/L Alkaline Phosphatase (38-126) U/L Lactate Dehydrogenase 626 H (313-618) U/L Total Protein (6.3-8.2) g/dL Total Protein (PEP) 6.1 L (6.2-8.2) g/dL Albumin (3.5-5.0) g/dL Free T3 pg/mL 2.7 L (2.8-5.3) pg/ml Free [place] LC, Quant 6.20 H (0.33-1.94) mg/dL Free Lambda LC, Quant 3.24 H (0.57-2.63) mg/dL 05/17/22 05/17/22 05/18/22 Range/Units 16:51 20:09 05:53 RBC (3.80-5.40) m/uL Hgb (11.4-16.0) gm/dL Hct (34.0-46.0) % MCH (25.0-35.0) pg MCHC (31.0-37.0) g/dL RDW (11.5-15.5) % Lymphocytes # (1.0-4.8) k/uL Retic Count (0.5-2.0) % BUN (7-17) mg/dL Creatinine (0.52-1.04) mg/dL Glucose (74-99) mg/dL POC Glucose (mg/dL) 209 H 149 H 178 H (70-110) mg/dL Calcium (8.4-10.2) mg/dL AST (14-36) U/L Alkaline Phosphatase (38-126) U/L Lactate Dehydrogenase (313-618) U/L Total Protein (6.3-8.2) g/dL Total Protein (PEP) (6.2-8.2) g/dL Albumin (3.5-5.0) g/dL Free T3 pg/mL (2.8-5.3) pg/ml Free Evan LC, Quant (0.33-1.94) mg/dL Free Lambda LC, Quant (0.57-2.63) mg/dL 05/18/22 05/18/22 05/18/22 Range/Units 07:56 07:56 07:56 RBC 3.30 L (3.80-5.40) m/uL Hgb 7.8 L (11.4-16.0) gm/dL Hct 27.4 L (34.0-46.0) % MCH 23.6 L (25.0-35.0) pg MCHC 28.4 L (31.0-37.0) g/dL RDW 25.8 H (11.5-15.5) % Lymphocytes # 0.9 L (1.0-4.8) k/uL Retic Count (0.5-2.0) % BUN 21 H (7-17) mg/dL Creatinine 1.30 H 1.30 H (0.52-1.04) mg/dL Glucose 141 H (74-99) mg/dL POC Glucose (mg/dL) (70-110) mg/dL Calcium 8.3 L (8.4-10.2) mg/dL AST 45 H (14-36) U/L Alkaline Phosphatase 155 H (38-126) U/L Lactate Dehydrogenase (313-618) U/L Total Protein 6.1 L (6.3-8.2) g/dL Total Protein (PEP) (6.2-8.2) g/dL Albumin 3.3 L (3.5-5.0) g/dL Free T3 pg/mL (2.8-5.3) pg/ml Free Evan LC, Quant (0.33-1.94) mg/dL Free Lambda LC, Quant (0.57-2.63) mg/dL 05/18/22 Range/Units 11:57 RBC (3.80-5.40) m/uL Hgb (11.4-16.0) gm/dL Hct (34.0-46.0) % MCH (25.0-35.0) pg MCHC (31.0-37.0) g/dL RDW (11.5-15.5) % Lymphocytes # (1.0-4.8) k/uL Retic Count (0.5-2.0) % BUN (7-17) mg/dL Creatinine (0.52-1.04) mg/dL Glucose (74-99) mg/dL POC Glucose (mg/dL) 167 H (70-110) mg/dL Calcium (8.4-10.2) mg/dL AST (14-36) U/L Alkaline Phosphatase (38-126) U/L Lactate Dehydrogenase (313-618) U/L Total Protein (6.3-8.2) g/dL Total Protein (PEP) (6.2-8.2) g/dL Albumin (3.5-5.0) g/dL Free T3 pg/mL (2.8-5.3) pg/ml Free Evan LC, Quant (0.33-1.94) mg/dL Free Lambda LC, Quant (0.57-2.63) mg/dL Microbiology - Last 24 Hours (Table) 05/16/22 07:00 Blood Culture - Preliminary Blood No Growth after 48 hours Assessment and Plan (1) Cellulitis Current Visit: Yes Status: Acute Code(s): L03.90 - CELLULITIS, UNSPECIFIED SNOMED Code(s): 690726393 Plan: 1patient with bilateral antecubital fossa pain swelling and induration from an IV which has been discontinued and concern for possible SVT clinic not behaving as a abscess or cellulitis though not entirely excluded. 2 ultrasound of the bilateral upper extremity did show evidence of SVT , patient advised cold Compression and keep the area elevated 3blood cultures are currently pending 4patient to continue with the vanco while watching kidney function closely . Time with Patient: Less than 30
--- NOTE | 2022-05-19 22:15 | P.PN ---
Subjective Progress Note Date: 05/19/22 Principal diagnosis: Bilateral upper extremity IV site phlebitis Patient is a 72 year female presented to hospital with weakness shortness of breath noticed to have a low hemoglobin status post upper and lower GI with evidence of gastritis patient subsequently developing pain and swelling the bilateral antecubital fossa on the IV, patient did have ultrasound with evid ence of left-sided phlebitis. On today's evaluation that is 05/19/2022, the patient remains to be afebrile, the patient pain and swelling to the left upper arm has decreased in intensity, the patient denies chest pain shortness of breath or cough Objective - Vital Signs Vital signs: Vital Signs Temp 97.4 F L 05/19/22 08:00 Pulse 70 05/19/22 08:00 Resp 19 05/19/22 04:10 BP 138/62 05/19/22 08:00 Pulse Ox 97 05/19/22 08:00 FiO2 21 05/14/22 19:42 Intake & Output 05/18/22 05/19/22 05/19/22 18:59 06:59 18:59 Intake Total 1200 240 Balance 1200 240 Intake: Intake, IV Titration 600 Amount Sodium Ferric Gluconat- 100 Sucrose 125 mg In Sodium Chloride 0.9% 100 ml @ 100 mls/hr IVPB DAILY BR[facility]O Rx#:[id number] Vancomycin 2,000 mg In 500 Sodium Chloride 0.9% 500 ml 500 ml @ 167 mls/hr IVPB Q48H BRIGIDO Rx#: [id number] Oral 600 240 Other: Voiding Method Toilet # Voids 3 - Exam GENERAL DESCRIPTION: An elderly female lying in bed in no distress RESPIRATORY SYSTEM: Unlabored breathing , decreased breath sounds at bases HEART: S1 S2 regular rate and rhythm , ABDOMEN: Soft , no tenderness EXTREMITIES: Bilateral upper extremity especially at the antecubital fossa did have some induration which has decreased in intensity - Labs CBC & Chem 7: 05/19/22 06:22 05/19/22 06:22 Labs: Abnormal Lab Results - Last 24 Hours (Table) 05/17/22 05/17/22 05/18/22 Range/Units 14:34 14:34 11:57 RBC (3.80-5.40) m/uL Hgb (11.4-16.0) gm/dL Hct (34.0-46.0) % MCH (25.0-35.0) pg MCHC (31.0-37.0) g/dL RDW (11.5-15.5) % Plt Count (150-450) k/uL Sodium (137-145) mmol/L BUN (7-17) mg/dL Creatinine (0.52-1.04) mg/dL Glucose (74-99) mg/dL POC Glucose (mg/dL) 167 H (70-110) mg/dL Calcium (8.4-10.2) mg/dL AST (14-36) U/L Alkaline Phosphatase (38-126) U/L Total Protein (6.3-8.2) g/dL Albumin (3.5-5.0) g/dL Methylmalonic Acid 0.83 H (<0.40) umol/L Free Inger LC, Quant 6.20 H (0.33-1.94) mg/dL Free Lambda LC, Quant 3.24 H (0.57-2.63) mg/dL 05/18/22 05/18/22 05/19/22 Range/Units 16:42 20:14 05:53 RBC (3.80-5.40) m/uL Hgb (11.4-16.0) gm/dL Hct (34.0-46.0) % MCH (25.0-35.0) pg MCHC (31.0-37.0) g/dL RDW (11.5-15.5) % Plt Count (150-450) k/uL Sodium (137-145) mmol/L BUN (7-17) mg/dL Creatinine (0.52-1.04) mg/dL Glucose (74-99) mg/dL POC Glucose (mg/dL) 195 H 185 H 168 H (70-110) mg/dL Calcium (8.4-10.2) mg/dL AST (14-36) U/L Alkaline Phosphatase (38-126) U/L Total Protein (6.3-8.2) g/dL Albumin (3.5-5.0) g/dL Methylmalonic Acid (<0.40) umol/L Free Inger LC, Quant (0.33-1.94) mg/dL Free Lambda LC, Quant (0.57-2.63) mg/dL 05/19/22 05/19/22 05/19/22 Range/Units 06:22 06:22 11:23 RBC 3.18 L (3.80-5.40) m/uL Hgb 7.7 L (11.4-16.0) gm/dL Hct 27.0 L (34.0-46.0) % MCH 24.3 L (25.0-35.0) pg MCHC 28.5 L (31.0-37.0) g/dL RDW 26.2 H (11.5-15.5) % Plt Count 149 L (150-450) k/uL Sodium 136 L (137-145) mmol/L BUN 22 H (7-17) mg/dL Creatinine 1.16 H (0.52-1.04) mg/dL Glucose 134 H (74-99) mg/dL POC Glucose (mg/dL) 153 H (70-110) mg/dL Calcium 8.3 L (8.4-10.2) mg/dL AST 47 H (14-36) U/L Alkaline Phosphatase 155 H (38-126) U/L Total Protein 5.9 L (6.3-8.2) g/dL Albumin 3.2 L (3.5-5.0) g/dL Methylmalonic Acid (<0.40) umol/L Free Inger LC, Quant (0.33-1.94) mg/dL Free Lambda LC, Quant (0.57-2.63) mg/dL Microbiology - Last 24 Hours (Table) 05/16/22 07:00 Blood Culture - Preliminary Blood No Growth after 72 hours Assessment and Plan (1) Cellulitis Current Visit: Yes Status: Acute Code(s): L03.90 - CELLULITIS, UNSPECIFIED SNOMED Code(s): 173526379 Plan: 1patient with bilateral antecubital fossa pain swelling and induration from an IV which has been discontinued and concern for possible SVT clinic not behaving as a abscess or cellulitis though not entirely excluded. 2 ultrasound of the bilateral upper extremity did show evidence of SVT , patient advised cold Compression and keep the area elevated 3blood cultures are negative 4we will discontinue the vancomycin as a blood cultures are negative and give a short course of oral doxycycline Time with Patient: Less than 30
[2022-05-19] MEDS ORDERED: ACETAMINOPHEN TAB 500 MG TAB PO PRN (23:03)
[2022-05-20] MEDS ORDERED: VANCOMYCIN TROUGH DUE 1 EACH MISC MISCELLANE ONE (05:00)
[2022-05-20 06:04] LABS: Glucose,Whole Blood 182 mg/dL (70-110)
[2022-05-20] MEDS: INSULIN ASPART (NovoLOG) 100 UNIT/ML VIAL SQ SCH ×4 (06:09→21:52)
[2022-05-20] MEDS: Empagliflozin [Jardiance] PO SCH (09:30)
[2022-05-20] MEDS: MUPIROCIN 2% OINT 22 GM TUBE TOPICAL SCH ×3 (09:31→22:45)
[2022-05-20] MEDS: lisinopriL 20 MG TAB PO SCH (09:31)
[2022-05-20] MEDS: FUROSEMIDE 10 MG/ML 2 ML VIAL IV SCH ×2 (09:31→16:45)
[2022-05-20] MEDS: ESCITALOPRAM 20 MG TAB PO SCH (09:31)
[2022-05-20] MEDS: PANTOPRAZOLE 40 MG/10 ML VIAL IVP SCH ×2 (09:31→21:40)
[2022-05-20] MEDS: VIT A,C & E-LUTEIN-MINERALS 1 EACH TAB PO SCH ×2 (09:32→21:39)
[2022-05-20] MEDS: DOXYCYCLINE 100 MG CAP PO SCH ×2 (09:32→21:39)
[2022-05-20] MEDS: buPROPion XL 150 MG TAB.ER.24H PO SCH (09:32)
--- NOTE | 2022-05-20 09:55 | P.PN ---
Subjective Progress Note Date: 05/20/22 Patient is a 72-year-old female who presented to [facility] emergency room with a chief complaint of severe anemia, patient was seen by her primary care physician Dr. Bashir for a routine visit and for complaints of episodes of chills and fatigue, her blood test revealed a hemoglobin of 5.0 patient was directly to emergency room. She was evaluated in the emergency room vital examination on presentation revealed a temperature of 99.4 pulse 65 respiration 18 blood pressure 126/54 pulse ox 100% on 2 L nasal cannula Laboratory data reveals a white blood count of 7.1 hemoglobin 5.0 platelet count 192 INR 1.2 BUN 43 creatinine 1.93 stools occult blood was positive Testing in the emergency room revealed EKG done in the emergency room revealed sinus rhythm with sinus arrhythmia and nonspecific T-wave abnormalities Patient was admitted to medical floor for further evaluation and treatment Past medical history is significant for history of pulmonary embolism patient was maintained on Xarelto 20 mg daily for the last 5 years, her last dose was yesterday, she also had a history of atrial fibrillation with episodes of rapid ventricular response, she had cardioversion in the past, she has a history of hypertension, history of COPD, history of diabetes mellitus, underlying history of morbid obesity, and history of depression Patient used to smoke she quit about 10 years ago, she drinks alcohol rarely On 05/11/2022 patient is alert and oriented 3. Patient received 2 units of PRBCs yesterday awaiting hemoglobin repeat this AM. Did discuss with GI services nurse practitioner plans for EGD and colonoscopy tomorrow 05/12/2022. We'll continue to monitor hemoglobin closely and transfuse as needed. Patient denies any nausea vomiting or diarrhea or signs of bleeding. Patient does reports she still feels tired. Patient denies chest pain or shortness of breath. Patient denies any urinary burning or frequency. On 05/12/2022 patient was seen and examined on the medical floor she is alert and oriented 3 in no apparent distress she underwent EGD and colonoscopy this morn ing that revealed evidence of gastritis and mild diverticulosis no active bleeding, patient received 2 units of red blood cells yesterday hemoglobin is 6.1, she will receive 1 more unit of red blood cells today Will continue to monitor. 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, she also has a history of atrial fibrillation, at this time will restart Xarelto, will continue to monitor hemoglobin, will give 1 dose of IV iron today On 05/14/2022 patient was seen and examined on the medical floor she is alert and oriented in no apparent distress there is no fever or chills no headache or dizziness no chest pain no shortness of breath no cough no nausea or vomiting no abdominal pain no diarrhea and no urinary symptoms, patient was resumed on Xarelto yesterday, hemoglobin today is 7.2, will continue to give IV iron, possible discharge to home tomorrow On 05/15/2022 patient is alert and oriented 3. Patient having increased redness to bilateral antecubital sites where IVs were concerns of abscess. At this time patient started vancomycin infectious disease service is consulted. Hemoglobin 7.1. Creatinine 1.28 and bun 20. This time patient denies chest pain or shortness of breath. Patient denies nausea vomiting or diarrhea. Patient denies any urinary burning or frequency On 05/16/2022 patient is alert and oriented 3. Hemoglobin today 7.0 ordered some improvement to redness on right antecubital site. Patient remains on IV vancomycin. Patient also has been resumed on anticoagulation of Xarelto. Ultrasound of bilateral upper extremities rule out SVT and DVTs have been ordered per infectious disease. At this time patient denies chest pain or shortness of breath. Patient denies nausea vomiting or diarrhea. Patient denies any urinary burning or frequency On 05/17/2022 patient is alert and oriented 3. Patient is currently resting comfortably in chair. IV iron ordered per oncology services and further workup for anemia in progress. Patient remains on anticoagulation of Xarelto. Patient remains on IV antibiotic vancomycin infectious disease service is following. At this time patient denies chest pain or shortness breath. Patient denies nausea vomiting or diarrhea. Patient denies any urinary burning or frequency. On 05/18/2022 patient was seen and examined on the medical floor she is alert and oriented in no apparent distress there is no fever or chills no headache or dizziness no chest pain no shortness of breath no cough no nausea or vomiting no abdominal pain no diarrhea and no urinary symptoms, patient was resumed on Xarelto yesterday, hemoglobin today is 7.8, will continue to give IV iron, hematology follow. On 05/19/2022 patient was seen and examined on the medical floor she is alert and oriented 3 in no apparent distress she is complaining of bilateral lower extremity swelling, bilateral antecubital area pain and swelling, and complaining of shortness of breath with activity, hemoglobin today 7.7 there is no fever or chills no headache or dizziness no chest pain no cough no nausea or vomiting no abdominal pain no diarrhea and no urinary symptoms On 05/20/2022 patient is alert and oriented 3. Awaiting lab work. Per infectious disease patient may be DC'd when medically stable on by mouth antibiotics. At this time patient denies chest pain or shortness breath. Patient denies nausea vomiting or diarrhea. Patient denies any urinary burning or frequency Objective - Vital Signs Vital signs: Vital Signs Temp 98.1 F 05/20/22 08:00 Pulse 69 05/20/22 08:00 Resp 18 05/20/22 04:45 BP 103/66 05/20/22 08:00 Pulse Ox 95 05/20/22 08:00 FiO2 21 05/14/22 19:42 Intake & Output 05/19/22 05/20/22 05/20/22 18:59 06:59 18:59 Intake Total 1210 Balance 1210 Weight 140 kg Intake: Oral 1210 Other: Voiding Method Toilet # Voids 2 4 # Bowel Movements 2 - Exam In general patient is alert and oriented x 3 in no distress HEENT head normocephalic and atraumatic Neck is supple no JVD no goiter no lymphadenopathy no carotid bruit Chest examination is clear to auscultation no crackles no wheezing Cardiac exam reveals regular heart sounds S1 and S2 no gallops no murmurs Abdomen is soft nontender no organomegaly with normal bowel sounds Extremity exam reveals 1 + edema no cyanosis or clubbing Neurological examination reveals no gross focal deficits - Labs CBC & Chem 7: 05/19/22 06:22 05/20/22 05:13 Labs: Abnormal Lab Results - Last 24 Hours (Table) 05/19/22 05/19/22 05/19/22 Range/Units 11:23 16:38 20:11 Creatinine (0.52-1.04) mg/dL POC Glucose (mg/dL) 153 H 143 H 240 H (70-110) mg/dL 05/20/22 05/20/22 Range/Units 05:13 06:03 Creatinine 1.36 H (0.52-1.04) mg/dL POC Glucose (mg/dL) 182 H (70-110) mg/dL Microbiology - Last 24 Hours (Table) 05/16/22 07:00 Blood Culture - Preliminary Blood No Growth after 96 hours Assessment and Plan Plan: Anemia, hemoglobin on presentation was 5.0, 2 units of red blood cell transfusion were ordered in the emergency room, stool Hemoccult was positive, gastroenterology consultation was requested History of pulmonary embolism, patient was maintained on Xarelto. Xarelto resumed Underlying history of hypertension Underlying history of COPD Previous history of atrial fibrillation currently patient is in normal sinus rhythm Underlying history of [id number] diabetes mellitus maintained on Jardiance Underlying history of depression Underlying history of morbid obesity Bilateral antecubital fossa pain and swelling. Infectious disease services have been consulted ultrasounds have been ordered to rule out SVT DVT. Patient remains on vancomycin and blood cultures ordered. Vanco has been DC'd patient started on doxycycline Status post units of PRBCs on 05/10/2022 Status post EGD and colonoscopy on 05/12/2022 with finding showing scattered ar eas erythremia and antrum consistent with gastritis and scattered sigmoid diverticulitis with no evidence of active bleeding Home medications reviewed and reordered Infectious disease service is following Hematology service is following for anemia IV Protonix was ordered For DVT prophylaxis Xaeveliato Will follow closely
[2022-05-20 10:46] LABS: Calcium 8.2 mg/dL (8.4-10.2); Potassium 4.2 mmol/L (3.5-5.1); Total Bilirubin 0.6 mg/dL (0.2-1.3); Total Protein 5.7 g/dL (6.3-8.2)
[2022-05-20 11:01] LABS: Anisocytosis Marked; Basophils % (A) 0 %; Eosinophils # (A) 0.1 k/uL (0-0.7); Eosinophils % (A) 2 %; HCT 26.7 % (34.0-46.0); HGB 7.5 gm/dL (11.4-16.0); Hypochromasia Marked; Lymphocytes # (A) 1.2 k/uL (1.0-4.8); Lymphocytes % (A) 17 %; MCH 24.1 pg (25.0-35.0); MCV 85.9 fL (80.0-100.0); Macrocytosis Slight; Mean Platelet Volume 9.1; Microcytosis Slight; Monocytes # (A) 0.7 k/uL (0-1.0); Monocytes % (A) 10 %; Neutrophils # (A) 4.8 k/uL (1.3-7.7); Neutrophils % (A) 69 %; Platelet Count 134 k/uL (150-450); Poikilocytosis Slight; WBC 7.1 k/uL (3.8-10.6)
[2022-05-20 11:03] LABS: RDW 26.8 % (11.5-15.5)
[2022-05-20 11:35] LABS: Glucose,Whole Blood 170 mg/dL (70-110)
[2022-05-20 17:36] LABS: Glucose,Whole Blood 185 mg/dL (70-110)
[2022-05-20] MEDS: RIVAROXABAN 20 MG TAB PO SCH (17:44)
[2022-05-20 20:23] LABS: Glucose,Whole Blood 210 mg/dL (70-110)
[2022-05-20] MEDS: PRAVASTATIN SODIUM 20 MG TAB PO SCH (21:39)
[2022-05-20] MEDS: MONTELUKAST 10 MG TAB PO SCH (21:40)
[2022-05-21] MEDS: FUROSEMIDE 10 MG/ML 2 ML VIAL IV SCH ×4 (01:15→20:24)
[2022-05-21 07:10] LABS: Glucose,Whole Blood 173 mg/dL (70-110)
[2022-05-21] MEDS: VIT A,C & E-LUTEIN-MINERALS 1 EACH TAB PO SCH ×2 (08:30→19:49)
[2022-05-21] MEDS: buPROPion XL 150 MG TAB.ER.24H PO SCH (08:31)
[2022-05-21] MEDS: INSULIN ASPART (NovoLOG) 100 UNIT/ML VIAL SQ SCH ×4 (08:31→19:48)
[2022-05-21] MEDS: PANTOPRAZOLE 40 MG/10 ML VIAL IVP SCH ×2 (08:31→19:53)
[2022-05-21] MEDS: DOXYCYCLINE 100 MG CAP PO SCH ×2 (08:31→19:49)
[2022-05-21] MEDS: lisinopriL 20 MG TAB PO SCH (08:31)
[2022-05-21] MEDS: Empagliflozin [Jardiance] PO SCH (08:31)
[2022-05-21] MEDS: ESCITALOPRAM 20 MG TAB PO SCH (09:17)
[2022-05-21] MEDS: MUPIROCIN 2% OINT 22 GM TUBE TOPICAL SCH ×3 (09:18→20:24)
[2022-05-21 09:31] LABS: African American GFR (CKD) 34.3 (60.0-200.0); Albumin 3.3 g/dL (3.8-4.9); Albumin/Globulin Ratio 1.38 (1.60-3.17); Anion Gap 12.6 mmol/L (10.00-18.00); BUN/Creat Ratio 16.65 Ratio (12.00-20.00); Blood Urea Nitrogen 28.3 mg/dL (9.0-27.0); Calcium 8.5 mg/dL (8.7-10.3); Globulin 2.4 g/dL (1.6-3.3); Non-African American GFR(CKD) 29.6 (60.0-200.0); Potassium 4.1 mmol/L (3.5-5.5); Total Bilirubin 0.5 mg/dL (0.30-1.20); Total Protein 5.7 g/dL (6.2-8.2)
[2022-05-21 10:29] LABS: Anisocytosis (M) 2+; Basophils # (M) 0 X 10*3/uL (0.00-0.10); Eosinophils # (M) 0.12 X 10*3/uL (0.04-0.35); HCT 27.8 % (37.2-46.3); HGB 7.6 g/dL (12.0-15.0); Hypochromasia (M) 2+; Lymphocytes # (M) 1.04 X 10*3/uL (0.90-5.00); MCH 23.2 pg (27.0-32.0); MCHC 27.3 g/dL (32.0-37.0); MCV 84.8 fL (80.0-97.0); Metamyelocytes % 1 % (0-0); Microcytosis (M) 2+; Monocytes # (M) 0.49 X 10*3/uL (0.20-1.00); NRBC Per 100 WBC 0 /100 WBCS (0.0-0.0); Neutrophils # (M) 4.42 X 10*3/uL (2.00-8.90); Neutrophils % (M) 72 %; Platelet Count 163 X 10*3/uL (140-440); RBC 3.28 X 10*6/uL (4.10-5.20); RDW 30.2 % (11.5-14.5); WBC 6.14 X 10*3/uL (4.50-10.00)
[2022-05-21] MEDS: CYANOCOBALAMIN 1,000 MCG/ML 1 ML VIAL IM SCH (11:29)
[2022-05-21 11:51] LABS: Glucose,Whole Blood 228 mg/dL (70-110)
[2022-05-21 16:52] LABS: Glucose,Whole Blood 160 mg/dL (70-110)
[2022-05-21] MEDS: RIVAROXABAN 20 MG TAB PO SCH (17:25)
--- NOTE | 2022-05-21 18:01 | P.PN ---
Subjective Progress Note Date: 05/21/22 Principal diagnosis: anemia In f/u today pt denies any bleeding, she does bruise easily, she had endoscopy with no ulcers or underlying malignancy, occult was positive. She is on xarelto for PE but has been continued on it per her Nursing Resident for a-fib. No other c/o, she is ambulating with walker Objective - Vital Signs Vital signs: Vital Signs Temp 98.2 F 05/21/22 11:47 Pulse 67 05/21/22 11:47 Resp 16 05/21/22 11:47 BP 103/56 05/21/22 11:47 Pulse Ox 95 05/21/22 11:47 FiO2 21 05/14/22 19:42 Intake & Output 05/20/22 05/21/22 05/21/22 18:59 06:59 18:59 Other: Voiding Method Toilet # Voids 1 4 # Bowel Movements 0 - Constitutional General appearance: Present: cooperative, morbidly obese, no acute distress - EENT Eyes: Present: anicteric sclerae, EOMI ENT: Present: hearing grossly normal - Respiratory Respiratory: bilateral: CTA - Cardiovascular Heart sounds: normal: S1, S2 - Peripheral edema leg Peripheral Edema: bilateral: None - Gastrointestinal General gastrointestinal: Present: normal bowel sounds, soft - Integumentary Integumentary Comment(s): thin, spooned shaped nails - Neurologic Neurologic: Present: CNII-XII intact - Musculoskeletal Musculoskeletal: Present: generalized weakness, strength equal bilaterally - Psychiatric Psychiatric: Present: A&O x's 3, appropriate affect, intact judgment & insight - Labs CBC & Chem 7: 05/21/22 05:53 05/21/22 05:53 Labs: Abnormal Lab Results - Last 24 Hours (Table) 05/20/22 05/21/22 05/21/22 Range/Units 20:20 05:53 05:53 RBC 3.28 L (4.10-5.20) X 10*6/uL Hgb 7.6 L (12.0-15.0) g/dL Hct 27.8 L (37.2-46.3) % MCH 23.2 L (27.0-32.0) pg MCHC 27.3 L (32.0-37.0) g/dL RDW 30.2 H (11.5-14.5) % Metamyelocytes % 1 H (0-0) % BUN 28.3 H (9.0-27.0) mg/dL Creatinine 1.7 H (0.6-1.5) mg/dL Est GFR (CKD-EPI)AfAm 34.3 L (60.0-200.0) Est GFR (CKD-EPI)NonAf 29.6 L (60.0-200.0) Glucose 150 H (70-110) mg/dL POC Glucose (mg/dL) 210 H (70-110) mg/dL Calcium 8.5 L (8.7-10.3) mg/dL Alkaline Phosphatase 162 H (41-126) U/L Total Protein 5.7 L (6.2-8.2) g/dL Albumin 3.3 L (3.8-4.9) g/dL Albumin/Globulin Ratio 1.38 L (1.60-3.17) g/dL 05/21/22 05/21/22 05/21/22 Range/Units 07:07 11:49 16:50 RBC (4.10-5.20) X 10*6/uL Hgb (12.0-15.0) g/dL Hct (37.2-46.3) % MCH (27.0-32.0) pg MCHC (32.0-37.0) g/dL RDW (11.5-14.5) % Metamyelocytes % (0-0) % BUN (9.0-27.0) mg/dL Creatinine (0.6-1.5) mg/dL Est GFR (CKD-EPI)AfAm (60.0-200.0) Est GFR (CKD-EPI)NonAf (60.0-200.0) Glucose (70-110) mg/dL POC Glucose (mg/dL) 173 H 228 H 160 H (70-110) mg/dL Calcium (8.7-10.3) mg/dL Alkaline Phosphatase (41-126) U/L Total Protein (6.2-8.2) g/dL Albumin (3.8-4.9) g/dL Albumin/Globulin Ratio (1.60-3.17) g/dL Microbiology - Last 24 Hours (Table) 05/16/22 07:00 Blood Culture - Preliminary Blood No Growth after 120 hours Assessment and Plan (1) History of atrial fibrillation Current Visit: Yes Status: Acute Code(s): Z86.79 - PERSONAL HISTORY OF OTHER DISEASES OF THE CIRCULATORY SYSTEM SNOMED Code(s): 681381343 (2) History of pulmonary embolism Current Visit: Yes Status: Acute Code(s): Z86.711 - PERSONAL HISTORY OF PULMONARY EMBOLISM SNOMED Code(s): 706621809 (3) Iron deficiency anemia Current Visit: Yes Status: Acute Code(s): D50.9 - IRON DEFICIENCY ANEMIA, UNSPECIFIED SNOMED Code(s): 76814932 Plan: EGD/colon neg. Suspect AVM bleeding as source, chronic blood losses, exacerbate d by anticoagulation. 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 Iron deficiency-parenteral iron ordered. B12 low normal, elevated MMA, suggesting malabsorption. B12 injections ordered. Plan for f/u with Hematology for iron and B12. All pt questions answered to her satisfaction
[2022-05-21 19:45] LABS: Glucose,Whole Blood 205 mg/dL (70-110)
[2022-05-21] MEDS: MONTELUKAST 10 MG TAB PO SCH (19:49)
[2022-05-21] MEDS: PRAVASTATIN SODIUM 20 MG TAB PO SCH (20:22)
[2022-05-21 20:34] VITALS: RESP 18
[2022-05-22] MEDS ORDERED: LEVOTHYROXINE 25 MCG TAB PO SCH (06:30)
[2022-05-22 07:05] LABS: Glucose,Whole Blood 162 mg/dL (70-110)
--- NOTE | 2022-05-22 07:24 | P.PN ---
Subjective Progress Note Date: 05/20/22 Principal diagnosis: Bilateral upper extremity IV site phlebitis Patient is a 72 year female presented to hospital with weakness shortness of breath noticed to have a low hemoglobin status post upper and lower GI with evidence of gastritis patient subsequently developing pain and swelling the bilateral antecubital fossa on the IV, patient did have ultrasound with evid ence of left-sided phlebitis. On today's evaluation that is 05/20/2022, the patient continues to be afebrile, the patient pain and swelling to the left upper arm has decreased in intensity, the patient denies chest pain shortness of breath or cough, the patient denies having abdominal pain and no diarrhea Objective - Vital Signs Vital signs: Vital Signs Temp 97.9 F 05/20/22 16:38 Pulse 77 05/20/22 16:38 Resp 16 05/20/22 16:38 BP 121/53 05/20/22 16:38 Pulse Ox 97 05/20/22 16:38 FiO2 21 05/14/22 19:42 Intake & Output 05/19/22 05/20/22 05/20/22 18:59 06:59 18:59 Intake Total 1210 Balance 1210 Weight 140 kg Intake: Oral 1210 Other: Voiding Method Toilet # Voids 2 4 2 # Bowel Movements 2 - Exam GENERAL DESCRIPTION: An elderly female lying in bed in no distress RESPIRATORY SYSTEM: Unlabored breathing , decreased breath sounds at bases HEART: S1 S2 regular rate and rhythm , ABDOMEN: Soft , no tenderness EXTREMITIES: Bilateral upper extremity especially at the antecubital fossa did have some induration which has decreased in intensity - Labs CBC & Chem 7: 05/21/22 05:53 05/21/22 05:53 Labs: Abnormal Lab Results - Last 24 Hours (Table) 05/19/22 05/19/22 05/20/22 Range/Units 16:38 20:11 05:13 RBC (3.80-5.40) m/uL Hgb (11.4-16.0) gm/dL Hct (34.0-46.0) % MCH (25.0-35.0) pg MCHC (31.0-37.0) g/dL RDW (11.5-15.5) % Plt Count (150-450) k/uL Sodium (137-145) mmol/L BUN (7-17) mg/dL Creatinine 1.36 H (0.52-1.04) mg/dL Glucose (74-99) mg/dL POC Glucose (mg/dL) 143 H 240 H (70-110) mg/dL Calcium (8.4-10.2) mg/dL AST (14-36) U/L Alkaline Phosphatase (38-126) U/L Total Protein (6.3-8.2) g/dL Albumin (3.5-5.0) g/dL 05/20/22 05/20/22 05/20/22 Range/Units 05:13 05:13 06:03 RBC 3.10 L (3.80-5.40) m/uL Hgb 7.5 L (11.4-16.0) gm/dL Hct 26.7 L (34.0-46.0) % MCH 24.1 L (25.0-35.0) pg MCHC 28.0 L (31.0-37.0) g/dL RDW 26.8 H (11.5-15.5) % Plt Count 134 L (150-450) k/uL Sodium 135 L (137-145) mmol/L BUN 27 H (7-17) mg/dL Creatinine 1.33 H (0.52-1.04) mg/dL Glucose 162 H (74-99) mg/dL POC Glucose (mg/dL) 182 H (70-110) mg/dL Calcium 8.2 L (8.4-10.2) mg/dL AST 48 H (14-36) U/L Alkaline Phosphatase 163 H (38-126) U/L Total Protein 5.7 L (6.3-8.2) g/dL Albumin 3.0 L (3.5-5.0) g/dL 05/20/22 Range/Units 11:34 RBC (3.80-5.40) m/uL Hgb (11.4-16.0) gm/dL Hct (34.0-46.0) % MCH (25.0-35.0) pg MCHC (31.0-37.0) g/dL RDW (11.5-15.5) % Plt Count (150-450) k/uL Sodium (137-145) mmol/L BUN (7-17) mg/dL Creatinine (0.52-1.04) mg/dL Glucose (74-99) mg/dL POC Glucose (mg/dL) 170 H (70-110) mg/dL Calcium (8.4-10.2) mg/dL AST (14-36) U/L Alkaline Phosphatase (38-126) U/L Total Protein (6.3-8.2) g/dL Albumin (3.5-5.0) g/dL Microbiology - Last 24 Hours (Table) 05/16/22 07:00 Blood Culture - Preliminary Blood No Growth after 96 hours Assessment and Plan (1) Cellulitis Current Visit: Yes Status: Acute Code(s): L03.90 - CELLULITIS, UNSPECIFIED SNOMED Code(s): 384622156 Plan: 1patient with bilateral antecubital fossa pain swelling and induration from an IV which has been discontinued and concern for possible SVT clinic not behaving as a abscess or cellulitis though not entirely excluded. 2 ultrasound of the bilateral upper extremity did show evidence of SVT , patient advised cold Compression and keep the area elevated 3the patient blood cultures are negative 4patient to continue with oral doxycycline and monitor clinical course closely
--- NOTE | 2022-05-22 07:26 | P.PN ---
Subjective Progress Note Date: 05/21/22 Principal diagnosis: Bilateral upper extremity IV site phlebitis Patient is a 72 year female presented to hospital with weakness shortness of breath noticed to have a low hemoglobin status post upper and lower GI with evidence of gastritis patient subsequently developing pain and swelling the bilateral antecubital fossa on the IV, patient did have ultrasound with evid ence of left-sided phlebitis. On today's evaluation that is 05/21/2022, the patient denies any fever or chills, the patient induration and swelling to the left upper arm has significantly decreased in intensity and the patient denies pain to the left antecubital fossa, the patient denies chest pain shortness of breath or cough, the patient denies having abdominal pain and no diarrhea Objective - Vital Signs Vital signs: Vital Signs Temp 97.5 F L 05/21/22 05:00 Pulse 72 05/21/22 05:00 Resp 16 05/21/22 05:00 BP 138/68 05/21/22 05:00 Pulse Ox 94 L 05/21/22 05:00 FiO2 21 05/14/22 19:42 Intake & Output 05/20/22 05/21/22 05/21/22 18:59 06:59 18:59 Other: Voiding Method Toilet # Voids 1 4 # Bowel Movements 0 - Exam GENERAL DESCRIPTION: An elderly female lying in bed in no distress RESPIRATORY SYSTEM: Unlabored breathing , decreased breath sounds at bases HEART: S1 S2 regular rate and rhythm , ABDOMEN: Soft , no tenderness EXTREMITIES: Bilateral upper extremity especially at the antecubital fossa did have some induration which has decreased in intensity - Labs CBC & Chem 7: 05/21/22 05:53 05/21/22 05:53 Labs: Abnormal Lab Results - Last 24 Hours (Table) 05/20/22 05/20/22 05/21/22 Range/Units 17:35 20:20 05:53 RBC 3.28 L (4.10-5.20) X 10*6/uL Hgb 7.6 L (12.0-15.0) g/dL Hct 27.8 L (37.2-46.3) % MCH 23.2 L (27.0-32.0) pg MCHC 27.3 L (32.0-37.0) g/dL RDW 30.2 H (11.5-14.5) % Metamyelocytes % 1 H (0-0) % BUN (9.0-27.0) mg/dL Creatinine (0.6-1.5) mg/dL Est GFR (CKD-EPI)AfAm (60.0-200.0) Est GFR (CKD-EPI)NonAf (60.0-200.0) Glucose (70-110) mg/dL POC Glucose (mg/dL) 185 H 210 H (70-110) mg/dL Calcium (8.7-10.3) mg/dL Alkaline Phosphatase (41-126) U/L Total Protein (6.2-8.2) g/dL Albumin (3.8-4.9) g/dL Albumin/Globulin Ratio (1.60-3.17) g/dL 05/21/22 05/21/22 05/21/22 Range/Units 05:53 07:07 11:49 RBC (4.10-5.20) X 10*6/uL Hgb (12.0-15.0) g/dL Hct (37.2-46.3) % MCH (27.0-32.0) pg MCHC (32.0-37.0) g/dL RDW (11.5-14.5) % Metamyelocytes % (0-0) % BUN 28.3 H (9.0-27.0) mg/dL Creatinine 1.7 H (0.6-1.5) mg/dL Est GFR (CKD-EPI)AfAm 34.3 L (60.0-200.0) Est GFR (CKD-EPI)NonAf 29.6 L (60.0-200.0) Glucose 150 H (70-110) mg/dL POC Glucose (mg/dL) 173 H 228 H (70-110) mg/dL Calcium 8.5 L (8.7-10.3) mg/dL Alkaline Phosphatase 162 H (41-126) U/L Total Protein 5.7 L (6.2-8.2) g/dL Albumin 3.3 L (3.8-4.9) g/dL Albumin/Globulin Ratio 1.38 L (1.60-3.17) g/dL Microbiology - Last 24 Hours (Table) 05/16/22 07:00 Blood Culture - Preliminary Blood No Growth after 120 hours Assessment and Plan (1) Cellulitis Current Visit: Yes Status: Acute Code(s): L03.90 - CELLULITIS, UNSPECIFIED SNOMED Code(s): 803173734 Plan: 1patient with bilateral antecubital fossa pain swelling and induration from an IV which has been discontinued and concern for possible SVT clinic not behaving as a abscess or cellulitis though not entirely excluded. 2 ultrasound of the bilateral upper extremity did show evidence of SVT , patient advised cold Compression and keep the area elevated 3the patient blood cultures are negative 4patient seemed to showing overall clinical Improvement and will continue with oral doxycycline and monitor clinical course closely
[2022-05-22] MEDS: VIT A,C & E-LUTEIN-MINERALS 1 EACH TAB PO SCH (08:06)
[2022-05-22] MEDS: ESCITALOPRAM 20 MG TAB PO SCH (08:07)
[2022-05-22] MEDS: buPROPion XL 150 MG TAB.ER.24H PO SCH (08:07)
[2022-05-22] MEDS: lisinopriL 20 MG TAB PO SCH (08:07)
[2022-05-22] MEDS: CYANOCOBALAMIN 1,000 MCG/ML 1 ML VIAL IM SCH (08:07)
[2022-05-22] MEDS: FUROSEMIDE 10 MG/ML 2 ML VIAL IV SCH (08:07)
[2022-05-22] MEDS: DOXYCYCLINE 100 MG CAP PO SCH (08:07)
[2022-05-22] MEDS: Empagliflozin [Jardiance] PO SCH (08:08)
[2022-05-22] MEDS: INSULIN ASPART (NovoLOG) 100 UNIT/ML VIAL SQ SCH ×2 (08:08→13:15)
[2022-05-22] MEDS: PANTOPRAZOLE 40 MG/10 ML VIAL IVP SCH (08:08)
[2022-05-22] MEDS: MUPIROCIN 2% OINT 22 GM TUBE TOPICAL SCH (08:09)
[2022-05-22 11:18] LABS: African American GFR (CKD) 40.3 (60.0-200.0); Albumin 3.3 g/dL (3.8-4.9); Albumin/Globulin Ratio 1.27 (1.60-3.17); Anion Gap 12.5 mmol/L (10.00-18.00); BUN/Creat Ratio 20.27 Ratio (12.00-20.00); Blood Urea Nitrogen 30.2 mg/dL (9.0-27.0); Calcium 8.6 mg/dL (8.7-10.3); Carbon Dioxide 27.4 mmol/L (20.0-27.5); Globulin 2.6 g/dL (1.6-3.3); Non-African American GFR(CKD) 34.7 (60.0-200.0); Potassium 4.2 mmol/L (3.5-5.5); Total Bilirubin 0.4 mg/dL (0.30-1.20); Total Protein 5.9 g/dL (6.2-8.2)
[2022-05-22 11:28] LABS: Basophils # (A) 0.05 X 10*3/uL (0.00-0.10); Basophils % (A) 0.9 %; Eosinophils # (A) 0.16 X 10*3/uL (0.04-0.35); Eosinophils % (A) 2.9 %; HCT 27.6 % (37.2-46.3); HGB 7.6 g/dL (12.0-15.0); Immature Grans, Automated 0.9 %; Lymphocytes # (A) 1.36 X 10*3/uL (0.90-5.00); Lymphocytes % (A) 24.5 %; MCH 23.1 pg (27.0-32.0); MCHC 27.5 g/dL (32.0-37.0); MCV 83.9 fL (80.0-97.0); Mean Platelet Volume 11.3 fL (9.5-12.2); Monocytes # (A) 0.67 X 10*3/uL (0.20-1.00); Monocytes % (A) 12.1 %; NRBC Per 100 WBC 0 /100 WBCS (0.0-0.0); Neutrophils # (A) 3.26 X 10*3/uL (1.80-7.70); Neutrophils % (A) 58.7 %; Platelet Count 170 X 10*3/uL (140-440); RBC 3.29 X 10*6/uL (4.10-5.20); RDW 30.4 % (11.5-14.5); WBC 5.55 X 10*3/uL (4.50-10.00)
[2022-05-22 12:00] LABS: Glucose,Whole Blood 163 mg/dL (70-110)
[2022-05-22] MEDS ORDERED: SODIUM FERRIC GLUCONAT-SUCROSE 125 MG in SODIUM CHLORIDE 0.9% 100 ML IVPB SCH (12:30)
--- NOTE | 2022-05-22 12:33 | P.PN ---
Subjective Progress Note Date: 05/21/22 Patient is a 72-year-old female who presented to [facility] emergency room with a chief complaint of severe anemia, patient was seen by her primary care physician Dr. Bashir for a routine visit and for complaints of episodes of chills and fatigue, her blood test revealed a hemoglobin of 5.0 patient was directly to emergency room. She was evaluated in the emergency room vital examination on presentation revealed a temperature of 99.4 pulse 65 respiration 18 blood pressure 126/54 pulse ox 100% on 2 L nasal cannula Laboratory data reveals a white blood count of 7.1 hemoglobin 5.0 platelet count 192 INR 1.2 BUN 43 creatinine 1.93 stools occult blood was positive Testing in the emergency room revealed EKG done in the emergency room revealed sinus rhythm with sinus arrhythmia and nonspecific T-wave abnormalities Patient was admitted to medical floor for further evaluation and treatment Past medical history is significant for history of pulmonary embolism patient was maintained on Xarelto 20 mg daily for the last 5 years, her last dose was yesterday, she also had a history of atrial fibrillation with episodes of rapid ventricular response, she had cardioversion in the past, she has a history of hypertension, history of COPD, history of diabetes mellitus, underlying history of morbid obesity, and history of depression Patient used to smoke she quit about 10 years ago, she drinks alcohol rarely On 05/11/2022 patient is alert and oriented 3. Patient received 2 units of PRBCs yesterday awaiting hemoglobin repeat this AM. Did discuss with GI services nurse practitioner plans for EGD and colonoscopy tomorrow 05/12/2022. We'll continue to monitor hemoglobin closely and transfuse as needed. Patient denies any nausea vomiting or diarrhea or signs of bleeding. Patient does reports she still feels tired. Patient denies chest pain or shortness of breath. Patient denies any urinary burning or frequency. On 05/12/2022 patient was seen and examined on the medical floor she is alert and oriented 3 in no apparent distress she underwent EGD and colonoscopy this morn ing that revealed evidence of gastritis and mild diverticulosis no active bleeding, patient received 2 units of red blood cells yesterday hemoglobin is 6.1, she will receive 1 more unit of red blood cells today Will continue to monitor. 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, she also has a history of atrial fibrillation, at this time will restart Xarelto, will continue to monitor hemoglobin, will give 1 dose of IV iron today On 05/14/2022 patient was seen and examined on the medical floor she is alert and oriented in no apparent distress there is no fever or chills no headache or dizziness no chest pain no shortness of breath no cough no nausea or vomiting no abdominal pain no diarrhea and no urinary symptoms, patient was resumed on Xarelto yesterday, hemoglobin today is 7.2, will continue to give IV iron, possible discharge to home tomorrow On 05/15/2022 patient is alert and oriented 3. Patient having increased redness to bilateral antecubital sites where IVs were concerns of abscess. At this time patient started vancomycin infectious disease service is consulted. Hemoglobin 7.1. Creatinine 1.28 and bun 20. This time patient denies chest pain or shortness of breath. Patient denies nausea vomiting or diarrhea. Patient denies any urinary burning or frequency On 05/16/2022 patient is alert and oriented 3. Hemoglobin today 7.0 ordered some improvement to redness on right antecubital site. Patient remains on IV vancomycin. Patient also has been resumed on anticoagulation of Xarelto. Ultrasound of bilateral upper extremities rule out SVT and DVTs have been ordered per infectious disease. At this time patient denies chest pain or shortness of breath. Patient denies nausea vomiting or diarrhea. Patient denies any urinary burning or frequency On 05/17/2022 patient is alert and oriented 3. Patient is currently resting comfortably in chair. IV iron ordered per oncology services and further workup for anemia in progress. Patient remains on anticoagulation of Xarelto. Patient remains on IV antibiotic vancomycin infectious disease service is following. At this time patient denies chest pain or shortness breath. Patient denies nausea vomiting or diarrhea. Patient denies any urinary burning or frequency. On 05/18/2022 patient was seen and examined on the medical floor she is alert and oriented in no apparent distress there is no fever or chills no headache or dizziness no chest pain no shortness of breath no cough no nausea or vomiting no abdominal pain no diarrhea and no urinary symptoms, patient was resumed on Xarelto yesterday, hemoglobin today is 7.8, will continue to give IV iron, hematology follow. On 05/19/2022 patient was seen and examined on the medical floor she is alert and oriented 3 in no apparent distress she is complaining of bilateral lower extremity swelling, bilateral antecubital area pain and swelling, and complaining of shortness of breath with activity, hemoglobin today 7.7 there is no fever or chills no headache or dizziness no chest pain no cough no nausea or vomiting no abdominal pain no diarrhea and no urinary symptoms On 05/20/2022 patient is alert and oriented 3. Awaiting lab work. Per infectious disease patient may be DC'd when medically stable on by mouth antibiotics. At this time patient denies chest pain or shortness breath. Patient denies nausea vomiting or diarrhea. Patient denies any urinary burning or frequency On 05/21/2022 patient is alert and oriented in no distress. Per infectious disease patient medically stable for discharge on oral antibiotics. At this time patient denies chest pain or shortness breath. Patient denies nausea vomiting or diarrhea. Patient denies any urinary burning or frequency Objective - Vital Signs Vital signs: Vital Signs Temp 98.2 F 05/21/22 11:47 Pulse 67 05/21/22 11:47 Resp 16 05/21/22 11:47 BP 103/56 05/21/22 11:47 Pulse Ox 95 05/21/22 11:47 FiO2 21 05/14/22 19:42 Intake & Output 05/20/22 05/21/22 05/21/22 18:59 06:59 18:59 Other: Voiding Method Toilet # Voids 1 4 # Bowel Movements 0 - Exam In general patient is alert and oriented x 3 in no distress HEENT head normocephalic and atraumatic Neck is supple no JVD no goiter no lymphadenopathy no carotid bruit Chest examination is clear to auscultation no crackles no wheezing Cardiac exam reveals regular heart sounds S1 and S2 no gallops no murmurs Abdomen is soft nontender no organomegaly with normal bowel sounds Extremity exam reveals 1 + edema no cyanosis or clubbing Neurological examination reveals no gross focal deficits - Labs CBC & Chem 7: 05/22/22 06:45 05/22/22 06:45 Labs: Abnormal Lab Results - Last 24 Hours (Table) 05/20/22 05/21/22 05/21/22 Range/Units 20:20 05:53 05:53 RBC 3.28 L (4.10-5.20) X 10*6/uL Hgb 7.6 L (12.0-15.0) g/dL Hct 27.8 L (37.2-46.3) % MCH 23.2 L (27.0-32.0) pg MCHC 27.3 L (32.0-37.0) g/dL RDW 30.2 H (11.5-14.5) % Metamyelocytes % 1 H (0-0) % BUN 28.3 H (9.0-27.0) mg/dL Creatinine 1.7 H (0.6-1.5) mg/dL Est GFR (CKD-EPI)AfAm 34.3 L (60.0-200.0) Est GFR (CKD-EPI)NonAf 29.6 L (60.0-200.0) Glucose 150 H (70-110) mg/dL POC Glucose (mg/dL) 210 H (70-110) mg/dL Calcium 8.5 L (8.7-10.3) mg/dL Alkaline Phosphatase 162 H (41-126) U/L Total Protein 5.7 L (6.2-8.2) g/dL Albumin 3.3 L (3.8-4.9) g/dL Albumin/Globulin Ratio 1.38 L (1.60-3.17) g/dL 05/21/22 05/21/22 05/21/22 Range/Units 07:07 11:49 16:50 RBC (4.10-5.20) X 10*6/uL Hgb (12.0-15.0) g/dL Hct (37.2-46.3) % MCH (27.0-32.0) pg MCHC (32.0-37.0) g/dL RDW (11.5-14.5) % Metamyelocytes % (0-0) % BUN (9.0-27.0) mg/dL Creatinine (0.6-1.5) mg/dL Est GFR (CKD-EPI)AfAm (60.0-200.0) Est GFR (CKD-EPI)NonAf (60.0-200.0) Glucose (70-110) mg/dL POC Glucose (mg/dL) 173 H 228 H 160 H (70-110) mg/dL Calcium (8.7-10.3) mg/dL Alkaline Phosphatase (41-126) U/L Total Protein (6.2-8.2) g/dL Albumin (3.8-4.9) g/dL Albumin/Globulin Ratio (1.60-3.17) g/dL Microbiology - Last 24 Hours (Table) 05/16/22 07:00 Blood Culture - Preliminary Blood No Growth after 120 hours Assessment and Plan Plan: Anemia, hemoglobin on presentation was 5.0, 2 units of red blood cell [place] sfusion were ordered in the emergency room, stool Hemoccult was positive, gastroenterology consultation was requested History of pulmonary embolism, patient was maintained on Xarelto. Xarelto resumed Underlying history of hypertension Underlying history of COPD Previous history of atrial fibrillation currently patient is in normal sinus rhythm Underlying history of [id number] diabetes mellitus maintained on Jardiance Underlying history of depression Underlying history of morbid obesity Bilateral antecubital fossa pain and swelling. Infectious disease services have been consulted ultrasounds have been ordered to rule out SVT DVT. Patient remains on vancomycin and blood cultures ordered. Antoinette has been DC'd patient started on doxycycline Status post units of PRBCs on 05/10/2022 Status post EGD and colonoscopy on 05/12/2022 with finding showing scattered areas erythremia and antrum consistent with gastritis and scattered sigmoid diverticulitis with no evidence of active bleeding Home medications reviewed and reordered Infectious disease service is following Hematology service is following for anemia IV Protonix was ordered For DVT prophylaxis Xarelto Will follow closely
[2022-05-22 12:47] VITALS: BP 146/71; PULSE 67; TEMP 98.1
--- NOTE | 2022-05-22 14:08 | P.DS ---
Providers Date of admission: 05/10/22 14:08 Expected date of discharge: 05/22/22 Attending physician: Sonya Wray Consults: 05/10/22 14:08 Consult Physician Urgent Consulting Provider: Albertina Bahena Consult Reason/Comments: Anemia Do you want consulting provider notified?: Yes 05/15/22 15:25 Consult Physician Routine Consulting Provider: Jo-Ann Garza Consult Reason/Comments: bilateral anticubital infection Do you want consulting provider notified?: Yes 05/16/22 16:41 Consult Physician Routine Consulting Provider: Matt Mitchell Consult Reason/Comments: anemia Do you want consulting provider notified?: Yes Primary care physician: Arabella Bashir Hospital Course: Diagnosis on discharge: Anemia, hemoglobin on presentation was 5.0, 2 units of red blood cell transfusion were ordered in the emergency room, stool Hemoccult was positive, gastroenterology consultation was requested History of pulmonary embolism, patient was maintained on Xarelto. Xarelto resumed Underlying history of hypertension Underlying history of COPD Previous history of atrial fibrillation currently patient is in normal sinus rhythm Underlying history of pnv-[id number]-dygbhwuag diabetes mellitus maintained on Jardiance Underlying history of depression Underlying history of morbid obesity Bilateral antecubital fossa pain and swelling. Infectious disease services have been consulted ultrasounds have been ordered to rule out SVT DVT. Patient remains on vancomycin and blood cultures ordered. Antoinette has been DC'd patient started on doxycycline Hospital course: Patient is a 72-year-old female who presented to [facility] emergency room with a chief complaint of severe anemia, patient was seen by her primary care physician Dr. Bashir for a routine visit and for complaints of episodes of chills and fatigue, her blood test revealed a hemoglobin of 5.0 patient was directly to emergency room. She was evaluated in the emergency room vital examination on presentation revealed a temperature of 99.4 pulse 65 respiration 18 blood pressure 126/54 pulse ox 100% on 2 L nasal cannula Laboratory data reveals a white blood count of 7.1 hemoglobin 5.0 platelet count 192 INR 1.2 BUN 43 creatinine 1.93 stools occult blood was positive Testing in the emergency room revealed EKG done in the emergency room revealed sinus rhythm with sinus arrhythmia and nonspecific T-wave abnormalities Patient was admitted to medical floor for further evaluation and treatment Past medical history is significant for history of pulmonary embolism patient was maintained on Xarelto 20 mg daily for the last 5 years, her last dose was yesterday, she also had a history of atrial fibrillation with episodes of rapid ventricular response, she had cardioversion in the past, she has a history of hypertension, history of COPD, history of diabetes mellitus, underlying history of morbid obesity, and history of depression Patient used to smoke she quit about 10 years ago, she drinks alcohol rarely On 05/11/2022 patient is alert and oriented 3. Patient received 2 units of PRBCs yesterday awaiting hemoglobin repeat this AM. Did discuss with GI services nurse practitioner plans for EGD and colonoscopy tomorrow 05/12/2022. We'll continue to monitor hemoglobin closely and transfuse as needed. Patient denies any nausea vomiting or diarrhea or signs of bleeding. Patient does reports she still feels tired. Patient denies chest pain or shortness of breath. Patient denies any urinary burning or frequency. On 05/12/2022 patient was seen and examined on the medical floor she is alert and oriented 3 in no apparent distress she underwent EGD and colonoscopy this morning that revealed evidence of gastritis and mild diverticulosis no active bleeding, patient received 2 units of red blood cells yesterday hemoglobin is 6.1, she will receive 1 more unit of red blood cells today Will continue to monitor. 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, she also has a history of atrial fibrillation, at this time will restart Xarelto, will continue to monitor hemoglobin, will give 1 dose of IV iron today On 05/14/2022 patient was seen and examined on the medical floor she is alert and oriented in no apparent distress there is no fever or chills no headache or dizziness no chest pain no shortness of breath no cough no nausea or vomiting no abdominal pain no diarrhea and no urinary symptoms, patient was resumed on Xarelto yesterday, hemoglobin today is 7.2, will continue to give IV iron, possible discharge to home tomorrow On 05/15/2022 patient is alert and oriented 3. Patient having increased redness to bilateral antecubital sites where IVs were concerns of abscess. At this time patient started vancomycin infectious disease service is consulted. Hemoglobin 7.1. Creatinine 1.28 and bun 20. This time patient denies chest pain or shortness of breath. Patient denies nausea vomiting or diarrhea. Patient denies any urinary burning or frequency On 05/16/2022 patient is alert and oriented 3. Hemoglobin today 7.0 ordered some improvement to redness on right antecubital site. Patient remains on IV vancomycin. Patient also has been resumed on anticoagulation of Xarelto. Ultrasound of bilateral upper extremities rule out SVT and DVTs have been ordered per infectious disease. At this time patient denies chest pain or shortness of breath. Patient denies nausea vomiting or diarrhea. Patient denies any urinary burning or frequency On 05/17/2022 patient is alert and oriented 3. Patient is currently resting comfortably in chair. IV iron ordered per oncology services and further workup for anemia in progress. Patient remains on anticoagulation of Xarelto. Patient remains on IV antibiotic vancomycin infectious disease service is following. At this time patient denies chest pain or shortness breath. Patient denies nausea vomiting or diarrhea. Patient denies any urinary burning or frequency. On 05/18/2022 patient was seen and examined on the medical floor she is alert and oriented in no apparent distress there is no fever or chills no headache or dizziness no chest pain no shortness of breath no cough no nausea or vomiting no abdominal pain no diarrhea and no urinary symptoms, patient was resumed on Xarelto yesterday, hemoglobin today is 7.8, will continue to give IV iron, hematology follow. On 05/19/2022 patient was seen and examined on the medical floor she is alert and oriented 3 in no apparent distress she is complaining of bilateral lower extremity swelling, bilateral antecubital area pain and swelling, and complaining of shortness of breath with activity, hemoglobin today 7.7 there is no fever or chills no headache or dizziness no chest pain no cough no nausea or vomiting no abdominal pain no diarrhea and no urinary symptoms On 05/20/2022 patient is alert and oriented 3. Awaiting lab work. Per infectious disease patient may be DC'd when medically stable on by mouth antibiotics. At this time patient denies chest pain or shortness breath. Patient denies nausea vomiting or diarrhea. Patient denies any urinary burning or frequency On 05/21/2022 patient is alert and oriented in no distress. Per infectious disease patient medically stable for discharge on oral antibiotics. At this time patient denies chest pain or shortness breath. Patient denies nausea vomiting or diarrhea. Patient denies any urinary burning or frequency Plan - Discharge Summary Discharge Rx Participant: No New Discharge Prescriptions: New lisinopriL [Zestril] 20 mg PO DAILY tab Doxycycline [Vibramycin] 100 mg PO BID 7 Days #14 cap Continue Pravastatin Sodium [Pravachol] 20 mg PO HS Montelukast [Singulair] 10 mg PO HS [place]-3 Fatty Acids/Fish Oil [Fish Oil 1,000 mg Softgel] 1 cap PO DAILY Omeprazole 20 mg PO DAILY Biotin 10,000 mcg PO DAILY Escitalopram [Lexapro] 20 mg PO DAILY Cyclobenzaprine [Flexeril] 10 mg PO TID PRN PRN Reason: Muscle Spasm Calcium Carbonate [Calcium] 600 mg PO DAILY Cholecalciferol [Vitamin D3 (25 Mcg = 1000 Iu)] 50 mcg PO DAILY Ubidecarenone [Co Q-10] 200 mg PO DAILY Vit C/E/Zn/Coppr/Lutein/Zeaxan [Preservision Areds 2 Softgel] 1 cap PO BID Empagliflozin [Jardiance] 25 mg PO DAILY buPROPion XL [Wellbutrin XL] 150 mg PO DAILY Rivaroxaban [Xarelto] 20 mg PO W/SUPPER Levothyroxine Sodium [Synthroid] 25 mcg PO DAILY Discontinued Enalapril [Vasotec] 10 mg PO DAILY Discharge Medication List Montelukast [Singulair] 10 mg PO HS 02/04/17 [History] [place]-3 Fatty Acids/Fish Oil [Fish Oil 1,000 mg Softgel] 1 cap PO DAILY 02/04/17 [History] Pravastatin Sodium [Pravachol] 20 mg PO HS 02/04/17 [History] Omeprazole 20 mg PO DAILY 04/24/17 [History] Biotin 10,000 mcg PO DAILY 04/11/20 [History] Calcium Carbonate [Calcium] 600 mg PO DAILY 04/11/20 [History] Cholecalciferol [Vitamin D3 (25 Mcg = 1000 Iu)] 50 mcg PO DAILY 04/11/20 [History] Cyclobenzaprine [Flexeril] 10 mg PO TID PRN 04/11/20 [History] Escitalopram [Lexapro] 20 mg PO DAILY 04/11/20 [History] Ubidecarenone [Co Q-10] 200 mg PO DAILY 04/11/20 [History] Vit C/E/Zn/Coppr/Lutein/Zeaxan [Preservision Areds 2 Softgel] 1 cap PO BID 0 04/11/20 [History] Empagliflozin [Jardiance] 25 mg PO DAILY 05/10/22 [History] Rivaroxaban [Xarelto] 20 mg PO W/SUPPER 05/10/22 [History] buPROPion XL [Wellbutrin XL] 150 mg PO DAILY 05/10/22 [History] Levothyroxine Sodium [Synthroid] 25 mcg PO DAILY 05/21/22 [History] Doxycycline [Vibramycin] 100 mg PO BID 7 Days #14 cap 05/22/22 [Rx] lisinopriL [Zestril] 20 mg PO DAILY tab 05/22/22 [Rx] Follow up Appointment(s)/Referral(s): Arabella Bashir MD [Primary Care Provider] - 05/30/22 11:00 am [facility] Visiting Nurse, [NON-STAFF] - Susan Altman MD [STAFF PHYSICIAN] - 6 Weeks (office will call the patient with time and date of appt.) Activity/Diet/Wound Care/Special Instructions: [facility] - [phone] Omi - call to inquire about patient assistance program - [phone]
--- NOTE | 2022-05-22 14:49 | P.PN ---
Subjective Progress Note Date: 05/22/22 Principal diagnosis: anemia In f/u today pt states she is being discharged home. She has no acute complaints. She has been resumed on her anticoagulation. She denies any visibl e bleeding. Her hemoglobin is stable today. His tolerated IV iron, a sixth dose is being given today. She is also received B12 3. Objective - Vital Signs Vital signs: Vital Signs Temp 98.1 F 05/22/22 12:10 Pulse 67 05/22/22 12:10 Resp 18 05/22/22 12:10 BP 146/71 05/22/22 12:10 Pulse Ox 96 05/22/22 12:10 FiO2 21 05/14/22 19:42 Intake & Output 05/21/22 05/22/22 05/22/22 18:59 06:59 18:59 Intake Total 400 236 Balance 400 236 Intake: Oral 400 236 Other: Voiding Method Toilet Toilet # Voids 6 6 5 - Constitutional General appearance: Present: cooperative, no acute distress, obese - EENT Eyes: Present: anicteric sclerae, EOMI ENT: Present: hearing grossly normal - Respiratory Respiratory: bilateral: CTA - Cardiovascular Rhythm: regular Heart sounds: normal: S1, S2 Abnormal Heart Sounds: Absent: systolic murmur, diastolic murmur, rub, S3 Gallop, S4 Gallop, click, other - Gastrointestinal General gastrointestinal: Present: normal bowel sounds, soft - Integumentary Integumentary: Present: normal - Neurologic Neurologic: Present: CNII-XII intact - Musculoskeletal Musculoskeletal: Present: strength equal bilaterally - Psychiatric Psychiatric: Present: A&O x's 3, appropriate affect, intact judgment & insight - Labs CBC & Chem 7: 05/22/22 06:45 05/22/22 06:45 Labs: Abnormal Lab Results - Last 24 Hours (Table) 05/21/22 05/21/22 05/22/22 Range/Units 16:50 19:39 06:45 RBC 3.29 L (4.10-5.20) X 10*6/uL Hgb 7.6 L (12.0-15.0) g/dL Hct 27.6 L (37.2-46.3) % MCH 23.1 L (27.0-32.0) pg MCHC 27.5 L (32.0-37.0) g/dL RDW 30.4 H (11.5-14.5) % Immature Gran # 0.05 H (0.00-0.04) X 10*3/uL BUN (9.0-27.0) mg/dL Est GFR (CKD-EPI)AfAm (60.0-200.0) Est GFR (CKD-EPI)NonAf (60.0-200.0) BUN/Creatinine Ratio (12.00-20.00) Ratio Glucose (70-110) mg/dL POC Glucose (mg/dL) 160 H 205 H (70-110) mg/dL Calcium (8.7-10.3) mg/dL AST (13-35) U/L Alkaline Phosphatase (41-126) U/L Total Protein (6.2-8.2) g/dL Albumin (3.8-4.9) g/dL Albumin/Globulin Ratio (1.60-3.17) g/dL 05/22/22 05/22/22 05/22/22 Range/Units 06:45 07:03 11:58 RBC (4.10-5.20) X 10*6/uL Hgb (12.0-15.0) g/dL Hct (37.2-46.3) % MCH (27.0-32.0) pg MCHC (32.0-37.0) g/dL RDW (11.5-14.5) % Immature Gran # (0.00-0.04) X 10*3/uL BUN 30.2 H (9.0-27.0) mg/dL Est GFR (CKD-EPI)AfAm 40.3 L (60.0-200.0) Est GFR (CKD-EPI)NonAf 34.7 L (60.0-200.0) BUN/Creatinine Ratio 20.27 H (12.00-20.00) Ratio Glucose 156 H (70-110) mg/dL POC Glucose (mg/dL) 162 H 163 H (70-110) mg/dL Calcium 8.6 L (8.7-10.3) mg/dL AST 36 H (13-35) U/L Alkaline Phosphatase 162 H (41-126) U/L Total Protein 5.9 L (6.2-8.2) g/dL Albumin 3.3 L (3.8-4.9) g/dL Albumin/Globulin Ratio 1.27 L (1.60-3.17) g/dL Microbiology - Last 24 Hours (Table) 05/16/22 07:00 Blood Culture - Final Blood No Growth after 144 hours Assessment and Plan (1) History of atrial fibrillation Current Visit: Yes Status: Chronic Priority: Medium Code(s): Z86.79 - PERSONAL HISTORY OF OTHER DISEASES OF THE CIRCULATORY SYSTEM SNOMED Code(s): 692302368 (2) History of pulmonary embolism Current Visit: Yes Status: Chronic Priority: Medium Code(s): Z86.711 - PERSONAL HISTORY OF PULMONARY EMBOLISM SNOMED Code(s): 163197123 (3) Iron deficiency anemia Current Visit: Yes Status: Acute Priority: Medium Code(s): D50.9 - IRON DEFICIENCY ANEMIA, UNSPECIFIED SNOMED Code(s): 86603172 Plan: EGD/colon neg. Suspect AVM bleeding as source, chronic blood losses, exacerbated by anticoagulation. Pt is on longterm anticoagulation for a-fib per chart, Hx of PE. Iron deficiency-parenteral iron ordered, 6 doses B12 low normal, elevated MMA, suggesting malabsorption. B12 injections 3 given Plan for follow-up with hematology in 4-6 weeks. Office will contact patient with follow-up visit. She verbalized understanding the plan.
[2022-05-23 14:08] LABS: Albumin 3.18 g/dL (3.80-4.90); Gamma Globulin 0.88 g/dL (0.70-1.50)
--- NOTE | 2022-05-29 22:48 | P.PN ---
Subjective Progress Note Date: 05/22/22 Principal diagnosis: Bilateral upper extremity IV site phlebitis Patient is a 72 year female presented to hospital with weakness shortness of breath noticed to have a low hemoglobin status post upper and lower GI with evidence of gastritis patient subsequently developing pain and swelling the bilateral antecubital fossa on the IV, patient did have ultrasound with evid ence of left-sided phlebitis. On today's evaluation that is 05/22/2022, the patient remains to be afebrile, the patient induration and swelling to the left upper arm has significantly decreased in intensity and the patient denies pain to the left antecubital fossa area, the patient denies chest pain shortness of breath or cough, the patient denies having abdominal pain and no diarrhea, overall feeling better Objective - Vital Signs Vital signs: Vital Signs Temp 98.0 F 05/22/22 05:00 Pulse 72 05/22/22 08:00 Resp 18 05/22/22 05:00 BP 119/70 05/22/22 08:00 Pulse Ox 96 05/22/22 08:00 FiO2 21 05/14/22 19:42 Intake & Output 05/21/22 05/22/22 05/22/22 18:59 06:59 18:59 Intake Total 400 118 Balance 400 118 Intake: Oral 400 118 Other: Voiding Method Toilet Toilet # Voids 6 6 - Exam GENERAL DESCRIPTION: An elderly female lying in bed in no distress RESPIRATORY SYSTEM: Unlabored breathing , decreased breath sounds at bases HEART: S1 S2 regular rate and rhythm , ABDOMEN: Soft , no tenderness EXTREMITIES: Bilateral upper extremity especially at the antecubital fossa did have some induration which has decreased in intensity - Labs CBC & Chem 7: 05/22/22 06:45 05/22/22 06:45 Labs: Abnormal Lab Results - Last 24 Hours (Table) 05/21/22 05/21/22 05/22/22 Range/Units 16:50 19:39 06:45 RBC 3.29 L (4.10-5.20) X 10*6/uL Hgb 7.6 L (12.0-15.0) g/dL Hct 27.6 L (37.2-46.3) % MCH 23.1 L (27.0-32.0) pg MCHC 27.5 L (32.0-37.0) g/dL RDW 30.4 H (11.5-14.5) % Immature Gran # 0.05 H (0.00-0.04) X 10*3/uL BUN (9.0-27.0) mg/dL Est GFR (CKD-EPI)AfAm (60.0-200.0) Est GFR (CKD-EPI)NonAf (60.0-200.0) BUN/Creatinine Ratio (12.00-20.00) Ratio Glucose (70-110) mg/dL POC Glucose (mg/dL) 160 H 205 H (70-110) mg/dL Calcium (8.7-10.3) mg/dL AST (13-35) U/L Alkaline Phosphatase (41-126) U/L Total Protein (6.2-8.2) g/dL Albumin (3.8-4.9) g/dL Albumin/Globulin Ratio (1.60-3.17) g/dL 05/22/22 05/22/22 05/22/22 Range/Units 06:45 07:03 11:58 RBC (4.10-5.20) X 10*6/uL Hgb (12.0-15.0) g/dL Hct (37.2-46.3) % MCH (27.0-32.0) pg MCHC (32.0-37.0) g/dL RDW (11.5-14.5) % Immature Gran # (0.00-0.04) X 10*3/uL BUN 30.2 H (9.0-27.0) mg/dL Est GFR (CKD-EPI)AfAm 40.3 L (60.0-200.0) Est GFR (CKD-EPI)NonAf 34.7 L (60.0-200.0) BUN/Creatinine Ratio 20.27 H (12.00-20.00) Ratio Glucose 156 H (70-110) mg/dL POC Glucose (mg/dL) 162 H 163 H (70-110) mg/dL Calcium 8.6 L (8.7-10.3) mg/dL AST 36 H (13-35) U/L Alkaline Phosphatase 162 H (41-126) U/L Total Protein 5.9 L (6.2-8.2) g/dL Albumin 3.3 L (3.8-4.9) g/dL Albumin/Globulin Ratio 1.27 L (1.60-3.17) g/dL Microbiology - Last 24 Hours (Table) 05/16/22 07:00 Blood Culture - Final Blood No Growth after 144 hours Assessment and Plan (1) Cellulitis Status: Acute Code(s): L03.90 - CELLULITIS, UNSPECIFIED SNOMED Code(s): 474361412 Plan: 1patient with bilateral antecubital fossa pain swelling and induration from an IV which has been discontinued and concern for possible SVT clinic not behaving as a abscess or cellulitis though not entirely excluded. 2 ultrasound of the bilateral upper extremity did show evidence of SVT , overall swelling and induration has almost resolved 3the patient blood cultures are negative 4patient seemed to showing overall clinical Improvement , the patient will continue with oral doxycycline 7 days on discharge and close outpatient follow- up Time with Patient: Less than 30
== END 2022-05-22 16:10 | disposition home health service (06) | DRG 812 ==
LOC: EC 10:50 → 3SCARD 14:08 → 6NMEDSUR 16:26 → 3SCARD 16:27 → 5NMEDONC 05-20 16:12
PROVIDERS: ADMIT Internal Medicine; ATTEND Internal Medicine
PROC: 30233N1 Transfusion of Nonautologous Red Blood Cells into Peripheral Vein, Percutaneous Approach (ICD-10-PCS; principal; 2022-05-10)
PROC: 0DB78ZX Excision of Stomach, Pylorus, Via Natural or Artificial Opening Endoscopic, Diagnostic (ICD-10-PCS; 2022-05-12)
PROC: 0DJD8ZZ Inspection of Lower Intestinal Tract, Via Natural or Artificial Opening Endoscopic (ICD-10-PCS; 2022-05-12)
PROC: 0DJ07ZZ Inspection of Upper Intestinal Tract, Via Natural or Artificial Opening (ICD-10-PCS; 2022-05-12)
PROC: 0DB98ZX Excision of Duodenum, Via Natural or Artificial Opening Endoscopic, Diagnostic (ICD-10-PCS; 2022-05-12 07:30)
DX: D50.9 Iron deficiency anemia, unspecified (principal); I48.19 Other persistent atrial fibrillation; Z68.43 Body mass index [BMI] 50.0-59.9, adult; L03.114 Cellulitis of left upper limb; T80.1XXA Vascular complications following infusion, transfusion and therapeutic injection, initial encounter; I80.8 Phlebitis and thrombophlebitis of other sites; E11.9 Type 2 diabetes mellitus without complications; E66.01 Morbid (severe) obesity due to excess calories; J44.9 Chronic obstructive pulmonary disease, unspecified; Z28.310 Unvaccinated for COVID-19; K57.30 Diverticulosis of large intestine without perforation or abscess without bleeding; K29.70 Gastritis, unspecified, without bleeding; K21.9 Gastro-esophageal reflux disease without esophagitis; R19.5 Other fecal abnormalities; I10 Essential (primary) hypertension; E78.5 Hyperlipidemia, unspecified; G47.33 Obstructive sleep apnea (adult) (pediatric); F32.A Depression, unspecified; I83.90 Asymptomatic varicose veins of unspecified lower extremity; Z79.84 Long term (current) use of oral hypoglycemic drugs; Z79.82 Long term (current) use of aspirin; Z79.01 Long term (current) use of anticoagulants; Z79.890 Hormone replacement therapy; Z79.899 Other long term (current) drug therapy; Z87.891 Personal history of nicotine dependence; Z86.718 Personal history of other venous thrombosis and embolism; Z86.711 Personal history of pulmonary embolism; Z98.42 Cataract extraction status, left eye; Z98.41 Cataract extraction status, right eye; Z98.890 Other specified postprocedural states; Z71.3 Dietary counseling and surveillance; Y84.8 Other medical procedures as the cause of abnormal reaction of the patient, or of later complication, without mention of misadventure at the time of the procedure; Y92.230 Patient room in hospital as the place of occurrence of the external cause; Z88.1 Allergy status to other antibiotic agents; Z88.0 Allergy status to penicillin; Z88.8 Allergy status to other drugs, medicaments and biological substances; Z91.048 Other nonmedicinal substance allergy status; Z86.72 Personal history of thrombophlebitis; Z80.0 Family history of malignant neoplasm of digestive organs; Z81.8 Family history of other mental and behavioral disorders; Z82.49 Family history of ischemic heart disease and other diseases of the circulatory system; Z83.3 Family history of diabetes mellitus
CPT/HCPCS: 36415; 43239; 45378; 71046; 80053; 80202; 82272; 82306; 82565; 82607; 82668; 82728; 82746; 82784; 83010; 83540; 83550; 83615; 83735; 83883; 83921; 84165; 84439; 84443; 84481; 84484; 85025; 85045; 85610; 85730; 86038; 86140; 86334; 86850; 86900; 86901; 86920; 87040; 87070; 87205; 88305; 91110; 93005; 93306; 93970; 94640; 94760; 99291

== ENCOUNTER → 2022-09-28 | Outpatient (CLI) | payer MEDICARE ==
--- NOTE | 2022-10-01 09:20 | MM ---
Reason for Exam: Screening (asymptomatic). Last mammogram was performed 3 year(s) and 0 month(s) ago. Patient History: Menarche at age 12. Patient has no children. Postmenopausal. Risk Values: Carol Ann 5 year model risk: 2.0%. NCI Lifetime model risk: 5.1%. Prior Study Comparison: 12/03/2016 Bilateral Screening Mammogram, [facility]. 10/17/2018 Bilateral Screening Mammogram, [facility]. 10/21/2019 Bilateral Screening Mammogram, [facility]. Tissue Density: There are scattered fibroglandular densities. Findings: Analyzed By CAD. There is no suspicious new group of microcalcifications or new suspicious mass in either breast. Overall Assessment: Negative, BI-RAD 1 Management: Screening Mammogram of both breasts in 1 year. A clinical breast exam by your physician is recommended on an annual basis and results should be correlated with mammographic findings. Electronically signed and approved by: Mike Murry M.D.
--- NOTE | 2022-10-01 10:26 | BD ---
EXAMINATION TYPE: Axial Bone Density DATE OF EXAM: 09/28/2022 COMPARISON: 07/03/2019 CLINICAL HISTORY: 72 years old Female. ICD-10 CODE: Z78.0 Asymptomatic menopausal state Height: 51.25 Weight: 304 FRAX RISK QUESTIONS: Alcohol (3 or more units per day): NO Family History (Parent hip fracture): NO Glucocorticoids (More than 3mos): NO (Ex: prednisone, prednisolone, methylprednisolone, dexamethasone, and hydrocortisone). History of Fracture in Adulthood: YES Secondary Osteoporosis: NO Rheumatoid Arthritis: NO Current Tobacco Use: NO RISK FACTORS HISTORY OF: Family History of Osteoporosis: NO Active: LIMITED Diet low in dairy products/other sources of calcium: NO Postmenopausal woman: YES Take estrogen and/or progesterone medications: NO Lost more than 2 inches in height since high school: NO Frequent falls: NO Poor Health: NO MEDICATIONS: Thyroid Medications: YES Which medication: Synthroid How Lon YRS. Additional Medications: YES CALCIUM, VIT D ,CHOLESTEROL, HBP EXAM MEASUREMENTS: Bone mineral densitometry was performed using the Wylio System. Bone mineral density as measured about the Lumbar spine is: ----- L1-L4(G/cm2): 1.200 T Score Values are as follows: ----- L1: 0.5 ----- L2: 0.7 ----- L3: 0.3 ----- L4: -1.2 ----- L1-L4: 0.2 Bone mineral density has: Increased 12.3% since study of: 07/03/2019 Bone mineral density about the R hip (g/cm2): 0.601 Bone mineral density about the L hip (g/cm2): 0.609 T Score values are as follows: -----R Neck: -3.1 -----L Neck: -3.1 -----R Total: -2.1 -----L Total: -2.1 Bone mineral density has: Increased 3.2% since study of: 07/03/2019 FRAX%s: The graph provided illustrates a 24.1 chance for a major osteoporotic fx and a 7.7 chance for the hips probability for fx in 10 years time. IMPRESSION: Osteoporosis (T Score less than -2.5). There is increased fracture risk and therapy is usually indicated based on age. Re-Screen 1-2 years. NOTE: T-SCORE=SD OF THE YOUNG ADULT MEAN.
== END | disposition home or self-care (01) ==
LOC: RADMAMWWP 14:36
PROVIDERS: ATTEND Family Medicine
DX: Z12.31 Encounter for screening mammogram for malignant neoplasm of breast (principal); M81.0 Age-related osteoporosis without current pathological fracture; Z78.0 Asymptomatic menopausal state
CPT/HCPCS: 77063; 77067; 77080

== ENCOUNTER → 2024-07-10 | Outpatient (CLI) | payer MEDICARE | END | disposition home or self-care (01) | LOC: LABPRL 10:07 | PROVIDERS: ATTEND Nurse Practitioner Family | DX: R30.0 Dysuria (principal) | CPT/HCPCS: 87086 ==

== ENCOUNTER 2025-06-22 13:27 | Inpatient (IN) | payer MEDICARE ==
[2025-06-22 14:21] LABS: Basophils # (A) 0.03 10*3/uL (0.00-0.10); Basophils % (A) 0.6 %; Eosinophils # (A) 0.09 10*3/uL (0.04-0.35); Eosinophils % (A) 1.9 %; Lymphocytes # (A) 0.89 10*3/uL (0.90-5.00); Lymphocytes % (A) 19.0 %; MCH 27.0 pg (27.0-32.0); MCHC 29.1 g/dL (32.0-37.0); MCV 93.0 fL (80.0-97.0); Monocytes # (A) 0.56 10*3/uL (0.20-1.00); Monocytes % (A) 11.9 %; Neutrophils # (A) 3.09 10*3/uL (1.80-7.70); Neutrophils % (A) 66.0 %; Platelet Count 155 10*3/uL (140-440); RBC 1.85 10*6/uL (4.10-5.20); RDW 18.0 % (11.5-14.5); WBC 4.69 10*3/uL (4.50-10.00)
[2025-06-22 14:38] LABS: INR 1.3 (<1.2); Partial Thromboplastin Time 24.2 sec (22.0-30.0); Prothrombin Time 13.8 sec (10.0-12.5)
[2025-06-22 14:42] LABS: HCT 17.2 % (37.2-46.3); HGB 5.0 g/dL (12.0-15.0)
[2025-06-22 14:46] LABS: ALT 16 U/L (4-34); AST 34 U/L (14-36); African American GFR (CKD) 45 (>60 ml/min/1.73 sqM); Albumin 3.0 g/dL (3.5-5.0); Alkaline Phosphatase 116 U/L (38-126); Anion Gap 8 mmol/L; Blood Urea Nitrogen 50 mg/dL (7-17); Calcium 8.5 mg/dL (8.4-10.2); Carbon Dioxide 22 mmol/L (22-30); Chloride 107 mmol/L (98-107); Glucose 235 mg/dL (74-99); Magnesium 2.3 mg/dL (1.6-2.3); Non-African American GFR(CKD) 39 (>60 ml/min/1.73 sqM); Potassium 5.2 mmol/L (3.5-5.1); Sodium 137 mmol/L (137-145); Total Protein 5.3 g/dL (6.3-8.2)
[2025-06-22 14:54] LABS: NT-Pro-B-Type Natriuretic Pept 625 pg/mL
--- NOTE | 2025-06-22 14:55 | XR ---
EXAMINATION TYPE: XR chest 2V DATE OF EXAM: 06/22/2025 COMPARISON: NONE CLINICAL INDICATION: Female, 75 years old with history of difficulty breathing; , TECHNIQUE: XR chest 2V views of the chest. FINDINGS: The lungs are clear and there is no pneumothorax, pleural effusion, or focal pneumonia. Mild cardiom egaly no. Osseous structures demonstrate hypertrophic and degenerative changes of the spine. Diffuse osteopenia and arthropathy shoulders. Coarsened interstitium is stable. IMPRESSION: 1. Stable coarsened interstitium which could be secondary to chronic interstitial lung disease correl ate clinically to exclude mild venous congestion or interstitial pneumonitis. [facility], , 06/22/2025 2:52 PM
[2025-06-22] MEDS: SODIUM CHLORIDE 0.9% 1,000 ML IV STA (15:30)
[2025-06-22] MEDS: SODIUM ZIRCONIUM CYCLOSILICATE 10 GM PACKET PO ONE (15:31)
[2025-06-22 15:42] LABS: Polychromasia Present; Toxic Vacuolation Present
--- NOTE | 2025-06-22 16:21 | CT ---
EXAMINATION TYPE: CT angio chest DATE OF EXAM: 06/22/2025 COMPARISON: 05/01/2017 CLINICAL INDICATION: Female, 75 years old with history of Dyspnea on exertion, shortness of breath; P HH, dyspnea TECHNIQUE: CTA scan of the thorax is performed with IV Contrast, patient injected with 100 mL of Isovue 370, pul monary embolism protocol. MIP images are created and reviewed. CT DLP: 1036.[address] CTDI: mGy Automated exposure control for dose reduction was used. FINDINGS: LUNGS: The lungs are grossly clear, there is no concerning parenchymal mass or nodule identified. T here is no pleural effusion or pneumothorax seen. The tracheobronchial tree is patent. MEDIASTINUM: There is satisfactory enhancement of the pulmonary artery and its branches, there is no CT evidence for pulmonary embolism. There are no greater than 1 cm hilar or mediastinal lymph nodes. No pericardial effusion is seen. OTHER: The liver appears cirrhotic. There are multiple large gallstones. There is a small amount of ascites surrounding the liver. IMPRESSION: NO EVIDENCE OF PULMONARY EMBOLISM. 2. NO ACUTE CARDIOPULMONARY DISEASE. 3. CIRRHOTIC LIVER AND SMALL AMOUNT OF ASCITES. 4. CHOLELITHIASIS. [facility], , 06/22/2025 4:19 PM
--- NOTE | 2025-06-22 16:25 | ED ---
SOB HPI - General Chief Complaint: Shortness of Breath Stated Complaint: SANJU/Swolleen Legs Time Seen by Provider: 06/22/25 13:42 Source: patient, family, RN notes reviewed Mode of arrival: wheelchair Limitations: no limitations - History of Present Illness Initial Comments: This is a 75-year-old female with history including COPD, DM, PE and DVT presenting from Dr. Bahena's office for shortness of breath and palpitations x 6 days. Patient also endorses new onset orthopnea, dyspnea on exertion and BLE edema. Patient also notes that Dr. Bahena discovered jugular venous distention. Patient notes occasional nonradiating, mid chest pain with spontaneous resolution. Patient denies pleuritic chest pain, hemoptysis, dizziness, diaphoresis. MD Complaint: shortness of breath Onset/Timin -: days(s) Consistency: constant Improves With: rest Worsens With: lying flat, exertion Known History Of: COPD, diabetes - Related Data Home Medications Medication Instructions Recorded Confirmed Montelukast [Singulair] 10 mg PO HS 02/04/17 01/24/24 Pravastatin Sodium [Pravachol] 20 mg PO HS 02/04/17 01/24/24 Omeprazole 20 mg PO DAILY 04/24/17 01/24/24 Biotin 10,000 mcg PO DAILY 04/11/20 01/24/24 Calcium Carbonate [Calcium] 600 mg PO DAILY 04/11/20 01/24/24 Cholecalciferol [Vitamin D3 (25 50 mcg PO DAILY 04/11/20 01/24/24 Mcg = 1000 Iu)] Cyclobenzaprine [Flexeril] 10 mg PO TID PRN 04/11/20 01/24/24 Escitalopram [Lexapro] 20 mg PO DAILY 04/11/20 01/24/24 Ubidecarenone [Co Q-10] 200 mg PO DAILY 04/11/20 01/24/24 Vit C/E/Zn/Coppr/Lutein/Zeaxan 1 cap PO BID 04/11/20 01/24/24 [Preservision Areds 2 Softgel] Empagliflozin [Jardiance] 25 mg PO DAILY 05/10/22 01/24/24 buPROPion XL [Wellbutrin XL] 150 mg PO DAILY 05/10/22 01/24/24 Levothyroxine Sodium [Synthroid] 25 mcg PO DAILY 05/21/22 01/24/24 Levothyroxine Sodium [Synthroid] 50 mcg PO DAILY 01/24/24 01/24/24 Losartan [Cozaar] 25 mg PO DAILY 01/24/24 01/24/24 Rivaroxaban [Xarelto] 20 mg PO DAILY 01/24/24 01/24/24 Allergies Allergy/AdvReac Type Severity Reaction Status Date / Time adhesive tape Allergy Rash/Hives Verified 01/24/24 11:59 clindamycin Allergy Rash/Hives Verified 01/24/24 11:59 levofloxacin [From Levaquin] Allergy Rash/Hives Verified 01/24/24 11:59 Penicillins Allergy Hives at Verified 01/24/24 11:59 injection site only, did not spread amlodipine [From Norvasc] AdvReac DENTAL Verified 01/24/24 11:59 ISSUES Review of Systems ROS Statement: Those systems with pertinent positive or pertinent negative responses have been documented in the HPI. ROS Other: All systems not noted in ROS Statement are negative. Past Medical History Past Medical History: COPD, Diabetes Mellitus, Deep Vein Thrombosis (DVT), Hyperlipidemia, Hypertension, Pulmonary Embolus (PE), Sleep Apnea/CPAP/BIPAP Additional Past Medical History / Comment(s): Morbid obesity, obstructive sleep apnea maintained on CPA, diabetes mellitus, hypertension, hyperlipidemia, acid reflux, varicose veins with previous history of surgery for varicose vein stripping from the lower extremity, superficial thrombophlebitis, history of ex- smoking. History of Any Multi-Drug Resistant Organisms: None Reported Additional Past Surgical History / Comment(s): vein surgery left leg, bilateral cataracts. Past Anesthesia/Blood Transfusion Reactions: No Reported Reaction Past Psychological History: No Psychological Hx Reported Smoking Status: Never smoker - Past Family History Father Family Medical History: Cancer Additional Family Medical History / Comment(s): suicide, colon ca Mother Family Medical History: Coronary Artery Disease (CAD), Diabetes Mellitus General Exam Limitations: no limitations General appearance: alert, in no apparent distress, obese Head exam: Present: atraumatic, normocephalic, normal inspection Eye exam: Present: normal appearance, PERRL, EOMI. Absent: scleral icterus, conjunctival injection, periorbital swelling ENT exam: Present: normal exam, mucous membranes moist Neck exam: Present: normal inspection. Absent: tenderness, meningismus, lymphadenopathy Respiratory exam: Present: rales (Bases of bilateral lower lobes), decreased breath sounds. Absent: respiratory distress, wheezes, rhonchi, stridor, accessory muscle use, prolonged expiratory Cardiovascular Exam: Present: regular rate, normal rhythm, normal heart sounds. Absent: systolic murmur, diastolic murmur, rubs, gallop, clicks GI/Abdominal exam: Present: soft, normal bowel sounds. Absent: distended, tenderness, guarding, rebound, rigid Extremities exam: Present: full ROM, normal capillary refill, pedal edema (Significant BLE pitting edema), calf tenderness (BLE calf tenderness), other (BLE distal neurovascular and motor function intact. Dorsalis pedis pulse +1 bilaterally). Absent: tenderness, joint swelling Back exam: Present: normal inspection Neurological exam: Present: alert, oriented X3, CN II-XII intact Psychiatric exam: Present: normal affect, normal mood Skin exam: Present: warm, dry, intact, normal color. Absent: rash Course Vital Signs 06/22/25 06/22/25 06/22/25 13:42 15:32 17:12 Temperature 98 F 98.0 F Pulse Rate 61 68 65 Respiratory 20 22 18 Rate Blood Pressure 146/60 121/36 145/49 O2 Sat by Pulse 98 98 Oximetry 06/22/25 06/22/25 17:22 17:42 Temperature 97.9 F 97.8 F Pulse Rate 67 67 Respiratory 16 16 Rate Blood Pressure 135/64 148/41 O2 Sat by Pulse Oximetry Medical Decision Making - Medical Decision Making Was pt. sent in by a medical professional or institution (, PA, SECURITY OPERATIONS ENGINEER, urgent care, hospital, or longterm...) When possible be specific @ -Dr. Bahena Did you speak to anyone other than the patient for history (EMS, parent, family, police, friend...)? What history was obtained from this source @ -No Did you review nursing and triage notes (agree or disagree)? Why? @ -I reviewed and agree with nursing and triage notes Were old charts reviewed (outside hosp., previous admission, EMS record, old EKG, old radiological studies, urgent care reports/EKG's, longterm records)? Report findings @ -No old charts were reviewed Differential Diagnosis (chest pain, altered mental status, abdominal pain women, abdominal pain men, vaginal bleeding, weakness, fever, dyspnea, syncope, headache, dizziness, GI bleed, back pain, seizure, CVA, palpatations, mental health, musculoskeletal)? @ -Differential Dyspnea: Coronary syndrome, arrhythmia, tamponade, asthma, COPD, pulmonary embolism, pneumonia, pneumothorax, pulmonary effusion, anaphylaxis, diabetic ketoacidosis, flailed chest, pulmonary contusion, diaphragmatic rupture, anemia, neuromuscular, this is not meant to be an all-inclusive list. EKG interpreted by me (3pts min.). @ -As above X-rays interpreted by me (1pt min.). @ -CXR shows mild venous congestion. CT interpreted by me (1pt min.). @ -Chest CTA shows no evidence of pulmonary embolism or acute cardiopulmonary disease. Cirrhotic liver, small amount of ascites and cholelithiasis noted. U/S interpreted by me (1pt. min.). @ -None done What testing was considered but not performed or refused? (CT, X-rays, U/S, labs)? Why? @ -None What meds were considered but not given or refused? Why? @ -None Did you discuss the management of the patient with other professionals (professionals i.e. , PA, SECURITY OPERATIONS ENGINEER, lab, RT, psych nurse, professor of social work, clinical pharmacy coordinator, teacher, housing management officer, case resource manager)? Give summary @ -Spoke to Dr. Partida regarding patient admission who advised IV Lasix 20 mg twi ce daily. Was smoking cessation discussed for >3mins.? @ -No Was critical care preformed (if so, how long)? @ -Blood infusion, 35 minutes Were there social determinants of health that impacted care today? How? (Homelessness, low income, unemployed, alcoholism, drug addiction, transporta tion, low edu. Level, literacy, decrease access to med. care, care home, rehab)? @ -No Was there de-escalation of care discussed even if they declined (Discuss DNR or withdrawal of care, Hospice)? DNR status @ -No What co-morbidities impacted this encounter? (DM, HTN, Smoking, COPD, CAD, Cancer, CVA, ARF, Chemo, Hep., AIDS, mental health diagnosis, sleep apnea, morbid obesity)? @ -DM, COPD Was patient admitted / discharged? Hospital course, mention meds given and route, prescriptions, significant lab abnormalities, going to OR and other pertinent info. @ -Lab work notable for hemoglobin 5.0, D-dimer 0.98 and potassium 5.2. CKD with creatinine 1.33 and GFR 39 noted. Glucose 235. Troponin negative and BNP 625. CXR shows mild venous congestion. Chest CTA shows no evidence of pulmona ry embolism or acute cardiopulmonary disease. Cirrhotic liver, small amount of ascites and cholelithiasis noted. 2 units of packed red blood cells ordered. Patient started on IV normal saline drip and given p.o. Lokelma. Spoke to Dr. Partida regarding patient admission who advised IV Lasix 20 mg twice daily. Discussed patient with Dr. Velez. Undiagnosed new problem with uncertain prognosis? @ -No Drug Therapy requiring intensive monitoring for toxicity (Heparin, Nitro, Insulin, Cardizem)? @ -No Were any procedures done? @ -No Diagnosis/symptom? @ -Congestive heart failure, anemia Acute, or Chronic, or Acute on Chronic? @ -Acute Uncomplicated (without systemic symptoms) or Complicated (systemic symptoms)? @ -Complicated Side effects of treatment? @ -No Exacerbation, Progression, or Severe Exacerbation? @ -No Poses a threat to life or bodily function? How? (Chest pain, USA, SC, pneumonia, PE, COPD, DKA, ARF, appy, cholecystitis, CVA, Diverticulitis, Homicidal, Suicidal, threat to staff... and all critical care pts) @ -Anemia - Lab Data Result diagrams: 06/22/25 14:12 06/22/25 14:12 Lab Results 06/22/25 06/22/25 06/22/25 Range/Units 14:12 14:12 14:12 WBC 4.69 (4.50-10.00) 10*3/uL RBC 1.85 L (4.10-5.20) 10*6/uL Hgb 5.0 L* (12.0-15.0) g/dL Hct 17.2 L* (37.2-46.3) % MCV 93.0 (80.0-97.0) fL MCH 27.0 (27.0-32.0) pg MCHC 29.1 L (32.0-37.0) g/dL Plt Count 155 (140-440) 10*3/uL MPV 11.7 (9.5-12.2) fL Immature Gran % (Auto) 0.6 % Neutrophils % 66.0 % Lymphocytes % 19.0 % Monocytes % 11.9 % Eosinophils % 1.9 % Basophils % 0.6 % Immature Gran # 0.03 (0.00-0.04) 10*3/uL Neutrophils # 3.09 (1.80-7.70) 10*3/uL Lymphocytes # 0.89 L (0.90-5.00) 10*3/uL Monocytes # 0.56 (0.20-1.00) 10*3/uL Eosinophils # 0.09 (0.04-0.35) 10*3/uL Basophils # 0.03 (0.00-0.10) 10*3/uL Manual Slide Review Performed Toxic Vacuolation Present Large Platelets Present Polychromasia Present PT 13.8 H (10.0-12.5) sec INR 1.3 H (<1.2) APTT 24.2 (22.0-30.0) sec D-Dimer 0.98 H (<0.60) mg/L FEU Sodium 137 (137-145) mmol/L Potassium 5.2 H (3.5-5.1) mmol/L Chloride 107 (98-107) mmol/L Carbon Dioxide 22 (22-30) mmol/L Anion Gap 8 mmol/L BUN 50 H (7-17) mg/dL Creatinine 1.33 H (0.52-1.04) mg/dL Est GFR (CKD-EPI)AfAm 45 (>60 ml/min/1.73 sqM) Est GFR (CKD-EPI)NonAf 39 (>60 ml/min/1.73 sqM) Glucose 235 H (74-99) mg/dL Calcium 8.5 (8.4-10.2) mg/dL Magnesium 2.3 (1.6-2.3) mg/dL Total Bilirubin 0.4 (0.2-1.3) mg/dL AST 34 (14-36) U/L ALT 16 (4-34) U/L Alkaline Phosphatase 116 (38-126) U/L Troponin I (0.000-0.034) ng/mL NT-Pro-B Natriuret Pep 625 pg/mL Total Protein 5.3 L (6.3-8.2) g/dL Albumin 3.0 L (3.5-5.0) g/dL Blood Type Blood Type Recheck Bld Type Recheck Status Antibody Screen Crossmatch Spec Expiration Date 06/22/25 06/22/25 Range/Units 14:12 15:05 WBC (4.50-10.00) 10*3/uL RBC (4.10-5.20) 10*6/uL Hgb (12.0-15.0) g/dL Hct (37.2-46.3) % MCV (80.0-97.0) fL MCH (27.0-32.0) pg MCHC (32.0-37.0) g/dL Plt Count (140-440) 10*3/uL MPV (9.5-12.2) fL Immature Gran % (Auto) % Neutrophils % % Lymphocytes % % Monocytes % % Eosinophils % % Basophils % % Immature Gran # (0.00-0.04) 10*3/uL Neutrophils # (1.80-7.70) 10*3/uL Lymphocytes # (0.90-5.00) 10*3/uL Monocytes # (0.20-1.00) 10*3/uL Eosinophils # (0.04-0.35) 10*3/uL Basophils # (0.00-0.10) 10*3/uL Manual Slide Review Toxic Vacuolation Large Platelets Polychromasia PT (10.0-12.5) sec INR (<1.2) APTT (22.0-30.0) sec D-Dimer (<0.60) mg/L FEU Sodium (137-145) mmol/L Potassium (3.5-5.1) mmol/L Chloride (98-107) mmol/L Carbon Dioxide (22-30) mmol/L Anion Gap mmol/L BUN (7-17) mg/dL Creatinine (0.52-1.04) mg/dL Est GFR (CKD-EPI)AfAm (>60 ml/min/1.73 sqM) Est GFR (CKD-EPI)NonAf (>60 ml/min/1.73 sqM) Glucose (74-99) mg/dL Calcium (8.4-10.2) mg/dL Magnesium (1.6-2.3) mg/dL Total Bilirubin (0.2-1.3) mg/dL AST (14-36) U/L ALT (4-34) U/L Alkaline Phosphatase (38-126) U/L Troponin I <0.012 (0.000-0.034) ng/mL NT-Pro-B Natriuret Pep pg/mL Total Protein (6.3-8.2) g/dL Albumin (3.5-5.0) g/dL Blood Type A Positive Blood Type Recheck A Pos Bld Type Recheck Status No Antibody Screen NEGATIVE Crossmatch See Detail Spec Expiration Date 06/25/20252358 Disposition Clinical Impression: Congestive heart failure, Anemia Disposition: ADMITTED IP TO THIS [facility] Condition: Fair Time of Disposition: 16:25 Decision Date: 06/22/25 Decision Time: 16:25
[2025-06-22] MEDS ORDERED: NALOXONE 0.4 MG/ML 1 ML VIAL IV PRN (16:52)
[2025-06-22] MEDS ORDERED: HYDROmorphone 0.5 MG/0.5 ML SYRINGE IVP PRN (16:52)
[2025-06-22] MEDS ORDERED: CYCLOBENZAPRINE 10 MG TAB PO PRN (16:54)
[2025-06-22] MEDS ORDERED: IPRATROPIUM-ALBUTEROL 3 ML NEB INHALATION PRN (18:27)
[2025-06-22] MEDS ORDERED: DEXTROSE 50% SYRINGE 50 ML IVP PRN ×2 (18:27)
--- NOTE | 2025-06-22 18:56 | US ---
EXAMINATION TYPE: US venous doppler duplex LE DATE OF EXAM: 06/22/2025 6:31 PM COMPARISON: US 2017 and 2018 CLINICAL INDICATION: Female, 75 years old with history of pain; patient states swelling. hx dvt. hx v ein stripping, varicose veins, and clot removal from left leg. on thinners TECHNIQUE: The lower extremity deep venous system is examined utilizing real time linear array sonog brian with graded compression, doppler sonography and color-flow sonography. Grayscale, color doppler , spectral doppler imaging performed of the deep veins of the lower extremities FINDINGS: SIDE PERFORMED: Bilateral VESSELS IMAGED: Common Femoral Vein Deep Femoral Vein Greater Saphenous Vein * Femoral Vein Popliteal Vein Small Saphenous Vein * Proximal Calf Veins (* superficial vessels) VERY LIMITED EXAM DUE TO PATIENT BODY HABITUS AND PAIN WITH PROBE PRESSURE Right Leg: Unable to view the distal femoral vein for compression. appears negative for dvt as best seen; There is normal flow, compressibility, vascular waveforms. Left Leg: Unable to view the distal femoral vein for compression. ? thready flow within the mid popl iteal vein vs due to body habitus. ? echoes seen within the mid and distal popliteal vein vs body hab itus.; There is normal flow, compressibility, vascular waveforms. IMPRESSION: 1. Poor flow in the left popliteal vein possibly due to eccentric nonocclusive thrombus. Clinical co rrelation advised. 2. No evidence for right deep vein tendinosis. [facility], , 06/22/2025 6:54 PM
[2025-06-22] MEDS: FUROSEMIDE 10 MG/ML 2 ML VIAL IV SCH (19:15)
[2025-06-22 19:18] LABS: Glucose,Whole Blood 255 mg/dL (70-110)
[2025-06-22] MEDS: IPRATROPIUM-ALBUTEROL 3 ML NEB INHALATION SCH (20:27)
[2025-06-22 20:53] LABS: Glucose,Whole Blood 236 mg/dL (70-110)
[2025-06-22] MEDS: PRAVASTATIN SODIUM 20 MG TAB PO SCH (20:59)
[2025-06-22] MEDS: MONTELUKAST 10 MG TAB PO SCH (20:59)
[2025-06-22] MEDS: INSULIN LISPRO (HumaLOG) 100 UNIT/ML 10 mL VL SQ SCH (21:00)
--- NOTE | 2025-06-23 01:05 | HP ---
HISTORY AND PHYSICAL CHIEF COMPLAINT: Shortness of breath as well as bilateral leg edema. HISTORY OF PRESENT ILLNESS: This 75-year-old woman with a past history of COPD, history of diabetes mellitus and pulmonary embolism, was referred from Dr. kurtz for shortness of breath. The patient also had on and off shortness of breath as well as the leg edema. The patient has some features of CHF. The labs showed hemoglobin was 5, which was rather normocytic. The patient did have anemia previously. The patient had previous workup for severe symptomatic anemia, showed some gastritis and sigmoid diverticula from the previous colonoscopy. There is no history of any fever, rigors, or chills at this time. Malabsorption is a possibility. PAST MEDICAL HISTORY: Reviewed, include COPD, diabetes, hypertension, DVT. Rest of the history and chart is reviewed. The patient is followed by Dr. Alcaraz in the outpatient setting. HOME MEDICATIONS: Include, Wellbutrin XL. Dose and rest of medications reviewed. FAMILY HISTORY: History of suicide, colon cancer. SOCIAL HISTORY: No history of smoking or alcohol. REVIEW OF SYSTEMS: A 14-point review of systems negative except as mentioned earlier. PHYSICAL EXAMINATION: VITAL SIGNS: Pulse is 67, blood pressure 140/84, and respirations 16. HEENT: Conjunctivae normal. NECK: No jugular venous distention. CARDIOVASCULAR: S1, S2. RESPIRATION: Breath sounds diminished at the bases. A few scattered rhonchi. ABDOMEN: Soft, obese, nontender. LEGS: Bilateral leg edema. NERVOUS SYSTEM: Diffusely weak. LABORATORY DATA: Reviewed. ASSESSMENT: 1. Congestive heart failure, acute exacerbation with possible acute on chronic diastolic dysfunction. 2. Anemia, acute on chronic, rule out GI blood loss anemia. 3. Possible cirrhosis of liver with esophageal varices. 4. History of iron deficiency anemia. 5. History of deep vein thrombosis, pulmonary embolus. 6. Hypertension. 7. Hyperlipidemia. 8. Diabetes mellitus, type 2. 9. Chronic obstructive pulmonary disease. 10.History of sleep apnea. 11.Multiple complex medical issues. RECOMMENDATIONS AND DISCUSSION: This 75-year-old woman presented with multiple complex medical issues. We will monitor the patient closely. Continue the current medications, symptomatic treatment. Otherwise, I would recommend IV diuretics. Closely follow with Cardiology and blood transfusion. Also, recommend Lasix after transfusions. Repeat labs. A CT angio chest was done, which showed no acute abnormality. Cirrhosis liver was noted. Small amount ascites and further recommendations. I would recommend hepatitis screening and continue to monitor as we will continue the current medications. Prognosis guarded. Further recommendations to follow. Check serum ammonia as well. MMODL / IJN: [id number] / CHARLES
[2025-06-23 06:24] LABS: Glucose,Whole Blood 246 mg/dL (70-110)
[2025-06-23] MEDS ORDERED: LEVOTHYROXINE 25 MCG TAB PO SCH (06:30)
[2025-06-23] MEDS: LEVOTHYROXINE 50 MCG TAB PO SCH (06:35)
[2025-06-23 07:23] LABS: Basophils # (A) 0.03 10*3/uL (0.00-0.10); Basophils % (A) 0.6 %; Eosinophils # (A) 0.12 10*3/uL (0.04-0.35); Eosinophils % (A) 2.6 %; HCT 20.6 % (37.2-46.3); Lymphocytes # (A) 0.92 10*3/uL (0.90-5.00); Lymphocytes % (A) 19.6 %; MCH 27.4 pg (27.0-32.0); MCHC 30.1 g/dL (32.0-37.0); MCV 91.2 fL (80.0-97.0); Monocytes # (A) 0.59 10*3/uL (0.20-1.00); Monocytes % (A) 12.6 %; Neutrophils # (A) 3.00 10*3/uL (1.80-7.70); Neutrophils % (A) 64.0 %; Platelet Count 152 10*3/uL (140-440); RBC 2.26 10*6/uL (4.10-5.20); RDW 17.0 % (11.5-14.5); WBC 4.69 10*3/uL (4.50-10.00)
[2025-06-23 07:30] LABS: HGB 6.2 g/dL (12.0-15.0)
[2025-06-23 08:06] LABS: ALT 14 U/L (4-34); AST 26 U/L (14-36); African American GFR (CKD) 47 (>60 ml/min/1.73 sqM); Albumin 2.9 g/dL (3.5-5.0); Alkaline Phosphatase 115 U/L (38-126); Anion Gap 6 mmol/L; Blood Urea Nitrogen 40 mg/dL (7-17); Calcium 8.1 mg/dL (8.4-10.2); Carbon Dioxide 23 mmol/L (22-30); Chloride 109 mmol/L (98-107); Glucose 207 mg/dL (74-99); Non-African American GFR(CKD) 40 (>60 ml/min/1.73 sqM); Potassium 4.2 mmol/L (3.5-5.1); Sodium 138 mmol/L (137-145); Total Protein 5.1 g/dL (6.3-8.2)
[2025-06-23] MEDS: buPROPion XL 150 MG TAB.ER.24H PO SCH (09:19)
[2025-06-23] MEDS: ACETAMINOPHEN TAB 325 MG TAB PO PRN (09:27)
[2025-06-23] MEDS: CALCIUM CARBONATE 500 MG CHEWABLE PO SCH (09:28)
[2025-06-23] MEDS: ESCITALOPRAM 20 MG TAB PO SCH (09:28)
[2025-06-23] MEDS: LOSARTAN 25 MG TAB PO SCH (09:28)
[2025-06-23] MEDS: PANTOPRAZOLE 40 MG TABLET PO SCH (09:28)
[2025-06-23] MEDS: DAPAGLIFLOZIN PROPANEDIOL 10 MG TABLET PO SCH (09:28)
[2025-06-23 11:06] LABS: Hepatitis A Antibody IgM Nonreactive (Nonreactive); Hepatitis C IgG Antibody Nonreactive (Nonreactive)
[2025-06-23 11:07] LABS: Hepatitis B Surface Antigen Nonreactive (Nonreactive)
--- NOTE | 2025-06-23 11:08 | P.CRDCN ---
History of Present Illness Consult date: 06/23/25 Consult reason: congestive heart failure History of present illness: This is 75-year-old female patient of Dr. Rick Bahena with past medical history of paroxysmal atrial fibrillation, hypertension, dyslipidemia, history of pulmonary embolism on Xarelto. We have been asked to evaluate the patient for CHF. Patient was in the office yesterday with Dr. Bahena with complaints of shortness of breath with activity for the past week. No chest pain, palpitations, dizziness or syncope. She had mild leg edema and chronic leg edema. Lung sounds were clear and patient was in a sinus rhythm. She has been taking her Xarelto regularly. Patient was then sent from the office to the emergency center for further evaluation. Patient is seen today on the cardiac stepdown unit. Patient was found to have a hemoglobin of 5 and has been transfused 2 units of packed RBCs with repeat hemoglobin of 6.2. She has a consult in place with GI and is scheduled for EGD and colonoscopy for tomorrow. Her anticoagulation is on hold. Blood pressure 143/55, heart rate in the 60s and 70s, pulse ox 97% on room air. -EKG: -Chest x-ray: Stable coarsened interstitium which could be secondary to chronic interstitial lung disease. -CTA chest: No evidence of pulmonary embolism. No acute cardiopulmonary disease. Cirrhotic liver and small amount of ascites. Cholelithiasis. -Venous duplex bilateral lower extremities poor flow in the left popliteal vein possibly due to eccentric nonocclusive thrombus. No evidence of right DVT -Laboratory studies: Initial hemoglobin 5 and repeat 6.2 after 2 units packed RBCs, potassium initially 5.2 now 4.2. BUN 40 and creatinine 1.3. Troponin negative x 1. proBNP 625. -Home cardiac medications: Farxiga 10 mg daily, losartan 25 mg daily, pravastatin 20 mg at bedtime, Xarelto 20 mg with supper. -Echocardiogram performed 04/2022 at [facility] revealed normal LV size and systolic function. No significant valvular abnormalities. Review Of Systems: At the time of my exam: CONSTITUTIONAL: Denies fever or chills. HEENT: Denies blurred vision, vision changes, or eye pain. Denies hemoptysis CARDIOVASCULAR: Denies chest pain. Denies orthopnea. Denies PND. Denies palpitations RESPIRATORY: Denies shortness of breath. GASTROINTESTINAL: Denies abdominal pain. Denies nausea or vomiting. HEMATOLOGIC: Denies bleeding disorders. GENITOURINARY: Denies any blood in urine. SKIN: Denies puritis. Denies rash. Physical examination: Gen: This is 75-year-old female in no acute distress VS: reviewed HEENT: Head is atraumatic, normocephalic. Conjunctival pale. Pupils equal, round. Sclerae is anicteric. NECK: Supple. No JVD. LUNGS: Clear to auscultation. No wheezes or rhonchi. No intercostal retractions. HEART: Regular rate and rhythm. No murmur. ABDOMEN: Soft No tenderness. EXTREMITIES: No pedal edema. No calf tenderness. NEUROLOGICAL: Patient is awake, alert and oriented x3. Assessment: Dyspnea on exertion secondary to severe anemia Chronic diastolic heart failure Paroxysmal atrial fibrillation usually on Xarelto at home Acute blood loss anemia, status posttransfusion 2 units packed RBCs Possible acute GI bleed, GI workup in progress Hypertension Dyslipidemia History of pulmonary embolism Plan: Resume patient's home cardiac medications Continue to hold Xarelto Obtain 2-D echocardiogram and Doppler study to assess cardiac structure and function Further recommendations to follow based upon clinical course Thank you kindly for this consultation. Nurse practitioner note has been reviewed, I agree with documented findings and plan of care. Patient was seen and examined. Past Medical History Past Medical History: Blood Disorder, COPD, Diabetes Mellitus, Deep Vein Thrombosis (DVT), GERD/Reflux, Hyperlipidemia, Hypertension, Pulmonary Embolus (PE), Sleep Apnea/CPAP/BIPAP Additional Past Medical History / Comment(s): Morbid obesity, varicose veins with previous history of surgery for varicose vein stripping from the lower extremity, superficial thrombophlebitis, history of ex-smoking, anemia requiring blood and iron transfusions, macular degeneration (dry in right and wet in left) History of Any Multi-Drug Resistant Organisms: None Reported Additional Past Surgical History / Comment(s): vein surgery left leg, bilateral cataracts, injections in L eye for macular degeneration Past Anesthesia/Blood Transfusion Reactions: No Reported Reaction Past Psychological History: Depression Smoking Status: Former smoker Past Alcohol Use History: None Reported Past Drug Use History: None Reported - Past Family History Father Family Medical History: Cancer Additional Family Medical History / Comment(s): suicide, colon ca Mother Family Medical History: Coronary Artery Disease (CAD), Diabetes Mellitus Medications and Allergies Home Medications Medication Instructions Recorded Confirmed Type Montelukast [Singulair] 10 mg PO HS 02/04/17 06/22/25 History Pravastatin Sodium [Pravachol] 20 mg PO HS 02/04/17 06/22/25 History Omeprazole 20 mg PO BID 04/24/17 06/22/25 History Calcium Carbonate [Calcium] 600 mg PO DAILY 04/11/20 06/22/25 History Escitalopram [Lexapro] 20 mg PO DAILY 04/11/20 06/22/25 History Ubidecarenone [Co Q-10] 200 mg PO DAILY 04/11/20 06/22/25 History Vit C/E/Zn/Coppr/Lutein/Zeaxan 1 cap PO BID 04/11/20 06/22/25 History [Preservision Areds 2 Softgel] Levothyroxine Sodium [Synthroid] 50 mcg PO DAILY 01/24/24 06/22/25 History Losartan [Cozaar] 25 mg PO DAILY 01/24/24 06/22/25 History Rivaroxaban [Xarelto] 20 mg PO PC-SUPPER 01/24/24 06/22/25 History Biotin 5,000 mcg PO DAILY 06/22/25 06/22/25 History Dapagliflozin Propanediol [Farxiga] 10 mg PO DAILY 06/22/25 06/22/25 History Allergies Allergy/AdvReac Type Severity Reaction Status Date / Time adhesive tape Allergy Rash/Hives Verified 06/22/25 20:08 clindamycin Allergy Rash/Hives Verified 06/22/25 20:08 levofloxacin [From Levaquin] Allergy Rash/Hives Verified 06/22/25 20:08 Penicillins Allergy Hives at Verified 06/22/25 20:08 injection site only, did not spread amlodipine [From Norvasc] AdvReac DENTAL Verified 06/22/25 20:08 ISSUES Physical Exam Vitals: Vital Signs Temp Pulse Pulse Resp BP BP Pulse Ox 06/23/25 08:41 65 06/23/25 08:30 63 06/23/25 03:50 98.3 F 63 20 128/60 94 L 06/22/25 23:47 97.8 F 63 16 135/62 100 06/22/25 23:13 98 F 71 18 165/52 96 06/22/25 21:56 98.1 F 67 15 137/37 06/22/25 20:37 59 L 06/22/25 20:27 60 06/22/25 20:03 97.8 F 61 20 135/35 06/22/25 19:43 98.0 F 63 20 148/50 06/22/25 19:33 97.8 F 60 18 144/53 06/22/25 19:02 98.1 F 65 22 145/46 06/22/25 17:42 97.8 F 67 16 148/41 06/22/25 17:22 97.9 F 67 16 135/64 06/22/25 17:12 98.0 F 65 18 145/49 06/22/25 15:32 68 22 121/36 98 06/22/25 13:42 98 F 61 20 146/60 98 Intake and Output 06/22/25 06/23/25 06/23/25 22:59 06:59 14:59 Intake Total 620 10 Output Total 750 Balance 620 -740 Intake: IV 10 Invasive Line 1 10 Blood Product 620 Rc As-1 Unit 310 [id number] Rc As-1 Unit 310 [id number] Output: Urine 750 Other: Voiding Method Toilet Weight 148.6 kg Results 06/23/25 06:00 06/23/25 06:00 Cardiac Enzymes 06/22/25 06/22/25 06/23/25 Range/Units 14:12 14:12 06:00 AST 34 26 (14-36) U/L Troponin I <0.012 (0.000-0.034) ng/mL Coagulation 06/22/25 Range/Units 14:12 PT 13.8 H (10.0-12.5) sec APTT 24.2 (22.0-30.0) sec CBC 06/22/25 06/23/25 Range/Units 14:12 06:00 WBC 4.69 4.69 (4.50-10.00) 10*3/uL RBC 1.85 L 2.26 L (4.10-5.20) 10*6/uL Hgb 5.0 L* 6.2 L* (12.0-15.0) g/dL Hct 17.2 L* 20.6 L (37.2-46.3) % Plt Count 155 152 (140-440) 10*3/uL Comprehensive Metabolic Panel 06/22/25 06/23/25 Range/Units 14:12 06:00 Sodium 137 138 (137-145) mmol/L Potassium 5.2 H 4.2 (3.5-5.1) mmol/L Chloride 107 109 H (98-107) mmol/L Carbon Dioxide 22 23 (22-30) mmol/L BUN 50 H 40 H (7-17) mg/dL Creatinine 1.33 H 1.30 H (0.52-1.04) mg/dL Glucose 235 H 207 H (74-99) mg/dL Calcium 8.5 8.1 L (8.4-10.2) mg/dL AST 34 26 (14-36) U/L ALT 16 14 (4-34) U/L Alkaline Phosphatase 116 115 (38-126) U/L Total Protein 5.3 L 5.1 L (6.3-8.2) g/dL Albumin 3.0 L 2.9 L (3.5-5.0) g/dL Current Medications Generic Name Dose Route Start Last Admin Trade Name Freq PRN Reason Stop Dose Admin Acetaminophen 650 mg 06/22/25 16:52 Acetaminophen Tab 325 Mg Tab PO Q6HR PRN Mild Pain or Fever > 100.5 Albuterol/Ipratropium 3 ml 06/22/25 20:00 06/23/25 08:30 Ipratropium-Albuterol 3 Ml Neb INHALATION 3 ml RT-TID BRIGIDO Administration Albuterol/Ipratropium 3 ml 06/22/25 18:27 Ipratropium-Albuterol 3 Ml Neb INHALATION RT-TID PRN Shortness Of Breath Or Wheezing Bupropion HCl 150 mg 06/23/25 09:00 Bupropion Xl 150 Mg Tab.Er.24h PO DAILY [facility] Calcium Carbonate/Glycine 500 mg 06/23/25 09:00 Calcium Carbonate 500 Mg Chewable PO DAILY BRIGIDO Cyclobenzaprine HCl 10 mg 06/22/25 16:54 Cyclobenzaprine 10 Mg Tab PO TID PRN Muscle Spasm Dapagliflozin 10 mg 06/23/25 09:00 Dapagliflozin Propanediol 10 Mg Tablet PO DAILY BRIGIDO Dextrose/Water 25 ml 06/22/25 18:27 Dextrose 50% Syringe 50 Ml IVP PER PROTOCOL PRN Hypoglycemia Protocol Dextrose/Water 50 ml 06/22/25 18:27 Dextrose 50% Syringe 50 Ml IVP PER PROTOCOL PRN Hypoglycemia Protocol Escitalopram Oxalate 20 mg 06/23/25 09:00 Escitalopram 20 Mg Tab PO DAILY BRIGIDO Furosemide 20 mg 06/22/25 17:00 06/22/25 20:09 Furosemide 10 Mg/Ml 2 Ml Vial IV Not Given BID BRIGIDO Hydromorphone HCl 0.5 mg 06/22/25 16:52 Hydromorphone 0.5 Mg/0.5 Ml Syringe IVP Q3HR PRN Moderate Pain (Scale 4 to 6) Insulin Human Lispro 0 unit 06/22/25 21:00 06/23/25 06:35 Insulin Lispro (Humalog) 100 Unit/Ml 10 Ml Vl SQ 4 unit ACHS BRIGIDO Administration Protocol Levothyroxine Sodium 50 mcg 06/23/25 06:30 06/23/25 06:35 Levothyroxine 50 Mcg Tab PO 50 mcg 0630 BRIGIDO Administration Losartan Potassium 25 mg 06/23/25 09:00 Losartan 25 Mg Tab PO DAILY BRIGIDO Montelukast Sodium 10 mg 06/22/25 21:00 06/22/25 20:59 Montelukast 10 Mg Tab PO 10 mg HS BRIGIDO Administration Naloxone HCl 0.2 mg 06/22/25 16:52 Naloxone 0.4 Mg/Ml 1 Ml Vial IV Q2M PRN Opioid Reversal Ondansetron HCl 4 mg 06/22/25 16:52 Ondansetron 4 Mg/2 Ml Vial IVP Q8HR PRN Nausea And Vomiting Pantoprazole Sodium 40 mg 06/23/25 09:00 Pantoprazole 40 Mg Tablet PO DAILY BRIGIDO Pravastatin Sodium 20 mg 06/22/25 21:00 06/22/25 20:59 Pravastatin Sodium 20 Mg Tab PO 20 mg HS BRIGIDO Administration Intake and Output 06/22/25 06/23/25 06/23/25 22:59 06:59 14:59 Intake Total 620 10 Output Total 750 Balance 620 -740 Intake: IV 10 Invasive Line 1 10 Blood Product 620 Rc As-1 Unit 310 [id number] Rc As-1 Unit 310 [id number] Output: Urine 750 Other: Voiding Method Toilet Weight 148.6 kg 06/23/25 06:00 06/23/25 06:00
[2025-06-23 11:49] LABS: Glucose,Whole Blood 252 mg/dL (70-110)
--- NOTE | 2025-06-23 12:19 | CA ---
Transthoracic Echo Report Name: Elli Eller Age: 75 Gender: F : 1950 Exam Date: 06/23/2025 09:33 Exam Location: [place] [facility] Ht (in): 62 Wt (lb): 328 Ordering Physician: Darcy Partida MD Attending/Referring Phys: Medical Review Specialist Anisa Corrales RDCS Procedure CPT: Indications: chf Cardiac Hx: Technical Quality: Fair Contrast 1: Total Dose (mL): Contrast 2: Total Dose (mL): MEASUREMENTS (Male / Female) Normal Values 2D ECHO LV Diastolic Diameter PLAX 4.1 cm 4.2 - 5.9 / 3.9 - 5.3 cm LV Systolic Diameter PLAX 2.9 cm IVS Diastolic Thickness 1.5 cm 0.6 - 1.0 / 0.6 - 0.9 cm LVPW Diastolic Thickness 1.4 cm 0.6 - 1.0 / 0.6 - 0.9 cm LV Relative Wall Thickness 0.7 RV Internal Dim ED PLAX 3.0 cm LVOT Diameter 2.0 cm LA Systolic Diameter LX 3.8 cm 3.0 - 4.0 / 2.7 - 3.8 cm LV Diastolic Volume MOD BP 102.4 cm??? 67 - 155 / 56 - 104 cm??? LV Systolic Volume MOD BP 30.5 cm??? 22 - 58 / 19 - 49 cm??? LV Ejection Fraction MOD BP 70.2 % >= 55 % LV Cardiac Index MOD BP 2054.2 cm???/min???m??? LV Diastolic Volume MOD 4C 89.5 cm??? LV Systolic Volume MOD 4C 32.6 cm??? LV Ejection Fraction MOD 4C 63.6 % LV Cardiac Index MOD 4C 1627.8 cm???/min???m??? LV Diastolic Length 4C 7.9 cm LV Systolic Length 4C 6.7 cm LV Diastolic Volume MOD 2C 105.0 cm??? LV Systolic Volume MOD 2C 28.8 cm??? LV Ejection Fraction MOD 2C 72.6 % LV Cardiac Index MOD 2C 2180.5 cm???/min???m??? LV Diastolic Length 2C 8.9 cm LV Systolic Length 2C 6.8 cm LA Volume 103.8 cm??? 18 - 58 / 22 - 52 cm??? LA Volume Index 39.1 cm???/m??? 16 - 28 cm???/m??? Ascending Aorta Diameter 3.8 cm M-MODE Aortic Root Diameter MM 2.8 cm AV Cusp Separation MM 2.0 cm DOPPLER AV Peak Velocity 266.4 cm/s AV Peak Gradient 28.4 mmHg AV Mean Velocity 206.3 cm/s AV Mean Gradient 18.3 mmHg AV Velocity Time Integral 61.9 cm AI Peak Velocity 334.7 cm/s AI Peak Gradient 44.8 mmHg AI Pressure Half Time 232.4 ms LVOT Peak Velocity 175.2 cm/s LVOT Peak Gradient 12.3 mmHg LVOT Velocity Time Integral 40.5 cm LVOT Stroke Volume 128.4 cm??? LVOT Stroke Volume Index 54.4 ml/m??? LVOT Cardiac Index 3672.6 cm???/min???m??? AV Area Cont Eq vti 2.1 cm??? AV Area Cont Eq pk 2.1 cm??? MV Peak Velocity 170.9 cm/s MV Peak Gradient 11.7 mmHg MV Mean Velocity 110.0 cm/s MV Mean Gradient 5.3 mmHg MV Velocity Time Integral 59.9 cm MV Area PHT 3.9 cm??? Mitral E Point Velocity 146.7 cm/s Mitral A Point Velocity 117.7 cm/s Mitral E to A Ratio 1.2 MV Deceleration Time 192.3 ms TR Peak Velocity 178.7 cm/s TR Peak Gradient 12.8 mmHg Right Ventricular Systolic Press 27.2 mmHg FINDINGS Left Ventricle Left ventricular ejection fraction is estimated at 55-60 %. Normal left ventricular systolic function with no obvious regional wall motion abnormalities. Left ventricular cavity size normal. Moderately increased left ventricular wall thickness. Right Ventricle Normal right ventricular size and function. Right ventricular systolic pressure within normal limits. Right Atrium Normal right atrial size. No right atrial thrombus or mass seen. Left Atrium Moderately increased left atrial volume. Mildly increased left atrial area. No left atrial thrombus or mass present. Mitral Valve Structurally normal mitral valve. Mitral annular calcification. Mild mitral stenosis. Mild mitral regurgitation. Aortic Valve Aortic valve not well visualized. Mild aortic stenosis with a peak gradient of 28mmHg and a mean gradient of 18mmHg. Mild aortic regurgitation. Tricuspid Valve Structurally normal tricuspid valve. Mild tricuspid regurgitation. Pulmonic Valve Pulmonic valve not well visualized. Trace pulmonic regurgitation. Pericardium No pericardial effusion. Echo free space anterior to the right ventricle likely represents a fat pad. Aorta Normal size aortic root . upper limits of normal proximal ascending aorta at 3.8cm. higher velocities. seen in the super sternal notch. CONCLUSIONS 1. Normal left ventricular size and systolic function 2. Mild mitral regurgitation and stenosis 3. Mild aortic regurgitation and aortic stenosis with mean gradient of 18 mmHg 4. Mild tricuspid regurgitation with no evidence of pulmonary hypertension Previewed by: Dr. Deejay Villaseñor MD (Electronically Signed) Final Date: 23 June 2025 12:18
--- NOTE | 2025-06-23 12:42 | P.CONS ---
History of Present Illness - Reason for Consult Consult date: 06/23/25 Anemia Requesting physician: Darcy Partida - Chief Complaint Shortness of breath and weakness - History of Present Illness Is a pleasant 75-year-old female who was sent to the emergency department by her electronic service technician after being seen in the office for shortness of breath, weakness and noted to have jugular vein distention. Past medical history includes chronic anemia, COPD, diabetes mellitus, PE, DVT and atrial fibrillation on Xarelto last taken 2 days ago. Patient came to the emergency department and part of her workup showed significant anemia with hemoglobin of 5.0. She was given 2 units of blood. Patient has chronic anemia has been anemic for several years. She has had workup in the past for iron deficiency anemia and last EGD colonoscopy was in April 2022. Upper endoscopy revealed gastritis and colonoscopy revealed diverticulosis without any evidence of any bleeding or old blood. Patient states that her stools have been dark but she does follow with hematology and she does get parental iron infusions. She states that she did have some nausea yesterday but no abdominal pain or epigastric pain. Denies any bright red blood in her stool. Patient with a normocytic normochromic anemia. Repeat labs today with a hemoglobin of 6.2 after the 2 units of blood. Review of Systems REVIEW OF SYSTEMS: CARDIOPULMONARY: No chest pain. Shortness of breath especially with exertion. Lower extremity swelling. Gastrointestinal: No abdominal pain. No nausea or vomiting. No hematemesis, coffee-ground emesis. No rectal bleeding, or melena. Reports black stool, on parental iron. GENITOURINARY: No dysuria or hematuria. MUSCULOSKELETAL: Reports normal range of motion., Joint pain. SKIN: No rashes. No jaundice. ENDOCRINE: No chills, fevers. No excessive weight gain or loss. No polydipsia or polyuria. PSYCHIATRIC: Unremarkable. NEUROLOGY: No change in mental status. Denies dizziness, headache. ENT: Vision unremarkable. CONSTITUTIONAL: No recent weight loss. No fever, chills, night sweats. Past Medical History Past Medical History: Blood Disorder, COPD, Diabetes Mellitus, Deep Vein Thrombosis (DVT), GERD/Reflux, Hyperlipidemia, Hypertension, Pulmonary Embolus (PE), Sleep Apnea/CPAP/BIPAP Additional Past Medical History / Comment(s): Morbid obesity, varicose veins with previous history of surgery for varicose vein stripping from the lower ex tremity, superficial thrombophlebitis, history of ex-smoking, anemia requiring blood and iron transfusions, macular degeneration (dry in right and wet in left) History of Any Multi-Drug Resistant Organisms: None Reported Additional Past Surgical History / Comment(s): vein surgery left leg, bilateral cataracts, injections in L eye for macular degeneration Past Anesthesia/Blood Transfusion Reactions: No Reported Reaction Past Psychological History: Depression Smoking Status: Former smoker Past Alcohol Use History: None Reported Past Drug Use History: None Reported - Past Family History Father Family Medical History: Cancer Additional Family Medical History / Comment(s): suicide, colon ca Mother Family Medical History: Coronary Artery Disease (CAD), Diabetes Mellitus Medications and Allergies Home Medications Medication Instructions Recorded Confirmed Type Montelukast [Singulair] 10 mg PO HS 02/04/17 06/22/25 History Pravastatin Sodium [Pravachol] 20 mg PO HS 02/04/17 06/22/25 History Omeprazole 20 mg PO BID 04/24/17 06/22/25 History Calcium Carbonate [Calcium] 600 mg PO DAILY 04/11/20 06/22/25 History Escitalopram [Lexapro] 20 mg PO DAILY 04/11/20 06/22/25 History Ubidecarenone [Co Q-10] 200 mg PO DAILY 04/11/20 06/22/25 History Vit C/E/Zn/Coppr/Lutein/Zeaxan 1 cap PO BID 04/11/20 06/22/25 History [Preservision Areds 2 Softgel] Levothyroxine Sodium [Synthroid] 50 mcg PO DAILY 01/24/24 06/22/25 History Losartan [Cozaar] 25 mg PO DAILY 01/24/24 06/22/25 History Rivaroxaban [Xarelto] 20 mg PO PC-SUPPER 01/24/24 06/22/25 History Biotin 5,000 mcg PO DAILY 06/22/25 06/22/25 History Dapagliflozin Propanediol [Farxiga] 10 mg PO DAILY 06/22/25 06/22/25 History Allergies Allergy/AdvReac Type Severity Reaction Status Date / Time adhesive tape Allergy Rash/Hives Verified 06/22/25 20:08 clindamycin Allergy Rash/Hives Verified 06/22/25 20:08 levofloxacin [From Levaquin] Allergy Rash/Hives Verified 06/22/25 20:08 Penicillins Allergy Hives at Verified 06/22/25 20:08 injection site only, did not spread amlodipine [From [facility]] AdvReac DENTAL Verified 06/22/25 20:08 ISSUES Physical Exam Vitals: Vital Signs Temp Pulse Pulse Resp BP BP Pulse Ox 06/23/25 03:50 98.3 F 63 20 128/60 94 L 06/22/25 23:47 97.8 F 63 16 135/62 100 06/22/25 23:13 98 F 71 18 165/52 96 06/22/25 21:56 98.1 F 67 15 137/37 06/22/25 20:37 59 L 06/22/25 20:27 60 06/22/25 20:03 97.8 F 61 20 135/35 06/22/25 19:43 98.0 F 63 20 148/50 06/22/25 19:33 97.8 F 60 18 144/53 06/22/25 19:02 98.1 F 65 22 145/46 06/22/25 17:42 97.8 F 67 16 148/41 06/22/25 17:22 97.9 F 67 16 135/64 06/22/25 17:12 98.0 F 65 18 145/49 06/22/25 15:32 68 22 121/36 98 06/22/25 13:42 98 F 61 20 146/60 98 Intake and Output 06/22/25 06/22/25 06/23/25 14:59 22:59 06:59 Intake Total 620 10 Output Total 750 Balance 620 -740 Intake: IV 10 Invasive Line 1 10 Blood Product 620 As-1 Unit 310 [id number] As-1 Unit 310 [id number] Output: Urine 750 Other: Voiding Method Toilet Weight 148.778 kg 148.6 kg General appearance: The patient is alert, oriented, appears in no acute distress. HET: Head is normocephalic and atraumatic. Conjunctiva pink. Sclera anicteric. Neck: Supple without lymphadenopathy. Trachea midline. Heart: Regular. Lungs: Equal expansion, normal respiratory effort. Abdomen: Soft, nontender, nondistended. Skin: No rashes. No jaundice. Extremities: Normal skin color and turgor. Lower extremity edema. Neurological: No focal deficits. Alert and oriented x3. Results CBC & Chem 7: 06/23/25 06:00 06/23/25 06:00 Labs: Abnormal Lab Results - Last 24 Hours (Table) 06/22/25 06/22/25 06/22/25 Range/Units 14:12 14:12 14:12 RBC 1.85 L (4.10-5.20) 10*6/uL Hgb 5.0 L* (12.0-15.0) g/dL Hct 17.2 L* (37.2-46.3) % MCHC 29.1 L (32.0-37.0) g/dL Lymphocytes # 0.89 L (0.90-5.00) 10*3/uL PT 13.8 H (10.0-12.5) sec INR 1.3 H (<1.2) D-Dimer 0.98 H (<0.60) mg/L FEU Potassium 5.2 H (3.5-5.1) mmol/L BUN 50 H (7-17) mg/dL Creatinine 1.33 H (0.52-1.04) mg/dL Glucose 235 H (74-99) mg/dL POC Glucose (mg/dL) (70-110) mg/dL Hemoglobin A1c (<=6.0) % Total Protein 5.3 L (6.3-8.2) g/dL Albumin 3.0 L (3.5-5.0) g/dL Crossmatch 06/22/25 06/22/25 06/22/25 Range/Units 15:05 19:16 20:52 RBC (4.10-5.20) 10*6/uL Hgb (12.0-15.0) g/dL Hct (37.2-46.3) % MCHC (32.0-37.0) g/dL Lymphocytes # (0.90-5.00) 10*3/uL PT (10.0-12.5) sec INR (<1.2) D-Dimer (<0.60) mg/L FEU Potassium (3.5-5.1) mmol/L BUN (7-17) mg/dL Creatinine (0.52-1.04) mg/dL Glucose (74-99) mg/dL POC Glucose (mg/dL) 255 H 236 H (70-110) mg/dL Hemoglobin A1c (<=6.0) % Total Protein (6.3-8.2) g/dL Albumin (3.5-5.0) g/dL Crossmatch See Detail 06/22/25 06/23/25 Range/Units 21:00 06:23 RBC (4.10-5.20) 10*6/uL Hgb (12.0-15.0) g/dL Hct (37.2-46.3) % MCHC (32.0-37.0) g/dL Lymphocytes # (0.90-5.00) 10*3/uL PT (10.0-12.5) sec INR (<1.2) D-Dimer (<0.60) mg/L FEU Potassium (3.5-5.1) mmol/L BUN (7-17) mg/dL Creatinine (0.52-1.04) mg/dL Glucose (74-99) mg/dL POC Glucose (mg/dL) 246 H (70-110) mg/dL Hemoglobin A1c 6.8 H (<=6.0) % Total Protein (6.3-8.2) g/dL Albumin (3.5-5.0) g/dL Crossmatch Comments: Chest CT angiogram reports no evidence of pulmonary embolism. No acute cardiopulmonary disease. Cirrhotic liver and small amount of ascites. Assessment and Plan (1) Anemia Narrative/Plan: 75-year-old female presenting with symptomatic anemia with known iron deficiency anemia who follows with hematology receives parenteral iron as an outpatient was known to have significant anemia on admission with a hemoglobin of 5.0. As part of her evaluation for anemia gastroenterology will evaluate with upper endoscopy and colonoscopy. Patient states she has had previous EGD colonoscopy and small bowel capsule endoscopy last in 2021 for evaluation of her iron deficiency anemia with no findings of any bleeding. However due to severe anemia will recommend repeating upper endoscopy and colonoscopy, may consider small bowel capsule endoscopy as well. Current Visit: Yes Status: Acute Code(s): D64.9 - ANEMIA, UNSPECIFIED SNOMED Code(s): 446483791 (2) Atrial fibrillation Current Visit: Yes Status: Acute Code(s): I48.91 - UNSPECIFIED ATRIAL FIBRILLATION SNOMED Code(s): 58524660 (3) Congestive heart failure Current Visit: Yes Status: Acute Code(s): I50.9 - HEART FAILURE, UNSPECIFIED SNOMED Code(s): 34279072 (4) COPD (chronic obstructive pulmonary disease) Current Visit: No Status: Acute Code(s): J44.9 - CHRONIC OBSTRUCTIVE P ULMONARY DISEASE, UNSPECIFIED SNOMED Code(s): 57286183 Plan: 1. Continue symptomatic and supportive care 2. Clear liquid diet, n.p.o. after midnight 3. Protonix 40 mg daily for GI prophylaxis 4. CBC, transfuse for hemoglobin less than 7 5. Hold anticoagulation 6. Agree with hematology consultation 7. Will plan for EGD and colonoscopy, possible small bowel capsule endoscopy tomorrow Thank you for this consultation, we will continue to follow. Dr. Tika Bahena I agree with the dictator's note, documented as a scribe by Mignon Anne.
[2025-06-23 14:06] LABS: T4, Free (Free Thyroxine) 1.53 ng/dL (0.78-2.19)
[2025-06-23 16:45] LABS: Ferritin 33.5 ng/mL (10.0-291.0); Iron 11 UG/DL (50-170); Total Iron Binding Capacity 371 UG/DL (228-460); Vitamin B12 403.0 pg/mL (200.0-944.0)
[2025-06-23 17:01] LABS: Glucose,Whole Blood 261 mg/dL (70-110)
--- NOTE | 2025-06-23 17:11 | P.CONS ---
History of Present Illness - Reason for Consult Consult date: 06/23/25 - History of Present Illness Patient is a 75-year-old female with history of unprovoked DVT and PE now on Xarelto, atrial fibrillation, CHF, and iron deficiency anemia who presents on recommendation of cardiology to be evaluated for shortness of breath. Hematology oncology have been consulted for evaluation of anemia. Patient has history of iron deficiency anemia and undergoes treatment with IV iron infusions at hematology office, and recently had 3 bags of Feraheme. Yesterday, she states that upon office visit to cutter and edge trimmer she had complained of shortness of breath for the last week. She has no symptoms of chest pain, dizziness or syncope. Upon ER evaluation she was found to have a hemoglobin of 5 and was s ubsequently transfused with 2 units of pRBCs, and repeat hemoglobin of 6.2. She denies any rectal bleeding and states she has had black formed stools which she attest to her iron supplementation. She is otherwise well and has no other complaints. Review of Systems Constitutional: Reports as per HPI Past Medical History Past Medical History: Blood Disorder, COPD, Diabetes Mellitus, Deep Vein Thrombosis (DVT), GERD/Reflux, Hyperlipidemia, Hypertension, Pulmonary Embolus (PE), Sleep Apnea/CPAP/BIPAP Additional Past Medical History / Comment(s): Morbid obesity, varicose veins with previous history of surgery for varicose vein stripping from the lower extremity, superficial thrombophlebitis, history of ex-smoking, anemia requiring blood and iron transfusions, macular degeneration (dry in right and wet in left) History of Any Multi-Drug Resistant Organisms: None Reported Additional Past Surgical History / Comment(s): vein surgery left leg, bilateral cataracts, injections in L eye for macular degeneration Past Anesthesia/Blood Transfusion Reactions: No Reported Reaction Past Psychological History: Depression Smoking Status: Former smoker Past Alcohol Use History: None Reported Past Drug Use History: None Reported - Past Family History Father Family Medical History: Cancer Additional Family Medical History / Comment(s): suicide, colon ca Mother Family Medical History: Coronary Artery Disease (CAD), Diabetes Mellitus Medications and Allergies Home Medications Medication Instructions Recorded Confirmed Type Montelukast [Singulair] 10 mg PO HS 02/04/17 06/22/25 History Pravastatin Sodium [Pravachol] 20 mg PO HS 02/04/17 06/22/25 History Omeprazole 20 mg PO BID 04/24/17 06/22/25 History Calcium Carbonate [Calcium] 600 mg PO DAILY 04/11/20 06/22/25 History Escitalopram [Lexapro] 20 mg PO DAILY 04/11/20 06/22/25 History Ubidecarenone [Co Q-10] 200 mg PO DAILY 04/11/20 06/22/25 History Vit C/E/Zn/Coppr/Lutein/Zeaxan 1 cap PO BID 04/11/20 06/22/25 History [Preservision Areds 2 Softgel] Levothyroxine Sodium [Synthroid] 50 mcg PO DAILY 01/24/24 06/22/25 History Losartan [Cozaar] 25 mg PO DAILY 01/24/24 06/22/25 History Rivaroxaban [Xarelto] 20 mg PO PC-SUPPER 01/24/24 06/22/25 History Biotin 5,000 mcg PO DAILY 06/22/25 06/22/25 History Dapagliflozin Propanediol [Farxiga] 10 mg PO DAILY 06/22/25 06/22/25 History Allergies Allergy/AdvReac Type Severity Reaction Status Date / Time adhesive tape Allergy Rash/Hives Verified 06/22/25 20:08 clindamycin Allergy Rash/Hives Verified 06/22/25 20:08 levofloxacin [From Levaquin] Allergy Rash/Hives Verified 06/22/25 20:08 Penicillins Allergy Hives at Verified 06/22/25 20:08 injection site only, did not spread amlodipine [From Norvasc] AdvReac DENTAL Verified 06/22/25 20:08 ISSUES Physical Exam Vitals: Vital Signs Temp Pulse Pulse Resp BP BP Pulse Ox 06/23/25 14:00 18 06/23/25 12:22 66 06/23/25 12:13 69 06/23/25 11:30 87 18 133/57 95 06/23/25 08:50 98.5 F 74 20 143/55 97 06/23/25 08:41 65 06/23/25 08:30 63 06/23/25 03:50 98.3 F 63 20 128/60 94 L 06/22/25 23:47 97.8 F 63 16 135/62 100 06/22/25 23:13 98 F 71 18 165/52 96 06/22/25 21:56 98.1 F 67 15 137/37 06/22/25 20:37 59 L 06/22/25 20:27 60 06/22/25 20:03 97.8 F 61 20 135/35 06/22/25 19:43 98.0 F 63 20 148/50 06/22/25 19:33 97.8 F 60 18 144/53 06/22/25 19:02 98.1 F 65 22 145/46 06/22/25 17:42 97.8 F 67 16 148/41 06/22/25 17:22 97.9 F 67 16 135/64 06/22/25 17:12 98.0 F 65 18 145/49 Intake and Output 06/23/25 06/23/25 06/23/25 06:59 14:59 22:59 Intake Total 10 378 Output Total 750 450 Balance -740 -72 Intake: IV 10 20 Invasive Line 1 10 20 Oral 358 Output: Urine 750 450 Other: Voiding Method Toilet # Voids 1 Weight 148.6 kg VITAL SIGNS: Reviewed GENERAL: Resting comfortably in bed. Obese. EYES: PERRL. HENT: Normocephalic, atraumatic, hearing grossly intact, moist mucous membranes. CARDIOVASCULAR: S1 and S2 present. Systolic murmur present PULMONARY: Chest is clear to auscultation, no wheezing, rhonchi, or crackles. ABDOMEN: Soft, nontender, nondistended. No palpable organomegaly. NEUROLOGICAL: Alert and oriented. Gross neurological examination with no apparent focal deficits. SKIN: No apparent rashes. Results CBC & Chem 7: 06/25/25 07:16 06/25/25 07:16 Labs: Abnormal Lab Results - Last 24 Hours (Table) 06/22/25 06/22/25 06/22/25 Range/Units 14:12 15:05 19:16 RBC (4.10-5.20) 10*6/uL Hgb (12.0-15.0) g/dL Hct (37.2-46.3) % MCHC (32.0-37.0) g/dL Chloride (98-107) mmol/L BUN (7-17) mg/dL Creatinine (0.52-1.04) mg/dL Glucose (74-99) mg/dL POC Glucose (mg/dL) 255 H (70-110) mg/dL Hemoglobin A1c (<=6.0) % Calcium (8.4-10.2) mg/dL Iron 11 L (50-170) UG/DL % Saturation 2.96 L (12.00-45.00) Total Protein (6.3-8.2) g/dL Albumin (3.5-5.0) g/dL TSH <0.015 L (0.465-4.680) mIU/L Crossmatch See Detail 06/22/25 06/22/25 06/23/25 Range/Units 20:52 21:00 06:00 RBC 2.26 L (4.10-5.20) 10*6/uL Hgb 6.2 L* (12.0-15.0) g/dL Hct 20.6 L (37.2-46.3) % MCHC 30.1 L (32.0-37.0) g/dL Chloride (98-107) mmol/L BUN (7-17) mg/dL Creatinine (0.52-1.04) mg/dL Glucose (74-99) mg/dL POC Glucose (mg/dL) 236 H (70-110) mg/dL Hemoglobin A1c 6.8 H (<=6.0) % Calcium (8.4-10.2) mg/dL Iron (50-170) UG/DL % Saturation (12.00-45.00) Total Protein (6.3-8.2) g/dL Albumin (3.5-5.0) g/dL TSH (0.465-4.680) mIU/L Crossmatch 06/23/25 06/23/25 06/23/25 Range/Units 06:00 06:23 11:48 RBC (4.10-5.20) 10*6/uL Hgb (12.0-15.0) g/dL Hct (37.2-46.3) % MCHC (32.0-37.0) g/dL Chloride 109 H (98-107) mmol/L BUN 40 H (7-17) mg/dL Creatinine 1.30 H (0.52-1.04) mg/dL Glucose 207 H (74-99) mg/dL POC Glucose (mg/dL) 246 H 252 H (70-110) mg/dL Hemoglobin A1c (<=6.0) % Calcium 8.1 L (8.4-10.2) mg/dL Iron (50-170) UG/DL % Saturation (12.00-45.00) Total Protein 5.1 L (6.3-8.2) g/dL Albumin 2.9 L (3.5-5.0) g/dL TSH (0.465-4.680) mIU/L Crossmatch Assessment and Plan Plan: #Iron deficiency anemia #History of unprovoked DVT and PE #Atrial fibrillation #CHF Initial hemoglobin 5.0 and improved to 6.2, non-appropriate response 2 units packed RBC given, 1 unit ordered Iron panel, ferritin, folate, vitamin B12, TSH ordered Continue holding Xarelto Monitor CBC, goal hemoglobin > 7.0, transfuse pRBC if needed GI consulted for endoscopy to evaluate for acute GI bleed Buddy Magallon MD Internal Medicine Resident, PGY2 Hematology oncology service Patient seen with resident and agree with assessment and plan as outlined above. Brian Pino MD
[2025-06-23] MEDS: PEG 3350 (236 GM/BTL) + LYTES 4,000 ML BOTTLE PO ONE (17:16)
[2025-06-23 20:12] LABS: Glucose,Whole Blood 177 mg/dL (70-110)
--- NOTE | 2025-06-24 04:47 | PN ---
PROGRESS NOTE DATE OF SERVICE: 06/23/2025 SUBJECTIVE: This is a 75-year-old woman, who was admitted with CHF acute exacerbation, improving significantly. No chest pain, no palpitation. PAST MEDICAL HISTORY: Could not be taken. REVIEW OF SYSTEMS: Could not be taken. PHYSICAL EXAM: VITAL SIGNS: Pulse is 87, blood pressure 133/56, and respirations 18. HEENT: Conjunctivae normal. CARDIOVASCULAR: S1, S2. LUNGS: Breath sounds diminished at the bases. ABDOMEN: Soft, nontender. LEGS: No edema. NEUROLOGIC: Diffusely weak. LABORATORY DATA: Hemoglobin is 6.2. ASSESSMENT: 1. Congestive heart failure acute exacerbation with possible acute on chronic diastolic dysfunction. 2. Anemia, acute on chronic, rule out gastrointestinal blood loss anemia. 3. Possible cirrhosis of the liver with esophageal varices. 4. History of iron-deficiency anemia. 5. History of deep vein thrombosis, pulmonary embolism. 6. Hypertension. 7. Hyperlipidemia. 8. Diabetes. 9. History of chronic obstructive pulmonary disease. 10.Multiple complex medical issues. RECOMMENDATIONS: Recommend to continue current management and treatment. Otherwise, GI Consultation, possible endoscopies. Transfusion, 3 units have been transfused so far, repeat labs. Hold off anticoagulants, antiplatelet agents. The prognosis is extremely guarded because of multiple complex medical issues. Further recommendations to follow. MMODL / IJN: [id number] /
[2025-06-24 06:14] LABS: Glucose,Whole Blood 252 mg/dL (70-110)
[2025-06-24 08:36] LABS: Basophils # (A) 0.05 10*3/uL (0.00-0.10); Basophils % (A) 0.9 %; Eosinophils # (A) 0.18 10*3/uL (0.04-0.35); Eosinophils % (A) 3.3 %; HCT 24.9 % (37.2-46.3); Lymphocytes # (A) 0.77 10*3/uL (0.90-5.00); Lymphocytes % (A) 14.1 %; MCH 28.4 pg (27.0-32.0); MCHC 31.3 g/dL (32.0-37.0); MCV 90.5 fL (80.0-97.0); Monocytes # (A) 0.67 10*3/uL (0.20-1.00); Monocytes % (A) 12.2 %; Neutrophils # (A) 3.79 10*3/uL (1.80-7.70); Neutrophils % (A) 69.1 %; Platelet Count 158 10*3/uL (140-440); RBC 2.75 10*6/uL (4.10-5.20); RDW 17.3 % (11.5-14.5); WBC 5.48 10*3/uL (4.50-10.00)
[2025-06-24 08:42] LABS: HGB 7.8 g/dL (12.0-15.0)
[2025-06-24 08:50] LABS: ALT 17 U/L (4-34); AST 40 U/L (14-36); African American GFR (CKD) 48 (>60 ml/min/1.73 sqM); Albumin 3.2 g/dL (3.5-5.0); Alkaline Phosphatase 113 U/L (38-126); Anion Gap 9 mmol/L; Blood Urea Nitrogen 31 mg/dL (7-17); Calcium 8.5 mg/dL (8.4-10.2); Carbon Dioxide 24 mmol/L (22-30); Chloride 105 mmol/L (98-107); Glucose 129 mg/dL (74-99); Non-African American GFR(CKD) 41 (>60 ml/min/1.73 sqM); Potassium 4.1 mmol/L (3.5-5.1); Sodium 138 mmol/L (137-145); Total Protein 5.6 g/dL (6.3-8.2)
--- NOTE | 2025-06-24 11:09 | P.PN ---
Subjective Progress Note Date: 06/24/25 Consult reason: congestive heart failure History of present illness: This is 75-year-old female patient of Dr. Rick Bahena with past medical history of paroxysmal atrial fibrillation, hypertension, dyslipidemia, history of pulmonary embolism on Xarelto. We have been asked to evaluate the patient for CHF. Patient was in the office yesterday with Dr. Bahena with complaints of shortness of breath with activity for the past week. No chest pain, palpitations, dizziness or syncope. She had mild leg edema and chronic leg edema. Lung sounds were clear and patient was in a sinus rhythm. She has been taking her Xarelto regularly. Patient was then sent from the office to the emergency center for further evaluation. Patient is seen today on the cardiac stepdown unit. Patient was found to have a hemoglobin of 5 and has been transfused 2 units of packed RBCs with repeat hemoglobin of 6.2. She has a consult in place with GI and is scheduled for EGD and colonoscopy for tomorrow. Her anticoagulation is on hold. Blood pressure 143/55, heart rate in the 60s and 70s, pulse ox 97% on room air. -EKG: -Chest x-ray: Stable coarsened interstitium which could be secondary to chronic interstitial lung disease. -CTA chest: No evidence of pulmonary embolism. No acute cardiopulmonary disease. Cirrhotic liver and small amount of ascites. Cholelithiasis. -Venous duplex bilateral lower extremities poor flow in the left popliteal vein possibly due to eccentric nonocclusive thrombus. No evidence of right DVT -Laboratory studies: Initial hemoglobin 5 and repeat 6.2 after 2 units packed RBCs, potassium initially 5.2 now 4.2. BUN 40 and creatinine 1.3. Troponin negative x 1. proBNP 625. -Home cardiac medications: Farxiga 10 mg daily, losartan 25 mg daily, pravastatin 20 mg at bedtime, Xarelto 20 mg with supper. -Echocardiogram performed 04/2022 at [facility] revealed normal LV size and systolic function. No significant valvular abnormalities. 06/24/2025 Patient seen and examined. Patient is scheduled for endoscopy with GI today. R epeat blood work reveals hemoglobin of 7.8. She is status post 3 units of packed RBCs. Blood pressure 147/69, heart rate 69, pulse ox 95% on room air. Echocardiogram reveals normal left ventricular size and systolic function. Mild mitral regurgitation and stenosis. Mild aortic regurgitation and aortic stenosis with mean gradient of 18 mmHg. Mild tricuspid regurgitation with no evidence of pulmonary hypertension. Physical examination: Gen: This is 75-year-old female in no acute distress VS: reviewed HEENT: Head is atraumatic, normocephalic. Conjunctival pale. Pupils equal, round. Sclerae is anicteric. NECK: Supple. No JVD. LUNGS: Clear to auscultation. No wheezes or rhonchi. No intercostal retractions. HEART: Regular rate and rhythm. No murmur. ABDOMEN: Soft No tenderness. EXTREMITIES: No pedal edema. No calf tenderness. NEUROLOGICAL: Patient is awake, alert and oriented x3. Assessment: Dyspnea on exertion secondary to severe anemia Chronic diastolic heart failure Paroxysmal atrial fibrillation usually on Xarelto at home Acute blood loss anemia, status posttransfusion 2 units packed RBCs Possible acute GI bleed, GI workup in progress Hypertension Dyslipidemia History of pulmonary embolism Plan: Continue patient's home cardiac medications Continue to hold Xarelto Further recommendations to follow based upon clinical course Nurse practitioner note has been reviewed, I agree with documented findings and plan of care. Patient was seen and examined. Objective - Vital Signs Vital signs: Vital Signs Temp 98.2 F 06/24/25 04:55 Pulse 74 06/24/25 04:55 Resp 19 06/24/25 04:55 BP 134/61 06/24/25 04:55 Pulse Ox 95 06/24/25 04:55 FiO2 Intake & Output 06/23/25 06/24/25 06/24/25 18:59 06:59 18:59 Intake Total 618 330 Output Total 450 1105 Balance 168 -775 Weight 146.9 kg Intake: IV 20 20 Invasive Line 1 20 20 Oral 598 Blood Product 0 310 Rc As-1 Unit 0 310 [id number] Output: Urine 450 Stool 5 Urine/Stool Mix 1100 Other: Voiding Method Toilet # Voids 1 5 - Labs CBC & Chem 7: 06/24/25 07:43 06/24/25 07:43 Labs: Abnormal Lab Results - Last 24 Hours (Table) 06/22/25 06/22/25 06/23/25 Range/Units 14:12 15:05 11:48 POC Glucose (mg/dL) 252 H (70-110) mg/dL Iron 11 L (50-170) UG/DL % Saturation 2.96 L (12.00-45.00) TSH <0.015 L (0.465-4.680) mIU/L Crossmatch See Detail 06/23/25 06/23/25 06/24/25 Range/Units 16:59 20:10 06:12 POC Glucose (mg/dL) 261 H 177 H 252 H (70-110) mg/dL Iron (50-170) UG/DL % Saturation (12.00-45.00) TSH (0.465-4.680) mIU/L Crossmatch
[2025-06-24 11:41] LABS: Glucose,Whole Blood 188 mg/dL (70-110)
[2025-06-24] MEDS ORDERED: PROPOFOL 10 MG/ML 20 ML VIAL IV ONE (13:46)
[2025-06-24] MEDS: LACTATED RINGERS 1,000 ML IV ONE (14:02)
--- NOTE | 2025-06-24 14:11 | P.PCN ---
Date of Procedure: 06/24/25 Procedure(s) Performed: Brief history: Patient is a pleasant 75-year-old white female admitted to hospital with severe symptomatic anemia and hemoglobin of 5 g/dL. Iron indicis consistent with iron deficiency anemia. History of DVT and PE on Xarelto which is on hold for 2 days. She is scheduled for an upper endoscopy as well as colonoscopy to evaluate further Procedure performed: Esophagogastroduodenoscopy with argon plasma coagulation Colonoscopy Preoperative diagnosis: Iron deficiency anemia Anesthesia: MAC Procedure: After informed consent was obtained from the patient was brought into the endoscopy unit and IV sedation was administered by anesthesia under continuous monitoring. Initially upper endoscopy was done. The Olympus GF 160 video endoscope was inserted inserted into the mouth and esophagus intubated without any difficulty and was gradually advanced into the stomach and duodenum and carefully examined. The bulb and second part of the duodenum appeared normal. The scope was then withdrawn into the stomach adequately insufflated with air and upon careful examination the antrum had multiple scattered angiectasia with no active bleeding. Plasma coagulation was performed. Mucosa of the body, cardia and fundus appeared normal. The scope was then withdrawn into the esophagus. The GE junction was located at 40 cm to the incisors. It appeared regular with no erythema erosions or ulcerations. Rest of the esophagus appeared normal. Patient tolerated the procedure well. At this time the patient continued to remain sedation. Initial digital rectal examination was normal. Olympus CF 160 video colonoscope was then inserted into the rectum and gradually advanced to the cecum without any difficulty. Careful examination was performed as the scope was gradually being withdrawn. The prep was excellent. The cecum, had 1 nonbleeding arteriovenous malformation that was coagulated using argon plasma. There were 3 nonbleeding arteriovenous malformations in the ascending colon all measuring between 5 to 6 mm in size. We coagulated using argon plasma. Rest of the ascending colon, transverse colon, descending colon, sigmoid colon and rectum appeared normal. Diverticulosis. Retroflexion was performed in the rectum and no lesions were noted. Patient tolerated the procedure well. Impression: 1. Upper endoscopy revealed scattered angiectasia in the antrum consistent with gastric antral vascular ectasia status post argon plasma coagulation as desc ribed above 2. Colonoscopy revealed nonbleeding arteriovenous malformations in the cecum as well as in the ascending colon WHICH were coagulated using argon plasma coagulation and scattered sigmoid diverticulosis Recommendations: Findings of this examination were discussed with the patient as well as her family. She was advised to resume Xarelto tomorrow morning. Start iron supplements twice daily. Monitor CBC periodically.
[2025-06-24 16:56] LABS: Glucose,Whole Blood 183 mg/dL (70-110)
[2025-06-24 20:04] LABS: Glucose,Whole Blood 251 mg/dL (70-110)
--- NOTE | 2025-06-25 00:11 | PN ---
PROGRESS NOTE DATE OF SERVICE: 06/24/2025 SUBJECTIVE: This is a 75-year-old woman who was admitted with CHF acute exacerbation, and also has anemia. Dr. Bahena performed EGD and colonoscopy. EGD showed scattered angiectasia of the antrum, consistent with GAVE. The patient underwent argon plasma coagulation. Colonoscopy also showed nonbleeding arteriovenous malformation. No chest pain. No palpitations. No fever. PHYSICAL EXAMINATION: VITAL SIGNS: Pulse is 76, blood pressure 113/50, respirations 18. HEENT: Conjunctivae normal. NECK: No JVD. CARDIOVASCULAR: S1, S2. RESPIRATIONS: Breath sounds diminished at the bases. ABDOMEN: Soft, nontender. LEGS: No edema. NERVOUS SYSTEM: Nonfocal. LABS: Hemoglobin noted. ASSESSMENT: 1. CHF acute exacerbation with acute on chronic diastolic dysfunction. 2. Anemia possibly GI bleed from gastric antral vascular ectasia, status post argon plasma coagulation. 3. Status post colonoscopy, showing nonbleeding AVMs in the cecum as well as ascending colon. 4. Cirrhosis of the liver possibly. 5. History of iron deficiency anemia. 6. History of DVT, pulmonary embolus. 7. Hypertension. 8. Hyperlipidemia. 9. History of diabetes mellitus type 2. 10.History of COPD. 11.Multiple complex medical issues. RECOMMENDATIONS: Recommend to continue current management and symptomatic treatment. Monitor hemoglobin closely. Monitor the rest of the medications closely. The patient was on Xarelto. We will continue to monitor closely. Follow with the multiple consultants. Guarded prognosis. Further recommendations to follow. MMODL / IJN: [id number] /
[2025-06-25] MEDS: ONDANSETRON 4 MG/2 ML VIAL IVP PRN (02:13)
[2025-06-25 05:46] LABS: Glucose,Whole Blood 228 mg/dL (70-110)
[2025-06-25 07:48] LABS: Basophils # (A) 0.05 10*3/uL (0.00-0.10); Basophils % (A) 0.8 %; Eosinophils # (A) 0.14 10*3/uL (0.04-0.35); Eosinophils % (A) 2.2 %; HCT 24.5 % (37.2-46.3); HGB 7.5 g/dL (12.0-15.0); Lymphocytes # (A) 0.88 10*3/uL (0.90-5.00); Lymphocytes % (A) 14.1 %; MCH 27.9 pg (27.0-32.0); MCHC 30.6 g/dL (32.0-37.0); MCV 91.1 fL (80.0-97.0); Monocytes # (A) 0.68 10*3/uL (0.20-1.00); Monocytes % (A) 10.9 %; Neutrophils # (A) 4.46 10*3/uL (1.80-7.70); Neutrophils % (A) 71.5 %; Platelet Count 164 10*3/uL (140-440); RBC 2.69 10*6/uL (4.10-5.20); RDW 17.2 % (11.5-14.5); WBC 6.24 10*3/uL (4.50-10.00)
[2025-06-25 08:06] VITALS: RESP 16; TEMP 98.4
[2025-06-25 08:07] LABS: African American GFR (CKD) 44 (>60 ml/min/1.73 sqM); Anion Gap 8 mmol/L; Blood Urea Nitrogen 28 mg/dL (7-17); Calcium 8.4 mg/dL (8.4-10.2); Carbon Dioxide 26 mmol/L (22-30); Chloride 104 mmol/L (98-107); Glucose 166 mg/dL (74-99); Non-African American GFR(CKD) 38 (>60 ml/min/1.73 sqM); Potassium 4.3 mmol/L (3.5-5.1); Sodium 138 mmol/L (137-145)
--- NOTE | 2025-06-25 08:55 | P.PN ---
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 Past medical history includes chronic anemia, COPD, diabetes mellitus, PE, DVT and atrial fibrillation on Xarelto last taken 2 days ago. Patient came to the emergency department and part of her workup showed significant anemia with hemoglobin of 5.0. She was given 2 units of blood. Patient has chronic anemia has been anemic for several years. She has had workup in the past for iron deficiency anemia and last EGD colonoscopy was in April 2022. Upper endoscopy revealed gastritis and colonoscopy revealed diverticulosis without any evidence of any bleeding or old blood. Patient states that her stools have been dark but she does follow with hematology and she does get parental iron infusions. She states that she did have some nausea yesterday but no abdominal pain or epigastric pain. Denies any bright red blood in her stool. Patient with a normocytic normochromic anemia. Repeat labs today with a hemoglobin of 6.2 after the 2 units of blood. 06/25/2025 Patient seen and examined today as a follow-up. States she had a little nausea through the night but no vomiting. No abdominal pain. Yesterday patient had undergone EGD and colonoscopy as part of evaluation for anemia. Upper endoscopy revealed scattered angiectasia in the antrum consistent with gastric antral vascular ectasia status post argon plasma coagulation as described above. Colonoscopy revealed nonbleeding arteriovenous malformation in the cecum as well as the ascending colon which were coagulated using argon plasma coagulation and scattered sigmoid diverticulosis. Hemoglobin stable at 7.5 today. Objective - Vital Signs Vital signs: Vital Signs Temp 98.5 F 06/25/25 03:50 Pulse 75 06/25/25 03:50 Resp 15 06/25/25 03:50 BP 147/55 06/25/25 03:50 Pulse Ox 93 L 06/25/25 03:50 FiO2 Intake & Output 06/24/25 06/25/25 06/25/25 18:59 06:59 18:59 Intake Total 560 140 Output Total 900 Balance 560 -760 Weight 146.7 kg Intake: IV 320 20 Invasive Line 1 20 20 Oral 240 120 Output: Urine 900 Other: Voiding Method Toilet # Voids 5 # Bowel Movements 2 - Exam General appearance: The patient is alert, oriented, appears in no acute distress. Morbidly obese. HET: Head is normocephalic and atraumatic. Conjunctiva pink. Sclera anicteric. Neck: Supple without lymphadenopathy. Abdomen: Soft, nontender, nondistended. Extremities: Normal skin color and turgor. No pedal edema Skin: No rashes, no jaundice Neurological: No focal deficits. Alert and oriented. - Labs CBC & Chem 7: 06/25/25 07:16 06/25/25 07:16 Labs: Abnormal Lab Results - Last 24 Hours (Table) 06/24/25 06/24/25 06/24/25 Range/Units 07:43 07:43 11:39 RBC 2.75 L (4.10-5.20) 10*6/uL Hgb 7.8 L D (12.0-15.0) g/dL Hct 24.9 L (37.2-46.3) % MCHC 31.3 L (32.0-37.0) g/dL Lymphocytes # 0.77 L (0.90-5.00) 10*3/uL BUN 31 H (7-17) mg/dL Creatinine 1.27 H (0.52-1.04) mg/dL Glucose 129 H (74-99) mg/dL POC Glucose (mg/dL) 188 H (70-110) mg/dL Total Bilirubin 1.6 H (0.2-1.3) mg/dL AST 40 H (14-36) U/L Total Protein 5.6 L (6.3-8.2) g/dL Albumin 3.2 L (3.5-5.0) g/dL 06/24/25 06/24/25 06/25/25 Range/Units 16:55 20:03 05:45 RBC (4.10-5.20) 10*6/uL Hgb (12.0-15.0) g/dL Hct (37.2-46.3) % MCHC (32.0-37.0) g/dL Lymphocytes # (0.90-5.00) 10*3/uL BUN (7-17) mg/dL Creatinine (0.52-1.04) mg/dL Glucose (74-99) mg/dL POC Glucose (mg/dL) 183 H 251 H 228 H (70-110) mg/dL Total Bilirubin (0.2-1.3) mg/dL AST (14-36) U/L Total Protein (6.3-8.2) g/dL Albumin (3.5-5.0) g/dL Assessment and Plan (1) Anemia Narrative/Plan: 75-year-old female presenting with symptomatic anemia with known iron deficiency anemia who follows with hematology receives parenteral iron as an outpatient was known to have significant anemia on admission with a hemoglobin of 5.0. As part of her evaluation for anemia gastroenterology will evaluate with upper endoscopy and colonoscopy. Patient states she has had previous EGD colonoscopy and small bowel capsule endoscopy last in 2021 for evaluation of her iron deficiency anemia with no findings of any bleeding. However due to severe anemia will recommend repeating upper endoscopy and colonoscopy, may consider small bowel capsule endoscopy as well. Anemia likely secondary to GI bleed from scattered angiectasia in the antrum without active bleeding status post argon plasma coagulation patient also noted to have nonbleeding AVM in the cecum and ascending colon status post argon plasma coagulation Current Visit: Yes Status: Acute Code(s): D64.9 - ANEMIA, UNSPECIFIED SNOMED Code(s): 387797064 (2) Atrial fibrillation Current Visit: Yes Status: Acute Code(s): I48.91 - UNSPECIFIED ATRIAL FIBRILLATION SNOMED Code(s): 76297393 (3) Congestive heart failure Current Visit: Yes Status: Acute Code(s): I50.9 - HEART FAILURE, UNSPECIFIED SNOMED Code(s): 96300084 (4) COPD (chronic obstructive pulmonary disease) Current Visit: No Status: Acute Code(s): J44.9 - CHRONIC OBSTRUCTIVE PULMONARY DISEASE, UNSPECIFIED SNOMED Code(s): 74199702 Plan: 1. Continue symptomatic and supportive care 2. Patient may have regular diet 3. Protonix 40 mg daily for GI prophylaxis 4. May resume anticoagulation 5. Patient is status post upper endoscopy and colonoscopy 6. No further workup from gastroenterology Thank you for this consultation, patient is cleared from gastroenterology for discharge. We will sign off at this time. Dr. Tika Bahena I agree with the dictator's note, documented as a scribe by Mignon Anne.
--- NOTE | 2025-06-25 09:26 | P.PN ---
Subjective Progress Note Date: 06/25/25 Consult reason: congestive heart failure History of present illness: This is 75-year-old female patient of Dr. Rick Bahena with past medical history of paroxysmal atrial fibrillation, hypertension, dyslipidemia, history of pulmonary embolism on Xarelto. We have been asked to evaluate the patient for CHF. Patient was in the office yesterday with Dr. Bahena with complaints of shortness of breath with activity for the past week. No chest pain, palpitations, dizziness or syncope. She had mild leg edema and chronic leg edema. Lung sounds were clear and patient was in a sinus rhythm. She has been taking her Xarelto regularly. Patient was then sent from the office to the emergency center for further evaluation. Patient is seen today on the cardiac stepdown unit. Patient was found to have a hemoglobin of 5 and has been transfused 2 units of packed RBCs with repeat hemoglobin of 6.2. She has a consult in place with GI and is scheduled for EGD and colonoscopy for tomorrow. Her anticoagulation is on hold. Blood pressure 143/55, heart rate in the 60s and 70s, pulse ox 97% on room air. -EKG: -Chest x-ray: Stable coarsened interstitium which could be secondary to chronic interstitial lung disease. -CTA chest: No evidence of pulmonary embolism. No acute cardiopulmonary disease. Cirrhotic liver and small amount of ascites. Cholelithiasis. -Venous duplex bilateral lower extremities poor flow in the left popliteal vein possibly due to eccentric nonocclusive thrombus. No evidence of right DVT -Laboratory studies: Initial hemoglobin 5 and repeat 6.2 after 2 units packed RBCs, potassium initially 5.2 now 4.2. BUN 40 and creatinine 1.3. Troponin negative x 1. proBNP 625. -Home cardiac medications: Farxiga 10 mg daily, losartan 25 mg daily, pravastatin 20 mg at bedtime, Xarelto 20 mg with supper. -Echocardiogram performed 04/2022 at [facility] revealed normal LV size and systolic function. No significant valvular abnormalities. 06/24/2025 Patient seen and examined. Patient is scheduled for endoscopy with GI today. Repeat blood work reveals hemoglobin of 7.8. She is status post 3 units of packed RBCs. Blood pressure 147/69, heart rate 69, pulse ox 95% on room air. Echocardiogram reveals normal left ventricular size and systolic function. Mild mitral regurgitation and stenosis. Mild aortic regurgitation and aortic stenosis with mean gradient of 18 mmHg. Mild tricuspid regurgitation with no evidence of pulmonary hypertension. 06/25/2025 Patient seen and examined. Xarelto remains on hold. Patient underwent EGD and colonoscopy. EGD revealed scattered angioectasia at the antrum consistent with gastric antral vascular ectasia status post argon plasma coagulation. Also colonoscopy revealed nonbleeding AV malformations in the cecum and ascending colon which were coagulated using argon plasma coagulation and scattered sigmoid diverticulosis. Patient was cleared to resume Xarelto this morning. Repeat hemoglobin is 7.5. BUN 28 creatinine 1.37. Potassium 4.3. Physical examination: Gen: This is 75-year-old female in no acute distress VS: reviewed HEENT: Head is atraumatic, normocephalic. Conjunctival pale. Pupils equal, round. Sclerae is anicteric. NECK: Supple. No JVD. LUNGS: Clear to auscultation. No wheezes or rhonchi. No intercostal retractions. HEART: Regular rate and rhythm. No murmur. ABDOMEN: Soft No tenderness. EXTREMITIES: No pedal edema. No calf tenderness. NEUROLOGICAL: Patient is awake, alert and oriented x3. Assessment: Dyspnea on exertion secondary to severe anemia Chronic diastolic heart failure Paroxysmal atrial fibrillation usually on Xarelto at home Acute blood loss anemia, status posttransfusion 2 units packed RBCs Possible acute GI bleed, GI workup in progress Hypertension Dyslipidemia History of pulmonary embolism Plan: Continue patient's home cardiac medications Xarelto has been resumed Patient is cleared for discharge from cardiology perspective and will follow-up in the office with Dr. Bahena in 2 weeks. Nurse practitioner note has been reviewed, I agree with documented findings and plan of care. Patient was seen and examined. Objective - Vital Signs Vital signs: Vital Signs Temp 98.4 F 06/25/25 08:05 Pulse 70 06/25/25 08:28 Resp 16 06/25/25 08:05 BP 108/57 06/25/25 08:05 Pulse Ox 92 L 06/25/25 08:05 FiO2 Intake & Output 06/24/25 06/25/25 06/25/25 18:59 06:59 18:59 Intake Total 560 140 120 Output Total 900 Balance 560 -760 120 Weight 146.7 kg Intake: IV 320 20 10 Invasive Line 1 20 20 10 Oral 240 120 110 Output: Urine 900 Other: Voiding Method Toilet # Voids 5 # Bowel Movements 2 - Labs CBC & Chem 7: 06/25/25 07:16 06/25/25 07:16 Labs: Abnormal Lab Results - Last 24 Hours (Table) 06/24/25 06/24/25 06/24/25 Range/Units 07:43 11:39 16:55 RBC (4.10-5.20) 10*6/uL Hgb (12.0-15.0) g/dL Hct (37.2-46.3) % MCHC (32.0-37.0) g/dL Lymphocytes # (0.90-5.00) 10*3/uL BUN 31 H (7-17) mg/dL Creatinine 1.27 H (0.52-1.04) mg/dL Glucose 129 H (74-99) mg/dL POC Glucose (mg/dL) 188 H 183 H (70-110) mg/dL Total Bilirubin 1.6 H (0.2-1.3) mg/dL AST 40 H (14-36) U/L Total Protein 5.6 L (6.3-8.2) g/dL Albumin 3.2 L (3.5-5.0) g/dL 06/24/25 06/25/25 06/25/25 Range/Units 20:03 05:45 07:16 RBC 2.69 L (4.10-5.20) 10*6/uL Hgb 7.5 L (12.0-15.0) g/dL Hct 24.5 L (37.2-46.3) % MCHC 30.6 L (32.0-37.0) g/dL Lymphocytes # 0.88 L (0.90-5.00) 10*3/uL BUN (7-17) mg/dL Creatinine (0.52-1.04) mg/dL Glucose (74-99) mg/dL POC Glucose (mg/dL) 251 H 228 H (70-110) mg/dL Total Bilirubin (0.2-1.3) mg/dL AST (14-36) U/L Total Protein (6.3-8.2) g/dL Albumin (3.5-5.0) g/dL 06/25/25 Range/Units 07:16 RBC (4.10-5.20) 10*6/uL Hgb (12.0-15.0) g/dL Hct (37.2-46.3) % MCHC (32.0-37.0) g/dL Lymphocytes # (0.90-5.00) 10*3/uL BUN 28 H (7-17) mg/dL Creatinine 1.37 H (0.52-1.04) mg/dL Glucose 166 H (74-99) mg/dL POC Glucose (mg/dL) (70-110) mg/dL Total Bilirubin (0.2-1.3) mg/dL AST (14-36) U/L Total Protein (6.3-8.2) g/dL Albumin (3.5-5.0) g/dL
[2025-06-25 11:48] LABS: Glucose,Whole Blood 270 mg/dL (70-110)
[2025-06-25 12:17] VITALS: BP 172/69
[2025-06-25] MEDS: SODIUM FERRIC GLUCONAT-SUCROSE 125 MG in SODIUM CHLORIDE 0.9% 100 ML IVPB SCH (13:21)
[2025-06-25 15:57] VITALS: PULSE 75
[2025-06-25 16:32] LABS: Glucose,Whole Blood 256 mg/dL (70-110)
--- NOTE | 2025-06-27 14:26 | P.DS ---
Providers Date of admission: 06/22/25 16:24 Expected date of discharge: 06/25/25 Attending physician: Darcy Partida Consults: 06/22/25 16:52 Consult Physician Stat Consulting Provider: Matt Mitchell Consult Reason/Comments: Anemia Do you want consulting provider notified?: Yes, Notify in am Consult Physician Stat Consulting Provider: Juan Bahena Consult Reason/Comments: Congestive heart failure Do you want consulting provider notified?: Yes, Notify in am 06/22/25 18:26 Consult Physician Routine Consulting Provider: Albertina Bahena Consult Reason/Comments: anemia- scopes? Do you want consulting provider notified?: Yes Primary care physician: Daniel Alcaraz Hospital Course: Final diagnosis CHF acute exacerbation with acute on chronic diastolic dysfunction Anemia, secondary to gastric antral vascular ectasia status post argon plasma coagulation Status post colonoscopy showing nonbleeding AVMs in the cecum as well as ascending colon Cirrhosis of the liver possibly History of iron deficiency anemia receives iron infusions outpatient History of DVT, pulmonary embolus maintained on Xarelto Hypertension Hyperlipidemia History of diabetes mellitus, type II History of COPD, not in exacerbation Morbid obesity with a BMI 59.2 GI prophylaxis DVT prophylaxis Full code Discharge disposition Patient is being discharged in a stable condition with guarded prognosis to home. Patient will follow-up with Dr. Alcaraz in the outpatient setting upon discharge. Patient is to continue with current medications resume Xarelto per GI with outpatient follow-up with and cardiology as scheduled. Repeat labs recommended to monitor electrolytes and kidney functions. Total time taken is greater than 35 minutes. Hospital course This is a 75-year-old female who was recently admitted with shortness of breath with CHF exacerbation with concerns of anemia being closely followed by cardiology as well as GI. Patient is status post EGD/colon Skippy showing scattered ectasia of the antrum with nonbleeding AVMs in the cecum as well as colon status post argon plasma coagulation. Biopsies obtained will follow-up with GI outpatient. Patient also being monitored by cardiology for CHF exacerbation with acute on chronic bilateral lower extremity edema. Patient also has large body habitus and is morbidly obese although reports has been having difficulties with swelling for over 6 months. Patient continues on Lasix although kidney functions are mildly elevated and recommend fluid restrictions and compression stockings with elevating lower extremities and outpatient fo llow-up with cardiology in 1 week. Patient has been cleared by consultations and will discharge home today. Guarded prognosis and high risk for readmissions given significant comorbidities. Currently no reports of chest pain, shortness of breath, or palpitations. Patient is afebrile. No reports of nausea or vomiting and patient is tolerating diet. Patient will be going home today. Physical exam: Gen: This is a 75-year-old female who is awake, alert and oriented x 3, well- developed, elderly appearing, morbidly obese HEENT: Head is atraumatic, normocephalic. Pupils equal, round. Sclerae is anicteric. NECK: Supple. No JVD. No lymphadenopathy. No thyromegaly. LUNGS: Diminished breath sounds bilaterally otherwise clear to auscultation. No wheezes or rhonchi. No intercostal retractions. HEART: S1, S2 are muffled ABDOMEN: Soft. Morbidly obese bowel sounds are present. No masses. No tenderness. EXTREMITIES: No pedal edema. No calf tenderness. Chronic lower extremity edema oh. CLEAR what I know NEUROLOGICAL: Patient is awake, alert and oriented x3. Cranial nerves 2 through 12 are grossly intact. Please refer to medication reconciliation sheet for a list of medications. The impression and plan of care has been dictated by Yolie Varela, Nurse Practitioner as directed. Dr. Kelly MD I have performed a history and examination and MDM of this patient, discussed the same with the dictator, and agree with the dictator's assessment and plan as written ,documented as a scribe. Based on total visit time, I have performed more than 50% of the visit. Patient Condition at Discharge: Fair Plan - Discharge Summary Discharge Rx Participant: No New Discharge Prescriptions: No Action Pravastatin Sodium [Pravachol] 20 mg PO HS Montelukast [Singulair] 10 mg PO HS Omeprazole 20 mg PO BID Escitalopram [Lexapro] 20 mg PO DAILY Calcium Carbonate [Calcium] 600 mg PO DAILY Ubidecarenone [Co Q-10] 200 mg PO DAILY Vit C/E/Zn/Coppr/Lutein/Zeaxan [Preservision Areds 2 Softgel] 1 cap PO BID Losartan [Cozaar] 25 mg PO DAILY Dapagliflozin Propanediol [Farxiga] 10 mg PO DAILY Biotin 5,000 mcg PO DAILY Levothyroxine Sodium [Synthroid] 50 mcg PO DAILY Rivaroxaban [Xarelto] 20 mg PO PC-SUPPER Discharge Medication List Montelukast [Singulair] 10 mg PO HS 02/04/17 [History] Pravastatin Sodium [Pravachol] 20 mg PO HS 02/04/17 [History] Omeprazole 20 mg PO BID 04/24/17 [History] Calcium Carbonate [Calcium] 600 mg PO DAILY 04/11/20 [History] Escitalopram [Lexapro] 20 mg PO DAILY 04/11/20 [History] Ubidecarenone [Co Q-10] 200 mg PO DAILY 04/11/20 [History] Vit C/E/Zn/Coppr/Lutein/Zeaxan [Preservision Areds 2 Softgel] 1 cap PO BID 04/11/20 [History] Levothyroxine Sodium [Synthroid] 50 mcg PO DAILY 01/24/24 [History] Losartan [Cozaar] 25 mg PO DAILY 01/24/24 [History] Rivaroxaban [Xarelto] 20 mg PO PC-SUPPER 01/24/24 [History] Biotin 5,000 mcg PO DAILY 06/22/25 [History] Dapagliflozin Propanediol [Farxiga] 10 mg PO DAILY 06/22/25 [History] Follow up Appointment(s)/Referral(s): Matt Mitchell [STAFF PHYSICIAN] - 07/05/25 1:30 pm (Appt at [facility] ) Deejay Villaseñor MD [STAFF PHYSICIAN] - 07/02/25 8:45 am Daniel Alcaraz MD [Primary Care Provider] - 07/05/25 1:00 pm Albertina Bahena MD [STAFF PHYSICIAN] - 1 Week Patient Instructions/Handouts: Heart Failure (DC) Activity/Diet/Wound Care/Special Instructions: Activity limited until follow-up Follow-up with primary care provider on discharge Follow-up with cardiology outpatient Follow-up with GI outpatient Continue taking medications as prescribed and okay to resume Xarelto starting tomorrow 06/26/2025 Repeat labs in the next few days to monitor hemoglobin Discharge Disposition: HOME SELF-CARE
== END 2025-06-25 18:02 | disposition home or self-care (01) | DRG 377 ==
LOC: EC 13:27 → 3SCARD 16:24
PROVIDERS: ADMIT Hospitalist; ATTEND Hospitalist
PROC: 30233N1 Transfusion of Nonautologous Red Blood Cells into Peripheral Vein, Percutaneous Approach (ICD-10-PCS; 2025-06-22)
PROC: 0W3P8ZZ Control Bleeding in Gastrointestinal Tract, Via Natural or Artificial Opening Endoscopic (ICD-10-PCS; principal; 2025-06-24 13:30)
PROC: 0W3P8ZZ Control Bleeding in Gastrointestinal Tract, Via Natural or Artificial Opening Endoscopic (ICD-10-PCS; 2025-06-24 13:30)
DX: K55.21 Angiodysplasia of colon with hemorrhage (principal); I50.33 Acute on chronic diastolic (congestive) heart failure; R18.8 Other ascites; Z68.43 Body mass index [BMI] 50.0-59.9, adult; D62 Acute posthemorrhagic anemia; I11.0 Hypertensive heart disease with heart failure; K74.60 Unspecified cirrhosis of liver; E11.9 Type 2 diabetes mellitus without complications; J44.9 Chronic obstructive pulmonary disease, unspecified; I08.3 Combined rheumatic disorders of mitral, aortic and tricuspid valves; E66.01 Morbid (severe) obesity due to excess calories; I48.0 Paroxysmal atrial fibrillation; E78.5 Hyperlipidemia, unspecified; K57.30 Diverticulosis of large intestine without perforation or abscess without bleeding; K80.20 Calculus of gallbladder without cholecystitis without obstruction; I99.8 Other disorder of circulatory system; Z79.01 Long term (current) use of anticoagulants; Z79.84 Long term (current) use of oral hypoglycemic drugs; Z79.890 Hormone replacement therapy; Z79.899 Other long term (current) drug therapy; Z86.718 Personal history of other venous thrombosis and embolism; Z86.711 Personal history of pulmonary embolism; Z87.891 Personal history of nicotine dependence
CPT/HCPCS: 36415; 36430; 43270; 45388; 71046; 71275; 80048; 80053; 80074; 82140; 82607; 82728; 82746; 83036; 83540; 83550; 83735; 83880; 84439; 84443; 84484; 85025; 85379; 85610; 85730; 86850; 86900; 86901; 86920; 93005; 93306; 93970; 94640; 96361; 96374; 99291